=== PATIENT | female | born 1960 | race Caucasian/White ===

== ENCOUNTER 2016-05-18 13:18 | Inpatient (IN) | payer MEDICAID ==
[2016-05-18] MEDS ORDERED: Lactated Ringers 1,000 ML IV ONE (14:02)
[2016-05-18] MEDS ORDERED: Sodium Chloride 0.9% 10 ML Syringe FLUSH PRN ×2 (14:02→17:20)
[2016-05-18] MEDS ORDERED: Ibuprofen 200 MG Tab, 24 Tab Bulk Bottle PO PRN (14:04)
--- NOTE | 2016-05-18 14:07 | EDM.PDOC ---
ED HISTORY OF PRESENT ILLNESS - General Chief Complaint: Respiratory Problem Stated Complaint: SOB, PASSED OUT, FEVER Time Seen by Provider: 05/18/16 13:52 Source: Reports: Patient, Family, RN notes reviewed History Limitations: Reports: No limitations - History of Present Illness INITIAL COMMENTS - FREE TEXT/NARRATIVE: 56-year-old female presents to the emergency department a complaint of shortness of breath, she states the shortness of breath really has gotten worse over the last 24 hours does have a known history of asthma she has had upper respiratory symptoms for the last several days at home mainly with runny nose started having fevers today as well. - Related Data Allergies/ADRs: Allergies Allergy/AdvReac Type Severity Reaction Status Date / Time No Known Allergies Allergy Verified 08/19/15 22:53 Home Meds: Home Meds Aspirin [Halfprin] 81 mg PO DAILY 08/19/15 [History] Cranberry Extract [Cranberry] 200 mg PO DAILY 08/19/15 [History] Insulin Glarg,Human.Rec.Analog [Lantus] 42 units SQ BEDTIME 08/19/15 [History] Insulin Lispro [Humalog] 10 units SQ TID 08/19/15 [History] Lisinopril [Lisinopril] 40 mg PO DAILY 08/19/15 [History] amLODIPine Besylate [Amlodipine Besylate] 5 mg PO DAILY 08/19/15 [History] Furosemide [Lasix] 40 mg PO DAILY 05/18/16 [History] Past Medical History Respiratory History: Reports: 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: Endocrine/Metabolic History: Reports: Diabetes, type II, Obesity/BMI 30+ - Infectious Disease History Infectious Disease History: Reports: Chicken pox, Measles, Mumps - Past Surgical History HEENT Surgical History: Reports: Eye surgery Other Cardiovascular Surgeries/Procedures: cardiomegaly GI Surgical History: Reports: Appendectomy Musculoskeletal Surgical History: Reports: Carpal tunnel Social & Family History - Family History Cardiac: Reports: Heart failure - Tobacco Use Smoking Status *Q: Never Smoker Second Hand Smoke Exposure: No - Caffeine Use Caffeine Use: Reports: Soda - Recreational Drug Use Recreational Drug Use: No ED ROS GENERAL - Review of Systems Review Of Systems: See Below Constitutional: Reports: fever, chills HEENT: Reports: Rhinitis Respiratory: Reports: shortness of breath, cough. Denies: sputum Cardiovascular: Reports: No symptoms GI/Abdominal: Reports: No symptoms : Reports: no symptoms Musculoskeletal: Reports: no symptoms Skin: Reports: no symptoms Neurological: Reports: no symptoms ED EXAM, GENERAL - Physical Exam Exam: See Below Free Text/Narrative:: General: Female, mild respiratory distress initially hypoxic responded to oxygen , alert and oriented x3 HEENT: head is atraumatic normocephalic, eyes pupils equal round reactive to light and accommodation sclera clear no conjunctivitis appreciated. Ears tympanic membranes clear and [place] landmarks and light reflex are present bilaterally canals are clear. Nose no septal deviation, nares are clear, no blood present. Mouth mucosa is moist and pink no erythema or exudate noted in soft palate, tongue is midline uvula is midline, dentition is intact. Neck: Supple no thyromegaly no tracheal deviation. Nodes: Cervical nodes subclavicular nodes nontender no palpable lymphadenopathy noted. Lungs: clear to auscultation bilaterally with symmetrical respirations, no adventitious noise appreciated. CV: Regular rate and rhythm S1 and S2 appreciated no murmurs rubs or gallops noted. Abdomen: Soft, nontender, no palpable masses or organomegaly appreciated, no distention no guarding bowel sounds are present, . Neuro: Cranial nerves II through XII grossly intact Skin: Hot and dry, intact Extremities: No lower extremity edema appreciated, . Course - Vital Signs Last Recorded V/S: Last Vital Signs Temp 100.9 F H 05/18/16 13:33 Pulse 124 H 05/18/16 14:35 Resp 24 H 05/18/16 14:35 BP 177/91 H 05/18/16 14:35 Pulse Ox 92 L 05/18/16 14:35 - Orders/Labs/Meds Orders: Active Orders 24 hr Category Date Time Status EKG Documentation Completion [RC] ASDIRECTED Care 05/18/16 14:05 Active Peripheral IV Care [RC] . DIRECTED Care 05/18/16 14:03 Active Chest 2V [CR] Urgent Exams 05/18/16 14:02 Taken CULTURE BLOOD [BC] Urgent Lab 05/18/16 14:10 Received CULTURE BLOOD [BC] Urgent Lab 05/18/16 14:20 Received Ibuprofen [Motrin] Med 05/18/16 14:35 Active 600 mg PO Q6H PRN Lactated Ringers [Ringers, Lactated] 1,000 ml Med 05/18/16 14:02 Active IV ASDIRECTED Sodium Chloride 0.9% [Saline Flush] Med 05/18/16 14:02 Active 10 ml FLUSH ASDIRECTED PRN Blood Culture x2 Reflex Set [OM.PC] Urgent Oth 05/18/16 14:04 Ordered Peripheral IV Insertion Adult [OM.PC] Urgent Oth 05/18/16 14:02 Ordered EKG 12 Lead [EK] Stat Ther 05/18/16 14:05 Ordered Medication Orders Lactated Ringer's (Ringers, Lactated) 1,000 mls @ 500 mls/hr IV ASDIRECTED ONE Stop: 05/18/16 16:01 Last Admin: 05/18/16 14:31 Dose: 500 mls/hr Ibuprofen (Motrin) 600 mg PO Q6H PRN PRN Reason: Pain Last Admin: 05/18/16 14:41 Dose: 600 mg Sodium Chloride (Saline Flush) 10 ml FLUSH ASDIRECTED PRN PRN Reason: Keep Vein Open Last Admin: 05/18/16 14:32 Dose: 10 ml Labs: Laboratory Tests 05/18/16 05/18/16 05/18/16 Range/Units 14:28 14:28 14:28 WBC 10.1 (4.5-11.0) K/uL RBC 4.75 (3.30-5.50) M/uL Hgb 12.7 (12.0-15.0) g/dL Hct 38.3 (36.0-48.0) % MCV 81 (80-98) fL MCH 27 (27-31) pg MCHC 33 (32-36) % Plt Count 322 (150-400) K/uL Neut % (Auto) 79 H (36-66) % Lymph % (Auto) 8 L (24-44) % [place]oll[place] % (Auto) 11 H (2-6) % Eos % (Auto) 2 (2-4) % Baso % (Auto) 0 (0-1) % PT 10.0 (9.5-12.0) sec INR 0.95 (0.80-1.20) APTT 27.0 (27.0-36.0) sec Sodium 136 L (140-148) mmol/L Potassium 4.4 (3.6-5.2) mmol/L Chloride 102 (100-108) mmol/L Carbon Dioxide 29 (21-32) mmol/L Anion Gap 9.4 (5.0-14.0) mmol/L BUN 24 H (7-18) mg/dL Creatinine 0.9 (0.6-1.0) mg/dL Est Cr Clr Drug Dosing 60.99 mL/min Estimated GFR (MDRD) > 60 (>60) Glucose 114 H (74-106) mg/dL Lactic Acid (0.4-2.0) mmol/L Calcium 8.2 L (8.5-10.1) mg/dL Total Bilirubin 0.3 (0.2-1.0) mg/dL AST 17 (15-37) U/L ALT 24 (12-78) U/L Alkaline Phosphatase 61 (46-116) U/L Troponin I < 0.017 (0.000-0.056) ng/mL Total Protein 7.2 (6.4-8.2) g/dL Albumin 2.9 L (3.4-5.0) g/dL Globulin 4.3 H (2.3-3.5) g/dL Albumin/Globulin Ratio 0.7 L (1.2-2.2) Urine Color Urine Appearance Urine pH (4.5-8.0) Ur Specific [place] (1.008-1.030) Urine Protein (NEGATIVE) mg/dL Urine Glucose (UA) (NEGATIVE) mg/dL Urine Ketones (NEGATIVE) mg/dL Urine Occult Blood (NEGATIVE) Urine Nitrite (NEGATIVE) Urine Bilirubin (NEGATIVE) Urine Urobilinogen (NORMAL) mg/dL Ur Leukocyte Esterase (NEGATIVE) Urine RBC (0-5) Urine WBC (0-5) Ur Epithelial Cells Amorphous Sediment Urine Bacteria Urine Mucus 05/18/16 05/18/16 Range/Units 14:28 14:31 WBC (4.5-11.0) K/uL RBC (3.30-5.50) M/uL Hgb (12.0-15.0) g/dL Hct (36.0-48.0) % MCV (80-98) fL MCH (27-31) pg MCHC (32-36) % Plt Count (150-400) K/uL Neut % (Auto) (36-66) % Lymph % (Auto) (24-44) % [place] % (Auto) (2-6) % Eos % (Auto) (2-4) % Baso % (Auto) (0-1) % PT (9.5-12.0) sec INR (0.80-1.20) APTT (27.0-36.0) sec Sodium (140-148) mmol/L Potassium (3.6-5.2) mmol/L Chloride (100-108) mmol/L Carbon Dioxide (21-32) mmol/L Anion Gap (5.0-14.0) mmol/L BUN (7-18) mg/dL Creatinine (0.6-1.0) mg/dL Est Cr Clr Drug Dosing mL/min Estimated GFR (MDRD) (>60) Glucose (74-106) mg/dL Lactic Acid 1.0 (0.4-2.0) mmol/L Calcium (8.5-10.1) mg/dL Total Bilirubin (0.2-1.0) mg/dL AST (15-37) U/L ALT (12-78) U/L Alkaline Phosphatase (46-116) U/L Troponin I (0.000-0.056) ng/mL Total Protein (6.4-8.2) g/dL Albumin (3.4-5.0) g/dL Globulin (2.3-3.5) g/dL Albumin/Globulin Ratio (1.2-2.2) Urine Color Yellow Urine Appearance Slightly cloudy Urine pH 7.0 (4.5-8.0) Ur Specific [place] 1.010 (1.008-1.030) Urine Protein 500 H (NEGATIVE) mg/dL Urine Glucose (UA) Normal (NEGATIVE) mg/dL Urine Ketones Negative (NEGATIVE) mg/dL Urine Occult Blood Moderate (NEGATIVE) Urine Nitrite Negative (NEGATIVE) Urine Bilirubin Negative (NEGATIVE) Urine Urobilinogen Normal (NORMAL) mg/dL Ur Leukocyte Esterase Negative (NEGATIVE) Urine RBC 20-30 H (0-5) Urine WBC 0-5 (0-5) Ur Epithelial Cells Few Amorphous Sediment Not seen Urine Bacteria Not seen Urine Mucus Not seen Meds: Medications Generic Name Dose Route Start Last Admin Trade Name Freq PRN Reason Stop Dose Admin Lactated Ringer's 1,000 mls @ 500 mls/hr 05/18/16 14:02 05/18/16 14:31 Ringers, Lactated IV 05/18/16 16:01 500 mls/hr ASDIRECTED ONE Administration Ibuprofen 600 mg 05/18/16 14:35 05/18/16 14:41 Motrin PO 600 mg Q6H PRN Administration Pain Sodium Chloride 10 ml 05/18/16 14:02 05/18/16 14:32 Saline Flush FLUSH 10 ml ASDIRECTED PRN Administration Keep Vein Open Discontinued Medications Generic Name Dose Route Start Last Admin Trade Name Gwendolyn PRN Reason Stop Dose Admin Ibuprofen 600 mg 05/18/16 14:04 Motrin Bulk Bottle PO Q6H PRN Pain Departure - Departure Time of Disposition: 15:49 Disposition: Admitted As Inpatient 67 Condition: good Clinical Impression: Influenza Pneumonia Qualifiers: Pneumonia type: due to influenza A virus Laterality: right Lung location: lower lobe of lung Qualified Code(s): J11.00 - Influenza due to unidentified influenza virus with unspecified type of pneumonia Forms: ED Department Discharge - My Orders Last 24 Hours: My Active Orders 05/18/16 14:02 Chest 2V [CR] Urgent Lactated Ringers [Ringers, Lactated] 1,000 ml IV ASDIRECTED Sodium Chloride 0.9% [Saline Flush] 10 ml FLUSH ASDIRECTED PRN Peripheral IV Insertion Adult [OM.PC] Urgent 05/18/16 14:03 Peripheral IV Care [RC] . DIRECTED 05/18/16 14:04 Blood Culture x2 Reflex Set [OM.PC] Urgent 05/18/16 14:05 EKG Documentation Completion [RC] ASDIRECTED EKG 12 Lead [EK] Stat 05/18/16 14:10 CULTURE BLOOD [BC] Urgent 05/18/16 14:20 CULTURE BLOOD [BC] Urgent 05/18/16 14:35 Ibuprofen [Motrin] 600 mg PO Q6H PRN - Assessment/Plan Last 24 Hours: My Active Orders 05/18/16 14:02 Chest 2V [CR] Urgent Lactated Ringers [Ringers, Lactated] 1,000 ml IV ASDIRECTED Sodium Chloride 0.9% [Saline Flush] 10 ml FLUSH ASDIRECTED PRN Peripheral IV Insertion Adult [OM.PC] Urgent 05/18/16 14:03 Peripheral IV Care [RC] . DIRECTED 05/18/16 14:04 Blood Culture x2 Reflex Set [OM.PC] Urgent 05/18/16 14:05 EKG Documentation Completion [RC] ASDIRECTED EKG 12 Lead [EK] Stat 05/18/16 14:10 CULTURE BLOOD [BC] Urgent 05/18/16 14:20 CULTURE BLOOD [BC] Urgent 05/18/16 14:35 Ibuprofen [Motrin] 600 mg PO Q6H PRN Plan: Assessment Acuity = acute Site and laterality = influenza A. with community-acquired pneumonia Etiology = influenza A. Manifestations = hypoxic Location of injury = home Lab values = CBC within normal limits, INR in the normal limits sodium of 136 hyponatremia troponin was negative albumin low at 2.9 consistent hypoalbuminemia urinalysis demonstrates 500 protein consist of proteinuria and 20-30 RBCs this with hematuria positive for influenza A. chest x-ray does show an infiltrate on the right side in EKG demonstrates sinus rhythm no ST changes or depressions no T-wave inversions Plan Discussed the case with hospitalist wind operations manager he agreed to evaluate the patient in the ED for admission Patient was in agreement with the plan all questions were answered, they were instructed to return to the emergency department or call for worsening symptoms. This note was dictated using [employer] voice recognition software please call with any questions.
[2016-05-18] MEDS ORDERED: Ibuprofen 600 MG Tab PO PRN (14:35)
--- NOTE | 2016-05-18 16:37 | PCM.HP ---
H&P History of Present Illness - General Date of Service: 05/18/16 Admit Problem/Dx: Admission Diagnosis/Problem Admission Diagnosis/Problem Pneumonia Source of Information: Patient, Family, Provider, RN notes reviewed History Limitations: Reports: No limitations - History of Present Illness Initial Comments - Free Text/Narative: This patient is a 56-year-old woman who was admitted through the emergency department with sepsis and hypoxic respiratory failure secondary to right lung pneumonia and influenza a. She began to note some shortness of breath last night and that worsened throughout the jigman hours this morning noted marked shortness of breath associated with fever and a nonproductive cough. 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 On evaluation in the emergency department she is found to be hypoxic and currently requiring 4 L of oxygen via nasal cannula to maintain adequate saturations. She is tachycardic with adequate blood pressure , normal white blood cell count, and normal lactic acid level. Influenza A antigen is found to be positive and chest x-ray shows a right lung infiltrate. - Related Data Allergies/Adverse Reactions: Allergies Allergy/AdvReac Type Severity Reaction Status Date / Time No Known Allergies Allergy Verified 08/19/15 22:53 Home Medications: Home Meds Aspirin [Halfprin] 81 mg PO DAILY 08/19/15 [History] Cranberry Extract [Cranberry] 200 mg PO DAILY 08/19/15 [History] Insulin Glarg,Human.Rec.Analog [Lantus] 42 units SQ BEDTIME 08/19/15 [History] Insulin Lispro [Humalog] 10 units SQ TID 08/19/15 [History] Lisinopril [Lisinopril] 40 mg PO DAILY 08/19/15 [History] amLODIPine Besylate [Amlodipine Besylate] 5 mg PO DAILY 08/19/15 [History] Furosemide [Lasix] 40 mg PO DAILY 05/18/16 [History] Past Medical History - Past Health History Medical/Surgical History: Denies Medical/Surgical History 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: Endocrine/Metabolic History: Reports: Diabetes, type II, Obesity/BMI 30+ - Infectious Disease History Infectious Disease History: Reports: Chicken pox, Measles, Mumps - Past Surgical History HEENT Surgical History: Reports: Eye surgery Other Cardiovascular Surgeries/Procedures: cardiomegaly GI Surgical History: Reports: Appendectomy Musculoskeletal Surgical History: Reports: Carpal tunnel Social & Family History - Family History Cardiac: Reports: Heart failure - Tobacco Use Smoking Status *Q: Never Smoker Second Hand Smoke Exposure: No - Caffeine Use Caffeine Use: Reports: Soda - Recreational Drug Use Recreational Drug Use: No H&P Review of Systems - Review of Systems: Review Of Systems: See Below General: Reports: fever, chills, weakness HEENT: Reports: no symptoms Pulmonary: Reports: shortness of breath, cough. Denies: wheezing, pleuritic chest pain, sputum, hemoptysis Cardiovascular: Reports: dyspnea on exertion, edema. Denies: chest pain, palpitations, orthopnea, PND, lightheadedness, syncope Gastrointestinal: Reports: No symptoms Genitourinary: Reports: no symptoms Musculoskeletal: Reports: no symptoms Skin: Reports: no symptoms Psychiatric: Reports: no symptoms Neurological: Reports: no symptoms Hematologic/Lymphatic: Reports: no symptoms Immunologic: Reports: no symptoms Exam - Exam Exam: See Below - Vital Signs Vital Signs: Last Vital Signs Temp 100.9 F H 05/18/16 13:33 Pulse 124 H 05/18/16 14:35 Resp 24 H 05/18/16 14:35 BP 177/91 H 05/18/16 14:35 Pulse Ox 92 L 05/18/16 14:35 Weight: 261 lb 14.546 oz - Exam Quality Assessment: supplemental oxygen, DVT prophylaxis General: alert, oriented, cooperative, mild distress HEENT: Conjunctiva clear, Hearing intact, Mucosa moist & pink, Nares patent, Normal nasal septum, Posterior pharynx clear, Pupils equal, Pupils reactive Neck: supple, trachea midline, +2 carotid pulse wo bruit Lungs: Decreased breath sounds. No: Crackles, Rales, Rhonchi, Rub, Stridor, Wheezing Cardiovascular: regular rhythm, normal S1, normal S2, tachycardia. No: irregular rhythm, bradycardia, systolic murmur, diastolic murmur Abdomen: normal bowel sounds, soft Back Exam: normal inspection, full range of motion, NT Extremities: edema Skin: warm, dry, intact Neurological: cranial nerves intact, strength equal bilateral, normal speech, normal tone, sensation intact. No: focal deficit Neuro Extensive - Mental Status: alert, oriented x3, normal mood/affect, normal cognition, memory intact - Patient Data Lab Results last 24 hrs: Laboratory Results - last 24 hr 05/18/16 05/18/16 05/18/16 Range/Units 14:28 14:28 14:28 WBC 10.1 (4.5-11.0) K/uL RBC 4.75 (3.30-5.50) M/uL Hgb 12.7 (12.0-15.0) g/dL Hct 38.3 (36.0-48.0) % MCV 81 (80-98) fL MCH 27 (27-31) pg MCHC 33 (32-36) % Plt Count 322 (150-400) K/uL Neut % (Auto) 79 H (36-66) % Lymph % (Auto) 8 L (24-44) % [place] % (Auto) 11 H (2-6) % Eos % (Auto) 2 (2-4) % Baso % (Auto) 0 (0-1) % PT 10.0 (9.5-12.0) sec INR 0.95 (0.80-1.20) APTT 27.0 (27.0-36.0) sec Sodium 136 L (140-148) mmol/L Potassium 4.4 (3.6-5.2) mmol/L Chloride 102 (100-108) mmol/L Carbon Dioxide 29 (21-32) mmol/L Anion Gap 9.4 (5.0-14.0) mmol/L BUN 24 H (7-18) mg/dL Creatinine 0.9 (0.6-1.0) mg/dL Est Cr Clr Drug Dosing 60.99 mL/min Estimated GFR (MDRD) > 60 (>60) Glucose 114 H (74-106) mg/dL Lactic Acid (0.4-2.0) mmol/L Calcium 8.2 L (8.5-10.1) mg/dL Total Bilirubin 0.3 (0.2-1.0) mg/dL AST 17 (15-37) U/L ALT 24 (12-78) U/L Alkaline Phosphatase 61 (46-116) U/L Troponin I < 0.017 (0.000-0.056) ng/mL Total Protein 7.2 (6.4-8.2) g/dL Albumin 2.9 L (3.4-5.0) g/dL Globulin 4.3 H (2.3-3.5) g/dL Albumin/Globulin Ratio 0.7 L (1.2-2.2) Urine Color Urine Appearance Urine pH (4.5-8.0) Ur Specific [place] (1.008-1.030) Urine Protein (NEGATIVE) mg/dL Urine Glucose (UA) (NEGATIVE) mg/dL Urine Ketones (NEGATIVE) mg/dL Urine Occult Blood (NEGATIVE) Urine Nitrite (NEGATIVE) Urine Bilirubin (NEGATIVE) Urine Urobilinogen (NORMAL) mg/dL Ur Leukocyte Esterase (NEGATIVE) Urine RBC (0-5) Urine WBC (0-5) Ur Epithelial Cells Amorphous Sediment Urine Bacteria Urine Mucus 05/18/16 05/18/16 Range/Units 14:28 14:31 WBC (4.5-11.0) K/uL RBC (3.30-5.50) M/uL Hgb (12.0-15.0) g/dL Hct (36.0-48.0) % MCV (80-98) fL MCH (27-31) pg MCHC (32-36) % Plt Count (150-400) K/uL Neut % (Auto) (36-66) % Lymph % (Auto) (24-44) % [place] % (Auto) (2-6) % Eos % (Auto) (2-4) % Baso % (Auto) (0-1) % PT (9.5-12.0) sec INR (0.80-1.20) APTT (27.0-36.0) sec Sodium (140-148) mmol/L Potassium (3.6-5.2) mmol/L Chloride (100-108) mmol/L Carbon Dioxide (21-32) mmol/L Anion Gap (5.0-14.0) mmol/L BUN (7-18) mg/dL Creatinine (0.6-1.0) mg/dL Est Cr Clr Drug Dosing mL/min Estimated GFR (MDRD) (>60) Glucose (74-106) mg/dL Lactic Acid 1.0 (0.4-2.0) mmol/L Calcium (8.5-10.1) mg/dL Total Bilirubin (0.2-1.0) mg/dL AST (15-37) U/L ALT (12-78) U/L Alkaline Phosphatase (46-116) U/L Troponin I (0.000-0.056) ng/mL Total Protein (6.4-8.2) g/dL Albumin (3.4-5.0) g/dL Globulin (2.3-3.5) g/dL Albumin/Globulin Ratio (1.2-2.2) Urine Color Yellow Urine Appearance Slightly cloudy Urine pH 7.0 (4.5-8.0) Ur Specific [place] 1.010 (1.008-1.030) Urine Protein 500 H (NEGATIVE) mg/dL Urine Glucose (UA) Normal (NEGATIVE) mg/dL Urine Ketones Negative (NEGATIVE) mg/dL Urine Occult Blood Moderate (NEGATIVE) Urine Nitrite Negative (NEGATIVE) Urine Bilirubin Negative (NEGATIVE) Urine Urobilinogen Normal (NORMAL) mg/dL Ur Leukocyte Esterase Negative (NEGATIVE) Urine RBC 20-30 H (0-5) Urine WBC 0-5 (0-5) Ur Epithelial Cells Few Amorphous Sediment Not seen Urine Bacteria Not seen Urine Mucus Not seen Result Diagrams: 05/18/16 14:28 05/18/16 14:28 Tim Results last 24 hrs: Microbiology 05/18/16 14:19 Influenza Type A Antigen Screen - Final Nasopharyngeal Swab - Nare, Right Positive Influenza A Ag Influenza Type B Antigen Screen - Final NEGATIVE INFLUENZA B VIRUS AG *Q Meaningful Use (ADM) - VTE *Q VTE Criteria *Q: - VTE Risk Assess *Q Each Risk Factor Represents 1 Point: Age 41 - 59 years, Sepsis, Less than 1 Month Total Score 1 Point Risk Factors: 2 Each Risk Factor Represents 2 Points: Morbid Obesity (BMI Greater than 40) Total Score 2 Point Risk Factors: 2 Each Risk Factor Represents 3 Points: None Total Score 3 Point Risk Factors: 0 Each Risk Factor Represents 5 Points: None Total Score 5 Point Risk Factors: 0 Venous Thromboembolism Risk Factor Score *Q: 4 - Stroke *Q Stroke Criteria *Q: - AMI *Q AMI Criteria *Q: Problem List Initiated/Reviewed/Updated: Yes Orders Last 24hrs: Active Orders 24 hr Category Date Time Status Patient Status Manage Transfer [TRANSFER] Routine ADT 05/18/16 16:13 Ordered EKG Documentation Completion [RC] ASDIRECTED Care 05/18/16 14:05 Active Peripheral IV Care [RC] . DIRECTED Care 05/18/16 14:03 Active Chest 2V [CR] Urgent Exams 05/18/16 14:02 Taken CULTURE BLOOD [BC] Urgent Lab 05/18/16 14:10 Received CULTURE BLOOD [BC] Urgent Lab 05/18/16 14:20 Received Ibuprofen [Motrin] Med 05/18/16 14:35 Active 600 mg PO Q6H PRN Sodium Chloride 0.9% [Saline Flush] Med 05/18/16 14:02 Active 10 ml FLUSH ASDIRECTED PRN Blood Culture x2 Reflex Set [OM.PC] Urgent Oth 05/18/16 14:04 Ordered Peripheral IV Insertion Adult [OM.PC] Urgent Oth 05/18/16 14:02 Ordered Resuscitation Status Routine Resus Stat 05/18/16 16:16 Ordered EKG 12 Lead [EK] Stat Ther 05/18/16 14:05 Ordered Medication Orders Ibuprofen (Motrin) 600 mg PO Q6H PRN PRN Reason: Pain Last Admin: 05/18/16 14:41 Dose: 600 mg Sodium Chloride (Saline Flush) 10 ml FLUSH ASDIRECTED PRN PRN Reason: Keep Vein Open Last Admin: 05/18/16 14:32 Dose: 10 ml Assessment/Plan Comment:: ASSESSMENT AND PLAN RIGHT LUNG PNEUMONIA WITH SEPSIS-significant hypoxia associated with tachycardia , white blood cell count is normal as is the lactic acid level. Possible that the infiltrate is secondary to influenza a but given her marked respiratory compromise we'll plan to start with aggressive antibiotic therapy. -IV fluids for hydration and management of sepsis -Blood and sputum cultures pending -IV Zosyn and levofloxacin, pending culture results INFLUENZA A -Tamiflu 75 mg by mouth twice a day ACUTE HYPOXIC RESPIRATORY FAILURE-likely secondary to pneumonia and influenza A. She does have a history of reactive airway disease, no significant wheezing noted by history or physical exam. -Arterial blood gases to better assess current level of respiratory compromise -Supplemental oxygen as needed -Nebulized albuterol and duo nebs TYPE 2 DIABETES MELLITUS -4 times a day glucometers -Continue usual doses of long and short acting insulin -Low-dose sliding scale NovoLog MAINTENANCE ISSUES -DVT prophylaxis; Lovenox 40 mg subcutaneous daily -GI prophylaxis; not indicated -Ayon catheter; not indicated -Nutrition; consistent carb diet -Nicotine dependence; not required CODE STATUS-FULL CODE ADMISSION STATUS-patient will be admitted to inpatient status, expect at least a 2 night hospital stay for evaluation and management of problems as outlined above. At the time of this admission I do not reasonably expected evaluation and management of this problem will require more than a 96 hour hospital stay. DISPOSITION-anticipate discharge to home after the hospital stay. PRIMARY CARE PROVIDER-Dr. Sanders
[2016-05-18] MEDS ORDERED: Ondansetron 4 MG/2 ML SDV IV PRN (17:20)
[2016-05-18] MEDS ORDERED: Magnesium Hydroxide 400 MG/5 ML Susp 30 ML Cup PO PRN (17:20)
[2016-05-18] MEDS ORDERED: Glucose Gel 15 GM in 37.5 GM Tube PO PRN (17:20)
[2016-05-18] MEDS ORDERED: Polyethylene Glycol 3350 Powder 17 GM Packet PO PRN (17:20)
[2016-05-18] MEDS ORDERED: Lactated Ringers 500 ML IV SCH (17:20)
[2016-05-18] MEDS ORDERED: oxyCODONE 5 MG Tab PO PRN (17:20)
[2016-05-18] MEDS ORDERED: 50% Dextrose in Water 50 ML Syringe IV PRN (17:20)
[2016-05-18] MEDS ORDERED: Docusate Sodium 100 MG Cap PO PRN (17:20)
[2016-05-18] MEDS ORDERED: Albuterol 0.083% 2.5 MG/3 ML Neb Soln NEB PRN (17:20)
[2016-05-18] MEDS ORDERED: Levofloxacin/Dextrose 5%-Water 100 ML IV ONE (17:31)
[2016-05-18] MEDS ORDERED: Sodium Chloride 0.9% 100 ML ONE (17:34)
[2016-05-18] MEDS: Oseltamivir 75 MG Cap PO SCH ×2 (17:45→21:35)
[2016-05-18] MEDS: Albuterol/Ipratropium 3.0-0.5 MG/3 ML Neb Soln ONE ×2 (17:46→17:59)
[2016-05-18] MEDS: Albuterol/Ipratropium 3.0-0.5 MG/3 ML Neb Soln NEB SCH ×2 (17:52→21:42)
[2016-05-18] MEDS ORDERED: Piperacillin/Tazobactam 3.375 GM in Sodium Chloride 0.9% 50 ML IV SCH (18:00)
[2016-05-18] MEDS ORDERED: Insulin Aspart 100 Units/ML 3 ML Pen ONE (18:13)
[2016-05-18] MEDS: Piperacillin/Tazobactam 3.375 GM in Sodium Chloride 0.9% 50 ML IV SCH (20:07)
[2016-05-18] MEDS ORDERED: Insulin Detemir 100 Units/ML 3 ML Pen SUBCUT SCH (21:00)
[2016-05-18] MEDS ORDERED: Insulin Lispro 100 Units/ML 3 ML Vial SUBCUT SCH (21:00)
[2016-05-18] MEDS: Lactated Ringers 1,000 ML IV SCH (21:57)
[2016-05-19] MEDS: Piperacillin/Tazobactam 3.375 GM in Sodium Chloride 0.9% 50 ML IV SCH (03:09)
[2016-05-19] MEDS: Acetaminophen 325 MG Tab PO PRN ×2 (03:16→20:03)
[2016-05-19] MEDS: Lactated Ringers 1,000 ML IV SCH (07:00)
[2016-05-19] MEDS: Albuterol/Ipratropium 3.0-0.5 MG/3 ML Neb Soln NEB SCH ×4 (07:11→20:03)
[2016-05-19] MEDS: Piperacillin/Tazobactam/Dext 3.375 GM in Premix Bag 1 BAG IV SCH ×3 (08:36→20:03)
[2016-05-19] MEDS: Insulin Aspart 100 Units/ML 3 ML Pen SUBCUT SCH ×6 (08:42→16:29)
[2016-05-19] MEDS ORDERED: Magnesium Sulfate/Water 2 GM in Premix Bag 1 BAG IV ONE (09:30)
[2016-05-19] MEDS: Enoxaparin 40 MG/0.4 ML Syringe SUBCUT SCH (09:54)
[2016-05-19] MEDS: Lisinopril 20 MG Tab PO SCH (09:55)
[2016-05-19] MEDS: amLODIPine 5 MG Tab PO SCH (09:55)
[2016-05-19] MEDS: Aspirin 81 MG Tab.EC PO SCH (09:56)
[2016-05-19] MEDS: Oseltamivir 75 MG Cap PO SCH ×2 (09:56→20:03)
--- NOTE | 2016-05-19 10:26 | PCM.PN ---
- General Info Date of Service: 05/19/16 Functional Status: Reports: tolerating diet, ambulating, urinating - Review of Systems General: Reports: weakness. Denies: fever, chills Pulmonary: Reports: shortness of breath, cough. Denies: pleuritic chest pain, sputum, hemoptysis, wheezing Cardiovascular: Reports: dyspnea on exertion. Denies: chest pain, palpitations , orthopnea, PND Gastrointestinal: Reports: No symptoms Systems Review Comment:: This patient has improved since admission, sepsis with tachycardia has resolved and oxygenation has improved significantly. Vital signs have been stable and she has remained afebrile. Appetite seems to be improving, she has not yet been up and active. - Patient Data Vitals - most recent: Last Vital Signs Temp 97.8 F 05/19/16 08:00 Pulse 96 05/19/16 09:51 Resp 18 05/19/16 09:51 BP 172/70 H 05/19/16 09:55 Pulse Ox 94 L 05/19/16 09:51 Weight - most recent: 272 lb 14.916 oz I&O - last 24 hours: Intake & Output 05/18/16 05/19/16 05/19/16 21:59 06:59 14:59 Intake Total Output Total 200 Balance -200 Lab Results last 24 hrs: Laboratory Results - last 24 hr 05/18/16 05/19/16 05/19/16 Range/Units 17:30 05:53 05:53 WBC 9.5 (4.5-11.0) K/uL RBC 4.07 (3.30-5.50) M/uL Hgb 10.7 L D (12.0-15.0) g/dL Hct 33.3 L (36.0-48.0) % MCV 82 (80-98) fL MCH 26 L (27-31) pg MCHC 32 (32-36) % Plt Count 269 (150-400) K/uL Neut % (Auto) 79 H (36-66) % Lymph % (Auto) 7 L (24-44) % [place] % (Auto) 13 H (2-6) % Eos % (Auto) 1 L (2-4) % Baso % (Auto) 0 (0-1) % Puncture Site Lt radial ABG pH 7.472 H (7.350-7.450) ABG pCO2 31.6 L (35.0-42.0) mmHg ABG pO2 65.7 L (75.0-100.0) mmHg ABG HCO3 22.8 (22.0-26.0) mmol/L ABG Total CO2 20.6 L (21.0-25.0) mmol/L ABG O2 Saturation 93.4 L (95.0-98.0) % ABG O2 Content 14.6 L (15.0-23.0) %vol ABG Base Excess 0.2 mm/L ABG Hemoglobin 11.3 L (12.0-16.0) g/dL ABG Oxyhemoglobin 91.9 % ABG Carboxyhemoglobin 1.0 (0.0-1.6) % ABG Methemoglobin 0.6 % Carmelo Test Pass O2 Delivery Device Nasal cannula Oxygen Flow Rate 4 L Sodium 133 L (140-148) mmol/L Potassium 4.3 (3.6-5.2) mmol/L Chloride 102 (100-108) mmol/L Carbon Dioxide 24 (21-32) mmol/L Anion Gap 11.3 (5.0-14.0) mmol/L BUN 23 H (7-18) mg/dL Creatinine 1.1 H (0.6-1.0) mg/dL Est Cr Clr Drug Dosing 49.90 mL/min Estimated GFR (MDRD) 52 L (>60) Glucose 265 H (74-106) mg/dL Calcium 7.5 L (8.5-10.1) mg/dL Magnesium 1.7 L (1.8-2.4) mg/dL Med Orders - Current: Current Medications Acetaminophen (Tylenol) 650 mg PO Q4H PRN PRN Reason: Pain (Mild 1-3)/fever Last Admin: 05/19/16 03:16 Dose: 650 mg Albuterol (Proventil Neb Soln) 2.5 mg NEB Q4H PRN PRN Reason: Shortness Of Breath/wheezing Last Admin: 05/19/16 03:16 Dose: 2.5 mg Albuterol/Ipratropium (Duoneb 3.0-0.5 Mg/3 Ml) 3 ml NEB QIDRT [facility] Last Admin: 05/19/16 07:11 Dose: 3 ml Amlodipine Besylate (Norvasc) 5 mg PO DAILY [facility] Last Admin: 05/19/16 09:55 Dose: 5 mg Aspirin (Halfprin) 81 mg PO DAILY [facility] Last Admin: 05/19/16 09:56 Dose: 81 mg Dextrose (Glutose 15) 15 gm PO ONETIME PRN PRN Reason: Hypoglycemia Dextrose/Water (Dextrose 50% In Water) 50 ml IV ONETIME PRN PRN Reason: Hypoglycemia Docusate Sodium (Colace) 100 mg PO BID PRN PRN Reason: Constipation Enoxaparin Sodium (Lovenox) 40 mg SUBCUT DAILY [facility] Last Admin: 05/19/16 09:54 Dose: 40 mg Piperacillin/Tazobactam/ (Dextrose 3.375 gm/ Premix) 50 mls @ 100 mls/hr IV Q6H [facility] Last Admin: 05/19/16 08:36 Dose: 100 mls/hr Magnesium Sulfate 2 gm/ Premix 50 mls @ 25 mls/hr IV ONETIME ONE Stop: 05/19/16 11:29 Last Admin: 05/19/16 10:06 Dose: 25 mls/hr Levofloxacin/Dextrose 500 mg/ (Premix) 100 mls @ 100 mls/hr IV Q24H [facility] Ibuprofen (Motrin) 400 mg PO Q6H PRN PRN Reason: Pain (mild 1-3) Insulin Aspart (Novolog) 0 unit SUBCUT ASDIRECTED [facility] PRN Reason: Protocol Last Admin: 05/19/16 08:44 Dose: 2 units Insulin Aspart (Novolog) 13 unit SUBCUT TIDAC [facility] Last Admin: 05/19/16 08:42 Dose: 13 units Insulin Detemir (Levemir) 42 unit SUBCUT BEDTIME [facility] Lisinopril (Prinivil) 40 mg PO DAILY [facility] Last Admin: 05/19/16 09:55 Dose: 40 mg Magnesium Hydroxide (Milk Of Magnesia) 30 ml PO Q12H PRN PRN Reason: Constipation Ondansetron HCl (Zofran) 4 mg IV Q4H PRN PRN Reason: Nausea/Vomiting Oseltamivir Phosphate (Tamiflu) 75 mg PO BID [facility] Stop: 05/23/16 17:21 Last Admin: 05/19/16 09:56 Dose: 75 mg Oxycodone HCl (Oxycodone) 5 mg PO Q4H PRN PRN Reason: Pain (moderate 4-6) Polyethylene Glycol (Miralax) 17 gm PO DAILY PRN PRN Reason: Constipation Sodium Chloride (Saline Flush) 10 ml FLUSH ASDIRECTED PRN PRN Reason: Keep Vein Open Discontinued Medications Albuterol/Ipratropium (Duoneb 3.0-0.5 Mg/3 Ml) 3 ml NEB QID [facility] Last Admin: 05/18/16 21:42 Dose: 3 ml Albuterol/Ipratropium (Duoneb 3.0-0.5 Mg/3 Ml) Confirm Administered Dose 3 ml .ROUTE .STK-MED ONE Stop: 05/18/16 17:31 Last Admin: 05/18/16 17:59 Dose: Not Given Lactated Ringer's (Ringers, Lactated) 1,000 mls @ 500 mls/hr IV ASDIRECTED ONE Stop: 05/18/16 16:01 Last Admin: 05/18/16 14:31 Dose: 500 mls/hr Lactated Ringer's (Ringers, Lactated) 500 mls @ 250 mls/hr IV .BOLUS [facility] Stop: 05/18/16 23:21 Last Admin: 05/18/16 17:55 Dose: 250 mls/hr Lactated Ringer's (Ringers, Lactated) 1,000 mls @ 125 mls/hr IV ASDIRECTED [facility] Last Admin: 05/19/16 07:00 Dose: 125 mls/hr Levofloxacin/Dextrose (Levaquin In D5w 500 Mg/100 Ml) Confirm Administered Dose 100 mls @ as directed IV .STK-MED ONE Stop: 05/18/16 17:32 Last Admin: 05/18/16 17:35 Dose: 500 mg Sodium Chloride (Normal Saline) Confirm Administered Dose 100 mls @ as directed .ROUTE .STK-MED ONE Stop: 05/18/16 17:35 Last Admin: 05/18/16 20:04 Dose: Not Given Piperacillin Sod/Tazobactam (Sod 3.375 gm/ Sodium Chloride) 50 mls @ 100 mls/ hr IV Q6H [facility] Last Admin: 05/19/16 03:09 Dose: 100 mls/hr Ibuprofen (Motrin) 600 mg PO Q6H PRN PRN Reason: Pain Last Admin: 05/18/16 14:41 Dose: 600 mg Insulin Aspart (Novolog) 13 unit SUBCUT TIDAC [facility] Last Admin: 05/18/16 18:21 Dose: 13 units Insulin Aspart (Novolog) Confirm Administered Dose 300 unit .ROUTE .STK-MED ONE Stop: 05/18/16 18:14 Last Admin: 05/18/16 18:21 Dose: 13 units Insulin Detemir (Levemir) 42 unit SUBCUT BEDTIME [facility] Last Admin: 05/18/16 21:29 Dose: 42 units Sodium Chloride (Saline Flush) 10 ml FLUSH ASDIRECTED PRN PRN Reason: Keep Vein Open Last Admin: 05/18/16 14:32 Dose: 10 ml - Exam Quality Assessment: supplemental oxygen, DVT prophylaxis General: alert, oriented, cooperative, no acute distress Lungs: Clear to auscultation, Normal respiratory effort Cardiovascular: regular rate, regular rhythm, no murmurs Abdomen: bowel sounds present, soft, no tenderness, no distension Extremities: no edema Skin: warm, dry, intact - Problem List Review Problem List Initiated/Reviewed/Updated: Yes - My Orders Last 24 Hours: My Active Orders 05/18/16 16:16 Resuscitation Status Routine 05/18/16 17:20 Patient Status [ADT] Routine Blood Glucose Check, Bedside [RC] QIDACANDBED Communication Order [RC] ASDIRECTED Height and Weight [RC] DAILY Intake and Output [RC] QSHIFT Notify Provider Vital Signs [RC] ASDIRECTED Notify Provider [RC] PRN Oxygen Therapy [RC] PRN Peripheral IV Care [RC] . DIRECTED RT Aerosol Therapy [RC] ASDIRECTED Up With Assistance [RC] ASDIRECTED CULTURE RESPIRATORY + SMEAR [] Stat Acetaminophen [Tylenol] 650 mg PO Q4H PRN Albuterol [Proventil Neb Soln] 2.5 mg NEB Q4H PRN Dextrose 50% in Water 50 ml IV ONETIME PRN Dextrose [Glutose 15] 15 gm PO ONETIME PRN Docusate Sodium [Colace] 100 mg PO BID PRN Ibuprofen [Motrin] 400 mg PO Q6H PRN Insulin Aspart [NovoLOG] See Protocol SUBCUT ASDIRECTED Magnesium Hydroxide [Milk of Magnesia] 30 ml PO Q12H PRN Ondansetron [Zofran] 4 mg IV Q4H PRN Oseltamivir [Tamiflu] 75 mg PO BID Polyethylene Glycol 3350 [MiraLAX] 17 gm PO DAILY PRN Sodium Chloride 0.9% [Saline Flush] 10 ml FLUSH ASDIRECTED PRN oxyCODONE 5 mg PO Q4H PRN Peripheral IV Insertion Adult [OM.PC] Routine 05/18/16 Dinner Consistent Carbohydrate Diet [DIET] 05/19/16 07:00 Albuterol/Ipratropium [DuoNeb 3.0-0.5 MG/3 ML] 3 ml NEB QIDRT 05/19/16 07:45 Insulin Aspart [NovoLOG] 13 unit SUBCUT TIDAC 05/19/16 08:00 Piperacillin/Tazobactam/Dext [Zosyn in Dextrose Iso-Osmotic 3.375 GM] 3.375 gm Premix Bag 1 bag IV Q6H 05/19/16 09:00 Enoxaparin [Lovenox] 40 mg SUBCUT DAILY 05/19/16 09:30 Magnesium Sulfate/Water [Magnesium Sulfate 2 GM in Water 50 ML] 2 gm Premix Bag 1 bag IV ONETIME 05/19/16 10:21 Vital Signs [RC] Q4H Convert IV to Saline Lock [OM.PC] Routine 05/19/16 16:00 Levofloxacin/Dextrose 5%-Water [Levaquin in D5W 500 MG/100 ML] 500 mg Premix Bag 1 bag IV Q24H 05/19/16 21:00 Insulin Detemir [Levemir] 42 unit SUBCUT BEDTIME 05/20/16 05:00 BASIC METABOLIC PANEL,BMP [CHEM] Timed CBC WITH AUTO DIFF [HEME] Timed MAGNESIUM [CHEM] Timed 05/20/16 07:30 GLUCOSE POC LAB TO COLLECT [POC] QIDACANDBED 05/20/16 11:30 GLUCOSE POC LAB TO COLLECT [POC] QIDACANDBED 05/20/16 16:30 GLUCOSE POC LAB TO COLLECT [POC] QIDACANDBED 05/20/16 21:00 GLUCOSE POC LAB TO COLLECT [POC] QIDACANDBED 05/21/16 07:30 GLUCOSE POC LAB TO COLLECT [POC] QIDACANDBED 05/21/16 11:30 GLUCOSE POC LAB TO COLLECT [POC] QIDACANDBED 05/21/16 16:30 GLUCOSE POC LAB TO COLLECT [POC] QIDACANDBED 05/21/16 21:00 GLUCOSE POC LAB TO COLLECT [POC] QIDACANDBED 05/22/16 07:30 GLUCOSE POC LAB TO COLLECT [POC] QIDACANDBED 05/22/16 11:30 GLUCOSE POC LAB TO COLLECT [POC] QIDACANDBED 05/22/16 16:30 GLUCOSE POC LAB TO COLLECT [POC] QIDACANDBED 05/22/16 21:00 GLUCOSE POC LAB TO COLLECT [POC] QIDACANDBED 05/23/16 07:30 GLUCOSE POC LAB TO COLLECT [POC] QIDACANDBED 05/23/16 11:30 GLUCOSE POC LAB TO COLLECT [POC] QIDACANDBED 05/23/16 16:30 GLUCOSE POC LAB TO COLLECT [POC] QIDACANDBED 05/23/16 21:00 GLUCOSE POC LAB TO COLLECT [POC] QIDACANDBED 05/24/16 07:30 GLUCOSE POC LAB TO COLLECT [POC] QIDACANDBED 05/24/16 11:30 GLUCOSE POC LAB TO COLLECT [POC] QIDACANDBED 05/24/16 16:30 GLUCOSE POC LAB TO COLLECT [POC] QIDACANDBED 05/24/16 21:00 GLUCOSE POC LAB TO COLLECT [POC] QIDACANDBED 05/25/16 07:30 GLUCOSE POC LAB TO COLLECT [POC] QIDACANDBED 05/25/16 11:30 GLUCOSE POC LAB TO COLLECT [POC] QIDACANDBED 05/25/16 16:30 GLUCOSE POC LAB TO COLLECT [POC] QIDACANDBED 05/25/16 21:00 GLUCOSE POC LAB TO COLLECT [POC] QIDACANDBED 05/26/16 07:30 GLUCOSE POC LAB TO COLLECT [POC] QIDACANDBED 05/26/16 11:30 GLUCOSE POC LAB TO COLLECT [POC] QIDACANDBED 05/26/16 16:30 GLUCOSE POC LAB TO COLLECT [POC] QIDACANDBED 05/26/16 21:00 GLUCOSE POC LAB TO COLLECT [POC] QIDACANDBED 05/27/16 07:30 GLUCOSE POC LAB TO COLLECT [POC] QIDACANDBED 05/27/16 11:30 GLUCOSE POC LAB TO COLLECT [POC] QIDACANDBED 05/27/16 16:30 GLUCOSE POC LAB TO COLLECT [POC] QIDACANDBED 05/27/16 21:00 GLUCOSE POC LAB TO COLLECT [POC] QIDACANDBED 05/28/16 07:30 GLUCOSE POC LAB TO COLLECT [POC] QIDACANDBED 05/28/16 11:30 GLUCOSE POC LAB TO COLLECT [POC] QIDACANDBED 05/28/16 16:30 GLUCOSE POC LAB TO COLLECT [POC] QIDACANDBED 05/28/16 21:00 GLUCOSE POC LAB TO COLLECT [POC] QIDACANDBED 05/29/16 07:30 GLUCOSE POC LAB TO COLLECT [POC] QIDACANDBED 05/29/16 11:30 GLUCOSE POC LAB TO COLLECT [POC] QIDACANDBED 05/29/16 16:30 GLUCOSE POC LAB TO COLLECT [POC] QIDACANDBED - Plan Plan:: ASSESSMENT AND PLAN RIGHT LUNG PNEUMONIA WITH SEPSIS-tachycardia and hypoxia have improved significantly since admission. -Saline lock IV -Blood and sputum cultures pending -IV Zosyn and levofloxacin, pending culture results INFLUENZA A -Tamiflu 75 mg by mouth twice a day ACUTE HYPOXIC RESPIRATORY FAILURE-likely secondary to pneumonia and influenza A. She does have a history of reactive airway disease, no significant wheezing noted by history or physical exam. -Supplemental oxygen as needed -Nebulized albuterol and duo nebs TYPE 2 DIABETES MELLITUS -4 times a day glucometers -Continue usual doses of long and short acting insulin -Low-dose sliding scale NovoLog MAINTENANCE ISSUES -DVT prophylaxis; Lovenox 40 mg subcutaneous daily -GI prophylaxis; not indicated -Ayon catheter; not indicated -Nutrition; consistent carb diet -Nicotine dependence; not required CODE STATUS-FULL CODE ADMISSION STATUS-patient will be admitted to inpatient status, expect at least a 2 night hospital stay for evaluation and management of problems as outlined above. At the time of this admission I do not reasonably expected evaluation and management of this problem will require more than a 96 hour hospital stay. DISPOSITION-anticipate discharge to home after the hospital stay. PRIMARY CARE PROVIDER-Dr. Sanders
[2016-05-19] MEDS ORDERED: Levofloxacin/Dextrose 5%-Water 500 MG in Premix Bag 1 BAG IV SCH ×2 (16:00→21:00)
[2016-05-19] MEDS: Insulin Detemir 100 Units/ML 3 ML Pen SUBCUT SCH (21:12)
[2016-05-19] MEDS: Ibuprofen 400 MG Tab PO PRN (21:59)
[2016-05-20] MEDS: Piperacillin/Tazobactam/Dext 3.375 GM in Premix Bag 1 BAG IV SCH ×4 (01:49→19:53)
[2016-05-20] MEDS: Acetaminophen 325 MG Tab PO PRN ×2 (04:31→14:30)
[2016-05-20] MEDS: Albuterol/Ipratropium 3.0-0.5 MG/3 ML Neb Soln NEB SCH ×4 (07:22→21:20)
[2016-05-20] MEDS: Insulin Aspart 100 Units/ML 3 ML Pen SUBCUT SCH ×3 (09:13→17:42)
[2016-05-20] MEDS: Enoxaparin 40 MG/0.4 ML Syringe SUBCUT SCH (09:16)
[2016-05-20] MEDS: Aspirin 81 MG Tab.EC PO SCH (09:17)
[2016-05-20] MEDS: amLODIPine 5 MG Tab PO SCH (09:17)
[2016-05-20] MEDS: Lisinopril 20 MG Tab PO SCH (09:18)
[2016-05-20] MEDS: Oseltamivir 75 MG Cap PO SCH (09:18)
--- NOTE | 2016-05-20 10:59 | CR ---
Heart size within normal limits. Left lung is clear. Airspace disease within the right middle lobe. Findings most suggestive pneumonia. Recommend radiographic follow-up to resolution.
[2016-05-20] MEDS: Levofloxacin/Dextrose 5%-Water 250 MG in Premix Bag 1 BAG IV SCH (16:05)
--- NOTE | 2016-05-20 18:25 | PCM.PN ---
- General Info Date of Service: 05/20/16 Functional Status: Reports: pain controlled, tolerating diet - Review of Systems General: Reports: fever, weakness Pulmonary: Reports: shortness of breath, cough Systems Review Comment:: no acute events overnight but she did have a fever early this morning. Minimal asymptomatic at the time and feeling better since then. Still has a dry cough but shortness of breath has been improving. She is down to only 2 L of supplemental oxygen. No significant chest pain. Appetite has been improving but is not back to normal. Short of breath and dizzy with walking to the bathroom and back this morning. - Patient Data Vitals - most recent: Last Vital Signs Temp 37.9 C 05/20/16 14:30 Pulse 102 H 05/20/16 15:06 Resp 16 05/20/16 14:12 BP 181/70 H 05/20/16 14:12 Pulse Ox 93 L 05/20/16 14:12 Weight - most recent: 116.12 kg I&O - last 24 hours: Intake & Output 05/20/16 05/20/16 05/20/16 06:59 14:59 22:59 Intake Total 50 1550 Output Total 400 1150 Balance -350 400 Lab Results last 24 hrs: Laboratory Results - last 24 hr 05/20/16 05/20/16 Range/Units 05:50 05:50 WBC 7.6 (4.5-11.0) K/uL RBC 4.01 (3.30-5.50) M/uL Hgb 10.6 L (12.0-15.0) g/dL Hct 33.0 L (36.0-48.0) % MCV 82 (80-98) fL MCH 26 L (27-31) pg MCHC 32 (32-36) % Plt Count 251 (150-400) K/uL Neut % (Auto) 67 H (36-66) % Lymph % (Auto) 15 L (24-44) % [place] % (Auto) 14 H (2-6) % Eos % (Auto) 3 (2-4) % Baso % (Auto) 1 (0-1) % Sodium 137 L (140-148) mmol/L Potassium 4.3 (3.6-5.2) mmol/L Chloride 104 (100-108) mmol/L Carbon Dioxide 27 (21-32) mmol/L Anion Gap 10.3 (5.0-14.0) mmol/L BUN 29 H (7-18) mg/dL Creatinine 1.7 H D (0.6-1.0) mg/dL Est Cr Clr Drug Dosing 32.29 mL/min Estimated GFR (MDRD) 31 L (>60) Glucose 95 (74-106) mg/dL Calcium 7.7 L (8.5-10.1) mg/dL Magnesium 2.3 D (1.8-2.4) mg/dL Tim Results last 24 hrs: Microbiology 05/19/16 15:21 Gram Stain - Final Sputum - Expectorated Med Orders - Current: Current Medications Acetaminophen (Tylenol) 650 mg PO Q4H PRN PRN Reason: Pain (Mild 1-3)/fever Last Admin: 05/20/16 14:30 Dose: 650 mg Albuterol (Proventil Neb Soln) 2.5 mg NEB Q4H PRN PRN Reason: Shortness Of Breath/wheezing Last Admin: 05/19/16 03:16 Dose: 2.5 mg Albuterol/Ipratropium (Duoneb 3.0-0.5 Mg/3 Ml) 3 ml NEB QIDRT [facility] Last Admin: 05/20/16 15:05 Dose: 3 ml Amlodipine Besylate (Norvasc) 5 mg PO DAILY [facility] Last Admin: 05/20/16 09:17 Dose: 5 mg Aspirin (Halfprin) 81 mg PO DAILY [facility] [place] Last Admin: 05/20/16 09:17 Dose: 81 mg Dextrose (Glutose 15) 15 gm PO ONETIME PRN PRN Reason: Hypoglycemia Dextrose/Water (Dextrose 50% In Water) 50 ml IV ONETIME PRN PRN Reason: Hypoglycemia Docusate Sodium (Colace) 100 mg PO BID PRN PRN Reason: Constipation Enoxaparin Sodium (Lovenox) 40 mg SUBCUT DAILY [facility] [place] Last Admin: 05/20/16 09:16 Dose: 40 mg Piperacillin/Tazobactam/ (Dextrose 3.375 gm/ Premix) 50 mls @ 100 mls/hr IV Q6H [facility] [place] Last Admin: 05/20/16 15:21 Dose: 100 mls/hr Levofloxacin/Dextrose 250 mg/ (Premix) 50 mls @ 50 mls/hr IV Q24H [facility] Last Admin: 05/20/16 16:05 Dose: 50 mls/hr Ibuprofen (Motrin) 400 mg PO Q6H PRN PRN Reason: Pain (mild 1-3) Last Admin: 05/19/16 21:59 Dose: 400 mg Insulin Aspart (Novolog) 0 unit SUBCUT ASDIRECTED [facility] PRN Reason: Protocol Last Admin: 05/19/16 16:29 Dose: 3 units Insulin Aspart (Novolog) 13 unit SUBCUT TIDAC [facility] Last Admin: 05/20/16 17:42 Dose: 13 units Insulin Detemir (Levemir) 42 unit SUBCUT BEDTIME [facility] Last Admin: 05/19/16 21:12 Dose: 42 unit Lisinopril (Prinivil) 40 mg PO DAILY [facility] Last Admin: 05/20/16 09:18 Dose: 40 mg Magnesium Hydroxide (Milk Of Magnesia) 30 ml PO Q12H PRN PRN Reason: Constipation Ondansetron HCl (Zofran) 4 mg IV Q4H PRN PRN Reason: Nausea/Vomiting Last Admin: 05/19/16 13:29 Dose: 4 mg Oseltamivir Phosphate (Tamiflu) 30 mg PO BID [facility] Stop: 05/22/16 21:01 Oxycodone HCl (Oxycodone) 5 mg PO Q4H PRN PRN Reason: Pain (moderate 4-6) Polyethylene Glycol (Miralax) 17 gm PO DAILY PRN PRN Reason: Constipation Sodium Chloride (Saline Flush) 10 ml FLUSH ASDIRECTED PRN PRN Reason: Keep Vein Open Discontinued Medications Albuterol/Ipratropium (Duoneb 3.0-0.5 Mg/3 Ml) 3 ml NEB QID [facility] Last Admin: 05/18/16 21:42 Dose: 3 ml Albuterol/Ipratropium (Duoneb 3.0-0.5 Mg/3 Ml) Confirm Administered Dose 3 ml .ROUTE .STK-MED ONE Stop: 05/18/16 17:31 Last Admin: 05/18/16 17:59 Dose: Not Given Lactated Ringer's (Ringers, Lactated) 1,000 mls @ 500 mls/hr IV ASDIRECTED ONE Stop: 05/18/16 16:01 Last Admin: 05/18/16 14:31 Dose: 500 mls/hr Lactated Ringer's (Ringers, Lactated) 500 mls @ 250 mls/hr IV .BOLUS [facility] [place] Stop: 05/18/16 23:21 Last Admin: 05/18/16 17:55 Dose: 250 mls/hr Lactated Ringer's (Ringers, Lactated) 1,000 mls @ 125 mls/hr IV ASDIRECTED [facility] [place] Last Admin: 05/19/16 07:00 Dose: 125 mls/hr Levofloxacin/Dextrose (Levaquin In D5w 500 Mg/100 Ml) Confirm Administered Dose 100 mls @ as directed IV .STK-MED ONE Stop: 05/18/16 17:32 Last Admin: 05/18/16 17:35 Dose: 500 mg Sodium Chloride (Normal Saline) Confirm Administered Dose 100 mls @ as directed .ROUTE .STK-MED ONE Stop: 05/18/16 17:35 Last Admin: 05/18/16 20:04 Dose: Not Given Piperacillin Sod/Tazobactam (Sod 3.375 gm/ Sodium Chloride) 50 mls @ 100 mls/ hr IV Q6H [facility] Last Admin: 05/19/16 03:09 Dose: 100 mls/hr Magnesium Sulfate 2 gm/ Premix 50 mls @ 25 mls/hr IV ONETIME ONE Stop: 05/19/16 11:29 Last Admin: 05/19/16 10:06 Dose: 25 mls/hr Levofloxacin/Dextrose 500 mg/ (Premix) 100 mls @ 100 mls/hr IV Q24H [facility] Last Admin: 05/19/16 16:28 Dose: 100 mls/hr Ibuprofen (Motrin) 600 mg PO Q6H PRN PRN Reason: Pain Last Admin: 05/18/16 14:41 Dose: 600 mg Insulin Aspart (Novolog) 13 unit SUBCUT TIDAC [facility] Last Admin: 05/18/16 18:21 Dose: 13 units Insulin Aspart (Novolog) Confirm Administered Dose 300 unit .ROUTE .STK-MED ONE Stop: 05/18/16 18:14 Last Admin: 05/18/16 18:21 Dose: 13 units Insulin Detemir (Levemir) 42 unit SUBCUT BEDTIME [facility] Last Admin: 05/18/16 21:29 Dose: 42 units Oseltamivir Phosphate (Tamiflu) 75 mg PO BID [facility] Stop: 05/23/16 17:21 Last Admin: 05/20/16 09:18 Dose: 75 mg Sodium Chloride (Saline Flush) 10 ml FLUSH ASDIRECTED PRN PRN Reason: Keep Vein Open Last Admin: 05/18/16 14:32 Dose: 10 ml - Exam Quality Assessment: supplemental oxygen General: alert, oriented, cooperative, no acute distress Neck: supple Lungs: Clear to auscultation (posteriorly), Normal respiratory effort, Rales ( few anteriorly over right middle lobe) Cardiovascular: regular rate, regular rhythm Abdomen: soft, no distension Extremities: no edema, no cyanosis Skin: warm, dry Psy/Mental Status: alert, normal affect - Problem List Review Problem List Initiated/Reviewed/Updated: Yes - My Orders Last 24 Hours: My Active Orders 05/20/16 15:20 NHI Hose [Antiembolic Hose] [OM.PC] Routine - Plan Plan:: ASSESSMENT AND PLAN RIGHT LUNG PNEUMONIA WITH SEPSIS - sepsis has resolved, tolerating antibiotics and sputum cultures pending. Still requiring supplemental oxygen. -Saline lock IV -followup cultures -supplemental oxygen -IV Zosyn and levofloxacin, de-escalate as able INFLUENZA A - unclear if this is the only culprit or if there is both influenza and a bacterial pneumonia. -Tamiflu 75 mg by mouth twice a day ACUTE HYPOXIC RESPIRATORY FAILURE - likely secondary to pneumonia and influenza A. She does have a history of reactive airway disease but not actively wheezing. -Supplemental oxygen as needed -Nebulized albuterol and duo nebs TYPE 2 DIABETES MELLITUS -4 times a day glucometers -Continue usual doses of long and short acting insulin -Low-dose sliding scale NovoLog MAINTENANCE ISSUES -DVT prophylaxis; Lovenox 40 mg subcutaneous daily -GI prophylaxis; not indicated -Ayon catheter; not indicated -Nutrition; consistent carb diet DISPOSITION - anticipate discharge to home after the hospital stay. Alexis Elizabeth M.D.
[2016-05-20] MEDS: Insulin Detemir 100 Units/ML 3 ML Pen SUBCUT SCH (21:15)
[2016-05-20] MEDS: Oseltamivir 30 MG Cap PO SCH (21:20)
[2016-05-20] MEDS: Ibuprofen 400 MG Tab PO PRN (23:39)
[2016-05-21] MEDS: Piperacillin/Tazobactam/Dext 3.375 GM in Premix Bag 1 BAG IV SCH ×2 (02:44→08:34)
[2016-05-21] MEDS: Albuterol/Ipratropium 3.0-0.5 MG/3 ML Neb Soln NEB SCH ×4 (07:33→21:23)
[2016-05-21] MEDS: Insulin Aspart 100 Units/ML 3 ML Pen SUBCUT SCH ×5 (08:26→17:13)
[2016-05-21] MEDS: Enoxaparin 40 MG/0.4 ML Syringe SUBCUT SCH (08:29)
[2016-05-21] MEDS: amLODIPine 5 MG Tab PO SCH (08:30)
[2016-05-21] MEDS: Aspirin 81 MG Tab.EC PO SCH (08:30)
[2016-05-21] MEDS: Oseltamivir 30 MG Cap PO SCH ×2 (08:30→21:24)
[2016-05-21] MEDS: Lisinopril 20 MG Tab PO SCH (08:31)
[2016-05-21] MEDS ORDERED: Sodium Chloride 0.65% Nasal Spray 45 ML Bottle NAS PRN (10:33)
[2016-05-21] MEDS ORDERED: Furosemide 40 MG/4 ML VIAL IVPUSH ONE (11:51)
--- NOTE | 2016-05-21 11:53 | PCM.PN ---
- General Info Date of Service: 05/21/16 Functional Status: Reports: pain controlled, tolerating diet - Review of Systems General: Reports: Fever Pulmonary: Reports: shortness of breath Systems Review Comment:: no acute events overnight. Clinically feeling better today with less shortness of breath. Cough seems to be a little more productive. Mild abdominal pain with coughing. Lower extremity edema has increased since yesterday and legs feel tight and a little bit tender. Did have temperature to 100.6 overnight. She has been weaned down to 1.5 L of supplemental oxygen. Functional status seems to be improving slowly. Cultures negative so far. - Patient Data Vitals - most recent: Last Vital Signs Temp 35.7 C 05/21/16 11:15 Pulse 114 H 05/21/16 11:30 Resp 16 05/21/16 11:15 BP 145/75 H 05/21/16 11:15 Pulse Ox 94 L 05/21/16 11:15 Weight - most recent: 121.563 kg I&O - last 24 hours: Intake & Output 05/20/16 05/21/16 05/21/16 22:59 06:59 14:59 Intake Total 500 800 50 Output Total 1250 1000 Balance -750 800 -950 Tim Results last 24 hrs: Microbiology 05/19/16 15:21 Gram Stain - Final Sputum - Expectorated Respiratory Culture - Preliminary NORMAL RESPIRATORY BEBE 1 DAY Med Orders - Current: Current Medications Acetaminophen (Tylenol) 650 mg PO Q4H PRN PRN Reason: Pain (Mild 1-3)/fever Last Admin: 05/20/16 14:30 Dose: 650 mg Albuterol (Proventil Neb Soln) 2.5 mg NEB Q4H PRN PRN Reason: Shortness Of Breath/wheezing Last Admin: 05/19/16 03:16 Dose: 2.5 mg Albuterol/Ipratropium (Duoneb 3.0-0.5 Mg/3 Ml) 3 ml NEB QIDRT [facility] Last Admin: 05/21/16 11:29 Dose: 3 ml Amlodipine Besylate (Norvasc) 5 mg PO DAILY [facility] Last Admin: 05/21/16 08:30 Dose: 5 mg Aspirin (Halfprin) 81 mg PO DAILY [facility] Last Admin: 05/21/16 08:30 Dose: 81 mg Dextrose (Glutose 15) 15 gm PO ONETIME PRN PRN Reason: Hypoglycemia Dextrose/Water (Dextrose 50% In Water) 50 ml IV ONETIME PRN PRN Reason: Hypoglycemia Docusate Sodium (Colace) 100 mg PO BID PRN PRN Reason: Constipation Enoxaparin Sodium (Lovenox) 40 mg SUBCUT DAILY [facility] Last Admin: 05/21/16 08:29 Dose: 40 mg Levofloxacin/Dextrose 250 mg/ (Premix) 50 mls @ 50 mls/hr IV Q24H [facility] Last Admin: 05/20/16 16:05 Dose: 50 mls/hr Ibuprofen (Motrin) 400 mg PO Q6H PRN PRN Reason: Pain (mild 1-3) Last Admin: 05/20/16 23:39 Dose: 400 mg Insulin Aspart (Novolog) 0 unit SUBCUT ASDIRECTED [facility] PRN Reason: Protocol Last Admin: 05/19/16 16:29 Dose: 3 units Insulin Aspart (Novolog) 13 unit SUBCUT TIDAC [facility] Last Admin: 05/21/16 08:26 Dose: 13 units Insulin Detemir (Levemir) 42 unit SUBCUT BEDTIME [facility] Last Admin: 05/20/16 21:15 Dose: Not Given Lisinopril (Prinivil) 40 mg PO DAILY [facility] Last Admin: 05/21/16 08:31 Dose: 40 mg Magnesium Hydroxide (Milk Of Magnesia) 30 ml PO Q12H PRN PRN Reason: Constipation Ondansetron HCl (Zofran) 4 mg IV Q4H PRN PRN Reason: Nausea/Vomiting Last Admin: 05/19/16 13:29 Dose: 4 mg Oseltamivir Phosphate (Tamiflu) 30 mg PO BID [facility] Stop: 05/22/16 21:01 Last Admin: 05/21/16 08:30 Dose: 30 mg Oxycodone HCl (Oxycodone) 5 mg PO Q4H PRN PRN Reason: Pain (moderate 4-6) Polyethylene Glycol (Miralax) 17 gm PO DAILY PRN PRN Reason: Constipation Sodium Chloride (Saline Flush) 10 ml FLUSH ASDIRECTED PRN PRN Reason: Keep Vein Open Sodium Chloride ([place] Nasal [place]) 0 ml NHUNG Q2H PRN PRN Reason: nasal congestion Discontinued Medications Albuterol/Ipratropium (Duoneb 3.0-0.5 Mg/3 Ml) 3 ml NEB QID [facility] Last Admin: 05/18/16 21:42 Dose: 3 ml Albuterol/Ipratropium (Duoneb 3.0-0.5 Mg/3 Ml) Confirm Administered Dose 3 ml .ROUTE .STK-MED ONE Stop: 05/18/16 17:31 Last Admin: 05/18/16 17:59 Dose: Not Given Lactated Ringer's (Ringers, Lactated) 1,000 mls @ 500 mls/hr IV ASDIRECTED ONE Stop: 05/18/16 16:01 Last Admin: 05/18/16 14:31 Dose: 500 mls/hr Lactated Ringer's (Ringers, Lactated) 500 mls @ 250 mls/hr IV .BOLUS [facility] Stop: 05/18/16 23:21 Last Admin: 05/18/16 17:55 Dose: 250 mls/hr Lactated Ringer's (Ringers, Lactated) 1,000 mls @ 125 mls/hr IV ASDIRECTED [facility] Last Admin: 05/19/16 07:00 Dose: 125 mls/hr Levofloxacin/Dextrose (Levaquin In D5w 500 Mg/100 Ml) Confirm Administered Dose 100 mls @ as directed IV .STK-MED ONE Stop: 05/18/16 17:32 Last Admin: 05/18/16 17:35 Dose: 500 mg Sodium Chloride (Normal Saline) Confirm Administered Dose 100 mls @ as directed .ROUTE .STK-MED ONE Stop: 05/18/16 17:35 Last Admin: 05/18/16 20:04 Dose: Not Given Piperacillin Sod/Tazobactam (Sod 3.375 gm/ Sodium Chloride) 50 mls @ 100 mls/ hr IV Q6H [facility] Last Admin: 05/19/16 03:09 Dose: 100 mls/hr Piperacillin/Tazobactam/ (Dextrose 3.375 gm/ Premix) 50 mls @ 100 mls/hr IV Q6H [facility] Last Admin: 05/21/16 08:34 Dose: 100 mls/hr Magnesium Sulfate 2 gm/ Premix 50 mls @ 25 mls/hr IV ONETIME ONE Stop: 05/19/16 11:29 Last Admin: 05/19/16 10:06 Dose: 25 mls/hr Levofloxacin/Dextrose 500 mg/ (Premix) 100 mls @ 100 mls/hr IV Q24H [facility] Last Admin: 05/19/16 16:28 Dose: 100 mls/hr Ibuprofen (Motrin) 600 mg PO Q6H PRN PRN Reason: Pain Last Admin: 05/18/16 14:41 Dose: 600 mg Insulin Aspart (Novolog) 13 unit SUBCUT TIDAC [facility] Last Admin: 05/18/16 18:21 Dose: 13 units Insulin Aspart (Novolog) Confirm Administered Dose 300 unit .ROUTE .STK-MED ONE Stop: 05/18/16 18:14 Last Admin: 05/18/16 18:21 Dose: 13 units Insulin Detemir (Levemir) 42 unit SUBCUT BEDTIME [facility] Last Admin: 05/18/16 21:29 Dose: 42 units Oseltamivir Phosphate (Tamiflu) 75 mg PO BID [facility] Stop: 05/23/16 17:21 Last Admin: 05/20/16 09:18 Dose: 75 mg Sodium Chloride (Saline Flush) 10 ml FLUSH ASDIRECTED PRN PRN Reason: Keep Vein Open Last Admin: 05/18/16 14:32 Dose: 10 ml - Exam Quality Assessment: supplemental oxygen General: alert, oriented, cooperative, no acute distress Neck: supple Lungs: Clear to auscultation, Normal respiratory effort Cardiovascular: Regular Rate, Regular Rhythm Abdomen: soft, no distension Extremities: no cyanosis, edema (pitting edema to knees bilaterally ) Skin: warm, dry Psy/Mental Status: alert, normal affect - Problem List Review Problem List Initiated/Reviewed/Updated: Yes - My Orders Last 24 Hours: My Active Orders 05/20/16 15:20 NHI Hose [Antiembolic Hose] [OM.PC] Routine 05/20/16 21:13 Communication Order [RC] STAT 05/21/16 10:33 Sodium Chloride 0.65% [Olean Nasal Hernandez] 0 ml NHUNG Q2H PRN 05/21/16 11:51 Furosemide [Lasix] 40 mg IVPUSH ONETIME ONE 05/21/16 11:52 NHI Hose [Antiembolic Hose] [OM.PC] Routine 05/22/16 05:00 BASIC METABOLIC PANEL,BMP [CHEM] Timed CBC W/O DIFF,HEMOGRAM [HEME] Timed (1) 05/22/16 09:00 Furosemide [Lasix] 40 mg PO DAILY - Plan Plan:: ASSESSMENT AND PLAN RIGHT LUNG PNEUMONIA WITH SEPSIS - sepsis has resolved, tolerating antibiotics and sputum cultures pending. Still requiring supplemental oxygen but clinically improving. -Saline lock IV -followup cultures -supplemental oxygen -stop Zosyn and continue levofloxacin INFLUENZA A - unclear if this is the only culprit or if there is both influenza and a bacterial pneumonia. -Tamiflu 30 mg by mouth twice a day -continue contact precautions until afebrile ACUTE HYPOXIC RESPIRATORY FAILURE - likely secondary to pneumonia and influenza A. slowly improving but still requiring supplemental oxygen. -Supplemental oxygen as needed -Nebulized albuterol and duo nebs TYPE 2 DIABETES MELLITUS - sugars on the low side overnight and Levemir was held. -4 times a day glucometers -reassess Levemir this afternoon and decide on dosing for tonight -Low-dose sliding scale NovoLog MAINTENANCE ISSUES -DVT prophylaxis; Lovenox 40 mg subcutaneous daily -GI prophylaxis; not indicated -Ayon catheter; not indicated -Nutrition; consistent carb diet DISPOSITION - anticipate discharge to home after the hospital stay, hopefully in the next one or 2 days Alexis Elizabeth M.D.
[2016-05-21] MEDS: Levofloxacin/Dextrose 5%-Water 250 MG in Premix Bag 1 BAG IV SCH (16:08)
[2016-05-21] MEDS: Insulin Detemir 100 Units/ML 3 ML Pen SUBCUT SCH (21:24)
[2016-05-22] MEDS: Albuterol/Ipratropium 3.0-0.5 MG/3 ML Neb Soln NEB SCH ×4 (07:24→22:08)
[2016-05-22] MEDS: Insulin Aspart 100 Units/ML 3 ML Pen SUBCUT SCH ×4 (07:58→16:55)
[2016-05-22] MEDS: Enoxaparin 40 MG/0.4 ML Syringe SUBCUT SCH (08:03)
[2016-05-22] MEDS: Oseltamivir 30 MG Cap PO SCH ×2 (08:03→22:08)
[2016-05-22] MEDS: Aspirin 81 MG Tab.EC PO SCH (08:04)
[2016-05-22] MEDS: Furosemide 40 MG Tab PO SCH (08:04)
[2016-05-22] MEDS: amLODIPine 5 MG Tab PO SCH (08:04)
[2016-05-22] MEDS: Lisinopril 20 MG Tab PO SCH (08:05)
--- NOTE | 2016-05-22 11:04 | PCM.PN ---
- General Info Date of Service: 05/22/16 Functional Status: Reports: pain controlled, tolerating diet, ambulating - Review of Systems General: Reports: Weakness Pulmonary: Reports: shortness of breath Systems Review Comment:: no acute events overnight. Breathing feels a little better today. Not much in the way of a cough. Very short of breath going to the bathroom and back. Appetite seems a little better today. Still requiring supplemental oxygen but this level has been steadily decreasing. No fevers in more than 24 hours. - Patient Data Vitals - most recent: Last Vital Signs Temp 36.8 C 05/22/16 10:37 Pulse 84 05/22/16 07:24 Resp 18 05/22/16 10:37 BP 127/72 05/22/16 10:37 Pulse Ox 92 L 05/22/16 10:37 Weight - most recent: 117.027 kg I&O - last 24 hours: Intake & Output 05/21/16 05/22/16 05/22/16 22:59 06:59 14:59 Intake Total 1410 360 520 Output Total 3500 900 400 Balance -2090 -540 120 Lab Results last 24 hrs: Laboratory Results - last 24 hr 05/22/16 05/22/16 Range/Units 04:20 05:00 WBC 8.6 (4.5-11.0) K/uL RBC 4.12 (3.30-5.50) M/uL Hgb 10.7 L (12.0-15.0) g/dL Hct 33.8 L (36.0-48.0) % MCV 82 (80-98) fL MCH 26 L (27-31) pg MCHC 32 (32-36) % Plt Count 295 (150-400) K/uL Sodium 139 L (140-148) mmol/L Potassium 4.3 (3.6-5.2) mmol/L Chloride 104 (100-108) mmol/L Carbon Dioxide 27 (21-32) mmol/L Anion Gap 12.3 (5.0-14.0) mmol/L BUN 31 H (7-18) mg/dL Creatinine 1.5 H (0.6-1.0) mg/dL Est Cr Clr Drug Dosing 36.86 mL/min Estimated GFR (MDRD) 36 L (>60) Glucose 114 H (74-106) mg/dL Calcium 8.0 L (8.5-10.1) mg/dL Tim Results last 24 hrs: Microbiology 05/19/16 15:21 Gram Stain - Final Sputum - Expectorated Respiratory Culture - Final NORMAL RESPIRATORY BEBE 2 DAYS Med Orders - Current: Current Medications Acetaminophen (Tylenol) 650 mg PO Q4H PRN PRN Reason: Pain (Mild 1-3)/fever Last Admin: 05/20/16 14:30 Dose: 650 mg Albuterol (Proventil Neb Soln) 2.5 mg NEB Q4H PRN PRN Reason: Shortness Of Breath/wheezing Last Admin: 05/19/16 03:16 Dose: 2.5 mg Albuterol/Ipratropium (Duoneb 3.0-0.5 Mg/3 Ml) 3 ml NEB QIDRT [facility] Last Admin: 05/22/16 07:24 Dose: 3 ml Amlodipine Besylate (Norvasc) 5 mg PO DAILY [facility] Last Admin: 05/22/16 08:04 Dose: 5 mg Aspirin (Halfprin) 81 mg PO DAILY [facility] Last Admin: 05/22/16 08:04 Dose: 81 mg Dextrose (Glutose 15) 15 gm PO ONETIME PRN PRN Reason: Hypoglycemia Dextrose/Water (Dextrose 50% In Water) 50 ml IV ONETIME PRN PRN Reason: Hypoglycemia Docusate Sodium (Colace) 100 mg PO BID PRN PRN Reason: Constipation Enoxaparin Sodium (Lovenox) 40 mg SUBCUT DAILY [facility] Last Admin: 05/22/16 08:03 Dose: 40 mg Furosemide (Lasix) 40 mg PO DAILY [facility] Last Admin: 05/22/16 08:04 Dose: 40 mg Ibuprofen (Motrin) 400 mg PO Q6H PRN PRN Reason: Pain (mild 1-3) Last Admin: 05/20/16 23:39 Dose: 400 mg Insulin Aspart (Novolog) 0 unit SUBCUT ASDIRECTED [facility] PRN Reason: Protocol Last Admin: 05/21/16 17:13 Dose: 1 units Insulin Aspart (Novolog) 13 unit SUBCUT TIDAC [facility] Last Admin: 05/22/16 07:58 Dose: 13 units Insulin Detemir (Levemir) 20 unit SUBCUT BEDTIME [facility] Last Admin: 05/21/16 21:24 Dose: 20 units Lisinopril (Prinivil) 40 mg PO DAILY [facility] Last Admin: 05/22/16 08:05 Dose: 40 mg Magnesium Hydroxide (Milk Of Magnesia) 30 ml PO Q12H PRN PRN Reason: Constipation Ondansetron HCl (Zofran) 4 mg IV Q4H PRN PRN Reason: Nausea/Vomiting Last Admin: 05/19/16 13:29 Dose: 4 mg Oseltamivir Phosphate (Tamiflu) 30 mg PO BID [facility] Stop: 05/22/16 21:01 Last Admin: 05/22/16 08:03 Dose: 30 mg Oxycodone HCl (Oxycodone) 5 mg PO Q4H PRN PRN Reason: Pain (moderate 4-6) Polyethylene Glycol (Miralax) 17 gm PO DAILY PRN PRN Reason: Constipation Sodium Chloride (Saline Flush) 10 ml FLUSH ASDIRECTED PRN PRN Reason: Keep Vein Open Sodium Chloride ([place] Nasal [place]) 0 ml NHUNG Q2H PRN PRN Reason: nasal congestion Last Admin: 05/22/16 07:56 Dose: 1 spray Discontinued Medications Albuterol/Ipratropium (Duoneb 3.0-0.5 Mg/3 Ml) 3 ml NEB QID [facility] Last Admin: 05/18/16 21:42 Dose: 3 ml Albuterol/Ipratropium (Duoneb 3.0-0.5 Mg/3 Ml) Confirm Administered Dose 3 ml .ROUTE .STK-MED ONE Stop: 05/18/16 17:31 Last Admin: 05/18/16 17:59 Dose: Not Given Furosemide (Lasix) 40 mg IVPUSH ONETIME ONE Stop: 05/21/16 11:52 Last Admin: 05/21/16 12:12 Dose: 40 mg Lactated Ringer's (Ringers, Lactated) 1,000 mls @ 500 mls/hr IV ASDIRECTED ONE Stop: 05/18/16 16:01 Last Admin: 05/18/16 14:31 Dose: 500 mls/hr Lactated Ringer's (Ringers, Lactated) 500 mls @ 250 mls/hr IV .BOLUS [facility]LEK Stop: 05/18/16 23:21 Last Admin: 05/18/16 17:55 Dose: 250 mls/hr Lactated Ringer's (Ringers, Lactated) 1,000 mls @ 125 mls/hr IV ASDIRECTED [facility] Last Admin: 05/19/16 07:00 Dose: 125 mls/hr Levofloxacin/Dextrose (Levaquin In D5w 500 Mg/100 Ml) Confirm Administered Dose 100 mls @ as directed IV .STK-MED ONE Stop: 05/18/16 17:32 Last Admin: 05/18/16 17:35 Dose: 500 mg Sodium Chloride (Normal Saline) Confirm Administered Dose 100 mls @ as directed .ROUTE .[facility] ONE Stop: 05/18/16 17:35 Last Admin: 05/18/16 20:04 Dose: Not Given Piperacillin Sod/Tazobactam (Sod 3.375 gm/ Sodium Chloride) 50 mls @ 100 mls/ hr IV Q6H [facility] Last Admin: 05/19/16 03:09 Dose: 100 mls/hr Piperacillin/Tazobactam/ (Dextrose 3.375 gm/ Premix) 50 mls @ 100 mls/hr IV Q6H [facility] Last Admin: 05/21/16 08:34 Dose: 100 mls/hr Magnesium Sulfate 2 gm/ Premix 50 mls @ 25 mls/hr IV ONETIME ONE Stop: 05/19/16 11:29 Last Admin: 05/19/16 10:06 Dose: 25 mls/hr Levofloxacin/Dextrose 500 mg/ (Premix) 100 mls @ 100 mls/hr IV Q24H [facility] Last Admin: 05/19/16 16:28 Dose: 100 mls/hr Levofloxacin/Dextrose 250 mg/ (Premix) 50 mls @ 50 mls/hr IV Q24H [facility] Last Admin: 05/21/16 16:08 Dose: 50 mls/hr Ibuprofen (Motrin) 600 mg PO Q6H PRN PRN Reason: Pain Last Admin: 05/18/16 14:41 Dose: 600 mg Insulin Aspart (Novolog) 13 unit SUBCUT TIDAC [facility] Last Admin: 05/18/16 18:21 Dose: 13 units Insulin Aspart (Novolog) Confirm Administered Dose 300 unit .ROUTE .STK-MED ONE Stop: 05/18/16 18:14 Last Admin: 05/18/16 18:21 Dose: 13 units Insulin Detemir (Levemir) 42 unit SUBCUT BEDTIME [facility] Last Admin: 05/18/16 21:29 Dose: 42 units Insulin Detemir (Levemir) 42 unit SUBCUT BEDTIME [facility] Last Admin: 05/20/16 21:15 Dose: Not Given Oseltamivir Phosphate (Tamiflu) 75 mg PO BID [facility] Stop: 05/23/16 17:21 Last Admin: 05/20/16 09:18 Dose: 75 mg Sodium Chloride (Saline Flush) 10 ml FLUSH ASDIRECTED PRN PRN Reason: Keep Vein Open Last Admin: 05/18/16 14:32 Dose: 10 ml - Exam Quality Assessment: supplemental oxygen General: alert, oriented, cooperative, no acute distress Neck: supple Lungs: Clear to auscultation, Normal respiratory effort Cardiovascular: Regular Rate, Regular Rhythm Abdomen: soft, no distension Extremities: edema (mild bilateral lower extremity edema) Skin: warm, dry Psy/Mental Status: alert, normal affect - Problem List Review Problem List Initiated/Reviewed/Updated: Yes - My Orders Last 24 Hours: My Active Orders 05/21/16 10:33 Sodium Chloride 0.65% [[place] Nasal [place]] 0 ml NHUNG Q2H PRN 05/21/16 11:52 NHI Hose [Antiembolic Hose] [OM.PC] Routine 05/21/16 21:00 Insulin Detemir [Levemir] 20 unit SUBCUT BEDTIME 05/22/16 09:00 Furosemide [Lasix] 40 mg PO DAILY 05/22/16 10:29 Communication Order [RC] ROUTINE 05/22/16 18:00 Levofloxacin [Levaquin] 250 mg PO Q48H Levofloxacin [Levaquin] 500 mg PO Q48H 05/23/16 05:00 BASIC METABOLIC PANEL,BMP [CHEM] Timed - Plan Plan:: ASSESSMENT AND PLAN RIGHT LUNG PNEUMONIA WITH SEPSIS - sepsis has resolved, tolerating antibiotics and sputum cultures pending. Still requiring supplemental oxygen but improving each day. -Saline lock IV -followup cultures -supplemental oxygen -continue levofloxacin INFLUENZA A - unclear if this is the only culprit or if there is both influenza and a bacterial pneumonia. -Tamiflu 30 mg by mouth twice a day (last dose tonight) -discontinue contact precautions ACUTE HYPOXIC RESPIRATORY FAILURE - likely secondary to pneumonia and influenza A. slowly improving but still requiring supplemental oxygen. -Supplemental oxygen as needed -Nebulized albuterol and duo nebs TYPE 2 DIABETES MELLITUS - sugars better overnight with less insulin and better appetite. -4 times a day glucometers -reassess Levemir daily -Low-dose sliding scale NovoLog MAINTENANCE ISSUES -DVT prophylaxis; Lovenox 40 mg subcutaneous daily -GI prophylaxis; not indicated -Ayon catheter; not indicated -Nutrition; consistent carb diet DISPOSITION - anticipate discharge to home after the hospital stay, hopefully in the next one or 2 days Alexis Elizabeth M.D.
[2016-05-22] MEDS ORDERED: Levofloxacin 500 MG Tab PO SCH (18:00)
[2016-05-22] MEDS ORDERED: Levofloxacin 250 MG Tab PO SCH (18:00)
[2016-05-22] MEDS: Insulin Detemir 100 Units/ML 3 ML Pen SUBCUT SCH (22:09)
[2016-05-23] MEDS: Albuterol/Ipratropium 3.0-0.5 MG/3 ML Neb Soln NEB SCH ×2 (07:21→11:00)
[2016-05-23] MEDS: Insulin Aspart 100 Units/ML 3 ML Pen SUBCUT SCH ×3 (08:44→12:34)
[2016-05-23] MEDS: Lisinopril 20 MG Tab PO SCH (08:48)
[2016-05-23] MEDS: Furosemide 40 MG Tab PO SCH (08:48)
[2016-05-23] MEDS: amLODIPine 5 MG Tab PO SCH (08:48)
[2016-05-23] MEDS: Enoxaparin 40 MG/0.4 ML Syringe SUBCUT SCH (08:48)
[2016-05-23] MEDS: Aspirin 81 MG Tab.EC PO SCH (08:49)
[2016-05-23 12:08] VITALS: BP 180/84
--- NOTE | 2016-05-23 14:01 | PCM.DCSUM1 ---
Discharge Summary - Hospital Course Brief History: 56-year-old female with history of insulin-dependent diabetes and reactive airway disease who presented with fever, cough and shortness of breath and was admitted for management of right middle lobe pneumonia and influenza. - Discharge Data Discharge Date: 05/23/16 Discharge Disposition: Home, Self-Care 01 Condition: Good - Discharge Diagnosis/Problem(s) (1) Pneumonia SNOMED Code(s): 986014749 ICD Code: J18.9 - PNEUMONIA, UNSPECIFIED ORGANISM Status: Acute Qualifiers: Pneumonia type: due to influenza A virus Laterality: right Lung location : middle lobe of lung Qualified Code(s): J11.00 - Influenza due to unidentified influenza virus with unspecified type of pneumonia (2) Acute respiratory failure with hypoxia SNOMED Code(s): 02991864, 069030255 ICD Code: J96.01 - ACUTE RESPIRATORY FAILURE WITH HYPOXIA Status: Acute (3) Influenza SNOMED Code(s): 1927984 ICD Code: J11.1 - FLU DUE TO UNIDENTIFIED INFLUENZA VIRUS W OTH RESP MANIFEST Status: Acute - Patient Summary/Data Hospital Course: oCby presented to the emergency room with fever, cough and shortness of breath. Workup in the emergency room revealed evidence for right middle lobe pneumonia as well as a positive influenza. She was admitted to the hospital and started on broad-spectrum antibiotics because it was not clear if this was a bacterial or viral pneumonia. Initially there was evidence for sepsis and she received aggressive fluid resuscitation. She was hypoxic on arrival and required fairly high flow oxygen at the time of admission. She was admitted to the intensive care unit overnight. She has shown no clinical improvement by the morning after admission that she was able to be transferred to the floor. Sputum culture obtained at the time of presentation as well as blood cultures have remained negative throughout the course of the hospital stay. Over the first 3 days she had significant improvement with normalization of her temperature curve and we were able to wean her oxygen down. Once she was afebrile for more than 24 hours her droplet precautions were discontinued. After 3 days with negative cultures I elected to discontinue her Zosyn and continue levofloxacin. She did complete 5 days of Tamiflu while she was hospitalized. She has made steady improvement during the hospital stay. She did have some difficulties with low blood sugars but this was managed by initially discontinuing and then reducing her home insulin dose on consecutive days. Blood sugars have improved with these modifications. I believe she is safe for outpatient management at this time. She has been weaned off of her supplemental oxygen. She was transitioned to oral antibiotics last night and has shown ongoing improvement. She's been able to ambulate a little further with each attempt throughout the day today and feels comfortable going home at this time. she will need 3 additional days of antibiotic therapy with levofloxacin. she will followup next week to ensure ongoing clinical improvement. - Patient Instructions Diet: Diabetic Diet Activity: As Tolerated Driving: May Drive Today Showering/Bathing: May Shower Notify Provider of: Fever, Increased Pain, Nausea and/or Vomiting Other/Special Instructions: 1. You were in the hospital for management of a right middle lobe pneumonia and influenza infection. It is not entirely clear if the pneumonia worse because of the virus or because of of bacteria. You have been improving with the current therapeutic regimen and I do recommend 3 additional days of antibiotic therapy with levofloxacin taken once daily at suppertime. 2. Please resume your usual home medications as previously prescribed. 3. Followup next week with Dr. Sanders. 4. See medical attention if you develop a fever greater than 101, worsening shortness of breath, chest pain or severe diarrhea. - Discharge Plan Prescriptions/Med Rec: Levofloxacin 750 mg PO QPM #3 tablet Home Medications: Home Meds Aspirin [Halfprin] 81 mg PO DAILY 08/19/15 [History] Cranberry Extract [Cranberry] 200 mg PO DAILY 08/19/15 [History] Insulin Glarg,Human.Rec.Analog [Lantus] 42 units SQ BEDTIME 08/19/15 [History] Insulin Lispro [Humalog] 10 units SQ TID 08/19/15 [History] Lisinopril 40 mg PO DAILY 08/19/15 [History] amLODIPine Besylate [Amlodipine Besylate] 5 mg PO DAILY 08/19/15 [History] Furosemide [Lasix] 40 mg PO DAILY 05/18/16 [History] Levofloxacin 750 mg PO QPM #3 tablet 05/23/16 [Rx] Patient Handouts: Community-Acquired Pneumonia, Adult Referrals: Nabeel Sanders MD [Primary Care Provider] - (1 week - followup hospital stay for pneumonia and influenza) - Discharge Summary/Plan Comment DC Time >30 min.: No (25) - Patient Data Vitals - Most Recent: Last Vital Signs Temp 37.0 C 05/23/16 12:05 Pulse 90 05/23/16 12:05 Resp 18 05/23/16 12:05 BP 180/84 H 05/23/16 12:05 Pulse Ox 92 L 05/23/16 12:05 Weight - Most Recent: 118.9 kg I&O - Last 24 hours: Intake & Output 05/22/16 05/23/16 05/23/16 22:59 06:59 14:59 Intake Total 420 240 240 Output Total 7563 406 0234 Balance -1380 -360 -1160 Lab Results - Last 24 hrs: Laboratory Results - last 24 hr 05/23/16 Range/Units 04:15 Sodium 138 L (140-148) mmol/L Potassium 4.9 (3.6-5.2) mmol/L Chloride 105 (100-108) mmol/L Carbon Dioxide 27 (21-32) mmol/L Anion Gap 10.9 (5.0-14.0) mmol/L BUN 33 H (7-18) mg/dL Creatinine 1.3 H (0.6-1.0) mg/dL Est Cr Clr Drug Dosing 42.53 mL/min Estimated GFR (MDRD) 43 L (>60) Glucose 190 H (74-106) mg/dL Calcium 8.0 L (8.5-10.1) mg/dL Med Orders - Current: Current Medications Acetaminophen (Tylenol) 650 mg PO Q4H PRN PRN Reason: Pain (Mild 1-3)/fever Last Admin: 05/20/16 14:30 Dose: 650 mg Albuterol (Proventil Neb Soln) 2.5 mg NEB Q4H PRN PRN Reason: Shortness Of Breath/wheezing Last Admin: 05/19/16 03:16 Dose: 2.5 mg Albuterol/Ipratropium (Duoneb 3.0-0.5 Mg/3 Ml) 3 ml NEB QIDRT [facility] Last Admin: 05/23/16 11:00 Dose: 3 ml Amlodipine Besylate (Norvasc) 5 mg PO DAILY [facility] Last Admin: 05/23/16 08:48 Dose: 5 mg Aspirin (Halfprin) 81 mg PO DAILY [facility] Last Admin: 05/23/16 08:49 Dose: 81 mg Dextrose (Glutose 15) 15 gm PO ONETIME PRN PRN Reason: Hypoglycemia Dextrose/Water (Dextrose 50% In Water) 50 ml IV ONETIME PRN PRN Reason: Hypoglycemia Docusate Sodium (Colace) 100 mg PO BID PRN PRN Reason: Constipation Enoxaparin Sodium (Lovenox) 40 mg SUBCUT DAILY [facility] Last Admin: 05/23/16 08:48 Dose: 40 mg Furosemide (Lasix) 40 mg PO DAILY [facility] Last Admin: 05/23/16 08:48 Dose: 40 mg Ibuprofen (Motrin) 400 mg PO Q6H PRN PRN Reason: Pain (mild 1-3) Last Admin: 05/20/16 23:39 Dose: 400 mg Insulin Aspart (Novolog) 0 unit SUBCUT ASDIRECTED [facility] PRN Reason: Protocol Last Admin: 05/23/16 08:44 Dose: 1 units Insulin Aspart (Novolog) 13 unit SUBCUT TIDAC [facility] Last Admin: 05/23/16 12:34 Dose: 13 units Insulin Detemir (Levemir) 20 unit SUBCUT BEDTIME [facility] Last Admin: 05/22/16 22:09 Dose: 20 units Levofloxacin 500 mg/ (Levofloxacin 250 mg) 750 mg PO Q48H [facility] Last Admin: 05/22/16 17:01 Dose: 750 mg Lisinopril (Prinivil) 40 mg PO DAILY [facility] Last Admin: 05/23/16 08:48 Dose: 40 mg Magnesium Hydroxide (Milk Of Magnesia) 30 ml PO Q12H PRN PRN Reason: Constipation Ondansetron HCl (Zofran) 4 mg IV Q4H PRN PRN Reason: Nausea/Vomiting Last Admin: 05/19/16 13:29 Dose: 4 mg Oxycodone HCl (Oxycodone) 5 mg PO Q4H PRN PRN Reason: Pain (moderate 4-6) Polyethylene Glycol (Miralax) 17 gm PO DAILY PRN PRN Reason: Constipation Sodium Chloride (Saline Flush) 10 ml FLUSH ASDIRECTED PRN PRN Reason: Keep Vein Open Sodium Chloride ([place] Nasal [place]) 0 ml NHUNG Q2H PRN PRN Reason: nasal congestion Last Admin: 05/22/16 07:56 Dose: 1 spray Discontinued Medications Albuterol/Ipratropium (Duoneb 3.0-0.5 Mg/3 Ml) 3 ml NEB QID [facility] Last Admin: 05/18/16 21:42 Dose: 3 ml Albuterol/Ipratropium (Duoneb 3.0-0.5 Mg/3 Ml) Confirm Administered Dose 3 ml .ROUTE .STK-MED ONE Stop: 05/18/16 17:31 Last Admin: 05/18/16 17:59 Dose: Not Given Furosemide (Lasix) 40 mg IVPUSH ONETIME ONE Stop: 05/21/16 11:52 Last Admin: 05/21/16 12:12 Dose: 40 mg Lactated Ringer's (Ringers, Lactated) 1,000 mls @ 500 mls/hr IV ASDIRECTED ONE Stop: 05/18/16 16:01 Last Admin: 05/18/16 14:31 Dose: 500 mls/hr Lactated Ringer's (Ringers, Lactated) 500 mls @ 250 mls/hr IV .BOLUS ALEK Stop: 05/18/16 23:21 Last Admin: 05/18/16 17:55 Dose: 250 mls/hr Lactated Ringer's (Ringers, Lactated) 1,000 mls @ 125 mls/hr IV ASDIRECTED [facility] Last Admin: 05/19/16 07:00 Dose: 125 mls/hr Levofloxacin/Dextrose (Levaquin In D5w 500 Mg/100 Ml) Confirm Administered Dose 100 mls @ as directed IV .STK-MED ONE Stop: 05/18/16 17:32 Last Admin: 05/18/16 17:35 Dose: 500 mg Sodium Chloride (Normal Saline) Confirm Administered Dose 100 mls @ as directed .ROUTE .STK-MED ONE Stop: 05/18/16 17:35 Last Admin: 05/18/16 20:04 Dose: Not Given Piperacillin Sod/Tazobactam (Sod 3.375 gm/ Sodium Chloride) 50 mls @ 100 mls/ hr IV Q6H [facility] Last Admin: 05/19/16 03:09 Dose: 100 mls/hr Piperacillin/Tazobactam/ (Dextrose 3.375 gm/ Premix) 50 mls @ 100 mls/hr IV Q6H [facility] Last Admin: 05/21/16 08:34 Dose: 100 mls/hr Magnesium Sulfate 2 gm/ Premix 50 mls @ 25 mls/hr IV ONETIME ONE Stop: 05/19/16 11:29 Last Admin: 05/19/16 10:06 Dose: 25 mls/hr Levofloxacin/Dextrose 500 mg/ (Premix) 100 mls @ 100 mls/hr IV Q24H [facility] Last Admin: 05/19/16 16:28 Dose: 100 mls/hr Levofloxacin/Dextrose 250 mg/ (Premix) 50 mls @ 50 mls/hr IV Q24H [facility] Last Admin: 05/21/16 16:08 Dose: 50 mls/hr Ibuprofen (Motrin) 600 mg PO Q6H PRN PRN Reason: Pain Last Admin: 05/18/16 14:41 Dose: 600 mg Insulin Aspart (Novolog) 13 unit SUBCUT TIDAC [facility] Last Admin: 05/18/16 18:21 Dose: 13 units Insulin Aspart (Novolog) Confirm Administered Dose 300 unit .ROUTE .STK-MED ONE Stop: 05/18/16 18:14 Last Admin: 05/18/16 18:21 Dose: 13 units Insulin Detemir (Levemir) 42 unit SUBCUT BEDTIME [facility] Last Admin: 05/18/16 21:29 Dose: 42 units Insulin Detemir (Levemir) 42 unit SUBCUT BEDTIME [facility] Last Admin: 05/20/16 21:15 Dose: Not Given Oseltamivir Phosphate (Tamiflu) 75 mg PO BID [facility] Stop: 05/23/16 17:21 Last Admin: 05/20/16 09:18 Dose: 75 mg Oseltamivir Phosphate (Tamiflu) 30 mg PO BID [facility] Stop: 05/22/16 21:01 Last Admin: 05/22/16 22:08 Dose: 30 mg Sodium Chloride (Saline Flush) 10 ml FLUSH ASDIRECTED PRN PRN Reason: Keep Vein Open Last Admin: 05/18/16 14:32 Dose: 10 ml *Q Meaningful Use (DIS) - VTE *Q VTE Criteria *Q: - Stroke *Q Stroke Criteria *Q: - AMI *Q AMI Criteria *Q:
== END 2016-05-23 14:49 | disposition home or self-care (01) | DRG 871 ==
LOC: JP.ED 13:18 → JP.ICU 16:13 → JP.2SS 05-19 13:49
PROVIDERS: ADMIT Hospitalist; ATTEND Internal Medicine
DX: A41.9 Sepsis, unspecified organism (principal); J96.01 Acute respiratory failure with hypoxia; J09.X1 Influenza due to identified novel influenza A virus with pneumonia; E11.9 Type 2 diabetes mellitus without complications; Z79.01 Long term (current) use of anticoagulants; E66.9 Obesity, unspecified; Z82.49 Family history of ischemic heart disease and other diseases of the circulatory system; J45.909 Unspecified asthma, uncomplicated
CPT/HCPCS: 36415; 36600; 71020; 71020-26; 80048; 80053; 81001; 82803; 82962; 83605; 83735; 84484; 85025; 85027; 85610; 85730; 87040; 87070; 87205; 87804; 93005; 94640-76; 96360; 96361; 99285-25; A9270-GY; J1650; J1940; J1956; J2405; J2543; J3475; J7050; J7120; J7620

== ENCOUNTER 2017-04-19 19:44 | Inpatient (IN) | payer MEDICAID, OTHER ==
[2017-04-19] MEDS ORDERED: Sodium Chloride 0.9% 10 ML Syringe FLUSH PRN (20:47)
[2017-04-19] MEDS ORDERED: HYDROmorphone 0.5 MG/0.5 ML Syringe IVPUSH ONE (20:49)
[2017-04-19] MEDS ORDERED: Ondansetron 4 MG/2 ML SDV IVPUSH ONE (20:49)
--- NOTE | 2017-04-19 20:52 | EDM.PDOC ---
ED HPI GENERAL MEDICAL PROBLEM - General Chief Complaint: Abdominal Pain Stated Complaint: MID ABD PAIN Time Seen by Provider: 04/19/17 20:38 Source of Information: Reports: Patient, Family, RN Notes Reviewed History Limitations: Reports: No Limitations - History of Present Illness INITIAL COMMENTS - FREE TEXT/NARRATIVE: 57-year-old female presents emergency department today complaint of abdominal pain, she states the pain has developed over the last 24 hours she recently had a bout of pneumonia and influenza was treated with antivirals and antibiotics, did have significant coughing during that time. Her pain is localized around her bellybutton, positive flatus no nausea or vomiting history of abdominal surgeries 2 Right Lower Abdomen Pain Score (Numeric/FACES): 8 - Related Data Allergies Allergy/AdvReac Type Severity Reaction Status Date / Time No Known Allergies Allergy Verified 08/19/15 22:53 Home Meds: Home Meds Aspirin [Halfprin] 81 mg PO DAILY 08/19/15 [History] Cranberry Extract [Cranberry] 200 mg PO DAILY 08/19/15 [History] Insulin Glarg,Human.Rec.Analog [Lantus] 45 units SQ BEDTIME 08/19/15 [History] Insulin Lispro [Humalog] 10 units SQ TID 08/19/15 [History] Lisinopril 40 mg PO DAILY 08/19/15 [History] amLODIPine Besylate [Amlodipine Besylate] 5 mg PO DAILY 08/19/15 [History] Furosemide [Lasix] 40 mg PO DAILY 05/18/16 [History] Past Medical History Cardiovascular History: Reports: Heart Failure, Other (See Below) Other Cardiovascular History: cardiomegaly Respiratory History: Reports: Asthma [employer] History: Reports: Endocrine/Metabolic History: Reports: Diabetes, Type II, Obesity/BMI 30+ - Infectious Disease History Infectious Disease History: Reports: Chicken Pox, Measles, Mumps - Past Surgical History HEENT Surgical History: Reports: Eye Surgery GI Surgical History: Reports: Appendectomy Musculoskeletal Surgical History: Reports: Carpal Tunnel Social & Family History - Family History Family Medical History: Noncontributory Cardiac: Reports: Heart Failure - Tobacco Use Smoking Status *Q: Never Smoker Second Hand Smoke Exposure: Yes - Caffeine Use Caffeine Use: Reports: Soda - Recreational Drug Use Recreational Drug Use: No ED ROS GENERAL - Review of Systems Review Of Systems: See Below Constitutional: Reports: No Symptoms HEENT: Reports: No Symptoms Respiratory: Reports: No Symptoms Cardiovascular: Reports: No Symptoms GI/Abdominal: Reports: Abdominal Pain, Flatus. Denies: Nausea, Vomiting : Reports: No Symptoms Musculoskeletal: Reports: No Symptoms Skin: Reports: No Symptoms ED EXAM, GI/ABD - Physical Exam Exam: See Below Text/Narrative:: General: Female mild discomfort secondary to abdominal pain, alert and oriented x3 HEENT: head is atraumatic normocephalic, eyes pupils equal round reactive to light, sclera clear no conjunctivitis appreciated. Ears blocked by cerumen bilaterally. Nose no septal deviation, nares are clear, no blood present. Mouth mucosa is moist and pink no erythema or exudate noted in soft palate, tongue is midline uvula is midline, dentition is intact. Neck: Supple no thyromegaly no tracheal deviation. Nodes: Cervical nodes subclavicular nodes nontender no palpable lymphadenopathy noted. Lungs: clear to auscultation bilaterally with symmetrical respirations, no adventitious noise appreciated. CV: Regular rate and rhythm S1 and S2 appreciated no murmurs rubs or gallops noted. Abdomen: Soft, obese, tender around the umbilicus, no palpable masses or organomegaly appreciated, no distention no guarding bowel sounds are present, . Neuro: Cranial nerves II through XII grossly intact Course - Vital Signs Last Recorded V/S: Last Vital Signs Temp 99.1 F 04/19/17 21:51 Pulse 99 04/19/17 21:58 Resp 18 04/19/17 21:58 BP 167/75 H 04/19/17 21:58 Pulse Ox 95 04/19/17 21:58 - Orders/Labs/Meds Orders: Active Orders 24 hr Category Date Time Status Peripheral IV Care [RC] . DIRECTED Care 04/19/17 20:47 Active Abdomen Pelvis w Cont [CT] Urgent Exams 04/19/17 20:47 Taken Lactated Ringers [Ringers, Lactated] 1,000 ml Med 04/19/17 21:00 Active IV ASDIRECTED Sodium Chloride 0.9% [Normal Saline] 100 ml Med 04/19/17 21:30 Active IV ASDIRECTED Sodium Chloride 0.9% [Saline Flush] Med 04/19/17 20:47 Active 10 ml FLUSH ASDIRECTED PRN Peripheral IV Insertion Adult [OM.PC] Urgent Oth 04/19/17 20:47 Ordered Medication Orders Lactated Ringer's (Ringers, Lactated) 1,000 mls @ 500 mls/hr IV ASDIRECTED [facility] Last Admin: 04/19/17 21:27 Dose: 500 mls/hr Sodium Chloride (Normal Saline) 100 mls @ 3 mls/sec IV ASDIRECTED [facility] Last Admin: 04/19/17 21:40 Dose: 3 mls/sec Sodium Chloride (Saline Flush) 10 ml FLUSH ASDIRECTED PRN PRN Reason: Keep Vein Open Last Admin: 04/19/17 21:23 Dose: 10 ml Labs: Laboratory Tests 04/19/17 04/19/17 04/19/17 Range/Units 21:06 21:06 21:06 WBC 17.9 H (4.5-11.0) K/uL RBC 4.19 (3.30-5.50) M/uL Hgb 11.4 L (12.0-15.0) g/dL Hct 35.1 L (36.0-48.0) % MCV 84 (80-98) fL MCH 27 (27-31) pg MCHC 33 (32-36) % Plt Count 337 (150-400) K/uL Neut % (Auto) 79 H (36-66) % Lymph % (Auto) 10 L (24-44) % [place] % (Auto) 7 H (2-6) % Eos % (Auto) 4 (2-4) % Baso % (Auto) 0 (0-1) % Sodium 141 (140-148) mmol/L Potassium 4.9 (3.6-5.2) mmol/L Chloride 109 H (100-108) mmol/L Carbon Dioxide 26 (21-32) mmol/L Anion Gap 10.9 (5.0-14.0) mmol/L BUN 30 H (7-18) mg/dL Creatinine 1.0 (0.6-1.0) mg/dL Est Cr Clr Drug Dosing 49.68 mL/min Estimated GFR (MDRD) 57 L (>60) Glucose 125 H (74-106) mg/dL Lactic Acid 0.7 (0.4-2.0) mmol/L Calcium 8.0 L (8.5-10.1) mg/dL Total Bilirubin 0.3 (0.2-1.0) mg/dL AST 15 (15-37) U/L ALT 3 L (12-78) U/L Alkaline Phosphatase 96 (46-116) U/L Total Protein 5.7 L (6.4-8.2) g/dL Albumin 2.3 L (3.4-5.0) g/dL Globulin 3.4 (2.3-3.5) g/dL Albumin/Globulin Ratio 0.7 L (1.2-2.2) Lipase 106 (73-393) U/L Meds: Medications Generic Name Dose Route Start Last Admin Trade Name Freq PRN Reason Stop Dose Admin Lactated Ringer's 1,000 mls @ 500 mls/hr 04/19/17 21:00 04/19/17 21:27 Ringers, Lactated IV 500 mls/hr ASDIRECTED ALEK Administration Sodium Chloride 100 mls @ 3 mls/sec 04/19/17 21:30 04/19/17 21:40 Normal Saline IV 3 mls/sec ASDIRECTED ALEK Administration Sodium Chloride 10 ml 04/19/17 20:47 04/19/17 21:23 Saline Flush FLUSH 10 ml ASDIRECTED PRN Administration Keep Vein Open Discontinued Medications Generic Name Dose Route Start Last Admin Trade Name Freq PRN Reason Stop Dose Admin Hydromorphone HCl 0.5 mg 04/19/17 20:49 04/19/17 21:28 Dilaudid IVPUSH 04/19/17 20:50 0.5 mg ONETIME ONE Administration Iopamidol 150 ml 04/19/17 21:30 04/19/17 21:41 Isovue-300 (61%) IV 150 ml . DIRECTED ALEK Administration Ondansetron HCl 4 mg 04/19/17 20:49 04/19/17 21:24 Zofran IVPUSH 04/19/17 20:50 4 mg ONETIME ONE Administration Departure - Departure Time of Disposition: 00:15 Disposition: Admitted As Inpatient 67 Condition: Fair Clinical Impression: Abdominal pain Qualifiers: Abdominal location: periumbilical Qualified Code(s): R10.33 - Periumbilical pain - Discharge Information Referrals: Nabeel Sanders MD [Primary Care Provider] - Forms: ED Department Discharge - My Orders Last 24 Hours: My Active Orders 04/19/17 20:47 Peripheral IV Care [RC] . DIRECTED Abdomen Pelvis w Cont [CT] Urgent Sodium Chloride 0.9% [Saline Flush] 10 ml FLUSH ASDIRECTED PRN Peripheral IV Insertion Adult [OM.PC] Urgent 04/19/17 21:00 Lactated Ringers [Ringers, Lactated] 1,000 ml IV ASDIRECTED 04/19/17 21:30 Sodium Chloride 0.9% [Normal Saline] 100 ml IV ASDIRECTED - Assessment/Plan Last 24 Hours: My Active Orders 04/19/17 20:47 Peripheral IV Care [RC] . DIRECTED Abdomen Pelvis w Cont [CT] Urgent Sodium Chloride 0.9% [Saline Flush] 10 ml FLUSH ASDIRECTED PRN Peripheral IV Insertion Adult [OM.PC] Urgent 04/19/17 21:00 Lactated Ringers [Ringers, Lactated] 1,000 ml IV ASDIRECTED 04/19/17 21:30 Sodium Chloride 0.9% [Normal Saline] 100 ml IV ASDIRECTED Plan: Assessment Acuity = acute Site and laterality = abdominal pain complicated with moderate sized umbilical hernia and colitis Etiology = uncertain etiology Manifestations = none Location of injury = Home Lab values = WBC elevated 17.9 consistent leukocytosis lactic acid normal at 0.7 albumin low at 2.[address] scan shows moderate sized umbilical hernia with probable omentum entrapment no bowel however she does have thickened transverse descending sigmoid colon consistent with a colitis, C. difficile was negative Plan Called discussed case with hospitalist on-call they agreed to come and evaluate the patient in the emergency department for admission This note was dictated using [employer] voice recognition software please call with any questions on syntax or margaux.
[2017-04-19] MEDS ORDERED: Lactated Ringers 1,000 ML IV SCH (21:00)
[2017-04-19] MEDS ORDERED: Sodium Chloride 0.9% 100 ML IV SCH (21:30)
[2017-04-19] MEDS ORDERED: Iopamidol 612 MG/ML 150 ML Bottle IV SCH (21:30)
--- NOTE | 2017-04-20 00:39 | PCM.HP ---
H&P History of Present Illness - General Date of Service: 04/19/17 Source of Information: Patient - History of Present Illness Initial Comments - Free Text/Narative: 57-year-old female presents emergency department today complaint of abdominal pain, she states the pain has developed over the last 24 hours she recently had a bout of pneumonia and influenza was treated with antivirals and antibiotics, did have significant coughing during that time. Her pain is localized around her bellybutton, positive flatus no nausea or vomiting history of abdominal surgeries 2 Right Lower Abdomen Site and laterality = abdominal pain complicated with moderate sized umbilical hernia and colitis Etiology = uncertain etiology Manifestations = none Location of injury = Home Lab values = WBC elevated 17.9 consistent leukocytosis lactic acid normal at 0.7 albumin low at 2.[address] scan shows moderate sized umbilical hernia with probable omentum entrapment no bowel however she does have thickened transverse descending sigmoid colon consistent with a colitis, C. difficile was negative Plan: admit to Observation P Onset of Symptoms: Reports: Gradual Duration of Symptoms: Reports: Day(s): Location: Reports: Abdomen, Generalized Severity: Moderate Improves with: Reports: None Worsens with: Reports: Movement Associated Symptoms: Reports: Fever/Chills, Nausea/Vomiting, Weakness Right Lower Abdomen Pain Score (Numeric/FACES): 8 - Related Data Allergies/Adverse Reactions: Allergies Allergy/AdvReac Type Severity Reaction Status Date / Time No Known Allergies Allergy Verified 08/19/15 22:53 Home Medications: Home Meds Aspirin [Halfprin] 81 mg PO DAILY 08/19/15 [History] Cranberry Extract [Cranberry] 200 mg PO DAILY 08/19/15 [History] Insulin Glarg,Human.Rec.Analog [Lantus] 45 units SQ BEDTIME 08/19/15 [History] Insulin Lispro [Humalog] 10 units SQ TID 08/19/15 [History] Lisinopril 40 mg PO DAILY 08/19/15 [History] amLODIPine Besylate [Amlodipine Besylate] 5 mg PO DAILY 08/19/15 [History] Furosemide [Lasix] 40 mg PO DAILY 05/18/16 [History] Past Medical History Cardiovascular History: Reports: Heart Failure, Other (See Below) Other Cardiovascular History: cardiomegaly Respiratory History: Reports: Asthma 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 2 brothers; one with pancreatic and other invasive cancer - Tobacco Use Smoking Status *Q: Never Smoker Second Hand Smoke Exposure: Yes - Caffeine Use Caffeine Use: Reports: Soda - Recreational Drug Use Recreational Drug Use: No - Living Situation & Occupation Living situation: Reports: (lives with , 2 adult children and 4 grandchildren) H&P Review of Systems - Review of Systems: Review Of Systems: See Below General: Reports: Fever, Malaise, Weakness, Fatigue, Decreased Appetite HEENT: Reports: Other (blind in left eye) Pulmonary: Reports: Cough, Other (recent pneumonia with influenza) Cardiovascular: Reports: Dyspnea on Exertion, Edema (bilateral lower legs) Gastrointestinal: Reports: Abdominal Pain (umbilical to low abdomen), Diarrhea ( took immodium, last stool on Friday morning.), Vomiting (3 days ago, non since ) Genitourinary: Reports: No Symptoms Musculoskeletal: Reports: Back Pain Skin: Reports: No Symptoms Psychiatric: Reports: No Symptoms Neurological: Reports: No Symptoms Hematologic/Lymphatic: Reports: No Symptoms Immunologic: Reports: No Symptoms Exam - Exam Exam: See Below - Vital Signs Vital Signs: Last Vital Signs Temp 37.3 C 04/19/17 21:51 Pulse 99 04/19/17 21:58 Resp 18 04/19/17 21:58 BP 167/75 H 04/19/17 21:58 Pulse Ox 95 04/19/17 21:58 Weight: 119.4 kg - Exam General: Alert, Oriented, Cooperative HEENT: Conjunctiva Clear, Hearing Intact, Mucosa Moist & [place], Nares Patent Neck: Supple, Trachea Midline Lungs: Clear to Auscultation, Normal Respiratory Effort, Other (cough present) Cardiovascular: Regular Rate, Regular Rhythm, Normal S1, Normal S2 GI/Abdominal Exam: Normal Bowel Sounds, Soft, Tender, Other (obese, large abdomin unable to palpate any masses due to size) (Female) Exam: Deferred Rectal (Female) Exam: Deferred Back Exam: Normal Inspection Extremities: Pedal Edema (bilateral lower leg edema.) Skin: Warm, Dry, Intact Neurological: Reflexes Equal Bilateral, Strength Equal Bilateral, Normal Speech , Normal Tone Neuro Extensive - Mental Status: Alert, Oriented x3, Normal Mood/Affect Neuro Extensive - Motor, Sensory, Reflexes: CN II-XII Intact, Normal Reflexes Psychiatric: Alert, Normal Affect, Normal Mood - Patient Data Lab Results Last 24 hrs: Laboratory Results - last 24 hr 04/19/17 04/19/17 04/19/17 Range/Units 21:06 21:06 21:06 WBC 17.9 H (4.5-11.0) K/uL RBC 4.19 (3.30-5.50) M/uL Hgb 11.4 L (12.0-15.0) g/dL Hct 35.1 L (36.0-48.0) % MCV 84 (80-98) fL MCH 27 (27-31) pg MCHC 33 (32-36) % Plt Count 337 (150-400) K/uL Neut % (Auto) 79 H (36-66) % Lymph % (Auto) 10 L (24-44) % [place] % (Auto) 7 H (2-6) % Eos % (Auto) 4 (2-4) % Baso % (Auto) 0 (0-1) % Sodium 141 (140-148) mmol/L Potassium 4.9 (3.6-5.2) mmol/L Chloride 109 H (100-108) mmol/L Carbon Dioxide 26 (21-32) mmol/L Anion Gap 10.9 (5.0-14.0) mmol/L BUN 30 H (7-18) mg/dL Creatinine 1.0 (0.6-1.0) mg/dL Est Cr Clr Drug Dosing 49.68 mL/min Estimated GFR (MDRD) 57 L (>60) Glucose 125 H (74-106) mg/dL Lactic Acid 0.7 (0.4-2.0) mmol/L Calcium 8.0 L (8.5-10.1) mg/dL Total Bilirubin 0.3 (0.2-1.0) mg/dL AST 15 (15-37) U/L ALT 3 L (12-78) U/L Alkaline Phosphatase 96 (46-116) U/L Total Protein 5.7 L (6.4-8.2) g/dL Albumin 2.3 L (3.4-5.0) g/dL Globulin 3.4 (2.3-3.5) g/dL Albumin/Globulin Ratio 0.7 L (1.2-2.2) Lipase 106 (73-393) U/L Result Diagrams: 04/19/17 21:06 04/19/17 21:06 Tim Results Last 24 hrs: Microbiology 04/19/17 23:04 Clostridium difficile (PCR) - Final Stool / Feces NEGATIVE CDIFF TOXIN *Q Meaningful Use (ADM) - VTE *Q VTE Criteria *Q: - Stroke *Q Stroke Criteria *Q: - AMI *Q AMI Criteria *Q: - Problem List (1) Umbilical hernia without obstruction or gangrene SNOMED Code(s): 4959264 ICD Code: K42.9 - UMBILICAL HERNIA WITHOUT OBSTRUCTION OR GANGRENE Status: Acute Priority: Low Current Visit: Yes (2) Diabetes mellitus type 2 in obese SNOMED Code(s): 69823001 ICD Code: E11.69 - TYPE 2 DIABETES MELLITUS WITH OTHER SPECIFIED COMPLICATION ; E66.9 - OBESITY, UNSPECIFIED Status: Acute Priority: Medium Current Visit: Yes (3) Abdominal pain SNOMED Code(s): 94474548 ICD Code: R10.9 - UNSPECIFIED ABDOMINAL PAIN Status: Acute Priority: High Current Visit: Yes Qualifiers: Abdominal location: periumbilical Qualified Code(s): R10.33 - Periumbilical pain Problem List Initiated/Reviewed/Updated: Yes Orders Last 24hrs: Active Orders 24 hr Category Date Time Status Peripheral IV Care [RC] . DIRECTED Care 04/19/17 20:47 Active Abdomen Pelvis w Cont [CT] Urgent Exams 04/19/17 20:47 Taken Lactated Ringers [Ringers, Lactated] 1,000 ml Med 04/19/17 21:00 Active IV ASDIRECTED Sodium Chloride 0.9% [Normal Saline] 100 ml Med 04/19/17 21:30 Active IV ASDIRECTED Sodium Chloride 0.9% [Saline Flush] Med 04/19/17 20:47 Active 10 ml FLUSH ASDIRECTED PRN Peripheral IV Insertion Adult [OM.PC] Urgent Oth 04/19/17 20:47 Ordered Medication Orders Lactated Ringer's (Ringers, Lactated) 1,000 mls @ 500 mls/hr IV ASDIRECTED [facility] Last Admin: 04/19/17 21:27 Dose: 500 mls/hr Sodium Chloride (Normal Saline) 100 mls @ 3 mls/sec IV ASDIRECTED [facility] Last Admin: 04/19/17 21:40 Dose: 3 mls/sec Sodium Chloride (Saline Flush) 10 ml FLUSH ASDIRECTED PRN PRN Reason: Keep Vein Open Last Admin: 04/19/17 21:23 Dose: 10 ml Assessment/Plan Comment:: ASSESSMENT / PLAN 57-year-old female presents emergency department today complaint of abdominal pain, she states the pain has developed over the last 24 hours she recently had a bout of pneumonia and influenza was treated with antivirals and antibiotics, did have significant coughing during that time. Her pain is localized around her bellybutton, positive flatus no nausea or vomiting history of abdominal surgeries 2 Right Lower Abdomen Site and laterality = abdominal pain complicated with moderate sized umbilical hernia and colitis Etiology = uncertain etiology Manifestations = none Location of injury = Home Lab values = WBC elevated 17.9 consistent leukocytosis lactic acid normal at 0.7 albumin low at 2.[address] scan shows moderate sized umbilical hernia with probable omentum entrapment no bowel however she does have thickened transverse descending sigmoid colon consistent with a colitis, C. difficile was negative Plan: admit to Observation Colitis, abdominal pain -Admit Observation to [address] [place] [address] for further monitoring -IV fluids for rehydration NS at 125 mL per hour -Pain management IV and PO ordered -Advise to notify nurses of any abdominal pain or other symptoms -And a.m. labs: CBC, BMP Umbilical Hernia -consulted with Surgeon, recommends follow up on outpatient -not urgent repair at this time. TYPE 2 DIABETES MELLITUS -4 times a day glucometers -Insulin Levemir 45 units subcut at bedtime -Insulin Novolog 10 unit before meals -diet; consistent carb Maintenance issues -Orders home meds: on hold -Nutrition: consistent carb diet -Ayon catheter not indicated at this time -DVT: Levonox 40 units subcut -GI Prophalaxis;IV Protonix 40mg daily CODE STATUS: Full Admission status: Admit to Observation -I expect this patient to stay less than 24 hours, not to exceed 96 hours for evaluation and management of this problem. Disposition: home Primary care provider: Dr. Sanders Hospitalist:
[2017-04-20] MEDS ORDERED: Albuterol/Ipratropium 3.0-0.5 MG/3 ML Neb Soln NEB PRN (01:17)
[2017-04-20] MEDS ORDERED: Albuterol 0.083% 2.5 MG/3 ML Neb Soln NEB PRN (01:17)
[2017-04-20] MEDS ORDERED: Ondansetron 4 MG Tab.DIS PO PRN (01:17)
[2017-04-20] MEDS ORDERED: Ondansetron 4 MG/2 ML SDV IV PRN (01:17)
[2017-04-20] MEDS ORDERED: HYDROmorphone 0.5 MG/0.5 ML Syringe IVPUSH PRN (01:17)
[2017-04-20] MEDS ORDERED: Zolpidem 5 MG Tab PO PRN (01:17)
[2017-04-20] MEDS ORDERED: LORazepam 2 MG/ML MDV IV PRN (01:17)
[2017-04-20] MEDS: Sodium Chloride 0.9% 1,000 ML IV SCH ×3 (01:31→16:37)
[2017-04-20] MEDS: oxyCODONE 5 MG Tab PO PRN ×4 (01:33→16:36)
[2017-04-20] MEDS: Enoxaparin 40 MG/0.4 ML Syringe SUBCUT SCH (08:36)
[2017-04-20] MEDS: Lisinopril 20 MG Tab PO SCH (08:37)
[2017-04-20] MEDS: Furosemide 40 MG Tab PO SCH (08:37)
[2017-04-20] MEDS: Pantoprazole 40 MG Vial IVPUSH SCH (08:37)
[2017-04-20] MEDS: Insulin Aspart 100 Units/ML 3 ML Pen SUBCUT SCH ×5 (08:37→21:09)
[2017-04-20] MEDS: amLODIPine 5 MG Tab PO SCH (08:37)
[2017-04-20] MEDS: metroNIDAZOLE/Normal Saline 500 MG in Premix Bag 1 BAG IV SCH ×3 (08:48→23:53)
[2017-04-20] MEDS: Ciprofloxacin in D5W 400 MG in Premix Bag 1 BAG IV SCH ×4 (10:07→21:14)
[2017-04-20] MEDS: Acetaminophen 325 MG Tab PO PRN ×3 (12:06→20:58)
[2017-04-20] MEDS ORDERED: Glucose Gel 15 GM in 37.5 GM Tube PO PRN (12:48)
[2017-04-20] MEDS ORDERED: 50% Dextrose in Water 50 ML Syringe IV PRN (12:48)
--- NOTE | 2017-04-20 12:57 | PCM.PN ---
- General Info Date of Service: 04/20/17 Subjective Update: Ms. Childs is a 57-year-old woman who was admitted last night through the emergency department with a recent history of nausea, vomiting, diarrhea, and lower abdominal pain. She had received recent antibiotics for management of respiratory tract infection. Completed course of antibiotics on Friday and later that night developed significant diarrhea that persisted for 2 days. Since then she's had more pain in the abdomen but no further diarrhea. She has experienced symptoms of nausea and vomiting. She was evaluated in the emergency department, white blood cell count was elevated and she did have temperature elevation. CT scan of the abdomen did show evidence of colitis in a pattern consistent with possible ischemic colitis versus inflammation or infection. She is felt modestly improved since admission with less pain, but persistent fever. Functional Status: Reports: Pain Controlled, Tolerating Diet, Urinating - Review of Systems General: Reports: Fever, Weakness, Chills Pulmonary: Reports: No Symptoms Cardiovascular: Reports: No Symptoms Gastrointestinal: Reports: Abdominal Pain. Denies: Decreased Appetite, Diarrhea , Difficulty Swallowing, Nausea, Vomiting Genitourinary: Reports: No Symptoms - Patient Data Vitals - Most Recent: Last Vital Signs Temp 102.1 F H 04/20/17 12:06 Pulse 94 04/20/17 10:02 Resp 18 04/20/17 10:02 BP 128/43 L 04/20/17 10:02 Pulse Ox 90 L 04/20/17 10:02 Weight - Most Recent: 268 lb I&O - Last 24 Hours: Intake & Output 04/19/17 04/20/17 04/20/17 22:59 06:59 14:59 Intake Total 550 Balance 550 Lab Results Last 24 Hours: Laboratory Results - last 24 hr 04/20/17 04/20/17 Range/Units 06:11 06:11 WBC 15.1 H (4.5-11.0) K/uL RBC 3.75 (3.30-5.50) M/uL Hgb 10.1 L (12.0-15.0) g/dL Hct 32.0 L (36.0-48.0) % MCV 85 (80-98) fL MCH 27 (27-31) pg MCHC 32 (32-36) % Plt Count 310 (150-400) K/uL Neut % (Auto) 72 H (36-66) % Lymph % (Auto) 15 L (24-44) % [place] % (Auto) 9 H (2-6) % Eos % (Auto) 4 (2-4) % Baso % (Auto) 0 (0-1) % Sodium 141 (140-148) mmol/L Potassium 4.8 (3.6-5.2) mmol/L Chloride 110 H (100-108) mmol/L Carbon Dioxide 26 (21-32) mmol/L Anion Gap 9.8 (5.0-14.0) mmol/L BUN 25 H (7-18) mg/dL Creatinine 1.0 (0.6-1.0) mg/dL Est Cr Clr Drug Dosing 49.68 mL/min Estimated GFR (MDRD) 57 L (>60) Glucose 123 H (74-106) mg/dL Calcium 7.6 L (8.5-10.1) mg/dL Med Orders - Current: Current Medications Acetaminophen (Tylenol) 650 mg PO Q4H PRN PRN Reason: Pain (Mild 1-3)/fever Last Admin: 04/20/17 12:06 Dose: 650 mg Albuterol (Proventil Neb Soln) 2.5 mg NEB Q4H PRN PRN Reason: Shortness Of Breath/wheezing Albuterol/Ipratropium (Duoneb 3.0-0.5 Mg/3 Ml) 3 ml NEB QID PRN PRN Reason: Shortness Of Breath/wheezing Amlodipine Besylate (Norvasc) 5 mg PO DAILY [facility] Last Admin: 04/20/17 08:37 Dose: 5 mg Dextrose (Glutose 15) 15 gm PO ONETIME PRN PRN Reason: Hypoglycemia Dextrose/Water (Dextrose 50% In Water) 50 ml IV ONETIME PRN PRN Reason: Hypoglycemia Enoxaparin Sodium (Lovenox) 40 mg SUBCUT DAILY [facility] Last Admin: 04/20/17 08:36 Dose: 40 mg Furosemide (Lasix) 40 mg PO DAILY [facility] Last Admin: 04/20/17 08:37 Dose: 40 mg Hydromorphone HCl (Dilaudid) 0.5 mg IVPUSH Q2H PRN PRN Reason: Abdominal Pain Sodium Chloride (Normal Saline) 1,000 mls @ 125 mls/hr IV ASDIRECTED [facility] Last Admin: 02/11/18 08:50 Dose: 125 mls/hr Ciprofloxacin/Dextrose 400 mg/ (Premix) 200 mls @ 200 mls/hr IV Q12H [facility] Last Admin: 04/20/17 10:07 Dose: 200 mls/hr Metronidazole 500 mg/ Premix 100 mls @ 100 mls/hr IV Q8H [facility] Last Admin: 04/20/17 08:48 Dose: 100 mls/hr Insulin Aspart (Novolog) 0 unit SUBCUT QIDACANDBED [facility] PRN Reason: Protocol Insulin Detemir (Levemir) 45 unit SUBCUT BEDTIME [facility] Lisinopril (Prinivil) 40 mg PO DAILY [facility] Last Admin: 04/20/17 08:37 Dose: 40 mg Lorazepam (Ativan) 1 mg IV Q6H PRN PRN Reason: Nausea/Vomiting Ondansetron HCl (Zofran Odt) 4 mg PO Q6H PRN PRN Reason: Nausea able to take PO Ondansetron HCl (Zofran) 4 mg IV Q6H PRN PRN Reason: Nausea/Vomiting Oxycodone HCl (Oxycodone) 5 mg PO Q4H PRN PRN Reason: Pain (moderate 4-6) Last Admin: 04/20/17 12:01 Dose: 5 mg Pantoprazole Sodium (Protonix Iv) 40 mg IVPUSH DAILY [facility] Last Admin: 04/20/17 08:37 Dose: 40 mg Zolpidem Tartrate (Ambien) 5 mg PO BEDTIME PRN PRN Reason: Sleep Discontinued Medications Hydromorphone HCl (Dilaudid) 0.5 mg IVPUSH ONETIME ONE Stop: 04/19/17 20:50 Last Admin: 04/19/17 21:28 Dose: 0.5 mg Lactated Ringer's (Ringers, Lactated) 1,000 mls @ 500 mls/hr IV ASDIRECTED [facility] Last Admin: 04/19/17 21:27 Dose: 500 mls/hr Sodium Chloride (Normal Saline) 100 mls @ 3 mls/sec IV ASDIRECTED [facility] Last Admin: 04/19/17 21:40 Dose: 3 mls/sec Insulin Aspart (Novolog) 10 unit SUBCUT TIDMEALS [facility] Last Admin: 04/20/17 08:37 Dose: 10 units Insulin Detemir (Levemir) 45 unit SUBCUT BEDTIME [facility] Last Admin: 04/20/17 04:28 Dose: Not Given Iopamidol (Isovue-300 (61%)) 150 ml IV . DIRECTED [facility] Last Admin: 04/19/17 21:41 Dose: 150 ml Ondansetron HCl (Zofran) 4 mg IVPUSH ONETIME ONE Stop: 04/19/17 20:50 Last Admin: 04/19/17 21:24 Dose: 4 mg Sodium Chloride (Saline Flush) 10 ml FLUSH ASDIRECTED PRN PRN Reason: Keep Vein Open Last Admin: 04/19/17 21:23 Dose: 10 ml - Exam Quality Assessment: DVT Prophylaxis General: Alert, Oriented, Cooperative, Moderate Distress Lungs: Clear to Auscultation, Normal Respiratory Effort Cardiovascular: Regular Rate, Regular Rhythm, No Murmurs GI/Abdominal Exam: Soft, No Organomegaly, Tender. No: Distended, Guarding, Rigid, Rebound Extremities: Non-Tender, No Pedal Edema Skin: Warm, Dry, Intact - Problem List Review Problem List Initiated/Reviewed/Updated: Yes - My Orders Last 24 Hours: My Active Orders 04/20/17 08:30 metroNIDAZOLE/Normal Saline [Flagyl 500 MG in NS 100 ML] 500 mg Premix Bag 1 bag IV Q8H 04/20/17 10:00 Ciprofloxacin in D5W [Cipro in D5W 400 MG/200 ML] 400 mg Premix Bag 1 bag IV Q12H 04/20/17 12:09 Blood Glucose Check, Bedside [RC] QIDACANDBED 04/20/17 12:48 Communication Order [RC] STAT Dextrose 50% in Water 50 ml IV ONETIME PRN Dextrose [Glutose 15] 15 gm PO ONETIME PRN 04/20/17 12:50 CULTURE BLOOD [BC] Stat CULTURE BLOOD [BC] Stat Blood Culture x2 Reflex Set [OM.PC] Urgent 04/20/17 16:30 GLUCOSE POC LAB TO COLLECT [POC] QIDACANDBED 04/20/17 17:00 Insulin Aspart [NovoLOG] See Protocol SUBCUT QIDACANDBED 04/20/17 21:00 GLUCOSE POC LAB TO COLLECT [POC] QIDACANDBED 04/21/17 05:00 BASIC METABOLIC PANEL,BMP [CHEM] Timed CBC WITH AUTO DIFF [HEME] Timed 04/21/17 07:30 GLUCOSE POC LAB TO COLLECT [POC] QIDACANDBED 04/21/17 11:30 GLUCOSE POC LAB TO COLLECT [POC] QIDACANDBED 04/21/17 16:30 GLUCOSE POC LAB TO COLLECT [POC] QIDACANDBED 04/21/17 21:00 GLUCOSE POC LAB TO COLLECT [POC] QIDACANDBED 04/22/17 07:30 GLUCOSE POC LAB TO COLLECT [POC] QIDACANDBED 04/22/17 11:30 GLUCOSE POC LAB TO COLLECT [POC] QIDACANDBED 04/22/17 16:30 GLUCOSE POC LAB TO COLLECT [POC] QIDACANDBED 04/22/17 21:00 GLUCOSE POC LAB TO COLLECT [POC] QIDACANDBED 04/23/17 07:30 GLUCOSE POC LAB TO COLLECT [POC] QIDACANDBED 04/23/17 11:30 GLUCOSE POC LAB TO COLLECT [POC] QIDACANDBED 04/23/17 16:30 GLUCOSE POC LAB TO COLLECT [POC] QIDACANDBED 04/23/17 21:00 GLUCOSE POC LAB TO COLLECT [POC] QIDACANDBED 04/24/17 07:30 GLUCOSE POC LAB TO COLLECT [POC] QIDACANDBED 04/24/17 11:30 GLUCOSE POC LAB TO COLLECT [POC] QIDACANDBED 04/24/17 16:30 GLUCOSE POC LAB TO COLLECT [POC] QIDACANDBED 04/24/17 21:00 GLUCOSE POC LAB TO COLLECT [POC] QIDACANDBED 04/25/17 07:30 GLUCOSE POC LAB TO COLLECT [POC] QIDACANDBED 04/25/17 11:30 GLUCOSE POC LAB TO COLLECT [POC] QIDACANDBED 04/25/17 16:30 GLUCOSE POC LAB TO COLLECT [POC] QIDACANDBED 04/25/17 21:00 GLUCOSE POC LAB TO COLLECT [POC] QIDACANDBED - Plan Plan:: ASSESSMENT / PLAN Colitis- abdominal pain over the past 3 days. Initially associated with diarrhea , or recently nausea and vomiting. Modestly improved since admission, continues to have fevers with elevation in white blood cell count -IV ciprofloxacin and Flagyl -Continue IV fluids NS at 125 mL per hour -Pain management IV and PO ordered -Anti-medic therapy as needed -Blood cultures pending Umbilical Hernia -consulted with Surgeon, recommends follow up on outpatient -not urgent repair at this time. TYPE 2 DIABETES MELLITUS -4 times a day glucometers -Insulin Levemir 45 units subcut at bedtime -High-dose sliding scale NovoLog -Consistent carb diet -4 times a day glucometers Maintenance issues -Orders home meds: on hold -Nutrition: consistent carb diet -Ayon catheter not indicated at this time -DVT: Levonox 40 units subcut -GI Prophalaxis;IV Protonix 40mg daily CODE STATUS: Full Admission status: Admit to Observation -I expect this patient to stay less than 24 hours, not to exceed 96 hours for evaluation and management of this problem. Disposition: home Primary care provider: Dr. Sanders Hospitalist:
[2017-04-20] MEDS: Insulin Detemir 100 Units/ML 3 ML Pen SUBCUT SCH (21:10)
[2017-04-20] MEDS ORDERED: Ibuprofen 400 MG Tab PO ONE (23:10)
[2017-04-21] MEDS: Acetaminophen 325 MG Tab PO PRN ×2 (00:53→19:33)
[2017-04-21] MEDS ORDERED: Furosemide 40 MG/4 ML VIAL IVPUSH ONE ×2 (01:34→15:00)
[2017-04-21] MEDS: Sodium Chloride 0.9% 1,000 ML IV SCH ×2 (01:56→21:24)
[2017-04-21] MEDS: metroNIDAZOLE/Normal Saline 500 MG in Premix Bag 1 BAG IV SCH ×3 (07:45→23:42)
[2017-04-21] MEDS: Insulin Aspart 100 Units/ML 3 ML Pen SUBCUT SCH ×4 (08:52→21:19)
[2017-04-21] MEDS: Furosemide 40 MG Tab PO SCH (08:56)
[2017-04-21] MEDS: Enoxaparin 40 MG/0.4 ML Syringe SUBCUT SCH (08:56)
[2017-04-21] MEDS: amLODIPine 5 MG Tab PO SCH (08:56)
[2017-04-21] MEDS: Pantoprazole 40 MG Vial IVPUSH SCH (08:56)
[2017-04-21] MEDS: Lisinopril 20 MG Tab PO SCH (08:57)
[2017-04-21] MEDS: Ciprofloxacin in D5W 400 MG in Premix Bag 1 BAG IV SCH ×4 (09:00→21:17)
--- NOTE | 2017-04-21 10:44 | PCM.PN ---
- General Info Date of Service: 04/21/17 Functional Status: Reports: Pain Controlled, Tolerating Diet - Review of Systems General: Reports: Fever Pulmonary: Reports: Shortness of Breath Gastrointestinal: Reports: Abdominal Pain. Denies: Diarrhea Systems Review Comment:: patient had a fairly stubborn fever overnight that required acetaminophen and ibuprofen before it finally dissipated. Abdominal pain is better today and is present only with coughing at this time. She was up to 3 L of supplemental oxygen overnight. She feels short of breath but is not coughing. She has not had any vomiting or diarrhea. - Patient Data Vitals - Most Recent: Last Vital Signs Temp 35.9 C 04/21/17 07:30 Pulse 77 04/21/17 07:30 Resp 16 04/21/17 07:30 BP 139/57 L 04/21/17 08:57 Pulse Ox 93 L 04/21/17 07:30 Weight - Most Recent: 121.563 kg I&O - Last 24 Hours: Intake & Output 04/20/17 04/21/17 04/21/17 22:59 06:59 14:59 Intake Total 2512 500 Output Total 400 1300 1650 Balance 2112 -800 -1650 Lab Results Last 24 Hours: Laboratory Results - last 24 hr 04/21/17 04/21/17 04/21/17 Range/Units 01:15 06:05 06:05 WBC 12.6 H (4.5-11.0) K/uL RBC 3.50 (3.30-5.50) M/uL Hgb 9.4 L (12.0-15.0) g/dL Hct 30.1 L (36.0-48.0) % MCV 86 (80-98) fL MCH 27 (27-31) pg MCHC 31 L (32-36) % Plt Count 307 (150-400) K/uL Neut % (Auto) 72 H (36-66) % Lymph % (Auto) 15 L (24-44) % Mccracken % (Auto) 9 H (2-6) % Eos % (Auto) 4 (2-4) % Baso % (Auto) 0 (0-1) % Puncture Site L brachial ABG pH 7.404 (7.350-7.450) ABG pCO2 38.7 (35.0-42.0) mmHg ABG pO2 56.0 L (75.0-100.0) mmHg ABG HCO3 23.7 (22.0-26.0) mmol/L ABG Total CO2 22.1 (21.0-25.0) mmol/L ABG O2 Saturation 88.8 L (95.0-98.0) % ABG O2 Content 12.1 L (15.0-23.0) %vol ABG Base Excess -0.4 mm/L ABG Hemoglobin 9.8 L (12.0-16.0) g/dL ABG Oxyhemoglobin 87.1 % ABG Carboxyhemoglobin 0.8 (0.0-1.6) % ABG Methemoglobin 1.1 % O2 Delivery Device Nasal cannula Oxygen Flow Rate 3 L Sodium 138 L (140-148) mmol/L Potassium 4.5 (3.6-5.2) mmol/L Chloride 108 (100-108) mmol/L Carbon Dioxide 25 (21-32) mmol/L Anion Gap 9.5 (5.0-14.0) mmol/L BUN 26 H (7-18) mg/dL Creatinine 1.3 H (0.6-1.0) mg/dL Est Cr Clr Drug Dosing 38.22 mL/min Estimated GFR (MDRD) 42 L (>60) Glucose 177 H (74-106) mg/dL Calcium 7.5 L (8.5-10.1) mg/dL Med Orders - Current: Current Medications Acetaminophen (Tylenol) 650 mg PO Q4H PRN PRN Reason: Pain (Mild 1-3)/fever Last Admin: 04/21/17 00:53 Dose: 650 mg Albuterol (Proventil Neb Soln) 2.5 mg NEB Q4H PRN PRN Reason: Shortness Of Breath/wheezing Albuterol/Ipratropium (Duoneb 3.0-0.5 Mg/3 Ml) 3 ml NEB QID PRN PRN Reason: Shortness Of Breath/wheezing Last Admin: 04/20/17 22:29 Dose: 3 ml Amlodipine Besylate (Norvasc) 5 mg PO DAILY [facility] Last Admin: 04/21/17 08:56 Dose: 5 mg Dextrose (Glutose 15) 15 gm PO ASDIRECTED PRN PRN Reason: Hypoglycemia Dextrose/Water (Dextrose 50% In Water) 50 ml IV ASDIRECTED PRN PRN Reason: Hypoglycemia Enoxaparin Sodium (Lovenox) 40 mg SUBCUT DAILY [facility] Last Admin: 04/21/17 08:56 Dose: 40 mg Furosemide (Lasix) 40 mg PO DAILY [facility] Last Admin: 04/21/17 08:56 Dose: 40 mg Furosemide (Lasix) 40 mg IVPUSH ONETIME ONE Stop: 04/21/17 15:01 Hydromorphone HCl (Dilaudid) 0.5 mg IVPUSH Q2H PRN PRN Reason: Abdominal Pain Ciprofloxacin/Dextrose 400 mg/ (Premix) 200 mls @ 200 mls/hr IV Q12H [facility] Last Admin: 04/21/17 09:00 Dose: 200 mls/hr Metronidazole 500 mg/ Premix 100 mls @ 100 mls/hr IV Q8H [facility] Last Admin: 04/21/17 07:45 Dose: 100 mls/hr Sodium Chloride (Normal Saline) 1,000 mls @ 0 mls/hr IV ASDIRECTED [facility] PRN Reason: KVO Last Admin: 04/21/17 01:56 Dose: 25 mls/hr Insulin Aspart (Novolog) 0 unit SUBCUT QIDACANDBED [facility] PRN Reason: Protocol Last Admin: 04/21/17 08:52 Dose: 3 units Insulin Detemir (Levemir) 45 unit SUBCUT BEDTIME [facility] Last Admin: 04/20/17 21:10 Dose: 45 unit Lisinopril (Prinivil) 40 mg PO DAILY [facility] Last Admin: 04/21/17 08:57 Dose: 40 mg Lorazepam (Ativan) 1 mg IV Q6H PRN PRN Reason: Nausea/Vomiting Ondansetron HCl (Zofran Odt) 4 mg PO Q6H PRN PRN Reason: Nausea able to take PO Last Admin: 04/20/17 22:22 Dose: 4 mg Ondansetron HCl (Zofran) 4 mg IV Q6H PRN PRN Reason: Nausea/Vomiting Oxycodone HCl (Oxycodone) 5 mg PO Q4H PRN PRN Reason: Pain (moderate 4-6) Last Admin: 04/20/17 16:36 Dose: 5 mg Zolpidem Tartrate (Ambien) 5 mg PO BEDTIME PRN PRN Reason: Sleep Discontinued Medications Furosemide (Lasix) 40 mg IVPUSH ONETIME ONE Stop: 04/21/17 01:35 Last Admin: 04/21/17 01:55 Dose: 40 mg Hydromorphone HCl (Dilaudid) 0.5 mg IVPUSH ONETIME ONE Stop: 04/19/17 20:50 Last Admin: 04/19/17 21:28 Dose: 0.5 mg Lactated Ringer's (Ringers, Lactated) 1,000 mls @ 500 mls/hr IV ASDIRECTED [facility] Last Admin: 04/19/17 21:27 Dose: 500 mls/hr Sodium Chloride (Normal Saline) 100 mls @ 3 mls/sec IV ASDIRECTED [facility] Last Admin: 04/19/17 21:40 Dose: 3 mls/sec Sodium Chloride (Normal Saline) 1,000 mls @ 125 mls/hr IV ASDIRECTED [facility] Last Admin: 04/20/17 16:37 Dose: 125 mls/hr Ibuprofen (Motrin) 400 mg PO ONETIME ONE Stop: 04/20/17 23:11 Last Admin: 04/20/17 23:52 Dose: 400 mg Insulin Aspart (Novolog) 10 unit SUBCUT TIDMEALS [facility] Last Admin: 04/20/17 13:27 Dose: Not Given Insulin Detemir (Levemir) 45 unit SUBCUT BEDTIME [facility] Last Admin: 04/20/17 04:28 Dose: Not Given Iopamidol (Isovue-300 (61%)) 150 ml IV . DIRECTED [facility] Last Admin: 04/19/17 21:41 Dose: 150 ml Ondansetron HCl (Zofran) 4 mg IVPUSH ONETIME ONE Stop: 04/19/17 20:50 Last Admin: 04/19/17 21:24 Dose: 4 mg Pantoprazole Sodium (Protonix Iv) 40 mg IVPUSH DAILY [facility] Last Admin: 04/21/17 08:56 Dose: 40 mg Sodium Chloride (Saline Flush) 10 ml FLUSH ASDIRECTED PRN PRN Reason: Keep Vein Open Last Admin: 04/19/17 21:23 Dose: 10 ml - Exam Quality Assessment: Supplemental Oxygen General: Alert, Oriented, Cooperative, No Acute Distress Neck: Supple Lungs: Normal Respiratory Effort, Decreased Breath Sounds (both bases). No: Crackles, Wheezing Cardiovascular: Regular Rate, Regular Rhythm GI/Abdominal Exam: Soft, No Distention, Tender Extremities: Pedal Edema Skin: Warm, Dry Psy/Mental Status: Alert, Normal Affect - Problem List Review Problem List Initiated/Reviewed/Updated: Yes - My Orders Last 24 Hours: My Active Orders 04/21/17 09:43 CXR [Chest 1V Frontal] [CR] Routine 04/21/17 10:42 Discontinue Telemetry Monitoring [Cardiac Monitoring Discontinue] [RC] Click to Edit 04/21/17 15:00 Furosemide [Lasix] 40 mg IVPUSH ONETIME ONE 04/22/17 05:00 BASIC METABOLIC PANEL,BMP [CHEM] Timed 04/22/17 07:30 Pantoprazole [ProTONIX] 40 mg PO ACBREAKFAST - Plan Plan:: ASSESSMENT / PLAN Colitis - abdominal pain has been improving and she has not had vomiting or diarrhea. Unclear if fevers are related to abdominal infection or at the current respiratory issue but most likely this is related to her colitis. cultures negative so far. -IV ciprofloxacin and metronidazole -gentle IV fluids -Pain management IV and PO ordered -Anti-medic therapy as needed -Blood cultures pending Hypoxic respiratory failure - no evidence for pneumonia on examination and minimal cough. Possible component of volume overload. repeat chest x-ray was clear. -Extra dose of furosemide this afternoon -Supplement oxygen as needed Umbilical Hernia - consulted with Surgeon, recommends follow up on outpatient -not urgent repair at this time. TYPE 2 DIABETES MELLITUS - sugars have been acceptable. -4 times a day glucometers -Insulin Levemir 45 units subcut at bedtime -High-dose sliding scale NovoLog -Consistent carb diet -4 times a day glucometers Maintenance issues -Orders home meds: on hold -Nutrition: consistent carb diet -Ayon catheter not indicated at this time -DVT: Levonox 40 units subcut -GI Prophalaxis; Protonix 40mg daily Admission status: she will be transitioned to inpatient status with hypoxic respiratory failure and ongoing fevers probably related to her colitis. Disposition: anticipate discharge to home after the hospital stay Alexis Elizabeth M.D.
--- NOTE | 2017-04-21 10:51 | CR ---
Chest 1V Frontal HISTORY: hypoxia, fever COMPARISON: 05/18/2016 FINDINGS: No acute infiltrate is identified. Right middle lobe infiltrate seen on the prior study have resolved . Mild cardiomegaly is stable. No vascular redistribution or pleural fluid can be seen. Bony structur es and soft tissues are unremarkable. IMPRESSION: Interval resolution of right middle lobe infiltrates since 05/18/2016. No acute infiltrate or other ac [place] chest abnormality is identified.
[2017-04-21] MEDS: Insulin Detemir 100 Units/ML 3 ML Pen SUBCUT SCH (21:18)
[2017-04-22] MEDS: Acetaminophen 325 MG Tab PO PRN (03:43)
[2017-04-22] MEDS: Pantoprazole 40 MG Tab.CR PO SCH (07:01)
[2017-04-22] MEDS: Insulin Aspart 100 Units/ML 3 ML Pen SUBCUT SCH ×4 (07:19→21:15)
[2017-04-22] MEDS: metroNIDAZOLE/Normal Saline 500 MG in Premix Bag 1 BAG IV SCH ×3 (09:03→23:42)
[2017-04-22] MEDS: Enoxaparin 40 MG/0.4 ML Syringe SUBCUT SCH (09:04)
[2017-04-22] MEDS: Furosemide 40 MG Tab PO SCH (09:05)
[2017-04-22] MEDS: amLODIPine 5 MG Tab PO SCH (09:05)
[2017-04-22] MEDS: Lisinopril 20 MG Tab PO SCH (09:06)
--- NOTE | 2017-04-22 09:46 | PCM.PN ---
- General Info Date of Service: 04/22/17 Functional Status: Reports: Pain Controlled, Tolerating Diet - Review of Systems General: Reports: Fever, Weakness, Fatigue Pulmonary: Reports: Shortness of Breath Gastrointestinal: Reports: Abdominal Pain Systems Review Comment:: No acute events overnight. Supplemental oxygen had been decreased slightly but has increased again overnight. She is currently requiring 3 L of supplemental oxygen. She did have a low-grade fever overnight but is afebrile this morning. Still having some upper abdominal pain with coughing but no chest pain. Good response to diuresis yesterday afternoon and felt better for a while but then worsened overnight. She has not had any diarrhea or vomiting. - Patient Data Vitals - Most Recent: Last Vital Signs Temp 36.4 C 04/22/17 07:05 Pulse 80 04/22/17 07:05 Resp 20 04/22/17 07:05 BP 154/68 H 04/22/17 09:06 Pulse Ox 95 04/22/17 07:05 Weight - Most Recent: 121.563 kg I&O - Last 24 Hours: Intake & Output 04/21/17 04/22/17 04/22/17 22:59 06:59 14:59 Intake Total 400 917 580 Output Total 1600 850 600 Balance -1200 67 -20 Lab Results Last 24 Hours: Laboratory Results - last 24 hr 04/22/17 Range/Units 05:00 Sodium 138 L (140-148) mmol/L Potassium 4.3 (3.6-5.2) mmol/L Chloride 106 (100-108) mmol/L Carbon Dioxide 25 (21-32) mmol/L Anion Gap 11.3 (5.0-14.0) mmol/L BUN 23 H (7-18) mg/dL Creatinine 1.2 H (0.6-1.0) mg/dL Est Cr Clr Drug Dosing 41.04 mL/min Estimated GFR (MDRD) 46 L (>60) Glucose 148 H (74-106) mg/dL Calcium 7.7 L (8.5-10.1) mg/dL Tim Results Last 24 Hours: Microbiology 04/20/17 13:00 Aerobic Blood Culture - Preliminary Blood - Venous NO GROWTH AFTER 1 DAY Anaerobic Blood Culture - Preliminary NO GROWTH AFTER 1 DAY 04/20/17 13:08 Aerobic Blood Culture - Preliminary Blood - Arm, Right NO GROWTH AFTER 1 DAY Anaerobic Blood Culture - Preliminary NO GROWTH AFTER 1 DAY Med Orders - Current: Current Medications Acetaminophen (Tylenol) 650 mg PO Q4H PRN PRN Reason: Pain (Mild 1-3)/fever Last Admin: 04/22/17 03:43 Dose: 650 mg Albuterol (Proventil Neb Soln) 2.5 mg NEB Q4H PRN PRN Reason: Shortness Of Breath/wheezing Albuterol/Ipratropium (Duoneb 3.0-0.5 Mg/3 Ml) 3 ml NEB QIDRT [facility] Amlodipine Besylate (Norvasc) 5 mg PO DAILY [facility] Last Admin: 04/22/17 09:05 Dose: 5 mg Dextrose (Glutose 15) 15 gm PO ASDIRECTED PRN PRN Reason: Hypoglycemia Dextrose/Water (Dextrose 50% In Water) 50 ml IV ASDIRECTED PRN PRN Reason: Hypoglycemia Enoxaparin Sodium (Lovenox) 40 mg SUBCUT DAILY [facility] Last Admin: 04/22/17 09:04 Dose: 40 mg Furosemide (Lasix) 40 mg PO DAILY [facility] Last Admin: 04/22/17 09:05 Dose: 40 mg Hydromorphone HCl (Dilaudid) 0.5 mg IVPUSH Q2H PRN PRN Reason: Abdominal Pain Ciprofloxacin/Dextrose 400 mg/ (Premix) 200 mls @ 200 mls/hr IV Q12H [facility] Last Admin: 04/21/17 21:17 Dose: 200 mls/hr Metronidazole 500 mg/ Premix 100 mls @ 100 mls/hr IV Q8H [facility] Last Admin: 04/22/17 09:03 Dose: 100 mls/hr Sodium Chloride (Normal Saline) 1,000 mls @ 0 mls/hr IV ASDIRECTED [facility] PRN Reason: KVO Last Admin: 04/21/17 21:24 Dose: 25 mls/hr Insulin Aspart (Novolog) 0 unit SUBCUT QIDACANDBED [facility] PRN Reason: Protocol Last Admin: 04/22/17 07:19 Dose: Not Given Insulin Detemir (Levemir) 45 unit SUBCUT BEDTIME [facility] Last Admin: 04/21/17 21:18 Dose: 45 unit Lisinopril (Prinivil) 40 mg PO DAILY [facility] Last Admin: 04/22/17 09:06 Dose: 40 mg Lorazepam (Ativan) 1 mg IV Q6H PRN PRN Reason: Nausea/Vomiting Ondansetron HCl (Zofran Odt) 4 mg PO Q6H PRN PRN Reason: Nausea able to take PO Last Admin: 04/20/17 22:22 Dose: 4 mg Ondansetron HCl (Zofran) 4 mg IV Q6H PRN PRN Reason: Nausea/Vomiting Oxycodone HCl (Oxycodone) 5 mg PO Q4H PRN PRN Reason: Pain (moderate 4-6) Last Admin: 04/20/17 16:36 Dose: 5 mg Pantoprazole Sodium (Protonix) 40 mg PO ACBREAKFAST [facility] Last Admin: 04/22/17 07:01 Dose: 40 mg Zolpidem Tartrate (Ambien) 5 mg PO BEDTIME PRN PRN Reason: Sleep Discontinued Medications Albuterol/Ipratropium (Duoneb 3.0-0.5 Mg/3 Ml) 3 ml NEB QID PRN PRN Reason: Shortness Of Breath/wheezing Last Admin: 04/20/17 22:29 Dose: 3 ml Furosemide (Lasix) 40 mg IVPUSH ONETIME ONE Stop: 04/21/17 01:35 Last Admin: 04/21/17 01:55 Dose: 40 mg Furosemide (Lasix) 40 mg IVPUSH ONETIME ONE Stop: 04/21/17 15:01 Last Admin: 04/21/17 16:04 Dose: 40 mg Hydromorphone HCl (Dilaudid) 0.5 mg IVPUSH ONETIME ONE Stop: 04/19/17 20:50 Last Admin: 04/19/17 21:28 Dose: 0.5 mg Lactated Ringer's (Ringers, Lactated) 1,000 mls @ 500 mls/hr IV ASDIRECTED [facility] Last Admin: 04/19/17 21:27 Dose: 500 mls/hr Sodium Chloride (Normal Saline) 100 mls @ 3 mls/sec IV ASDIRECTED [facility] Last Admin: 04/19/17 21:40 Dose: 3 mls/sec Sodium Chloride (Normal Saline) 1,000 mls @ 125 mls/hr IV ASDIRECTED [facility] Last Admin: 04/20/17 16:37 Dose: 125 mls/hr Ibuprofen (Motrin) 400 mg PO ONETIME ONE Stop: 04/20/17 23:11 Last Admin: 04/20/17 23:52 Dose: 400 mg Insulin Aspart (Novolog) 10 unit SUBCUT TIDMEALS [facility] Last Admin: 04/20/17 13:27 Dose: Not Given Insulin Detemir (Levemir) 45 unit SUBCUT BEDTIME [facility] Last Admin: 04/20/17 04:28 Dose: Not Given Iopamidol (Isovue-300 (61%)) 150 ml IV . DIRECTED [facility] Last Admin: 04/19/17 21:41 Dose: 150 ml Ondansetron HCl (Zofran) 4 mg IVPUSH ONETIME ONE Stop: 04/19/17 20:50 Last Admin: 04/19/17 21:24 Dose: 4 mg Pantoprazole Sodium (Protonix Iv) 40 mg IVPUSH DAILY [facility] Last Admin: 04/21/17 08:56 Dose: 40 mg Sodium Chloride (Saline Flush) 10 ml FLUSH ASDIRECTED PRN PRN Reason: Keep Vein Open Last Admin: 04/19/17 21:23 Dose: 10 ml - Exam Quality Assessment: Supplemental Oxygen General: Alert, Oriented, Cooperative, No Acute Distress Neck: Supple Lungs: Clear to Auscultation, Normal Respiratory Effort, Decreased Breath Sounds (mild left lung base) Cardiovascular: Regular Rate, Regular Rhythm. No: Murmurs GI/Abdominal Exam: Soft, No Distention, Tender Extremities: Pedal Edema Psy/Mental Status: Alert, Normal Affect - Problem List Review Problem List Initiated/Reviewed/Updated: Yes - My Orders Last 24 Hours: My Active Orders 04/21/17 10:46 Transfer Patient (Change bed) [ADT] Routine 04/21/17 15:39 Patient Status [ADT] Routine 04/22/17 07:30 Pantoprazole [ProTONIX] 40 mg PO ACBREAKFAST 04/22/17 09:41 Chest wo Cont [CT] Routine 04/22/17 10:00 Albuterol/Ipratropium [DuoNeb 3.0-0.5 MG/3 ML] 3 ml NEB QID 04/23/17 05:00 BASIC METABOLIC PANEL,BMP [CHEM] Timed CBC W/O DIFF,HEMOGRAM [HEME] Timed (1) - Plan Plan:: ASSESSMENT / PLAN Colitis - not entirely clear if this is infectious or inflammatory but I suspect infectious with her fevers. Ischemic seems unlikely given her fevers. She has not had any ongoing diarrhea. She will need colonoscopy at some point. -IV ciprofloxacin and metronidazole -gentle IV fluids -Pain management IV and PO ordered -Anti-emetic therapy as needed -Blood cultures pending but negative to date Hypoxic respiratory failure - no evidence for pneumonia on examination and minimal cough. Possible component of volume overload. -CT scan of the chest -Scheduled nebulizers -Supplement oxygen as needed Umbilical Hernia - outpatient follow-up. -not urgent repair at this time. TYPE 2 DIABETES MELLITUS - sugars have been acceptable. -4 times a day glucometers -Insulin Levemir 45 units subcut at bedtime -High-dose sliding scale NovoLog -Consistent carb diet -4 times a day glucometers Maintenance issues -Orders home meds: on hold -Nutrition: consistent carb diet -Ayon catheter not indicated at this time -DVT: Levonox 40 units subcut -GI Prophalaxis; Protonix 40mg daily Disposition: anticipate discharge to home after the hospital stay Alexis Elizabeth M.D.
--- NOTE | 2017-04-22 10:37 | CT ---
Chest wo Cont HISTORY: hypoxia, fever Axial spiral noncontrasted CT scan of the chest was obtained along with coronal and coronal MIP recon structions. COMPARISON: CTA chest, 10/11/2010 FINDINGS: Heart size is within normal limits. There is a small pericardial effusion. I see no obvious hilar or mediastinal mass or adenopathy on this noncontrasted exam. Thoracic aorta is unremarkable. A very small amount of coronary artery calcification can be seen. There are small bilateral pleural effusions, right greater than left. There is adjacent atelectasis v ersus infiltrates posteriorly in both lower lobes. Upper chest is clear. No pulmonary mass is seen. C hest wall structures are unremarkable. No significant abnormality is identified in the upper abdomen. IMPRESSION: 1. Small pericardial effusion. A very small amount of coronary artery calcification is noted. 2. Small bilateral pleural effusions with mild adjacent atelectasis versus infiltrates posteriorly in both lower lobes. Total DLP 1028 mGycm
[2017-04-22] MEDS: Ciprofloxacin in D5W 400 MG in Premix Bag 1 BAG IV SCH ×6 (10:38→21:17)
[2017-04-22] MEDS: Albuterol/Ipratropium 3.0-0.5 MG/3 ML Neb Soln NEB SCH ×3 (11:07→20:07)
[2017-04-22] MEDS ORDERED: Furosemide 40 MG/4 ML VIAL IVPUSH ONE (15:00)
[2017-04-22] MEDS: Insulin Detemir 100 Units/ML 3 ML Pen SUBCUT SCH (21:16)
[2017-04-23] MEDS: Acetaminophen 325 MG Tab PO PRN (02:49)
[2017-04-23] MEDS: Pantoprazole 40 MG Tab.CR PO SCH (07:21)
[2017-04-23] MEDS: Albuterol/Ipratropium 3.0-0.5 MG/3 ML Neb Soln NEB SCH ×4 (07:35→20:51)
[2017-04-23] MEDS: metroNIDAZOLE/Normal Saline 500 MG in Premix Bag 1 BAG IV SCH (07:39)
[2017-04-23] MEDS: Insulin Aspart 100 Units/ML 3 ML Pen SUBCUT SCH ×4 (07:39→20:56)
[2017-04-23] MEDS: Lisinopril 20 MG Tab PO SCH (08:39)
[2017-04-23] MEDS: amLODIPine 5 MG Tab PO SCH (08:39)
[2017-04-23] MEDS: Furosemide 40 MG Tab PO SCH ×2 (08:39→13:11)
[2017-04-23] MEDS: Enoxaparin 40 MG/0.4 ML Syringe SUBCUT SCH (08:40)
[2017-04-23] MEDS ORDERED: Magnesium Hydroxide 400 MG/5 ML Susp 30 ML Cup PO PRN (09:02)
[2017-04-23] MEDS: Ciprofloxacin in D5W 400 MG in Premix Bag 1 BAG IV SCH ×2 (09:18)
--- NOTE | 2017-04-23 10:13 | PCM.PN ---
- General Info Date of Service: 04/23/17 Functional Status: Reports: Pain Controlled, Tolerating Diet - Review of Systems General: Denies: Fever Pulmonary: Reports: Shortness of Breath Gastrointestinal: Reports: Abdominal Pain Systems Review Comment:: no acute events overnight but patient does report some difficulty with cramping in her left hand overnight. This caused her to have difficulty sleeping. Shortness of breath is better today and she's down to 1 L of supplemental oxygen. Not much in the way of abdominal pain but she does feel bloated because she has not had a bowel movement in several days. Appetite has been good. No diarrhea reported. No fevers overnight. - Patient Data Vitals - Most Recent: Last Vital Signs Temp 36.1 C 04/23/17 07:00 Pulse 84 04/23/17 07:36 Resp 18 04/23/17 07:00 BP 166/73 H 04/23/17 08:39 Pulse Ox 92 L 04/23/17 07:00 Weight - Most Recent: 120.928 kg I&O - Last 24 Hours: Intake & Output 04/22/17 04/23/17 04/23/17 22:59 06:59 14:59 Intake Total 1324 326 500 Output Total 2300 1425 1300 Balance -735 -8921 -764 Lab Results Last 24 Hours: Laboratory Results - last 24 hr 04/23/17 04/23/17 Range/Units 05:45 05:45 WBC 7.5 (4.5-11.0) K/uL RBC 3.75 (3.30-5.50) M/uL Hgb 10.1 L (12.0-15.0) g/dL Hct 31.8 L (36.0-48.0) % MCV 85 (80-98) fL MCH 27 (27-31) pg MCHC 32 (32-36) % Plt Count 352 (150-400) K/uL Sodium 140 (140-148) mmol/L Potassium 4.1 (3.6-5.2) mmol/L Chloride 105 (100-108) mmol/L Carbon Dioxide 29 (21-32) mmol/L Anion Gap 6.4 (5.0-14.0) mmol/L BUN 20 H (7-18) mg/dL Creatinine 1.1 H (0.6-1.0) mg/dL Est Cr Clr Drug Dosing 44.77 mL/min Estimated GFR (MDRD) 51 L (>60) Glucose 158 H (74-106) mg/dL Calcium 7.8 L (8.5-10.1) mg/dL Tim Results Last 24 Hours: Microbiology 04/20/17 13:00 Aerobic Blood Culture - Preliminary Blood - Venous NO GROWTH AFTER 2 DAYS Anaerobic Blood Culture - Preliminary NO GROWTH AFTER 2 DAYS 04/20/17 13:08 Aerobic Blood Culture - Preliminary Blood - Arm, Right NO GROWTH AFTER 2 DAYS Anaerobic Blood Culture - Preliminary NO GROWTH AFTER 2 DAYS Med Orders - Current: Current Medications Acetaminophen (Tylenol) 650 mg PO Q4H PRN PRN Reason: Pain (Mild 1-3)/fever Last Admin: 04/23/17 02:49 Dose: 650 mg Albuterol (Proventil Neb Soln) 2.5 mg NEB Q4H PRN PRN Reason: Shortness Of Breath/wheezing Albuterol/Ipratropium (Duoneb 3.0-0.5 Mg/3 Ml) 3 ml NEB QIDRT [facility] Last Admin: 04/23/17 07:35 Dose: 3 ml Amlodipine Besylate (Norvasc) 5 mg PO DAILY [facility] Last Admin: 04/23/17 08:39 Dose: 5 mg Dextrose (Glutose 15) 15 gm PO ASDIRECTED PRN PRN Reason: Hypoglycemia Dextrose/Water (Dextrose 50% In Water) 50 ml IV ASDIRECTED PRN PRN Reason: Hypoglycemia Enoxaparin Sodium (Lovenox) 40 mg SUBCUT DAILY [facility] Last Admin: 04/23/17 08:40 Dose: 40 mg Hydromorphone HCl (Dilaudid) 0.5 mg IVPUSH Q2H PRN PRN Reason: Abdominal Pain Metronidazole 500 mg/ Premix 100 mls @ 100 mls/hr IV Q8H [facility] Last Admin: 04/23/17 07:39 Dose: 100 mls/hr Sodium Chloride (Normal Saline) 1,000 mls @ 0 mls/hr IV ASDIRECTED [facility] PRN Reason: KVO Last Admin: 04/21/17 21:24 Dose: 25 mls/hr Insulin Aspart (Novolog) 0 unit SUBCUT QIDACANDBED [facility] PRN Reason: Protocol Last Admin: 04/23/17 07:39 Dose: Not Given Insulin Detemir (Levemir) 45 unit SUBCUT BEDTIME [facility] Last Admin: 04/22/17 21:16 Dose: 45 unit Lisinopril (Prinivil) 40 mg PO DAILY [facility] Last Admin: 04/23/17 08:39 Dose: 40 mg Magnesium Hydroxide (Milk Of Magnesia) 30 ml PO BID PRN PRN Reason: Constipation Last Admin: 04/23/17 09:36 Dose: 30 ml Ondansetron HCl (Zofran Odt) 4 mg PO Q6H PRN PRN Reason: Nausea able to take PO Last Admin: 04/20/17 22:22 Dose: 4 mg Ondansetron HCl (Zofran) 4 mg IV Q6H PRN PRN Reason: Nausea/Vomiting Oxycodone HCl (Oxycodone) 5 mg PO Q4H PRN PRN Reason: Pain (moderate 4-6) Last Admin: 04/20/17 16:36 Dose: 5 mg Pantoprazole Sodium (Protonix) 40 mg PO ACBREAKFAST [facility] Last Admin: 04/23/17 07:21 Dose: 40 mg Senna/Docusate Sodium (Senna Plus) 1 tab PO BID [facility] Last Admin: 04/23/17 08:39 Dose: 1 tab Zolpidem Tartrate (Ambien) 5 mg PO BEDTIME PRN PRN Reason: Sleep Discontinued Medications Albuterol/Ipratropium (Duoneb 3.0-0.5 Mg/3 Ml) 3 ml NEB QID PRN PRN Reason: Shortness Of Breath/wheezing Last Admin: 04/20/17 22:29 Dose: 3 ml Furosemide (Lasix) 40 mg PO DAILY [facility] Last Admin: 04/23/17 08:39 Dose: 40 mg Furosemide (Lasix) 40 mg IVPUSH ONETIME ONE Stop: 04/21/17 01:35 Last Admin: 04/21/17 01:55 Dose: 40 mg Furosemide (Lasix) 40 mg IVPUSH ONETIME ONE Stop: 04/21/17 15:01 Last Admin: 04/21/17 16:04 Dose: 40 mg Furosemide (Lasix) 40 mg IVPUSH ONETIME ONE Stop: 04/22/17 15:01 Last Admin: 04/22/17 16:12 Dose: 40 mg Hydromorphone HCl (Dilaudid) 0.5 mg IVPUSH ONETIME ONE Stop: 04/19/17 20:50 Last Admin: 04/19/17 21:28 Dose: 0.5 mg Lactated Ringer's (Ringers, Lactated) 1,000 mls @ 500 mls/hr IV ASDIRECTED [facility] Last Admin: 04/19/17 21:27 Dose: 500 mls/hr Sodium Chloride (Normal Saline) 100 mls @ 3 mls/sec IV ASDIRECTED [facility] Last Admin: 04/19/17 21:40 Dose: 3 mls/sec Sodium Chloride (Normal Saline) 1,000 mls @ 125 mls/hr IV ASDIRECTED [facility] Last Admin: 04/20/17 16:37 Dose: 125 mls/hr Ciprofloxacin/Dextrose 400 mg/ (Premix) 200 mls @ 200 mls/hr IV Q12H [facility] Last Admin: 04/23/17 09:18 Dose: 200 mls/hr Ibuprofen (Motrin) 400 mg PO ONETIME ONE Stop: 04/20/17 23:11 Last Admin: 04/20/17 23:52 Dose: 400 mg Insulin Aspart (Novolog) 10 unit SUBCUT TIDMEALS [facility] Last Admin: 04/20/17 13:27 Dose: Not Given Insulin Detemir (Levemir) 45 unit SUBCUT BEDTIME [facility] Last Admin: 04/20/17 04:28 Dose: Not Given Iopamidol (Isovue-300 (61%)) 150 ml IV . DIRECTED [facility] Last Admin: 04/19/17 21:41 Dose: 150 ml Lorazepam (Ativan) 1 mg IV Q6H PRN PRN Reason: Nausea/Vomiting Ondansetron HCl (Zofran) 4 mg IVPUSH ONETIME ONE Stop: 04/19/17 20:50 Last Admin: 04/19/17 21:24 Dose: 4 mg Pantoprazole Sodium (Protonix Iv) 40 mg IVPUSH DAILY [facility] Last Admin: 04/21/17 08:56 Dose: 40 mg Sodium Chloride (Saline Flush) 10 ml FLUSH ASDIRECTED PRN PRN Reason: Keep Vein Open Last Admin: 04/19/17 21:23 Dose: 10 ml - Exam Quality Assessment: Supplemental Oxygen General: Alert, Oriented, Cooperative, No Acute Distress Neck: Supple Lungs: Clear to Auscultation, Normal Respiratory Effort. No: Wheezing Cardiovascular: Regular Rate, Regular Rhythm GI/Abdominal Exam: Normal Bowel Sounds, Soft, No Distention, Tender Extremities: No Pedal Edema Psy/Mental Status: Alert, Normal Affect - Problem List Review Problem List Initiated/Reviewed/Updated: Yes - My Orders Last 24 Hours: My Active Orders 04/22/17 11:00 Albuterol/Ipratropium [DuoNeb 3.0-0.5 MG/3 ML] 3 ml NEB QIDRT 04/22/17 11:15 Docusate Sodium/Sennosides [Senna Plus] 1 tab PO BID 04/23/17 09:02 Magnesium Hydroxide [Milk of Magnesia] 30 ml PO BID PRN 04/23/17 10:11 Convert IV to Saline Lock [OM.PC] Routine 04/23/17 14:00 Furosemide [Lasix] 40 mg PO BIDDIURETIC metroNIDAZOLE 500 mg PO TID 04/23/17 21:00 Ciprofloxacin [Ciprofloxacin HCl] 500 mg PO BID - Plan Plan:: ASSESSMENT / PLAN Colitis - not entirely clear if this is infectious or inflammatory but I suspect infectious with her fevers. Ischemic seems unlikely given her fevers. Clinically doing well with minimal pain. -Transition to oral antibiotics -Saline lock IV fluids -Pain management IV and PO ordered -Anti-emetic therapy as needed -Outpatient colonoscopy Hypoxic respiratory failure - no evidence for pneumonia on examination and minimal cough. likely volume overload, improving with diuresis. -Twice daily diuresis today -Scheduled nebulizers -Supplement oxygen as needed Umbilical Hernia - outpatient follow-up. -not urgent repair at this time. TYPE 2 DIABETES MELLITUS - sugars have been acceptable. -4 times a day glucometers -Insulin Levemir 45 units subcut at bedtime -High-dose sliding scale NovoLog -Consistent carb diet -4 times a day glucometers Maintenance issues -Orders home meds: on hold -Nutrition: consistent carb diet -Ayon catheter not indicated at this time -DVT: Levonox 40 units subcut -GI Prophalaxis; Protonix 40mg daily Disposition: anticipate discharge to home after the hospital stay, probably tomorrow if stable overnight. Alexis Elizabeth M.D.
[2017-04-23] MEDS: metroNIDAZOLE 250 MG Tab PO SCH ×2 (13:11→21:01)
[2017-04-23] MEDS ORDERED: Polyethylene Glycol 3350 Powder 17 GM Packet PO ONE (19:54)
[2017-04-23] MEDS: Ciprofloxacin 500 MG Tab PO SCH (20:51)
[2017-04-23] MEDS: Insulin Detemir 100 Units/ML 3 ML Pen SUBCUT SCH (20:58)
--- NOTE | 2017-04-23 23:02 | PCM.SN ---
- Free Text/Narrative Note: time: 20:49 call from [address] [facility] [facility]. Mrs. Childs has concerns of constipation, requesting Miralax 2 caps now. Assessment: constipation Plan: MiraLAX 34 mg or 2 capfuls now for constipation advised patient to drink at least 16 ounces of water with this continue present plan of care.
[2017-04-24] MEDS: Albuterol/Ipratropium 3.0-0.5 MG/3 ML Neb Soln NEB SCH ×3 (07:25→14:56)
[2017-04-24] MEDS: Insulin Aspart 100 Units/ML 3 ML Pen SUBCUT SCH ×2 (08:05→12:11)
[2017-04-24] MEDS: Enoxaparin 40 MG/0.4 ML Syringe SUBCUT SCH (08:06)
[2017-04-24] MEDS: metroNIDAZOLE 250 MG Tab PO SCH ×2 (08:06→14:33)
[2017-04-24] MEDS: Pantoprazole 40 MG Tab.CR PO SCH (08:07)
[2017-04-24] MEDS: amLODIPine 5 MG Tab PO SCH (08:07)
[2017-04-24] MEDS: Lisinopril 20 MG Tab PO SCH (08:07)
[2017-04-24] MEDS: Ciprofloxacin 500 MG Tab PO SCH (08:07)
[2017-04-24] MEDS: Furosemide 40 MG Tab PO SCH ×2 (08:08→15:16)
[2017-04-24] MEDS ORDERED: Magnesium Citrate Solution 296 ML Bottle PO ONE (09:15)
[2017-04-24 11:16] VITALS: BP 151/70
--- NOTE | 2017-04-24 14:35 | PCM.DCSUM1 ---
Discharge Summary - Hospital Course Brief History: 57-year-old female with history of insulin-dependent diabetes mellitus, obesity with BMI greater than 45 who presented with fever and abdominal pain. She was admitted for management of colitis. - Discharge Data Discharge Date: 04/24/17 Discharge Disposition: Home, Self-Care 01 Condition: Good - Discharge Diagnosis/Problem(s) (1) Colitis SNOMED Code(s): 10461460 ICD Code: K52.9 - NONINFECTIVE GASTROENTERITIS AND COLITIS, UNSPECIFIED Status: Acute Problem Details: Splenic flexure, infectious colitis suspected (2) Acute respiratory failure with hypoxia SNOMED Code(s): 40232501 ICD Code: J96.01 - ACUTE RESPIRATORY FAILURE WITH HYPOXIA Status: Acute (3) Umbilical hernia without obstruction or gangrene SNOMED Code(s): 8435633 ICD Code: K42.9 - UMBILICAL HERNIA WITHOUT OBSTRUCTION OR GANGRENE Status: Acute Priority: Low (4) Type 2 diabetes mellitus SNOMED Code(s): 87069078 ICD Code: E11.9 - TYPE 2 DIABETES MELLITUS WITHOUT COMPLICATIONS Status: Chronic Qualifiers: Diabetes mellitus complication status: with unspecified complications 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 Workup in the emergency room included a CT of the abdomen and pelvis which revealed colitis involving the transverse, descending and part of the sigmoid colon. Her white blood cell count was elevated and she was febrile but there was no evidence for sepsis. Clostridium difficile testing was negative. She was empirically started on ciprofloxacin and metronidazole and admitted to the hospital for further management. Over the next couple of days she did show improvement in her abdominal pain and her fever curve slowly improved. Unfortunately as her abdominal pain improved she did develop hypoxic respiratory failure with increasing supplemental oxygen requirements. Chest x- ray did not show definite acute abnormality and this prompted a CT scan. This did show some small bilateral effusions but no evidence for pneumonia or other acute abnormality. I was suspicious that she had developed some volume overload after her initial volume resuscitation. She did respond quite well to diuretics and over the course of a couple of days we were able to wean her off the oxygen with diuresis. She has been afebrile for more than 24 hours. Her abdominal pain has resolved. She had not had a bowel movement for the early part of the hospital stay and after some aggressive bowel stimulation did have a bowel movement which further improved her general feeling of wellness. She has tolerated her diet with no nausea or vomiting. She is no longer requiring supplemental oxygen. At this point I think she is safe for outpatient management. She will have 3 more days of antibiotics after hospital discharge. I suspect that her colitis was bacterial in nature but she would benefit from a colonoscopy since she has never had one. This will be set up for next week with Dr. García. She will also discuss her umbilical hernia which was found incidentally on the CAT scan at the time of her colonoscopy. This may need surgical repair but will be deferred until after the colonoscopy. The hernia currently contains only some omentum. - Patient Instructions Diet: Diabetic Diet Activity: As Tolerated Showering/Bathing: May Shower Notify Provider of: Fever, Increased Pain, Nausea and/or Vomiting Other/Special Instructions: 1. You were in the hospital for management of left- sided colitis that I presume to be caused by a bacterial infection. We did not determine the culprit bacteria from our cultures or evaluation. You have been getting better with antibiotics and I recommend 3 additional full days of antibiotic therapy as outlined below. I would also recommend a colonoscopy for further evaluation once the inflammation has healed. I have referred you to see Dr. García to set up a colonoscopy. -Metronidazole 500 mg tablets, take 1 tablet 3 times daily. Your next dose is due tonight. -Ciprofloxacin 500 mg tablets, take 1 tablet twice daily. Your next dose is due tonight. 2. Follow- up with Dr. Sanders as planned for your diabetic recheck. 3. Follow-up with Dr. García next week to discuss the umbilical hernia and possibility of fixing this surgically as well as setting up a colonoscopy to evaluate your colitis further. 4. Please continue your usual home medications as previously prescribed. 5. Seek medical attention if you develop fever greater than 101, have severe abdominal pain, or if you develop severe shortness of breath. - Discharge Plan Prescriptions/Med Rec: Ciprofloxacin [IJD: Ciprofloxacin HCl] 500 mg PO BID #7 tablet metroNIDAZOLE [Metronidazole] 500 mg PO TID #10 tablet Home Medications: Home Meds Aspirin [Halfprin] 81 mg PO DAILY 08/19/15 [History] Cranberry Extract [Cranberry] 200 mg PO DAILY 08/19/15 [History] Insulin Glarg,Human.Rec.Analog [Lantus] 45 units SQ BEDTIME 08/19/15 [History] Insulin Lispro [Humalog] 10 units SQ ACBREAKFAST 08/19/15 [History] Lisinopril 40 mg PO DAILY 08/19/15 [History] amLODIPine Besylate [Amlodipine Besylate] 5 mg PO DAILY 08/19/15 [History] Furosemide [Lasix] 40 mg PO DAILY 05/18/16 [History] Insulin Lispro [Humalog] 13 unit SQ ACLUNCH 04/20/17 [History] Insulin Lispro [Humalog] 15 unit SQ ACDINNER 04/20/17 [History] atorvaSTATin [Lipitor] 20 mg PO BEDTIME 04/20/17 [History] Brimonidine Tartrate [Brimonidine Tartrate 0.2% Ophth Soln] 1 drop EYERT BID [History] Carboxymethylcellulose Sodium [Refresh Tears] 15 ml OP DAILY PRN 04/22/17 [ History] Latanoprost 1 drop EYERT BEDTIME 04/22/17 [History] Ciprofloxacin [IJD: Ciprofloxacin HCl] 500 mg PO BID #7 tablet 04/24/17 [Rx] metroNIDAZOLE [Metronidazole] 500 mg PO TID #10 tablet 04/24/17 [Rx] Patient Handouts: Colitis, Ciprofloxacin tablets, Metronidazole tablets or capsules Referrals: Nabeel Sanders MD [Primary Care Provider] - 05/05/17 1:30 pm (Come at 1:15 PM to register. ) Valentin García MD [Physician] - 04/28/17 (Colonoscopy) - Discharge Summary/Plan Comment DC Time >30 min.: No (25) - Patient Data Vitals - Most Recent: Last Vital Signs Temp 36.7 C 04/24/17 11:00 Pulse 80 04/24/17 11:00 Resp 16 04/24/17 11:00 BP 151/70 H 04/24/17 11:00 Pulse Ox 90 L 04/24/17 11:00 Weight - Most Recent: 119.567 kg I&O - Last 24 hours: Intake & Output 04/23/17 04/24/17 04/24/17 22:59 06:59 14:59 Intake Total 700 300 450 Output Total 650 1600 1150 Balance 50 -1300 -700 [place] Results - Last 24 hrs: Microbiology 04/20/17 13:00 Aerobic Blood Culture - Preliminary Blood - Venous NO GROWTH AFTER 4 DAYS Anaerobic Blood Culture - Preliminary NO GROWTH AFTER 4 DAYS 04/20/17 13:08 Aerobic Blood Culture - Preliminary Blood - Arm, Right NO GROWTH AFTER 4 DAYS Anaerobic Blood Culture - Preliminary NO GROWTH AFTER 4 DAYS Med Orders - Current: Current Medications Acetaminophen (Tylenol) 650 mg PO Q4H PRN PRN Reason: Pain (Mild 1-3)/fever Last Admin: 04/23/17 02:49 Dose: 650 mg Albuterol (Proventil Neb Soln) 2.5 mg NEB Q4H PRN PRN Reason: Shortness Of Breath/wheezing Albuterol/Ipratropium (Duoneb 3.0-0.5 Mg/3 Ml) 3 ml NEB QIDRT [facility] Last Admin: 04/24/17 10:47 Dose: 3 ml Amlodipine Besylate (Norvasc) 5 mg PO DAILY [facility] Last Admin: 04/24/17 08:07 Dose: 5 mg Ciprofloxacin (Ciprofloxacin Hcl) 500 mg PO BID [facility] Last Admin: 04/24/17 08:07 Dose: 500 mg Dextrose (Glutose 15) 15 gm PO ASDIRECTED PRN PRN Reason: Hypoglycemia Dextrose/Water (Dextrose 50% In Water) 50 ml IV ASDIRECTED PRN PRN Reason: Hypoglycemia Enoxaparin Sodium (Lovenox) 40 mg SUBCUT DAILY [facility] Last Admin: 04/24/17 08:06 Dose: 40 mg Furosemide (Lasix) 40 mg PO BIDDIURETIC [facility] Last Admin: 04/24/17 08:08 Dose: 40 mg Hydromorphone HCl (Dilaudid) 0.5 mg IVPUSH Q2H PRN PRN Reason: Abdominal Pain Insulin Aspart (Novolog) 0 unit SUBCUT QIDACANDBED [facility] PRN Reason: Protocol Last Admin: 04/24/17 12:11 Dose: Not Given Insulin Detemir (Levemir) 45 unit SUBCUT BEDTIME [facility] Last Admin: 04/23/17 20:58 Dose: 45 unit Lisinopril (Prinivil) 40 mg PO DAILY [facility] Last Admin: 04/24/17 08:07 Dose: 40 mg Magnesium Hydroxide (Milk Of Magnesia) 30 ml PO BID PRN PRN Reason: Constipation Last Admin: 04/23/17 09:36 Dose: 30 ml Metronidazole (Metronidazole) 500 mg PO TID [facility] Last Admin: 04/24/17 14:33 Dose: 500 mg Ondansetron HCl (Zofran Odt) 4 mg PO Q6H PRN PRN Reason: Nausea able to take PO Last Admin: 04/20/17 22:22 Dose: 4 mg Ondansetron HCl (Zofran) 4 mg IV Q6H PRN PRN Reason: Nausea/Vomiting Oxycodone HCl (Oxycodone) 5 mg PO Q4H PRN PRN Reason: Pain (moderate 4-6) Last Admin: 04/20/17 16:36 Dose: 5 mg Pantoprazole Sodium (Protonix) 40 mg PO ACBREAKFAST [facility] Last Admin: 04/24/17 08:07 Dose: 40 mg Senna/Docusate Sodium (Senna Plus) 1 tab PO BID [facility] Last Admin: 04/24/17 08:06 Dose: 1 tab Zolpidem Tartrate (Ambien) 5 mg PO BEDTIME PRN PRN Reason: Sleep Discontinued Medications Albuterol/Ipratropium (Duoneb 3.0-0.5 Mg/3 Ml) 3 ml NEB QID PRN PRN Reason: Shortness Of Breath/wheezing Last Admin: 04/20/17 22:29 Dose: 3 ml Furosemide (Lasix) 40 mg PO DAILY [facility] Last Admin: 04/23/17 08:39 Dose: 40 mg Furosemide (Lasix) 40 mg IVPUSH ONETIME ONE Stop: 04/21/17 01:35 Last Admin: 04/21/17 01:55 Dose: 40 mg Furosemide (Lasix) 40 mg IVPUSH ONETIME ONE Stop: 04/21/17 15:01 Last Admin: 04/21/17 16:04 Dose: 40 mg Furosemide (Lasix) 40 mg IVPUSH ONETIME ONE Stop: 04/22/17 15:01 Last Admin: 04/22/17 16:12 Dose: 40 mg Hydromorphone HCl (Dilaudid) 0.5 mg IVPUSH ONETIME ONE Stop: 04/19/17 20:50 Last Admin: 04/19/17 21:28 Dose: 0.5 mg Lactated Ringer's (Ringers, Lactated) 1,000 mls @ 500 mls/hr IV ASDIRECTED [facility] Last Admin: 04/19/17 21:27 Dose: 500 mls/hr Sodium Chloride (Normal Saline) 100 mls @ 3 mls/sec IV ASDIRECTED [facility] Last Admin: 04/19/17 21:40 Dose: 3 mls/sec Sodium Chloride (Normal Saline) 1,000 mls @ 125 mls/hr IV ASDIRECTED [facility] Last Admin: 04/20/17 16:37 Dose: 125 mls/hr Ciprofloxacin/Dextrose 400 mg/ (Premix) 200 mls @ 200 mls/hr IV Q12H [facility] Last Admin: 04/23/17 09:18 Dose: 200 mls/hr Metronidazole 500 mg/ Premix 100 mls @ 100 mls/hr IV Q8H [facility] Last Admin: 04/23/17 07:39 Dose: 100 mls/hr Sodium Chloride (Normal Saline) 1,000 mls @ 0 mls/hr IV ASDIRECTED [facility] PRN Reason: KVO Last Admin: 04/21/17 21:24 Dose: 25 mls/hr Ibuprofen (Motrin) 400 mg PO ONETIME ONE Stop: 04/20/17 23:11 Last Admin: 04/20/17 23:52 Dose: 400 mg Insulin Aspart (Novolog) 10 unit SUBCUT TIDMEALS [facility] Last Admin: 04/20/17 13:27 Dose: Not Given Insulin Detemir (Levemir) 45 unit SUBCUT BEDTIME [facility] Last Admin: 04/20/17 04:28 Dose: Not Given Iopamidol (Isovue-300 (61%)) 150 ml IV . DIRECTED [facility] Last Admin: 04/19/17 21:41 Dose: 150 ml Lorazepam (Ativan) 1 mg IV Q6H PRN PRN Reason: Nausea/Vomiting Magnesium Citrate (Citrate Of Magnesia) 296 ml PO ONETIME ONE Stop: 04/24/17 09:16 Last Admin: 04/24/17 09:32 Dose: 296 ml Ondansetron HCl (Zofran) 4 mg IVPUSH ONETIME ONE Stop: 04/19/17 20:50 Last Admin: 04/19/17 21:24 Dose: 4 mg Pantoprazole Sodium (Protonix Iv) 40 mg IVPUSH DAILY [facility] Last Admin: 04/21/17 08:56 Dose: 40 mg Polyethylene Glycol (Miralax) 34 gm PO ONETIME ONE Stop: 04/23/17 19:55 Last Admin: 04/23/17 20:49 Dose: 34 gm Sodium Chloride (Saline Flush) 10 ml FLUSH ASDIRECTED PRN PRN Reason: Keep Vein Open Last Admin: 04/19/17 21:23 Dose: 10 ml - Exam Quality Assessment: Denies: Supplemental Oxygen General: Reports: Alert, Oriented, Cooperative, No Acute Distress Neck: Reports: Supple Lungs: Reports: Normal Respiratory Effort Cardiovascular: Reports: Regular Rate, Regular Rhythm GI/Abdominal Exam: Soft, No Distention Extremities: No Pedal Edema Psy/Mental Status: Reports: Alert, Normal Affect *Q Meaningful Use (DIS) - VTE *Q VTE Criteria *Q: - Stroke *Q Stroke Criteria *Q: - AMI *Q AMI Criteria *Q:
== END 2017-04-24 15:17 | disposition home or self-care (01) | DRG 391 ==
LOC: JP.ED 19:44 → JP.MS 04-20 00:49
PROVIDERS: ADMIT Hospitalist; ATTEND Hospitalist
DX: K52.9 Noninfective gastroenteritis and colitis, unspecified (principal); J96.01 Acute respiratory failure with hypoxia; Z68.42 Body mass index [BMI] 45.0-49.9, adult; K42.9 Umbilical hernia without obstruction or gangrene; E11.9 Type 2 diabetes mellitus without complications; I10 Essential (primary) hypertension; E66.9 Obesity, unspecified; Z79.4 Long term (current) use of insulin; Z79.899 Other long term (current) drug therapy; K59.00 Constipation, unspecified
CPT/HCPCS: 36415; 36600; 71045; 71045-26; 71250; 71250-26; 74177; 80048; 80053; 82803; 82962; 83605; 83690; 85025; 85027; 87040; 87493; 94640; 96361; 96374; 99285-25; A9270-GY; C9113; J0744; J1170; J1650; J1940; J2405; J7030; J7040; J7050; J7120; J7620

== ENCOUNTER 2017-04-28 06:39 | Day surgery (SDC) | payer MEDICAID ==
[2017-04-28] MEDS ORDERED: fentaNYL 100 MCG/2 ML SDV ONE (07:29)
[2017-04-28] MEDS ORDERED: Midazolam 1 MG/ML 2 ML SDV ONE (07:29)
[2017-04-28] MEDS ORDERED: Propofol 200 MG/20 ML SDV ONE (07:29)
[2017-04-28] MEDS ORDERED: Dextrose 5%-Lactated Ringers 1,000 ML IV SCH (07:45)
[2017-04-28 10:10] VITALS: BP 164/72
--- NOTE | 2017-05-05 10:36 | OR ---
DATE OF PROCEDURE: 04/28/2017 PREOPERATIVE DIAGNOSIS: Possible colitis of splenic flexure. POSTOPERATIVE DIAGNOSIS: Focal mild colitis of splenic flexure. OPERATIVE PROCEDURE: Flexible colonoscopy with biopsies of colon and splenic flexure. ANESTHESIA: IV sedation. INDICATION FOR PROCEDURE: This 57-year-old was recently admitted with some abdominal pain. The workup included a CT scan, which suggested possible colitis in the area of splenic flexure. Since then, her symptoms have improved. The plan is to proceed with a colonoscopy with biopsies as indicated. Potential risks including bleeding and perforation were discussed, and the patient wishes to proceed. DETAILS OF PROCEDURE: The patient was taken to the operating room and placed in a left lateral decubitus position. IV sedation was administered, after which the initial digital rectal exam was performed and was unremarkable. Colonoscope was then passed into the level of the rectum with retroflexion revealing uncomplicated hemorrhoidal columns. The scope was then passed eventually to the level of the cecum. The prep was quite good. There were no areas of diverticular disease or polyps or other signs of neoplasia. There was some patchy redness and edema that was fairly evident in the area of the splenic flexure. Multiple biopsies were obtained. Presently, there is no ulceration present and minimal bleeding from the biopsy sites was seen. The scope was then withdrawn and no additional abnormalities were noted. The procedure was concluded. The patient was taken to the recovery room in a satisfactory condition. The patient is set up for a followup with Dr. Sanders in the next week. Valentin García MD /[id number]
== END 2017-04-28 10:50 | disposition home or self-care (01) ==
LOC: JP.SDS 06:39
PROVIDERS: ATTEND Surgery
DX: D12.3 Benign neoplasm of transverse colon (principal); I10 Essential (primary) hypertension; E11.9 Type 2 diabetes mellitus without complications; J45.909 Unspecified asthma, uncomplicated; Z88.8 Allergy status to other drugs, medicaments and biological substances
CPT/HCPCS: 45380; 81025; 82962; J2250; J2704; J3010; J7042; 88305

== ENCOUNTER 2017-05-19 07:30 | Inpatient (IN) | payer MEDICAID ==
[~2017-05-19 07:30] MED LIST: Acetaminophen 500 MG Tab PO ONE; Bupivacaine 0.5%/EPINEPHrine 1:200,000 50 ML MDV ONE; Meropenem 500 MG SDV ONE; Scopolamine 1.5 MG Transdermal Patch TOP ONE; Scopolamine 1.5 MG Transdermal Patch TOP SCH
[2017-05-19] MEDS ORDERED: Dextrose 5%-Lactated Ringers 1,000 ML IV SCH (08:00)
[2017-05-19] MEDS ORDERED: Neostigmine Methylsulfate 1 MG/ML 5 ML Syringe ONE (08:24)
[2017-05-19] MEDS ORDERED: Ondansetron 4 MG/2 ML SDV ONE (08:24)
[2017-05-19] MEDS ORDERED: Rocuronium 50 MG/5 ML Vial ONE (08:24)
[2017-05-19] MEDS ORDERED: fentaNYL 250 MCG/5 ML SDV ONE ×2 (08:24→10:03)
[2017-05-19] MEDS ORDERED: Midazolam 1 MG/ML 2 ML SDV ONE (08:24)
[2017-05-19] MEDS ORDERED: Dexamethasone 4 MG/ML SDV ONE (08:24)
[2017-05-19] MEDS ORDERED: Glycopyrrolate 0.2 MG/ML 5 ML MDV ONE (08:24)
[2017-05-19] MEDS ORDERED: Succinylcholine 200 MG/10 ML MDV ONE (08:24)
[2017-05-19] MEDS ORDERED: Propofol 200 MG/20 ML SDV ONE (08:24)
[2017-05-19] MEDS ORDERED: Albuterol/Ipratropium 3.0-0.5 MG/3 ML Neb Soln NEB ONE (08:30)
[2017-05-19] MEDS ORDERED: Ketamine 500 MG/5 ML MDV IV ONE (09:00)
[2017-05-19] MEDS ORDERED: Ropivacaine 60 ML, Dexamethasone 8 MG, EPINEPHrine 0.4 MG, Sodium Chloride 0.9% 17.6 ML NERVRT ONE ×4 (09:00)
[2017-05-19] MEDS ORDERED: ceFAZolin 2 GM in Premix Bag 1 BAG IV ONE (09:00)
[2017-05-19] MEDS ORDERED: Lactated Ringers 1,000 ML ONE (09:19)
[2017-05-19] MEDS ORDERED: Linezolid 200 MG/100 ML Bag IRR ONE (10:00)
[2017-05-19] MEDS ORDERED: hydrOXYzine HCl 100 MG/2 ML SDV IM ONE (11:27)
[2017-05-19] MEDS ORDERED: fentaNYL 100 MCG/2 ML SDV IVPUSH ONE (11:27)
[2017-05-19] MEDS ORDERED: Naloxone 0.4 MG/ML SDV IVPUSH PRN (11:44)
[2017-05-19] MEDS ORDERED: HYDROmorphone/Normal Saline 15 MG/30 ML PCA IV PRN (11:44)
[2017-05-19] MEDS ORDERED: Naloxone 0.4 MG/ML SDV IV PRN (12:27)
[2017-05-19] MEDS ORDERED: hydrOXYzine HCl 100 MG/2 ML SDV IM PRN (12:43)
[2017-05-19] MEDS ORDERED: Ondansetron 4 MG/2 ML SDV IVPUSH PRN (12:43)
[2017-05-19] MEDS ORDERED: hydrOXYzine HCl 25 MG Tab PO PRN (12:43)
[2017-05-19] MEDS ORDERED: Glucose Gel 15 GM in 37.5 GM Tube PO PRN (12:45)
[2017-05-19] MEDS ORDERED: Albuterol/Ipratropium 3.0-0.5 MG/3 ML Neb Soln INH PRN (12:45)
[2017-05-19] MEDS ORDERED: 50% Dextrose in Water 50 ML Syringe IVPUSH PRN (12:45)
[2017-05-19] MEDS ORDERED: Glucagon,Human Recombinant 1 MG Vial IM PRN (12:45)
[2017-05-19] MEDS: CHECK SCOPOLAMINE PATCH DAILY SCH (13:08)
[2017-05-19] MEDS: Albuterol/Ipratropium 3.0-0.5 MG/3 ML Neb Soln INH SCH ×2 (14:47→21:12)
[2017-05-19] MEDS: Lisinopril 20 MG Tab PO SCH (14:52)
[2017-05-19] MEDS: Dextrose 5%-Lactated Ringers 1,000 ML IV SCH ×2 (15:37→22:28)
[2017-05-19] MEDS: ceFAZolin 2 GM in Premix Bag 1 BAG IV SCH (15:41)
[2017-05-19] MEDS: Pantoprazole 40 MG Tab.CR PO SCH (16:33)
[2017-05-19] MEDS: Insulin Aspart 100 Units/ML 3 ML Pen SUBCUT SCH (17:36)
[2017-05-19] MEDS: Insulin Aspart 100 Units/ML 3 ML Pen SUBCUT PRN ×2 (17:37→21:13)
[2017-05-19] MEDS ORDERED: Insulin Detemir 100 Units/ML 3 ML Pen SUBCUT SCH (21:00)
[2017-05-19] MEDS: atorvaSTATin 20 MG Tab PO SCH (21:12)
[2017-05-20] MEDS: ceFAZolin 2 GM in Premix Bag 1 BAG IV SCH ×2 (00:08→07:25)
[2017-05-20] MEDS: Dextrose 5%-Lactated Ringers 1,000 ML IV SCH (04:44)
[2017-05-20] MEDS: Pantoprazole 40 MG Tab.CR PO SCH (07:25)
[2017-05-20] MEDS: Insulin Aspart 100 Units/ML 3 ML Pen SUBCUT PRN ×2 (07:41→16:42)
[2017-05-20] MEDS ORDERED: CARBOXYMETHYLCELLULOSE SODIUM OP PRN (07:41)
[2017-05-20] MEDS: Insulin Aspart 100 Units/ML 3 ML Pen SUBCUT SCH ×3 (07:42→16:42)
[2017-05-20] MEDS: Albuterol/Ipratropium 3.0-0.5 MG/3 ML Neb Soln INH SCH ×4 (07:49→20:56)
[2017-05-20] MEDS ORDERED: Hypromellose 0.4% Ophth Soln 15 ML Bottle EYEBOTH PRN (08:00)
[2017-05-20] MEDS ORDERED: Furosemide 20 MG/2 ML VIAL IVPUSH ONE (08:15)
[2017-05-20] MEDS: Lactated Ringers 1,000 ML IV SCH (08:20)
[2017-05-20] MEDS: Furosemide 40 MG Tab PO SCH (08:21)
[2017-05-20] MEDS: amLODIPine 10 MG Tab PO SCH (08:21)
[2017-05-20] MEDS: Lisinopril 20 MG Tab PO SCH (08:22)
[2017-05-20] MEDS: Acetaminophen/HYDROcodone 325-5 MG Tab PO PRN ×4 (08:34→20:49)
[2017-05-20] MEDS: Aspirin 81 MG Tab.EC PO SCH (08:36)
[2017-05-20] MEDS: CHECK SCOPOLAMINE PATCH DAILY SCH (08:37)
[2017-05-20] MEDS: Brimonidine 0.2% Ophth Soln 5 ML Bottle EYERT SCH ×2 (08:37→20:56)
[2017-05-20] MEDS: Timolol Maleate 0.5% Ophth Soln 5 ML Bottle EYERT SCH ×2 (08:37→20:54)
--- NOTE | 2017-05-20 08:47 | PN ---
DATE OF SERVICE: 05/20/2017 SUBJECTIVE: Coby is postop day 1. She has had oxygen on. She did get down to 84% using her IS. Blood pressure has been elevated with the highest 187/93. Pain has been managed with the COMPUTER HARDWARE DEVELOPER. Blood sugars have been elevated with her last blood sugar at 356. REVIEW OF SYSTEMS: Remainder of review of systems is negative for any pertinent positives and negatives. OBJECTIVE: GENERAL: Coby Childs is a 57-year-old female. She is alert and orientated. VITAL SIGNS: TPR 96.9; 93; 18; blood pressure as stated 187/93, prior to that it was 149/81; O2 saturation is 92% on room air. HEENT: Negative. NECK: Supple. HEART: Regular rate and rhythm. LUNGS: Clear. ABDOMEN: Abdominal binder is on. Dressing is dry and intact. EXTREMITIES: Revealed 1+ peripheral edema. SCDs are on. ASSESSMENT: Diagnostic laparoscopy with repair of incarcerated umbilical hernia. No incarcerated separate epigastric hernia and excision of peritoneal nodule and placement of Vicryl mesh for incarcerated umbilical hernia; non-incarcerated separate epigastric hernia; peritoneal nodules, lower anterior abdominal wall; and extensive intraabdominal adhesions. Date of surgery 05/19/2017. Surgeon, MD Mauri. PLAN: 1. Change IV to TKO. 2. Discontinue COMPUTER HARDWARE DEVELOPER. 3. [place] 5/325 mg 1 to 2 every 4 hours. 4. Continue continuous pulse ox. 5. Lasix 20 mg IV now one time. 6. KCl 60 mEq with lidocaine in 3 divided doses. 7. Check hemoglobin A1c. 8. Restart home medications: a. Amlodipine mesylate 10 mg daily. b. Aspirin 81 mg enteric-coated daily. c. Lipitor 20 mg at bedtime. d. Brimonidine tartrate 0.2% ophthalmic solution, use as directed, one drop to right eye b.i.d. e. Refresh tears 15 mL OP daily p.r.n. f. Lasix 40 mg p.o. daily. g. Latanoprost 2.5 mL, one drop right eye at bedtime. h. Lisinopril 40 mg daily. i. Timoptic 0.5% ophthalmic solution one drop right eye b.i.d. j. Lantus 25 units at h.s. 9. To call with results of 10:00 a.m. blood sugar and hemoglobin A1c. Good pulmonary toilet. We will evaluate p.r.n. or in the a.m. Gaviota Velasquez PA-C /[id number]
[2017-05-20] MEDS ORDERED: amLODIPine 5 MG Tab PO SCH (09:00)
[2017-05-20] MEDS ORDERED: Furosemide 40 MG Tab PO SCH (09:00)
[2017-05-20] MEDS ORDERED: Non-Formulary Medication 1 Each (Lisinopril [Lisinopril] 40 MG) PO SCH (09:00)
[2017-05-20] MEDS: Potassium Chloride 20 MEQ, Lidocaine 1% 2 ML in Sodium Chloride 0.9% 100 ML IV SCH ×3 (09:54→14:08)
[2017-05-20] MEDS ORDERED: Insulin Detemir 100 Units/ML 3 ML Pen SUBCUT ONE (11:00)
[2017-05-20] MEDS: Latanoprost 0.005% Ophth Soln 2.5 ML Bottle EYERT SCH (20:52)
[2017-05-20] MEDS: atorvaSTATin 20 MG Tab PO SCH (20:55)
[2017-05-20] MEDS ORDERED: atorvaSTATin 20 MG Tab PO SCH (21:00)
[2017-05-20] MEDS ORDERED: Insulin Detemir 100 Units/ML 3 ML Pen SUBCUT SCH ×3 (21:00)
[2017-05-20] MEDS ORDERED: INSULIN GLARGINE SQ SCH (21:00)
[2017-05-21] MEDS: Acetaminophen/HYDROcodone 325-5 MG Tab PO PRN ×5 (02:08→22:13)
[2017-05-21] MEDS: Lactated Ringers 1,000 ML IV SCH (02:21)
[2017-05-21] MEDS: Albuterol/Ipratropium 3.0-0.5 MG/3 ML Neb Soln INH SCH ×4 (07:40→20:57)
[2017-05-21] MEDS: Insulin Detemir 100 Units/ML 3 ML Pen SUBCUT SCH ×2 (08:15→17:53)
[2017-05-21] MEDS: Insulin Aspart 100 Units/ML 3 ML Pen SUBCUT PRN ×2 (08:16→12:15)
[2017-05-21] MEDS: Insulin Aspart 100 Units/ML 3 ML Pen SUBCUT SCH ×3 (08:17→17:52)
[2017-05-21] MEDS: Lisinopril 20 MG Tab PO SCH (08:19)
[2017-05-21] MEDS: Aspirin 81 MG Tab.EC PO SCH (08:20)
[2017-05-21] MEDS: amLODIPine 10 MG Tab PO SCH (08:20)
[2017-05-21] MEDS: Timolol Maleate 0.5% Ophth Soln 5 ML Bottle EYERT SCH ×2 (08:21→20:54)
[2017-05-21] MEDS: Brimonidine 0.2% Ophth Soln 5 ML Bottle EYERT SCH ×2 (08:21→20:55)
[2017-05-21] MEDS: Pantoprazole 40 MG Tab.CR PO SCH (08:22)
[2017-05-21] MEDS: Furosemide 40 MG Tab PO SCH (08:22)
[2017-05-21] MEDS: CHECK SCOPOLAMINE PATCH DAILY SCH (08:22)
[2017-05-21] MEDS ORDERED: Remove SCOP Patch TRDERM ONE (09:00)
--- NOTE | 2017-05-21 11:43 | PN ---
DATE OF SERVICE: 05/21/2017 SUBJECTIVE: Blood sugars have been coming down a little bit, it was 193 this morning. She has received coverage, as well as Levemir 20 units in the morning with an additional 45 at h.s. She remains to be on 2 L of O2. Her oxygen while on oximetry will go down into the 80s, but when aroused, it will come right back up. She is on 2 L. Oral intake 1330. Urine output 3550. She is on a diabetic consistent carb diet. She did receive dietary instructions and diabetic education. REVIEW OF SYSTEMS: Remainder of review of systems is negative for any pertinent positives and negatives. OBJECTIVE: GENERAL: Coby Childs is a 57-year-old female. She is quite sleepy this morning. VITAL SIGNS: TPR is 96.7, 86, 18. Blood pressure 171/90, rechecked at 171/90. HEENT: Negative. NECK: Supple. HEART: Regular rate and rhythm. LUNGS: Clear. ABDOMEN: Dressings were removed. Incisions look good. She has been having her abdominal binder on. EXTREMITIES: Without peripheral edema. SCDs are on. ASSESSMENT: 1. Diagnostic laparoscopy with repair of incarcerated umbilical hernia. No incarcerated or separate epigastric hernia and excision of peritoneal nodule and placement of Vicryl mesh for incarcerated umbilical hernia, non-incarcerated separate epigastric hernia, peritoneal nodules, lower anterior abdominal wall, and extensive intraabdominal adhesions. Date of surgery is 05/19/2017. Surgeon, Valentin García MD. 2. Uncontrolled diabetes, type 2. PLAN: 1. Levemir 35 units b.i.d. Continue meal coverage. Ambulate at least 6 times daily. 2. We will evaluate p.r.n. or in the a.m. 3. Will need to see primary care provider for evaluation of sleep apnea. Gaviota Velasquez PA-C /[id number]
[2017-05-21] MEDS: Latanoprost 0.005% Ophth Soln 2.5 ML Bottle EYERT SCH (20:54)
[2017-05-21] MEDS: atorvaSTATin 20 MG Tab PO SCH (20:55)
[2017-05-22] MEDS: Acetaminophen/HYDROcodone 325-5 MG Tab PO PRN ×3 (02:16→10:58)
[2017-05-22] MEDS: Albuterol/Ipratropium 3.0-0.5 MG/3 ML Neb Soln INH SCH ×2 (07:23→11:01)
[2017-05-22] MEDS: Pantoprazole 40 MG Tab.CR PO SCH (07:48)
[2017-05-22] MEDS: Insulin Detemir 100 Units/ML 3 ML Pen SUBCUT SCH (08:31)
[2017-05-22] MEDS: Brimonidine 0.2% Ophth Soln 5 ML Bottle EYERT SCH (08:32)
[2017-05-22] MEDS: amLODIPine 10 MG Tab PO SCH (08:43)
[2017-05-22] MEDS: Lisinopril 20 MG Tab PO SCH (08:43)
[2017-05-22] MEDS: Furosemide 40 MG Tab PO SCH (08:43)
[2017-05-22] MEDS: Timolol Maleate 0.5% Ophth Soln 5 ML Bottle EYERT SCH (08:44)
[2017-05-22] MEDS: Aspirin 81 MG Tab.EC PO SCH (08:44)
[2017-05-22] MEDS: CHECK SCOPOLAMINE PATCH DAILY SCH (08:45)
--- NOTE | 2017-05-22 08:50 | DISCH ---
ADMISSION DIAGNOSES: 1. Umbilical hernia. 2. Diabetes type 2. 3. Rheumatoid arthritis. 4. Hypertension. 5. Morbid obesity, BMI of 49.3. 6. Low back pain. DISCHARGE DIAGNOSES: 1. Diagnostic laparoscopy with repair of incarcerated umbilical hernia, non-incarcerated separate epigastric hernia, and excision of peritoneal nodule, and placement of Vicryl mesh for postop diagnoses of incarcerated umbilical hernia, non-incarcerated separate epigastric hernia, peritoneal nodules, and extensive intraabdominal adhesions. Date of surgery; 05/19/2017. Surgeon; Valentin García MD. 2. Uncontrolled diabetes, type 2. 3. Hypoxia when sleeping. Questionable sleep apnea. HISTORY: Coby Childs is a 57-year-old female with known symptomatic hernias. After preoperative evaluation and discussion of possible risks and possible complications, she wished to proceed with surgical procedure. HOSPITAL COURSE: Coby had her surgery on 05/19/2017. She had no operative complications. She did have O2 sats in the 84%. Blood sugar was 356, and pain was controlled. On postop day 2, blood sugars did come down to 193. She was getting coverage, along with her normal mealtime coverage. Oxygen during the night did go down into the 80s when she was off her oxygen, but as soon as she was aroused, it went right back up into the mid 90s. She continued to be on O2 at night. Dietary and diabetic consultation and education were obtained. Insulin was adjusted, and she was increased to Levemir 35 units b.i.d. On postop day 3, blood sugar was 103, her pain was well managed, activity was back to her normal. Vital signs were stable, and she was able to be discharged to home. PHYSICAL EXAMINATION: GENERAL: Coby Childs is a 57-year-old female. VITAL SIGNS: Height is 5 feet 1.81 inches, weight is 268, BMI is 49.3. TPR 97.5, 84, 18, blood pressure 149/71, O2 with 94% pulse oximetry. HEENT: Negative. NECK: Supple. HEART: Regular rate and rhythm. LUNGS: Clear. ABDOMEN: Sutures in place. She does have a pressure dressing over the umbilical hernia site. Abdominal binder is on. EXTREMITIES: Without peripheral edema. DISPOSITION: Discharged home. CONDITION: Stable and improving. FOLLOWUP APPOINTMENT: Gaviota Velasquez PA-C on 05/28/2017 at 2:00 p.m. She is to follow up with Mariella Heath for diabetic education on 05/28/2017 at 2:30 p.m. MEDICATIONS: 1. [place] 5/325 mg 1 to 2 every 4 hours p.r.n. pain, #50. 2. Levemir 35 units b.i.d. 3. Then, she is to resume home medications; Ventolin 2 puffs 4 times a day, aspirin 81 mg oral daily, brimonidine tartrate 0.2% one drop right eye twice a day, Refresh Tears 15 mL p.r.n. dry eyes, cranberry extract 1000 mg oral daily, Lasix 40 mg oral daily, latanoprost 1 drop right eye at bedtime, lisinopril 40 mg daily, Timoptic 0.5% ophthalmic solution one drop right eye twice daily, amlodipine 10 mg daily. She is to discontinue taking her Humalog at breakfast, lunch, and dinner. DIET: Diabetic diet. ACTIVITIES: No lifting greater than 10 pounds for 6 weeks. Walk 6 times daily inside your home. Driving: Do not drive on pain medication. Shower/bathing; may shower. DISCHARGE INSTRUCTIONS: Notify provider if any fever, increased pain, swelling, drainage. Wound incision care; keep site clean and dry. Wear a pressure dressing over umbilical hernia site for 6 weeks. Wear abdominal binder for 6 weeks and then as tolerated. SPECIAL INSTRUCTIONS: 1. Continue to check blood sugars 4 times a day. Record your readings and bring to clinic appointment. 2. Use incentive spirometer 10 times every hour while awake for 2 weeks. 3. Call Surgery Department with blood sugars, and Friday at [phone].
[2017-05-22] MEDS ORDERED: Magnesium Hydroxide 400 MG/5 ML Susp 30 ML Cup PO ONE (09:00)
[2017-05-22] MEDS ORDERED: Bisacodyl 5 MG Tab PO ONE (10:00)
[2017-05-22 10:56] VITALS: BP 153/71
--- NOTE | 2017-05-23 17:43 | OR ---
DATE OF PROCEDURE: 05/19/2017 PREOPERATIVE DIAGNOSIS: Incarcerated umbilical hernia. POSTOPERATIVE DIAGNOSES: 1. Incarcerated umbilical hernia. 2. Non incarcerated separate epigastric hernia. 3. Peritoneal nodule located on anterior abdominal wall adjacent to the area of extensive intra-abdominal adhesions. OPERATIVE PROCEDURES: Diagnostic laparoscopy with: 1. Repair of incarcerated umbilical hernia with mesh (92640). 2. Repair of non incarcerated separate epigastric hernia with mesh (78098). 3. Excision of peritoneal nodule adjacent to the adhesions on the anterior abdominal wall (06857). 4. Placement of Vicryl mesh to limit recurrent adhesion between pelvic and abdominal wall and underlying viscera (53643). ANESTHESIA: General. FREIGHT ELEVATOR OPERATOR: Gaviota Velasquez PA-C. INDICATIONS FOR PROCEDURE: This is a 57-year-old presenting with an incarcerated umbilical hernia. Plan is to proceed with repair with a mesh technique and laparoscopic approach will be proceeded with. The patient is aware of possible need for an open laparotomy. Otherwise, potential risks including bleeding, infection, injury to underlying viscera, problems with the mesh becoming infected, hernia recurring, and such were all reviewed, and the patient wishes to proceed. DETAILS OF PROCEDURE: The patient was taken to the operating room and placed in a supine position. After general endotracheal anesthesia was induced, the abdomen was prepped and draped and a Ayon catheter was inserted. In the left lateral mid abdomen, a transverse incision was made. The peritoneal cavity entered under direct vision with an Optiview trocar, inflated to 15 mmHg pressure with CO2. Laparoscope was reinserted. No underlying trocar insertion site injuries were seen. At this point, bilateral tap blocks were placed in a location such that it would be covering the central abdomen as well as somewhat inferior and superior to that. A standard solution was placed after location of the needle by direct visualization in the transverse abdominis plane, more or less between the costal margin in the anterior superior iliac spine. Once this was completed, 2 left-sided trocars, eventually 2 right-sided trocars were placed. These are all being 5 mm in size; however, when positioned, the patient was noted to have somewhat unexpectedly quite a bit in way of adhesions between the anterior abdominal wall. The patient had a large amount of omentum, roughly the size of a tennis ball incarcerated within the umbilical hernia. As the adhesions were initially taken down, there was a clear nodular area of concern which had a linear configuration, measuring around roughly 2 x 0.5 cm. This was excised and sent as a separate specimen. This being off the anterior abdominal wall, somewhat inferior to the area of incarcerated umbilical hernia. At that point with a combination of external pressure and Harmonic scalpel dissection, the hernia contents at the umbilical site were eventually delivered from the field and this was accomplished with piecemeal approach as the omentum tended to fragment as it was being pulled out of the area of incarceration. All the fragments were eventually accumulated and excised, were removed from the abdomen, and sent for pathologic review. The patient was noted to have roughly 3 cm superior to the primary fascial defect at the umbilicus, which measured itself around 1.5 cm, had a separate small epigastric hernia. This had some preperitoneal fat, but was not overtly incarcerated as it was spontaneously reduced without any pressure per se. At this point, the area was marked out. A 20.[address] mesh with the balloon positioning system was selected. It was soaked in an antibiotic-containing saline solution and brought into the abdominal cavity through a small stab wound just inferior to the umbilicus. The balloon inflation catheter was brought up, positioning the mesh with the correct orientation up against the abdominal wall. The balloon was inflated and the mesh then affixed circumferentially with absorbable tacking screws. The 2 layers of tacking screws were also placed, one on the far circumference and an another there somewhat more inverted on the mesh closer to the point of the actual herniation, a very good coverage of the sites of hernia was accomplished. To limit recurrent adhesion formation between the pelvic abdominal wall and the mesh and the underlying viscera, a 12-inch segment of Vicryl mesh was then placed. It was positioned underneath the newly placed mesh and from there down into the pelvic area. At that point, no further problems were noted. The balloon portion of the mesh system was removed and the fascia at the 12 mm site was closed with 0 Vicryl stitch and the skin closed with 4-0 Vicryl skin stitch. Dressing was applied. The patient was taken to the recovery room in satisfactory condition. Physician purchasing administrative assistant, Gaviota Velasquez, played an essential role in assisting in this case, helping to position the patient, retract structures as needed, as well as suturing and cutting sutures when indicated. Her presence improved patient safety and decreased operative time. Valentin García MD /[id number]
== END 2017-05-22 14:25 | disposition home or self-care (01) | DRG 336 ==
LOC: JP.SDSSCHI 07:30 → JP.SDS 07:30 → EDSTATUS 10:30 → JP.2SS 11:30
PROVIDERS: ADMIT Surgery; ATTEND Surgery
PROC: 0WUF4JZ Supplement Abdominal Wall with Synthetic Substitute, Percutaneous Endoscopic Approach (ICD-10-PCS; principal; 2017-05-19)
PROC: 0DNW4ZZ Release Peritoneum, Percutaneous Endoscopic Approach (ICD-10-PCS; 2017-05-19)
PROC: 0WUF4JZ Supplement Abdominal Wall with Synthetic Substitute, Percutaneous Endoscopic Approach (ICD-10-PCS; 2017-05-19)
PROC: 3E0M45Z Introduction of Adhesion Barrier into Peritoneal Cavity, Percutaneous Endoscopic Approach (ICD-10-PCS; 2017-05-19)
PROC: 0DBW4ZX Excision of Peritoneum, Percutaneous Endoscopic Approach, Diagnostic (ICD-10-PCS; 2017-05-19)
PROC: 3E0T3BZ Introduction of Anesthetic Agent into Peripheral Nerves and Plexi, Percutaneous Approach (ICD-10-PCS; 2017-05-19)
DX: K42.0 Umbilical hernia with obstruction, without gangrene (principal); Z68.42 Body mass index [BMI] 45.0-49.9, adult; K43.9 Ventral hernia without obstruction or gangrene; K66.8 Other specified disorders of peritoneum; K66.0 Peritoneal adhesions (postprocedural) (postinfection); Z79.4 Long term (current) use of insulin; E11.9 Type 2 diabetes mellitus without complications; I10 Essential (primary) hypertension; E66.9 Obesity, unspecified
CPT/HCPCS: 36415; 80053; 81025; 82962; 83036; 83735; 84100; 85027; 88302; 88304; 94640; 94762; 97162-GP; 97530-GP; A9270-GY; C1781; J0171; J0330; J0690; J1100; J1170; J1940; J2020; J2185; J2250; J2405; J2704; J2710; J2795; J3010; J3410; J3480; J7030; J7042; J7050; J7120; J7620

== ENCOUNTER 2018-05-05 07:44 | Day surgery (SDC) | payer MEDICAID ==
[2018-05-05] MEDS ORDERED: Midazolam 1 MG/ML 2 ML SDV ONE (08:33)
[2018-05-05] MEDS ORDERED: fentaNYL 100 MCG/2 ML SDV ONE (08:33)
[2018-05-05] MEDS ORDERED: Propofol 200 MG/20 ML SDV ONE (08:33)
[2018-05-05] MEDS ORDERED: Dextrose 5%-Lactated Ringers 1,000 ML IV SCH (08:45)
[2018-05-05 10:39] VITALS: BP 159/65
--- NOTE | 2018-05-06 20:43 | OR ---
DATE OF PROCEDURE: 05/05/2018 PREOPERATIVE DIAGNOSIS: Mid and lower abdominal pain. POSTOPERATIVE DIAGNOSIS: Normal colonoscopic examination. OPERATIVE PROCEDURE: Flexible colonoscopy. ANESTHESIA: IV sedation. INDICATION FOR PROCEDURE: A 58-year-old presenting with some mid and lower abdominal pain. As part of the workup, Dr. Sanders requested for a colonoscopy. Potential risks including bleeding and perforation were discussed, and the patient wishes to proceed. PROCEDURE IN DETAIL: The patient was taken to the operating room and placed in a left lateral decubitus position. IV sedation was administered, after which the initial digital rectal exam was performed and was unremarkable. Colonoscope was then passed through the rectum with retroflexion revealing uncomplicated hemorrhoidal columns. The scope was eventually passed to the level of the cecum. The prep was fairly good. There was some scattered liquid stool present, but the vast majority of surfaces were well seen. To that level, no abnormalities were noted, certainly with no areas of diverticular disease, no areas of colitis, and no polyps or other signs of neoplasia. Scope was withdrawn and the above findings were reconfirmed. Procedure concluded. The patient was taken to the recovery room in satisfactory condition. There were no evident complications. The patient will be instructed to follow up with Dr. Sanders to continue evaluation of the abdominal pain in 1 to 2 weeks. Valentin García MD /[id number]
== END 2018-05-05 10:49 | disposition home or self-care (01) ==
LOC: JP.SDS 07:44
PROVIDERS: ATTEND Surgery
DX: R10.30 Lower abdominal pain, unspecified (principal); K64.9 Unspecified hemorrhoids; I10 Essential (primary) hypertension; E78.5 Hyperlipidemia, unspecified; K21.9 Gastro-esophageal reflux disease without esophagitis; E11.9 Type 2 diabetes mellitus without complications; E66.01 Morbid (severe) obesity due to excess calories; G47.33 Obstructive sleep apnea (adult) (pediatric); Z88.6 Allergy status to analgesic agent; Z68.42 Body mass index [BMI] 45.0-49.9, adult
CPT/HCPCS: J2250; J2704; J3010; J7042

== ENCOUNTER 2018-06-08 07:26 | Inpatient (IN) | payer MEDICAID ==
[~2018-06-08 07:26] MED LIST changes: +Albuterol/Ipratropium 3.0-0.5 MG/3 ML Neb Soln INH ONE; -Meropenem 500 MG SDV ONE; -Scopolamine 1.5 MG Transdermal Patch TOP SCH
[2018-06-08] MEDS ORDERED: Ropivacaine 60 ML, Dexamethasone 8 MG, EPINEPHrine 0.4 MG, Sodium Chloride 0.9% 17.6 ML NERVRT SCH ×4 (08:00)
[2018-06-08] MEDS ORDERED: cefOXitin 2 GM in Sodium Chloride 0.9% 50 ML IV ONE (08:00)
[2018-06-08] MEDS ORDERED: Ketamine 50 MG in Sodium Chloride 0.9% 49.5 ML IV SCH (08:00)
[2018-06-08] MEDS ORDERED: Ketamine 500 MG/5 ML MDV IV SCH (08:00)
[2018-06-08] MEDS ORDERED: Dextrose 5%-Lactated Ringers 1,000 ML IV SCH ×2 (08:15→11:30)
[2018-06-08] MEDS ORDERED: Naloxone 0.4 MG/ML SDV IVPUSH PRN (08:40)
[2018-06-08] MEDS ORDERED: HYDROmorphone/Normal Saline 15 MG/30 ML PCA IV PRN (08:40)
[2018-06-08] MEDS ORDERED: Glycopyrrolate 0.2 MG/ML 5 ML MDV ONE (08:46)
[2018-06-08] MEDS ORDERED: Ondansetron 4 MG/2 ML SDV ONE (08:46)
[2018-06-08] MEDS ORDERED: Neostigmine Methylsulfate 1 MG/ML 5 ML Syringe ONE (08:46)
[2018-06-08] MEDS ORDERED: Rocuronium 50 MG/5 ML Vial ONE (08:46)
[2018-06-08] MEDS ORDERED: fentaNYL 250 MCG/5 ML SDV ONE ×2 (08:46→08:51)
[2018-06-08] MEDS ORDERED: Propofol 200 MG/20 ML SDV ONE (08:46)
[2018-06-08] MEDS ORDERED: Sodium Chloride 0.9% 1,000 ML IV SCH (10:23)
[2018-06-08] MEDS ORDERED: Lactated Ringers 1,000 ML IV SCH ×2 (10:38→11:30)
[2018-06-08] MEDS ORDERED: Naloxone 0.4 MG/ML SDV IV PRN (10:41)
[2018-06-08] MEDS ORDERED: 50% Dextrose in Water 50 ML Syringe IVPUSH PRN (11:15)
[2018-06-08] MEDS ORDERED: Glucose Gel 15 GM in 37.5 GM Tube PO PRN (11:15)
[2018-06-08] MEDS ORDERED: Glucagon,Human Recombinant 1 MG Vial IM PRN (11:15)
[2018-06-08] MEDS ORDERED: Hypromellose 0.4% Ophth Soln 15 ML Bottle EYEBOTH PRN (12:22)
[2018-06-08] MEDS ORDERED: Albuterol 0.083% 2.5 MG/3 ML Neb Soln INH PRN (12:24)
[2018-06-08] MEDS: Sodium Chloride 0.9% 1,000 ML IV SCH ×2 (13:08→22:38)
[2018-06-08] MEDS: Furosemide 40 MG Tab PO SCH (13:09)
[2018-06-08] MEDS: Insulin Lispro 100 Unit/ML 3 ML KwikPen SUBCUT SCH ×2 (13:10→17:27)
[2018-06-08] MEDS: Insulin Lispro 100 Unit/ML 3 ML KwikPen SUBCUT PRN ×2 (13:13→17:28)
--- NOTE | 2018-06-08 13:52 | PCM.CONS ---
H&P History of Present Illness - General Date of Service: 06/08/18 Admit Problem/Dx: Admission Diagnosis/Problem Admission Diagnosis/Problem Hyperkalemia Source of Information: Patient, Provider, RN Notes Reviewed History Limitations: Reports: No Limitations - History of Present Illness Initial Comments - Free Text/Narative: Ms. Childs is a 58-year-old woman who have been asked to see by Dr. García for further suggestions concerning evaluation and management of hyperkalemia. She had been scheduled for incisional hernia repair this morning, preoperative labs showed elevated potassium level of 5.5. Other than pain related to the hernia she's otherwise been feeling well. She does have long-standing type 2 diabetes mellitus, with associated diabetic nephropathy and retinopathy. She has had difficulty with congestive heart failure and does take diuretic therapy daily. - Related Data Allergies/Adverse Reactions: Allergies Allergy/AdvReac Type Severity Reaction Status Date / Time aspirin AdvReac Mild Indigestion Verified 06/08/18 07:55 enviromental Allergy Other Uncoded 06/08/18 07:55 Home Medications: Home Meds Aspirin [Halfprin] 81 mg PO DAILY 08/19/15 [History] Cranberry Fruit Extract [Cranberry] 1,000 mg PO DAILY 08/19/15 [History] Lisinopril 40 mg PO DAILY 08/19/15 [History] amLODIPine Besylate [Amlodipine Besylate] 10 mg PO DAILY 08/19/15 [History] Furosemide [Lasix] 40 mg PO DAILY 05/18/16 [History] atorvaSTATin [Lipitor] 20 mg PO BEDTIME 04/20/17 [History] Carboxymethylcellulose Sodium [Refresh Tears] 15 ml OP DAILY PRN 04/22/17 [ History] Latanoprost 1 drop EYEBOTH BEDTIME 04/22/17 [History] Albuterol Sulfate [Ventolin Hfa] 2 puff INH QID 04/25/17 [History] Insulin Lispro [HumaLOG] 15 units SQ .QAMQLUNCH 12/20/17 [History] Insulin Glarg,Human.Rec.Analog [Lantus Solostar] 25 unit SUBCUT QAM 05/04/18 [ History] Insulin Glarg,Human.Rec.Analog [Lantus] 30 units SQ BEDTIME 05/04/18 [History] Insulin Lispro [Humalog] 25 unit SQ QPM 05/04/18 [History] Past Medical History - Past Health History Medical/Surgical History: Denies Medical/Surgical History HEENT History: Reports: Cataract, Impaired Vision, Macular Degeneration Other HEENT History: wears glasses Cardiovascular History: Reports: Heart Failure, Hypertension, SOB on Exertion, Syncope, Other (See Below) Other Cardiovascular History: cardiomegaly Respiratory History: Reports: Asthma, Sleep Apnea Gastrointestinal History: Reports: Chronic Constipation Genitourinary History: Reports: None ASSESSMENT TECHNICIAN History: Reports: Musculoskeletal History: Reports: Arthritis Endocrine/Metabolic History: Reports: Diabetes, Type II, Obesity/BMI 30+ Hematologic History: Reports: Blood Transfusion(s) - Infectious Disease History Infectious Disease History: Reports: Chicken Pox, Measles, Mumps, Rubella - Past Surgical History HEENT Surgical History: Reports: Eye Surgery GI Surgical History: Reports: Appendectomy, Colonoscopy, Hernia, Abdominal Female Surgical History: Reports: Section Musculoskeletal Surgical History: Reports: Carpal Tunnel Social & Family History - Family History Family Medical History: Noncontributory HEENT: Reports: Otitis Media Cardiac: Reports: Heart Failure GI: Reports: Cholelithiasis OBGYN: Reports: Recurrent Spontaneous Musculoskeletal: Reports: Arthritis Neurological: Reports: Parkinson's Endocrine/Metabolic: Reports: Diabetes, type II, Obesity/MBI 30+ Oncologic: Reports: Other (See Below) Other Oncologic Family History: Mom with invasive cancer, may of been colon. 2 brothers; one with pancreatic and other invasive cancer - Tobacco Use Smoking Status *Q: Never Smoker Second Hand Smoke Exposure: Yes - Caffeine Use Caffeine Use: Reports: Tea - Recreational Drug Use Recreational Drug Use: No - Living Situation & Occupation Living situation: Reports: (lives with , 2 adult children and 4 grandchildren) H&P Review of Systems - Review of Systems: Review Of Systems: See Below General: Reports: No Symptoms HEENT: Reports: No Symptoms Pulmonary: Reports: No Symptoms Cardiovascular: Reports: No Symptoms Gastrointestinal: Reports: Abdominal Pain. Denies: Black Stool, Bloody Stool, Constipation, Diarrhea, Difficulty Swallowing, Distension, Nausea, Vomiting Genitourinary: Reports: No Symptoms Musculoskeletal: Reports: No Symptoms Skin: Reports: No Symptoms Exam - Exam Exam: See Below - Vital Signs Vital Signs: Last Vital Signs Temp 96.1 F 06/08/18 11:45 Pulse 80 06/08/18 11:45 Resp 18 06/08/18 11:45 BP 145/54 H 06/08/18 11:45 Pulse Ox 96 06/08/18 11:45 Weight: 266 lb 12.8 oz - Exam General: Alert, Oriented, Cooperative Neck: Supple, Trachea Midline, +2 Carotid Pulse wo Bruit Lungs: Clear to Auscultation, Normal Respiratory Effort Cardiovascular: Regular Rate, Regular Rhythm, Normal S1, Normal S2 GI/Abdominal Exam: Soft, No Organomegaly, Tender, Other (Incisional hernia). No : Distended, Guarding, Rigid, Rebound Extremities: Non-Tender, No Pedal Edema - Patient Data Lab Results Last 24 hrs: Laboratory Results - last 24 hr 06/08/18 06/08/18 Range/Units 07:50 07:50 WBC 8.6 (4.5-11.0) K/uL RBC 4.73 (3.30-5.50) M/uL Hgb 12.9 D (12.0-15.0) g/dL Hct 40.4 (36.0-48.0) % MCV 85 (80-98) fL MCH 27 (27-31) pg MCHC 32 (32-36) % Plt Count 322 (150-400) K/uL Neut % (Auto) 66 (36-66) % Lymph % (Auto) 22 L (24-44) % [place] % (Auto) 8 H (2-6) % Eos % (Auto) 4 (2-4) % Baso % (Auto) 1 (0-1) % Sodium 138 L (140-148) mmol/L Potassium 5.5 H (3.6-5.2) mmol/L Chloride 105 (100-108) mmol/L Carbon Dioxide 29 (21-32) mmol/L Anion Gap 9.5 (5.0-14.0) mmol/L BUN 40 H (7-18) mg/dL Creatinine 1.3 H (0.6-1.0) mg/dL Est Cr Clr Drug Dosing 37.76 mL/min Estimated GFR (MDRD) 42 L (>60) Glucose 227 H (74-106) mg/dL Calcium 9.5 D (8.5-10.1) mg/dL Phosphorus 4.9 (2.5-4.9) mg/dL Magnesium 1.9 (1.8-2.4) mg/dL Total Bilirubin 0.3 (0.2-1.0) mg/dL AST 14 L (15-37) U/L ALT 20 (12-78) U/L Alkaline Phosphatase 96 (46-116) U/L NT-Pro-B Natriuret Pep 110 (5-125) pg/mL Total Protein 7.1 (6.4-8.2) g/dL Albumin 2.8 L (3.4-5.0) g/dL Globulin 4.3 H (2.3-3.5) g/dL Albumin/Globulin Ratio 0.7 L (1.2-2.2) Result Diagrams: 06/08/18 07:50 06/08/18 07:50 Consult PN Assessment/Plan Procedures: Procedures BREAST TOMOSYNTHESIS BI (02/10/18) COLONOSCOPY AND BIOPSY (04/28/17) CT ABD & PELV W/CONTRAST (05/29/18) DIAGNOSTIC COLONOSCOPY (05/05/18) EMERGENCY DEPT VISIT (12/20/17) EMERGENCY DEPT VISIT (08/19/15) EXTREMITY STUDY (05/30/16) GLUCOSE BLOOD TEST (04/28/17) POLYSOM 6/> YRS 4/> JASON (06/22/17) SCR MAMMO BI INCL CAD (02/10/18) THER/PROPH/DIAG INJ SC/IM (08/19/15) TTE W/DOPPLER COMPLETE (04/18/16) URINE TEST (04/28/17) X-RAY EXAM OF KNEE 3 (12/20/17) Problem List Initiated/Reviewed/Updated: Yes My Orders Last 24 Hours: My Active Orders 06/08/18 12:45 Furosemide [Lasix] 40 mg PO DAILY Sodium Chloride 0.9% [Normal Saline] 1,000 ml IV ASDIRECTED 06/08/18 18:00 POTASSIUM,K [CHEM] Stat Plan: ASSESSMENT AND RECOMMENDATIONS HYPERKALEMIA-preoperative potassium level found to be elevated at 5.5. Likely multifactorial related to underlying chronic kidney disease , LACIE inhibitor therapy, and dehydration. -Normal saline 100 mL/h -Furosemide 40 mg by mouth now -Recheck potassium later today and in a.m. -Consider small dose of Kayexalate if potassium level not improved when checked later today. -Hold lisinopril temporarily CHRONIC KIDNEY DISEASE STAGE III -Closely monitor urine output and renal function INCISIONAL HERNIA -Plan for surgery tomorrow Requesting Provider: ZHANG Date Consult Requested: 06/08/18 Reason for Consult: Hyperkalemia Patient History Reviewed: Yes
[2018-06-08] MEDS: Albuterol 0.083% 2.5 MG/3 ML Neb Soln INH SCH ×2 (16:29→21:27)
[2018-06-08] MEDS ORDERED: Insulin Glargine,Human Rec. Analog 100 Units/ML 3 ML Pen SUBCUT ONE (21:00)
[2018-06-08] MEDS: atorvaSTATin 20 MG Tab PO SCH (21:18)
[2018-06-08] MEDS: Latanoprost 0.005% Ophth Soln 2.5 ML Bottle EYEBOTH SCH (21:18)
[2018-06-09] MEDS: Albuterol 0.083% 2.5 MG/3 ML Neb Soln INH SCH ×4 (08:06→21:36)
[2018-06-09] MEDS: Insulin Lispro 100 Unit/ML 3 ML KwikPen SUBCUT SCH ×3 (08:14→17:46)
[2018-06-09] MEDS: Insulin Lispro 100 Unit/ML 3 ML KwikPen SUBCUT PRN ×4 (08:16→21:37)
[2018-06-09] MEDS: Sodium Chloride 0.9% 1,000 ML IV SCH ×2 (08:22→17:50)
[2018-06-09] MEDS: CRANBERRY EXTRACT 500 MG PO SCH (08:23)
[2018-06-09] MEDS: Furosemide 40 MG Tab PO SCH (08:25)
[2018-06-09] MEDS: amLODIPine 10 MG Tab PO SCH (08:26)
[2018-06-09] MEDS: Magnesium Sulfate/Water 2 GM in Premix Bag 1 BAG IV SCH ×3 (08:29→19:50)
[2018-06-09] MEDS ORDERED: Furosemide 40 MG Tab PO SCH (09:00)
[2018-06-09] MEDS ORDERED: Lisinopril 20 MG Tab PO SCH (09:00)
[2018-06-09] MEDS ORDERED: Non-Formulary Medication 1 Each (Lisinopril [Lisinopril] 40 MG) PO SCH (12:30)
[2018-06-09] MEDS: Lisinopril 20 MG Tab PO SCH (13:49)
--- NOTE | 2018-06-09 14:25 | PCM.CONSN ---
- General Info Date of Service: 06/09/18 Subjective Update: Ms. Childs has been stable since admission yesterday. Potassium level last night was 3.9 and found to be 4.8 this morning. Surgery was again canceled and plan is to proceed with repair of her hernia in 2 days. Functional Status: Reports: Tolerating Diet, Ambulating, Urinating - Review of Systems General: Reports: No Symptoms Pulmonary: Reports: No Symptoms Cardiovascular: Reports: No Symptoms Gastrointestinal: Reports: Abdominal Pain (Related to hernia). Denies: Constipation, Diarrhea, Difficulty Swallowing, Nausea, Vomiting - Patient Data Vitals - Most Recent: Last Vital Signs Temp 97.9 F 06/09/18 11:00 Pulse 90 06/09/18 11:00 Resp 16 06/09/18 11:00 BP 109/72 06/09/18 13:49 Pulse Ox 95 06/09/18 11:00 Weight - Most Recent: 266 lb 12.784 oz I&O - Last 24 Hours: Intake & Output 06/08/18 06/09/18 06/09/18 22:59 06:59 14:59 Intake Total 800 1558 700 Output Total 1200 1000 1500 Balance -400 558 -800 Lab Results Last 24 Hours: Laboratory Results - last 24 hr 06/08/18 06/09/18 06/09/18 Range/Units 18:04 04:10 04:10 WBC 9.0 (4.5-11.0) K/uL RBC 4.25 (3.30-5.50) M/uL Hgb 11.4 L (12.0-15.0) g/dL Hct 36.7 (36.0-48.0) % MCV 86 (80-98) fL MCH 27 (27-31) pg MCHC 31 L (32-36) % Plt Count 280 (150-400) K/uL Sodium 138 L (140-148) mmol/L Potassium 3.8 4.8 (3.6-5.2) mmol/L Chloride 106 (100-108) mmol/L Carbon Dioxide 26 (21-32) mmol/L Anion Gap 10.8 (5.0-14.0) mmol/L BUN 36 H (7-18) mg/dL Creatinine 1.2 H (0.6-1.0) mg/dL Est Cr Clr Drug Dosing 40.91 mL/min Estimated GFR (MDRD) 46 L (>60) Glucose 157 H (74-106) mg/dL Calcium 8.4 L (8.5-10.1) mg/dL Phosphorus 4.8 (2.5-4.9) mg/dL Magnesium 1.7 L (1.8-2.4) mg/dL Total Bilirubin 0.3 (0.2-1.0) mg/dL AST 12 L (15-37) U/L ALT 16 (12-78) U/L Alkaline Phosphatase 78 (46-116) U/L Total Protein 6.1 L (6.4-8.2) g/dL Albumin 2.4 L (3.4-5.0) g/dL Globulin 3.7 H (2.3-3.5) g/dL Albumin/Globulin Ratio 0.7 L (1.2-2.2) Med Orders - Current: Current Medications Albuterol (Proventil Neb Soln) 2.5 mg INH QIDRT [facility] Last Admin: 06/09/18 11:19 Dose: 2.5 mg Albuterol (Proventil Neb Soln) 2.5 mg INH ASDIRECTED PRN PRN Reason: Shortness of Breath Amlodipine Besylate (Norvasc) 10 mg PO DAILY [facility] Last Admin: 06/09/18 08:26 Dose: 10 mg Artificial Tears (Natural Balance Tears) 0 ml EYEBOTH ASDIRECTED PRN PRN Reason: DRY EYES Atorvastatin Calcium (Lipitor) 20 mg PO BEDTIME [facility] Last Admin: 06/08/18 21:18 Dose: 20 mg Dextrose (Glutose 15) 15 gm PO ASDIRECTED PRN PRN Reason: HYPOGLYCEMIA Dextrose/Water (Dextrose 50% In Water) 50 ml IVPUSH ASDIRECTED PRN PRN Reason: HYPOGLYCEMIA Furosemide (Lasix) 40 mg PO DAILY [facility] Last Admin: 06/09/18 08:25 Dose: 40 mg Glucagon (Glucagen) 1 mg IM ASDIRECTED PRN PRN Reason: HYPOGLYCEMIA Magnesium Sulfate 2 gm/ Premix 50 mls @ 25 mls/hr IV Q6H [facility] Stop: 06/11/18 03:59 Last Admin: 06/09/18 13:47 Dose: 25 mls/hr Sodium Chloride (Normal Saline) 1,000 mls @ 50 mls/hr IV ASDIRECTED [facility] Insulin Glargine (Lantus Solostar) 30 units SUBCUT BEDTIME [facility] Insulin Human Lispro (Humalog) 0 unit SUBCUT QID PRN; Protocol PRN Reason: MEDIUM CORRECTIONAL DOSING Last Admin: 06/09/18 11:40 Dose: 3 unit Insulin Human Lispro (Humalog) 15 unit SUBCUT DAILY@0800,1200 [facility] Last Admin: 06/09/18 11:42 Dose: 15 units Insulin Human Lispro (Humalog) 25 unit SUBCUT QPM [facility] Last Admin: 06/08/18 17:27 Dose: 25 units Latanoprost (Xalatan 0.005% Ophth Soln) 0 ml EYEBOTH BEDTIME [facility] Last Admin: 06/08/18 21:18 Dose: 1 drop Lisinopril (Prinivil) 40 mg PO DAILY [facility] Last Admin: 06/09/18 13:49 Dose: 40 mg Cranberry Extract (500mg (Ptom)) 0 each PO DAILY [facility] Last Admin: 06/09/18 08:23 Dose: 2 each Discontinued Medications Acetaminophen (Tylenol Extra Strength) 1,000 mg PO ONETIME ONE Stop: 06/08/18 07:01 Acetaminophen (Tylenol Extra Strength) 1,000 mg PO ONETIME ONE Stop: 06/08/18 07:01 Last Admin: 06/08/18 08:01 Dose: 1,000 mg Albuterol/Ipratropium (Duoneb 3.0-0.5 Mg/3 Ml) 3 ml INH ONETIME ONE Stop: 06/08/18 07:01 Last Admin: 06/08/18 08:39 Dose: 3 ml Bupivacaine HCl/Epinephrine Bitart (Marcaine 0.5%/Epinephrine 1:200,000) Confirm Administered Dose 50 ml .ROUTE .STK-MED ONE Stop: 06/08/18 06:48 Fentanyl (Sublimaze) Confirm Administered Dose 250 mcg .ROUTE .STK-MED ONE Stop: 06/08/18 08:47 Fentanyl (Sublimaze) Confirm Administered Dose 250 mcg .ROUTE .STK-MED ONE Stop: 06/08/18 08:52 Glycopyrrolate (Robinul) Confirm Administered Dose 1 mg .ROUTE .STK-MED ONE Stop: 06/08/18 08:47 Hydromorphone HCl (Dilaudid Keg Varnisher 15 Mg In Ns 30 Ml) 0 mg IV ASDIRECTED PRN; Protocol PRN Reason: Pain Cefoxitin Sodium 2 gm/ Sodium (Chloride) 50 mls @ 200 mls/hr IV ONETIME ONE Stop: 06/08/18 08:14 Last Admin: 06/08/18 09:37 Dose: 200 mls/hr Dextrose/Lactated Ringer's (Dextrose 5%-Lactated Ringers) 1,000 mls @ 100 mls/ hr IV ASDIRECTED [facility] Last Admin: 06/08/18 08:25 Dose: 100 mls/hr Sodium Chloride (Normal Saline) 1,000 mls @ 100 mls/hr IV ASDIRECTED [facility] Last Admin: 06/08/18 10:25 Dose: 100 mls/hr Lactated Ringer's (Ringers, Lactated) 1,000 mls @ 100 mls/hr IV ASDIRECTED [facility] Last Admin: 06/08/18 10:41 Dose: 100 mls/hr Lactated Ringer's (Ringers, Lactated) 1,000 mls @ 100 mls/hr IV ASDIRECTED [facility] Sodium Chloride (Normal Saline) 1,000 mls @ 100 mls/hr IV ASDIRECTED [facility] Last Admin: 06/09/18 08:22 Dose: 100 mls/hr Insulin Glargine (Lantus Solostar) 0 units SUBCUT BEDTIME ONE Stop: 06/08/18 21:01 Last Admin: 06/08/18 21:19 Dose: 15 units Lisinopril (Prinivil) 40 mg PO DAILY [facility] Naloxone HCl (Narcan) 0.1 mg IV ASDIRECTED PRN PRN Reason: decreased respiratory rate Neostigmine Methylsulfate (Neostigmine) Confirm Administered Dose 5 mg .ROUTE .STK-MED ONE Stop: 06/08/18 08:47 Ondansetron HCl (Zofran) Confirm Administered Dose 4 mg .ROUTE .STK-MED ONE Stop: 06/08/18 08:47 Scopolamine (Transderm-Scop) 1.5 mg TOP ONETIME ONE Stop: 06/08/18 07:01 Last Admin: 06/08/18 08:01 Dose: 1.5 mg - Exam Quality Assessment: DVT Prophylaxis General: Alert, Oriented, Cooperative, No Acute Distress Lungs: Clear to Auscultation, Normal Respiratory Effort Cardiovascular: Regular Rate, Regular Rhythm, No Murmurs GI/Abdominal Exam: Soft, No Organomegaly, Tender. No: Distended, Guarding, Rigid, Rebound Consult PN Assessment/Plan Procedures: Procedures BREAST TOMOSYNTHESIS BI (02/10/18) COLONOSCOPY AND BIOPSY (04/28/17) CT ABD & PELV W/CONTRAST (05/29/18) DIAGNOSTIC COLONOSCOPY (05/05/18) EMERGENCY DEPT VISIT (12/20/17) EMERGENCY DEPT VISIT (08/19/15) EXTREMITY STUDY (05/30/16) GLUCOSE BLOOD TEST (04/28/17) POLYSOM 6/> YRS 4/> JASON (06/22/17) SCR MAMMO BI INCL CAD (02/10/18) THER/PROPH/DIAG INJ SC/IM (08/19/15) TTE W/DOPPLER COMPLETE (04/18/16) URINE TEST (04/28/17) X-RAY EXAM OF KNEE 3 (12/20/17) Problem List Initiated/Reviewed/Updated: Yes My Orders Last 24 Hours: My Active Orders 06/09/18 12:30 Lisinopril [Prinivil] 40 mg PO DAILY 06/09/18 14:15 Sodium Chloride 0.9% [Normal Saline] 1,000 ml IV ASDIRECTED 06/09/18 17:00 POTASSIUM,K [CHEM] Stat Plan: ASSESSMENT AND RECOMMENDATIONS HYPERKALEMIA-preoperative potassium level found to be elevated at 5.5. Likely multifactorial related to underlying chronic kidney disease , LACIE inhibitor therapy, and dehydration. Since admission yesterday potassium level has remained within normal range, did increase from 3.9 last night to 4.8 this morning. -Normal saline 50 mL/h -Furosemide 40 mg by mouth daily -Recheck potassium later today and in a.m. -Resume lisinopril 40 mg by mouth daily CHRONIC KIDNEY DISEASE STAGE III -Closely monitor urine output and renal function HERNIA -Plan for surgery
[2018-06-09] MEDS ORDERED: Insulin Glargine,Human Rec. Analog 100 Units/ML 3 ML Pen SUBCUT SCH (21:00)
[2018-06-09] MEDS: atorvaSTATin 20 MG Tab PO SCH (21:36)
[2018-06-09] MEDS: Latanoprost 0.005% Ophth Soln 2.5 ML Bottle EYEBOTH SCH (21:39)
[2018-06-10] MEDS: Magnesium Sulfate/Water 2 GM in Premix Bag 1 BAG IV SCH ×4 (01:30→21:00)
[2018-06-10] MEDS: Albuterol 0.083% 2.5 MG/3 ML Neb Soln INH SCH ×4 (07:18→21:05)
[2018-06-10] MEDS: Insulin Lispro 100 Unit/ML 3 ML KwikPen SUBCUT SCH ×3 (07:39→16:55)
[2018-06-10] MEDS: Insulin Lispro 100 Unit/ML 3 ML KwikPen SUBCUT PRN ×3 (07:42→16:55)
[2018-06-10] MEDS: CRANBERRY EXTRACT 500 MG PO SCH (08:09)
[2018-06-10] MEDS: amLODIPine 10 MG Tab PO SCH (08:10)
[2018-06-10] MEDS: Furosemide 40 MG Tab PO SCH (08:10)
[2018-06-10] MEDS: Lisinopril 20 MG Tab PO SCH (08:11)
--- NOTE | 2018-06-10 08:49 | PN ---
DATE OF SERVICE: 06/10/2018 SUBJECTIVE: Coby's potassium this morning was 4.8, creatinine 1.1, and glucose 270. Vital signs have been stable. Oral intake 1650. Urine output 4000. REVIEW OF SYSTEMS: Negative for any pertinent positives and negatives. OBJECTIVE: GENERAL: Coby is a pleasant 58-year-old female. She is alert and orientated. VITAL SIGNS: TPR 97, 82, 18, and blood pressure 147/65. HEENT: Negative. NECK: Supple. HEART: Regular rate and rhythm. LUNGS: Clear. ABDOMEN: Umbilical hernia noted. Minimal tenderness in right upper quadrant. EXTREMITIES: Without peripheral edema. ASSESSMENT: 1. Hyperkalemia. 2. Type 2 diabetes. 3. Cholecystitis. 4. Umbilical hernia. PLAN: 1. Consent for laparoscopic possible open repair of recurrent umbilical hernia with mesh and cholecystectomy for recurrent umbilical hernia and cholelithiasis. Needs to be re- signed, re-dated for 06/11/2018 under general anesthesia. 2. For general anesthesia, date of surgery 06/11/2018. Surgeon, Valentin García MD. 3. She is n.p.o. after midnight. CBC, CMP, magnesium and phosphorus ordered for a.m. with baseline BNP. 4. We will evaluate p.r.n. or in a.m. Gaviota Velasquez PA-C /[id number]
[2018-06-10] MEDS ORDERED: Polyethylene Glycol 3350 Powder 17 GM Packet PO ONE (09:07)
[2018-06-10] MEDS ORDERED: Polyethylene Glycol 3350 Powder 17 GM Packet PO PRN (09:08)
[2018-06-10] MEDS ORDERED: Insulin Glargine,Human Rec. Analog 100 Units/ML 3 ML Pen SUBCUT ONE (09:15)
--- NOTE | 2018-06-10 09:16 | PCM.CONSN ---
- General Info Date of Service: 06/10/18 Subjective Update: Ms. Childs has been stable since yesterday, potassium remains within normal range. She otherwise has been feeling well, sitting in the chair and walking in the hallways. Functional Status: Reports: Tolerating Diet, Ambulating, Urinating - Review of Systems General: Reports: No Symptoms Pulmonary: Reports: No Symptoms Cardiovascular: Reports: No Symptoms Gastrointestinal: Reports: Abdominal Pain, Constipation. Denies: Diarrhea, Nausea, Vomiting - Patient Data Vitals - Most Recent: Last Vital Signs Temp 97.0 F 06/10/18 07:00 Pulse 82 06/10/18 07:14 Resp 18 06/10/18 07:00 BP 147/65 H 06/10/18 08:11 Pulse Ox 97 06/10/18 08:29 Weight - Most Recent: 266 lb 12.784 oz I&O - Last 24 Hours: Intake & Output 06/09/18 06/10/18 06/10/18 22:59 06:59 14:59 Intake Total 1710 1292 250 Output Total 1450 1050 600 Balance 260 242 -350 Lab Results Last 24 Hours: Laboratory Results - last 24 hr 06/09/18 06/10/18 06/10/18 Range/Units 16:53 04:42 04:42 WBC 9.1 (4.5-11.0) K/uL RBC 4.13 (3.30-5.50) M/uL Hgb 11.0 L (12.0-15.0) g/dL Hct 36.2 (36.0-48.0) % MCV 88 (80-98) fL MCH 27 (27-31) pg MCHC 30 L (32-36) % Plt Count 290 (150-400) K/uL Sodium 138 L (140-148) mmol/L Potassium 4.6 4.8 (3.6-5.2) mmol/L Chloride 106 (100-108) mmol/L Carbon Dioxide 25 (21-32) mmol/L Anion Gap 11.8 (5.0-14.0) mmol/L BUN 32 H (7-18) mg/dL Creatinine 1.1 H (0.6-1.0) mg/dL Est Cr Clr Drug Dosing 44.24 mL/min Estimated GFR (MDRD) 51 L (>60) Glucose 270 H (74-106) mg/dL Calcium 8.1 L (8.5-10.1) mg/dL Phosphorus 4.0 (2.5-4.9) mg/dL Total Bilirubin 0.2 (0.2-1.0) mg/dL AST 12 L (15-37) U/L ALT 16 (12-78) U/L Alkaline Phosphatase 87 (46-116) U/L Total Protein 6.0 L (6.4-8.2) g/dL Albumin 2.4 L (3.4-5.0) g/dL Globulin 3.6 H (2.3-3.5) g/dL Albumin/Globulin Ratio 0.7 L (1.2-2.2) Med Orders - Current: Current Medications Albuterol (Proventil Neb Soln) 2.5 mg INH QIDRT [facility] Last Admin: 06/10/18 07:18 Dose: 2.5 mg Albuterol (Proventil Neb Soln) 2.5 mg INH ASDIRECTED PRN PRN Reason: Shortness of Breath Amlodipine Besylate (Norvasc) 10 mg PO DAILY [facility] Last Admin: 06/10/18 08:10 Dose: 10 mg Artificial Tears (Natural Balance Tears) 0 ml EYEBOTH ASDIRECTED PRN PRN Reason: DRY EYES Atorvastatin Calcium (Lipitor) 20 mg PO BEDTIME [facility] Last Admin: 06/09/18 21:36 Dose: 20 mg Dextrose (Glutose 15) 15 gm PO ASDIRECTED PRN PRN Reason: HYPOGLYCEMIA Dextrose/Water (Dextrose 50% In Water) 50 ml IVPUSH ASDIRECTED PRN PRN Reason: HYPOGLYCEMIA Furosemide (Lasix) 40 mg PO DAILY [facility] Last Admin: 06/10/18 08:10 Dose: 40 mg Glucagon (Glucagen) 1 mg IM ASDIRECTED PRN PRN Reason: HYPOGLYCEMIA Magnesium Sulfate 2 gm/ Premix 50 mls @ 25 mls/hr IV Q6H [facility] Stop: 06/11/18 03:59 Last Admin: 06/10/18 07:45 Dose: 25 mls/hr Sodium Chloride (Normal Saline) 1,000 mls @ 50 mls/hr IV ASDIRECTED [facility] Last Admin: 06/09/18 17:50 Dose: 50 mls/hr Insulin Glargine (Lantus Solostar) 15 units SUBCUT BEDTIME [facility] Insulin Glargine (Lantus Solostar) 25 units SUBCUT ONETIME ONE Stop: 06/10/18 09:16 Insulin Human Lispro (Humalog) 0 unit SUBCUT QID PRN; Protocol PRN Reason: MEDIUM CORRECTIONAL DOSING Last Admin: 06/10/18 07:42 Dose: 5 unit Insulin Human Lispro (Humalog) 15 unit SUBCUT DAILY@0800,1200 [facility] Last Admin: 06/10/18 07:39 Dose: 15 units Insulin Human Lispro (Humalog) 25 unit SUBCUT QPM [facility] Last Admin: 06/09/18 17:46 Dose: 25 units Latanoprost (Xalatan 0.005% Ophth Soln) 0 ml EYEBOTH BEDTIME [facility] Last Admin: 06/09/18 21:39 Dose: 1 drop Lisinopril (Prinivil) 10 mg PO DAILY [facility] Metoprolol Tartrate (Lopressor) 25 mg PO BID [facility] Cranberry Extract (500mg (Ptom)) 0 each PO DAILY [facility] Last Admin: 06/10/18 08:09 Dose: 1 each Polyethylene Glycol (Miralax) 17 gm PO ONETIME ONE Stop: 06/10/18 09:08 Polyethylene Glycol (Miralax) 17 gm PO TID PRN PRN Reason: Constipation Discontinued Medications Acetaminophen (Tylenol Extra Strength) 1,000 mg PO ONETIME ONE Stop: 06/08/18 07:01 Acetaminophen (Tylenol Extra Strength) 1,000 mg PO ONETIME ONE Stop: 06/08/18 07:01 Last Admin: 06/08/18 08:01 Dose: 1,000 mg Albuterol/Ipratropium (Duoneb 3.0-0.5 Mg/3 Ml) 3 ml INH ONETIME ONE Stop: 06/08/18 07:01 Last Admin: 06/08/18 08:39 Dose: 3 ml Bupivacaine HCl/Epinephrine Bitart (Marcaine 0.5%/Epinephrine 1:200,000) Confirm Administered Dose 50 ml .ROUTE .STK-MED ONE Stop: 06/08/18 06:48 Fentanyl (Sublimaze) Confirm Administered Dose 250 mcg .ROUTE .STK-MED ONE Stop: 06/08/18 08:47 Fentanyl (Sublimaze) Confirm Administered Dose 250 mcg .ROUTE .STK-MED ONE Stop: 06/08/18 08:52 Glycopyrrolate (Robinul) Confirm Administered Dose 1 mg .ROUTE .STK-MED ONE Stop: 06/08/18 08:47 Hydromorphone HCl (Dilaudid Entry Level 15 Mg In Ns 30 Ml) 0 mg IV ASDIRECTED PRN; Protocol PRN Reason: Pain Cefoxitin Sodium 2 gm/ Sodium (Chloride) 50 mls @ 200 mls/hr IV ONETIME ONE Stop: 06/08/18 08:14 Last Admin: 06/08/18 09:37 Dose: 200 mls/hr Dextrose/Lactated Ringer's (Dextrose 5%-Lactated Ringers) 1,000 mls @ 100 mls/ hr IV ASDIRECTED [facility] Last Admin: 06/08/18 08:25 Dose: 100 mls/hr Sodium Chloride (Normal Saline) 1,000 mls @ 100 mls/hr IV ASDIRECTED [facility] Last Admin: 06/08/18 10:25 Dose: 100 mls/hr Lactated Ringer's (Ringers, Lactated) 1,000 mls @ 100 mls/hr IV ASDIRECTED [facility] Last Admin: 06/08/18 10:41 Dose: 100 mls/hr Lactated Ringer's (Ringers, Lactated) 1,000 mls @ 100 mls/hr IV ASDIRECTED [facility] Sodium Chloride (Normal Saline) 1,000 mls @ 100 mls/hr IV ASDIRECTED [facility] Last Admin: 06/09/18 08:22 Dose: 100 mls/hr Insulin Glargine (Lantus Solostar) 0 units SUBCUT BEDTIME ONE Stop: 06/08/18 21:01 Last Admin: 06/08/18 21:19 Dose: 15 units Insulin Glargine (Lantus Solostar) 30 units SUBCUT BEDTIME [facility] Last Admin: 06/09/18 21:39 Dose: 30 units Lisinopril (Prinivil) 40 mg PO DAILY [facility] Lisinopril (Prinivil) 40 mg PO DAILY [facility] Last Admin: 06/10/18 08:11 Dose: 40 mg Naloxone HCl (Narcan) 0.1 mg IV ASDIRECTED PRN PRN Reason: decreased respiratory rate Neostigmine Methylsulfate (Neostigmine) Confirm Administered Dose 5 mg .ROUTE .STK-MED ONE Stop: 06/08/18 08:47 Ondansetron HCl (Zofran) Confirm Administered Dose 4 mg .ROUTE .STK-MED ONE Stop: 06/08/18 08:47 Scopolamine (Transderm-Scop) 1.5 mg TOP ONETIME ONE Stop: 06/08/18 07:01 Last Admin: 06/08/18 08:01 Dose: 1.5 mg - Exam General: Alert, Oriented, Cooperative, Mild Distress Lungs: Clear to Auscultation, Normal Respiratory Effort Cardiovascular: Regular Rate, Regular Rhythm, No Murmurs GI/Abdominal Exam: Soft, No Organomegaly, Tender. No: Distended, Guarding, Rigid, Rebound Extremities: Non-Tender, No Pedal Edema Consult PN Assessment/Plan Procedures: Procedures BREAST TOMOSYNTHESIS BI (02/10/18) COLONOSCOPY AND BIOPSY (04/28/17) CT ABD & PELV W/CONTRAST (05/29/18) DIAGNOSTIC COLONOSCOPY (05/05/18) EMERGENCY DEPT VISIT (12/20/17) EMERGENCY DEPT VISIT (08/19/15) EXTREMITY STUDY (05/30/16) GLUCOSE BLOOD TEST (04/28/17) POLYSOM 6/> YRS 4/> JASON (06/22/17) SCR MAMMO BI INCL CAD (02/10/18) THER/PROPH/DIAG INJ SC/IM (08/19/15) TTE W/DOPPLER COMPLETE (04/18/16) URINE TEST (04/28/17) X-RAY EXAM OF KNEE 3 (12/20/17) Problem List Initiated/Reviewed/Updated: Yes My Orders Last 24 Hours: My Active Orders 06/09/18 14:15 Sodium Chloride 0.9% [Normal Saline] 1,000 ml IV ASDIRECTED 06/10/18 09:07 Polyethylene Glycol 3350 [MiraLAX] 17 gm PO ONETIME ONE 06/10/18 09:08 Polyethylene Glycol 3350 [MiraLAX] 17 gm PO TID PRN 06/10/18 09:15 Insulin Glarg,Human.Rec.Analog [LantUS Solostar] 25 units SUBCUT ONETIME ONE 06/10/18 09:30 Lisinopril [Prinivil] 10 mg PO DAILY Metoprolol Tartrate [Lopressor] 25 mg PO BID 06/10/18 17:00 POTASSIUM,K [CHEM] Stat Plan: ASSESSMENT AND RECOMMENDATIONS HYPERKALEMIA-preoperative potassium level found to be elevated at 5.5. Likely multifactorial related to underlying chronic kidney disease , LACIE inhibitor therapy, and dehydration. Since admission potassium level has remained within normal range, now at 4.8 this morning -Normal saline 50 mL/h -Furosemide 40 mg by mouth daily -Recheck potassium later today and in a.m. -Decrease lisinopril to 10 mg by mouth daily HYPERTENSION-blood pressure tending to run higher than desired, plan to decrease dose of lisinopril because of hyperkalemia -Add metoprolol 25 mg by mouth twice a day TYPE 2 DIABETES MELLITUS-glucose levels tending to run higher than normal, she has not been receiving her usual dose of morning insulins -Lantus 25 units subcutaneous this a.m., hold tomorrow prior to surgery CONSTIPATION-no bowel movement in 2 days -Miralax 17 g by mouth now CHRONIC KIDNEY DISEASE STAGE III -Closely monitor urine output and renal function HERNIA -Plan for surgery
[2018-06-10] MEDS ORDERED: Lisinopril 20 MG Tab PO SCH (09:30)
--- NOTE | 2018-06-10 09:33 | PN ---
DATE OF SERVICE: 06/10/2018 ADDENDUM TO ORDERS: Coby is to receive 15 units of Lantus tonight 06/10/2018, prior to surgery 06/11/2018. Gaviota Velasquez PA-C /[id number]
[2018-06-10] MEDS: Metoprolol Tartrate 25 MG Tab PO SCH ×2 (09:53→21:02)
[2018-06-10] MEDS: Sodium Chloride 0.9% 1,000 ML IV SCH (13:53)
[2018-06-10] MEDS ORDERED: Insulin Glargine,Human Rec. Analog 100 Units/ML 3 ML Pen SUBCUT SCH (21:00)
[2018-06-10] MEDS: Latanoprost 0.005% Ophth Soln 2.5 ML Bottle EYEBOTH SCH (21:05)
[2018-06-10] MEDS: atorvaSTATin 20 MG Tab PO SCH (22:17)
[2018-06-11] MEDS: Magnesium Sulfate/Water 2 GM in Premix Bag 1 BAG IV SCH (02:26)
[2018-06-11] MEDS ORDERED: Furosemide 20 MG/2 ML VIAL IVPUSH ONE (06:30)
[2018-06-11] MEDS ORDERED: Meropenem 500 MG SDV ONE (07:11)
[2018-06-11] MEDS ORDERED: Bupivacaine 0.5%/EPINEPHrine 1:200,000 50 ML MDV ONE (07:12)
[2018-06-11] MEDS: Albuterol 0.083% 2.5 MG/3 ML Neb Soln INH SCH ×3 (07:21→14:50)
--- NOTE | 2018-06-11 07:37 | PN ---
DATE OF SERVICE: 06/09/2018 Ms. Childs' potassium came down to 3.8 yesterday afternoon, but now it is all the way up to 4.8 this morning, so we called off surgery until this potassium situation gets a little bit more ironed out. Will ask Dr. Pedro to see the patient in followup consult regarding that. Otherwise, we will give her dietary magnesium, as it is somewhat low, and that will be supplemented over the next 48 hours. Valentin García MD /[phone]
--- NOTE | 2018-06-11 07:46 | PN ---
DATE OF SERVICE: 06/11/2018 SUBJECTIVE: Coby is n.p.o. She will be having surgery today. Vital signs are stable. Oral intake before she was n.p.o. was 2050 and urine output 3200. Labs today; hemoglobin 10.9, potassium is 5.3 up from 4.3 yesterday, BNP is 170, and creatinine is 1. OBJECTIVE: GENERAL: Coby Childs is a pleasant 58-year-old female, alert, and orientated. VITAL SIGNS: TPR 96.5, 78, 18. Blood pressure 140/71. HEENT: Negative. NECK: Supple. HEART: Regular rate and rhythm. LUNGS: Clear. ABDOMEN: She reports tenderness on palpation, mid abdomen, and a burning sensation, lower abdomen. EXTREMITIES: Without peripheral edema. SCDs have been on while she is in bed. ASSESSMENT: 1. Hyperkalemia. 2. Type 2 diabetes. 3. Cholecystitis. 4. Umbilical hernia. PLAN: Orders to be written postoperatively. The patient to use incentive spirometer as directed. We will evaluate p.r.n. or in a.m. Gaviota Velasquez PA-C /[id number]
[2018-06-11] MEDS: Insulin Lispro 100 Unit/ML 3 ML KwikPen SUBCUT SCH ×2 (08:00→17:27)
[2018-06-11] MEDS ORDERED: Lisinopril 10 MG Tab PO SCH (09:00)
[2018-06-11] MEDS: Sodium Chloride 0.9% 1,000 ML IV SCH (09:56)
[2018-06-11] MEDS ORDERED: fentaNYL 250 MCG/5 ML SDV ONE (10:00)
[2018-06-11] MEDS ORDERED: Ondansetron 4 MG/2 ML SDV ONE (10:01)
[2018-06-11] MEDS ORDERED: Neostigmine Methylsulfate 1 MG/ML 5 ML Syringe ONE (10:01)
[2018-06-11] MEDS ORDERED: Propofol 200 MG/20 ML SDV ONE (10:01)
[2018-06-11] MEDS ORDERED: Rocuronium 50 MG/5 ML Vial ONE ×2 (10:01→12:06)
[2018-06-11] MEDS ORDERED: Glycopyrrolate 0.2 MG/ML 5 ML MDV ONE (10:01)
--- NOTE | 2018-06-11 10:55 | PCM.CONSN ---
- General Info Date of Service: 06/11/18 Subjective Update: Ms. Childs has been stable since yesterday, blood pressure control improved with addition of metoprolol 25 mg twice daily. Potassium level modestly elevated this morning, plan is to proceed with surgery today. - Review of Systems General: Denies: Fever, Chills Pulmonary: Reports: No Symptoms Cardiovascular: Reports: No Symptoms Gastrointestinal: Reports: No Symptoms - Patient Data Vitals - Most Recent: Last Vital Signs Temp 96.5 F 06/11/18 06:59 Pulse 76 06/11/18 07:22 Resp 18 06/11/18 06:59 BP 140/71 06/11/18 06:59 Pulse Ox 76 L 06/11/18 08:20 Weight - Most Recent: 266 lb 12.784 oz I&O - Last 24 Hours: Intake & Output 06/10/18 06/11/18 06/11/18 22:59 06:59 14:59 Intake Total 1922 50 Output Total 590 856 0279 Balance 1022 -450 -1150 Lab Results Last 24 Hours: Laboratory Results - last 24 hr 06/10/18 06/11/18 06/11/18 Range/Units 17:00 04:28 04:28 WBC 9.4 (4.5-11.0) K/uL RBC 3.97 (3.30-5.50) M/uL Hgb 10.9 L (12.0-15.0) g/dL Hct 33.7 L (36.0-48.0) % MCV 85 (80-98) fL MCH 28 (27-31) pg MCHC 32 (32-36) % Plt Count (150-400) K/uL Sodium 137 L (140-148) mmol/L Potassium 4.3 5.3 H (3.6-5.2) mmol/L Chloride 108 (100-108) mmol/L Carbon Dioxide 22 (21-32) mmol/L Anion Gap 12.3 (5.0-14.0) mmol/L BUN 27 H (7-18) mg/dL Creatinine 1.0 (0.6-1.0) mg/dL Est Cr Clr Drug Dosing 48.67 mL/min Estimated GFR (MDRD) 57 L (>60) Glucose 177 H (74-106) mg/dL Calcium 8.0 L (8.5-10.1) mg/dL Phosphorus 4.2 (2.5-4.9) mg/dL Magnesium 4.2 H D (1.8-2.4) mg/dL Total Bilirubin 0.2 (0.2-1.0) mg/dL AST 14 L (15-37) U/L ALT 14 (12-78) U/L Alkaline Phosphatase 83 (46-116) U/L NT-Pro-B Natriuret Pep 170 H (5-125) pg/mL Total Protein 5.7 L (6.4-8.2) g/dL Albumin 2.2 L (3.4-5.0) g/dL Globulin 3.5 (2.3-3.5) g/dL Albumin/Globulin Ratio 0.6 L (1.2-2.2) Med Orders - Current: Current Medications Albuterol (Proventil Neb Soln) 2.5 mg INH QIDRT [facility] Last Admin: 06/11/18 07:21 Dose: 2.5 mg Albuterol (Proventil Neb Soln) 2.5 mg INH ASDIRECTED PRN PRN Reason: Shortness of Breath Amlodipine Besylate (Norvasc) 10 mg PO DAILY [facility] Last Admin: 06/10/18 08:10 Dose: 10 mg Artificial Tears (Natural Balance Tears) 0 ml EYEBOTH ASDIRECTED PRN PRN Reason: DRY EYES Atorvastatin Calcium (Lipitor) 20 mg PO BEDTIME [facility] Last Admin: 06/10/18 22:17 Dose: 20 mg Ropivacaine 60 ml/Dexamethasone 8 mg/Epinephrine HCl 0.4 mg/ Sodium Chloride 17.6 ml 0 ml NERVRT ASDIRECTED [facility] Dextrose (Glutose 15) 15 gm PO ASDIRECTED PRN PRN Reason: HYPOGLYCEMIA Dextrose/Water (Dextrose 50% In Water) 50 ml IVPUSH ASDIRECTED PRN PRN Reason: HYPOGLYCEMIA Furosemide (Lasix) 40 mg PO DAILY [facility] Last Admin: 06/10/18 08:10 Dose: 40 mg Glucagon (Glucagen) 1 mg IM ASDIRECTED PRN PRN Reason: HYPOGLYCEMIA Sodium Chloride (Normal Saline) 1,000 mls @ 50 mls/hr IV ASDIRECTED [facility] Last Admin: 06/11/18 09:56 Dose: 50 mls/hr Ketamine HCl 50 mg/ Sodium (Chloride) 50 mls @ 15 mls/hr IV ASDIRECTED [facility] Cefoxitin Sodium 2 gm/ Sodium (Chloride) 50 mls @ 100 mls/hr IV ONCALL ONE Stop: 06/11/18 11:29 Insulin Glargine (Lantus Solostar) 15 units SUBCUT BEDTIME [facility] Last Admin: 06/10/18 21:01 Dose: 15 units Insulin Human Lispro (Humalog) 0 unit SUBCUT QID PRN; Protocol PRN Reason: MEDIUM CORRECTIONAL DOSING Last Admin: 06/10/18 16:55 Dose: 2 unit Insulin Human Lispro (Humalog) 15 unit SUBCUT DAILY@0800,1200 [facility] Last Admin: 06/11/18 08:00 Dose: Not Given Insulin Human Lispro (Humalog) 25 unit SUBCUT QPM [facility] Last Admin: 06/10/18 16:55 Dose: 25 units Ketamine HCl (Ketalar) 25 mg IV ASDIRECTED [facility] Latanoprost (Xalatan 0.005% Ophth Soln) 0 ml EYEBOTH BEDTIME [facility] Last Admin: 06/10/18 21:05 Dose: 1 drop Metoprolol Tartrate (Lopressor) 25 mg PO BID [facility] Last Admin: 06/10/18 21:02 Dose: 25 mg Cranberry Extract (500mg (Ptom)) 0 each PO DAILY [facility] Last Admin: 06/10/18 08:09 Dose: 1 each Polyethylene Glycol (Miralax) 17 gm PO TID PRN PRN Reason: Constipation Discontinued Medications Acetaminophen (Tylenol Extra Strength) 1,000 mg PO ONETIME ONE Stop: 06/08/18 07:01 Acetaminophen (Tylenol Extra Strength) 1,000 mg PO ONETIME ONE Stop: 06/08/18 07:01 Last Admin: 06/08/18 08:01 Dose: 1,000 mg Albuterol/Ipratropium (Duoneb 3.0-0.5 Mg/3 Ml) 3 ml INH ONETIME ONE Stop: 06/08/18 07:01 Last Admin: 06/08/18 08:39 Dose: 3 ml Bupivacaine HCl/Epinephrine Bitart (Marcaine 0.5%/Epinephrine 1:200,000) Confirm Administered Dose 50 ml .ROUTE .STK-MED ONE Stop: 06/08/18 06:48 Bupivacaine HCl/Epinephrine Bitart (Marcaine 0.5%/Epinephrine 1:200,000) Confirm Administered Dose 50 ml .ROUTE .STK-MED ONE Stop: 06/11/18 07:13 Fentanyl (Sublimaze) Confirm Administered Dose 250 mcg .ROUTE .STK-MED ONE Stop: 06/08/18 08:47 Fentanyl (Sublimaze) Confirm Administered Dose 250 mcg .ROUTE .STK-MED ONE Stop: 06/08/18 08:52 Fentanyl (Sublimaze) Confirm Administered Dose 250 mcg .ROUTE .K-MED ONE Stop: 06/11/18 10:01 Furosemide (Lasix) 10 mg IVPUSH ONETIME ONE Stop: 06/11/18 06:31 Last Admin: 06/11/18 07:21 Dose: 10 mg Glycopyrrolate (Robinul) Confirm Administered Dose 1 mg .ROUTE .ST-MED ONE Stop: 06/08/18 08:47 Glycopyrrolate (Robinul) Confirm Administered Dose 1 mg .ROUTE .[facility]-MED ONE Stop: 06/11/18 10:02 Hydromorphone HCl (Dilaudid Bull Riveter 15 Mg In Ns 30 Ml) 0 mg IV ASDIRECTED PRN; Protocol PRN Reason: Pain Cefoxitin Sodium 2 gm/ Sodium (Chloride) 50 mls @ 200 mls/hr IV ONETIME ONE Stop: 06/08/18 08:14 Last Admin: 06/08/18 09:37 Dose: 200 mls/hr Dextrose/Lactated Ringer's (Dextrose 5%-Lactated Ringers) 1,000 mls @ 100 mls/ hr IV ASDIRECTED [facility] Last Admin: 06/08/18 08:25 Dose: 100 mls/hr Sodium Chloride (Normal Saline) 1,000 mls @ 100 mls/hr IV ASDIRECTED [facility] Last Admin: 06/08/18 10:25 Dose: 100 mls/hr Lactated Ringer's (Ringers, Lactated) 1,000 mls @ 100 mls/hr IV ASDIRECTED [facility] Last Admin: 06/08/18 10:41 Dose: 100 mls/hr Lactated Ringer's (Ringers, Lactated) 1,000 mls @ 100 mls/hr IV ASDIRECTED [facility] Sodium Chloride (Normal Saline) 1,000 mls @ 100 mls/hr IV ASDIRECTED [facility] Last Admin: 06/09/18 08:22 Dose: 100 mls/hr Magnesium Sulfate 2 gm/ Premix 50 mls @ 25 mls/hr IV Q6H [facility] Stop: 06/11/18 03:59 Last Admin: 06/11/18 02:26 Dose: 25 mls/hr Linezolid (Zyvox) Confirm Administered Dose 300 mls @ as directed .ROUTE .STK- MED ONE Stop: 06/11/18 07:12 Insulin Glargine (Lantus Solostar) 0 units SUBCUT BEDTIME ONE Stop: 06/08/18 21:01 Last Admin: 06/08/18 21:19 Dose: 15 units Insulin Glargine (Lantus Solostar) 30 units SUBCUT BEDTIME [facility] Last Admin: 06/09/18 21:39 Dose: 30 units Insulin Glargine (Lantus Solostar) 25 units SUBCUT ONETIME ONE Stop: 06/10/18 09:16 Last Admin: 06/10/18 09:55 Dose: 25 units Lisinopril (Prinivil) 40 mg PO DAILY [facility] Lisinopril (Prinivil) 40 mg PO DAILY [facility] Last Admin: 06/10/18 08:11 Dose: 40 mg Lisinopril (Prinivil) 10 mg PO DAILY [facility] Last Admin: 06/10/18 10:23 Dose: Not Given Lisinopril (Prinivil) 10 mg PO DAILY [facility] Meropenem (Merrem) Confirm Administered Dose 500 mg .ROUTE .STK-MED ONE Stop: 06/11/18 07:12 Naloxone HCl (Narcan) 0.1 mg IV ASDIRECTED PRN PRN Reason: decreased respiratory rate Neostigmine Methylsulfate (Neostigmine) Confirm Administered Dose 5 mg .ROUTE .STK-MED ONE Stop: 06/08/18 08:47 Neostigmine Methylsulfate (Neostigmine) Confirm Administered Dose 5 mg .ROUTE .STK-MED ONE Stop: 06/11/18 10:02 Ondansetron HCl (Zofran) Confirm Administered Dose 4 mg .ROUTE .STK-MED ONE Stop: 06/08/18 08:47 Ondansetron HCl (Zofran) Confirm Administered Dose 4 mg .ROUTE .STK-MED ONE Stop: 06/11/18 10:02 Polyethylene Glycol (Miralax) 17 gm PO ONETIME ONE Stop: 06/10/18 09:08 Last Admin: 06/10/18 09:58 Dose: 17 gm Propofol (Diprivan 20 Ml) Confirm Administered Dose 200 mg .ROUTE .STK-MED ONE Stop: 06/11/18 10:02 Rocuronium [place] (Zemuron) Confirm Administered Dose 50 mg .ROUTE .STK-MED ONE Stop: 06/11/18 10:02 Scopolamine (Transderm-Scop) 1.5 mg TOP ONETIME ONE Stop: 06/08/18 07:01 Last Admin: 06/08/18 08:01 Dose: 1.5 mg - Exam Quality Assessment: DVT Prophylaxis General: Alert, Oriented, Cooperative, No Acute Distress Lungs: Clear to Auscultation, Normal Respiratory Effort Cardiovascular: Regular Rate, Regular Rhythm, No Murmurs GI/Abdominal Exam: Soft, Non-Tender, No Organomegaly, No Distention Extremities: Non-Tender, No Pedal Edema Consult PN Assessment/Plan Procedures: Procedures BREAST TOMOSYNTHESIS BI (02/10/18) COLONOSCOPY AND BIOPSY (04/28/17) CT ABD & PELV W/CONTRAST (05/29/18) DIAGNOSTIC COLONOSCOPY (05/05/18) EMERGENCY DEPT VISIT (12/20/17) EMERGENCY DEPT VISIT (08/19/15) EXTREMITY STUDY (05/30/16) GLUCOSE BLOOD TEST (04/28/17) POLYSOM 6/> YRS 4/> JASON (06/22/17) SCR MAMMO BI INCL CAD (02/10/18) THER/PROPH/DIAG INJ SC/IM (08/19/15) TTE W/DOPPLER COMPLETE (04/18/16) URINE TEST (04/28/17) X-RAY EXAM OF KNEE 3 (12/20/17) Problem List Initiated/Reviewed/Updated: Yes Plan: ASSESSMENT AND RECOMMENDATIONS HYPERKALEMIA-potassium level found to be good last night, now modestly elevated this morning -Furosemide 40 mg by mouth daily -Recheck potassium in a.m. -Discontinue lisinopril HYPERTENSION-blood pressure control improved with addition of metoprolol yesterday. We'll discontinue lisinopril because of intermittent hyperkalemia, use increased dose of metoprolol as needed for control of blood pressure. -Continue metoprolol 25 mg by mouth twice a day TYPE 2 DIABETES MELLITUS-glucose levels tending to run higher than normal, she has not been receiving her usual dose of morning insulins CONSTIPATION-resolved CHRONIC KIDNEY DISEASE STAGE III -Closely monitor urine output and renal function HERNIA -Plan for surgery today
[2018-06-11] MEDS ORDERED: Ketamine 500 MG/5 ML MDV IV SCH (11:00)
[2018-06-11] MEDS ORDERED: Ropivacaine 60 ML, Dexamethasone 8 MG, EPINEPHrine 0.4 MG, Sodium Chloride 0.9% 17.6 ML NERVRT SCH ×4 (11:00)
[2018-06-11] MEDS ORDERED: cefOXitin 2 GM in Sodium Chloride 0.9% 50 ML IV ONE (11:00)
[2018-06-11] MEDS ORDERED: Ketamine 50 MG in Sodium Chloride 0.9% 49.5 ML IV SCH (11:00)
[2018-06-11] MEDS ORDERED: Naloxone 0.4 MG/ML SDV IVPUSH PRN (11:18)
[2018-06-11] MEDS: HYDROmorphone/Normal Saline 15 MG/30 ML PCA IV PRN (12:19)
[2018-06-11] MEDS ORDERED: Sodium Chloride 0.9% 500 ML ONE (12:35)
[2018-06-11] MEDS ORDERED: fentaNYL 100 MCG/2 ML SDV ONE (12:58)
[2018-06-11] MEDS ORDERED: hydrOXYzine HCl 100 MG/2 ML SDV IM ONE (13:12)
[2018-06-11] MEDS ORDERED: hydrOXYzine HCl 100 MG/2 ML SDV IM PRN (14:57)
[2018-06-11] MEDS ORDERED: Naloxone 0.4 MG/ML SDV IV PRN (14:57)
[2018-06-11] MEDS ORDERED: Albuterol/Ipratropium 3.0-0.5 MG/3 ML Neb Soln INH PRN (14:57)
[2018-06-11] MEDS ORDERED: Cyclobenzaprine 10 MG Tab PO PRN (14:59)
[2018-06-11] MEDS ORDERED: Dextrose 5%-Lactated Ringers 1,000 ML IV SCH (15:00)
[2018-06-11] MEDS: cefOXitin 2 GM in Sodium Chloride 0.9% 50 ML IV SCH ×2 (15:55→22:12)
[2018-06-11] MEDS: Metoprolol Tartrate 25 MG Tab PO SCH (16:00)
[2018-06-11] MEDS ORDERED: Insulin Lispro 100 Unit/ML 3 ML KwikPen SUBCUT SCH (17:00)
[2018-06-11] MEDS: Albuterol/Ipratropium 3.0-0.5 MG/3 ML Neb Soln INH SCH ×2 (17:24→21:40)
[2018-06-11] MEDS: Scopolamine 1.5 MG Transdermal Patch TOP SCH (17:38)
[2018-06-11] MEDS: Pantoprazole 40 MG Vial IVPUSH SCH (17:39)
[2018-06-11] MEDS ORDERED: Ondansetron 4 MG/2 ML SDV IVPUSH PRN (21:10)
[2018-06-11] MEDS ORDERED: Lactated Ringers 500 ML IV ONE (21:15)
[2018-06-11] MEDS: Lactated Ringers 1,000 ML IV SCH (21:19)
[2018-06-11] MEDS ORDERED: Insulin Lispro 100 Units/ML 3 ML Vial SUBCUT ONE (21:20)
[2018-06-11] MEDS: Insulin Glargine,Human Rec. Analog 100 Units/ML 3 ML Pen SUBCUT SCH ×2 (21:31→22:43)
[2018-06-11] MEDS: Latanoprost 0.005% Ophth Soln 2.5 ML Bottle EYEBOTH SCH (22:12)
[2018-06-12] MEDS: Insulin Lispro 100 Unit/ML 3 ML KwikPen SUBCUT PRN ×5 (03:34→21:25)
[2018-06-12] MEDS: Lactated Ringers 1,000 ML IV SCH (03:45)
[2018-06-12] MEDS: cefOXitin 2 GM in Sodium Chloride 0.9% 50 ML IV SCH ×4 (03:46→21:30)
[2018-06-12] MEDS ORDERED: Furosemide 20 MG/2 ML VIAL IVPUSH ONE (04:05)
[2018-06-12] MEDS ORDERED: Lactated Ringers 500 ML IV ONE (04:15)
[2018-06-12] MEDS ORDERED: Albuterol 0.083% 2.5 MG/3 ML Neb Soln NEB ONE (06:14)
[2018-06-12] MEDS ORDERED: Sodium Polystyrene Sulfonate 15 GM/60 ML Susp 60 ML Bot RECTAL ONE (06:15)
[2018-06-12] MEDS: Sodium Chloride 0.9% 1,000 ML IV SCH ×2 (06:23→15:37)
[2018-06-12] MEDS: Albuterol/Ipratropium 3.0-0.5 MG/3 ML Neb Soln INH SCH ×4 (07:14→21:13)
[2018-06-12] MEDS ORDERED: Cyclobenzaprine 10 MG Tab PO PRN (08:00)
--- NOTE | 2018-06-12 08:30 | PN ---
DATE OF SERVICE: 06/12/2018 SUBJECTIVE: Coby is postoperative day #1. She has had low urine output. She did receive two 500 lactated Ringer boluses since surgery, Lasix 10 mg IV one time. Pain has been controlled. She has been up sitting in the chair. She is alert and orientated. Vital signs have been stable. Blood sugars 166 before surgery, 292 after surgery, 361, 318, and 344. Potassium this morning was 6.4, her GFR 22, creatinine 2.3. BNP was elevated from [address] Saeed Pedro was notified. Her IV was changed to normal saline. Prior to that, it was lactated Ringer's and she was given Kayexalate through her rectum to decrease her potassium. REVIEW OF SYSTEMS: Remainder of review of systems negative for any pertinent positives and negatives. OBJECTIVE: GENERAL: Coby Childs is a 58-year-old female. She is alert and orientated, lying in bed. VITAL SIGNS: TPR is 96, 78, 14, blood pressure 138/68, O2 saturation by pulse oximetry is 94% on 3 L of oxygen by nasal cannula. HEENT: Negative. NG tube is in place and over the past 24 hours has put out 75 mL of a dark green drainage. NECK: Supple. HEART: Regular rate and rhythm. LUNGS: Clear. ABDOMEN: Dressings dry and intact. Abdominal binder is on. She has Aquacel on. NILO drains have put out 50 and 55 mL of a light red drainage. EXTREMITIES: SCDs are currently on. She has generalized edema. NEUROLOGIC: Intact. PSYCHIATRIC: Mood and affect appropriate. ASSESSMENT: Laparoscopic turned to laparotomy with lysis of extensive adhesions: 1. Removal of intraperitoneal mesh. 2. Small-bowel resection. 3. Drainage of intraabdominal abscess. 4. Repair of recurrent incarcerated incisional hernia. 5. Cholecystectomy. 6. Placement of Vicryl mesh. Date of surgery: . Surgeon: Valentin García MD. PLAN: 1. Discontinue NG. 2. Lantus 25 units this a.m. and 30 units at bedtime. 3. Leave Ayon catheter in for accurate intake and output. 4. Clear liquid diet. 5. Check CBC, CMP, BNP, and phos in a.m. 6. We will evaluate p.r.n. or in a.m. [facility], PA-C /[id number]
--- NOTE | 2018-06-12 08:33 | OR ---
DATE OF PROCEDURE: 06/11/2018 PREOPERATIVE DIAGNOSIS: Recurrent periumbilical hernia. POSTOPERATIVE DIAGNOSES: 1. Recurrent incarcerated incisional hernia with sterile versus infected abscess at the recurrent hernia site. 2. Intraperitoneal mesh densely adherent to a segment of small bowel. 3. Extensive intraabdominal adhesions. 4. Chronic cholecystitis and cholelithiasis. OPERATIVE PROCEDURES: Diagnostic laparoscopy converted to laparotomy with lysis of extensive adhesions. 1. Removal of intraperitoneal mesh (17633). 2. Small bowel resection (25810). 3. Drainage of an intraabdominal abscess (08993). 4. Repair of a recurrent incarcerated incisional hernia (66970). 5. Cholecystectomy (87382). 6. Placement of a Vicryl mesh to displace the pelvic and abdominal wall from underlying viscera to limit recurrent adhesion formation (94505). ANESTHESIA: General. ADMINISTRATIVE SERVICES COORDINATOR: Gaviota Velasquez PA-C INDICATIONS FOR PROCEDURE: The patient presents with a recurrent incisional hernia per CT scan that has become increasingly painful. She also was noted to have symptoms suggestive of biliary colic and is noted to have cholelithiasis and will undergo concurrent cholecystectomy. A laparoscopic approach will be attempted. The patient is aware of the possible need for an open approach, depending on various operative findings. Potential risks per se, including bleeding, infection, injury to underlying viscera, possibility that the mesh may be removed and may not be able to be replaced, due to needing to take out either contaminated gallbladder or bowel resection, as well as the possibility of cardiopulmonary, septic, or hemorrhagic complications leading to , were discussed. The patient is aware of possible recurrent hernia as well. DETAILS OF PROCEDURE: The patient was taken to the operating room and placed in a supine position. After general endotracheal anesthesia was induced, the abdomen was prepped and draped. A Ayon catheter had also been placed. Two 12 mm trocars were placed, one in the left lateral abdomen and one in the right lateral abdomen. Both of these encountered areas of quite dense adhesion formation, and with the right-sided trocar, it was noted there was dense adherence to a segment of small bowel to the mesh, and a decision made to proceed with an open approach. The trocars were removed. At this point, a midline incision beginning at a point above the level of the mesh was made and carried down through the skin and subcutaneous tissue. This was eventually carried down to a point just below the umbilicus, and during the course of this, the mesh, which extended roughly 8 or 10 cm below the umbilicus, was divided away from the abdominal wall. At the point of recurrent hernia formation, there was an abscess present with dense inflammatory rind around it. This was drained, and Gram stain and cultures are pending. This might either be a sterile or an infected abscess, depending on the culture report that would be pending. That rind of hernia content was then excised as well, and at that point, the small bowel was noted to be densely adherent to the lower aspect of the mesh, and upon removal of the mesh from the abdominal wall, the small bowel proximal and distal point of adherence, which measured around 15 inches, was divided with BAM staplers, as was the underlying mesentery, and the specimen consisting of the mesh and small bowel was delivered from the field. At this point, small bowel continuity was accomplished with an internal firing of a BAM 60 mm stapler. The common opening was closed transversely with the same stapler. The angles of anastomosis and mesenteric defect were approximated with some 0 Ethibond stitch along with 4 mL of a fibrin sealant. Attention was then taken to the cholecystectomy. The gallbladder was retracted anteriorly and laterally and the peritoneum over the cystohepatic triangle divided. The cystic artery and cystic duct were then each in turn encountered. Due to the patient's friable tissues and extreme obesity, it was felt more prudent to take those structures with BAM noe, which was done with a BAM banks load. The gallbladder was then dissected off the gallbladder bed using electrocautery and delivered from the field. It was noted to contain multiple stones upon its opening. At this point, the abdomen was irrigated with antibiotic-containing saline solution. A Camilo-Camacho drain was placed through a stab wound lateral to the incision and positioned into the gallbladder bed. The patient's omentum was not available to cover the lower abdomen or pelvis; therefore, a Vicryl mesh was placed underlying this area to displace the pelvic and abdominal wall from the underlying viscera to limit recurrent adhesion formation. The midline fascia was then approximated, which included repair of the recurrent incisional hernia. This was done with a #2 Vicryl stitch, and the subcutaneous tissue, which was at some points 5 inches deep, was then drained with a 15 round Camilo-Camacho drain brought through a stab wound inferior to the main incision and sutured there with a 4-0 Vicryl stitch. The skin was then closed with noe. A dressing was applied. The patient was taken to the recovery room in satisfactory condition. Physician administrative assistant office manager Gaviota Velasquez played an essential role in assisting in this case, helping to position the patient and retract structures as needed as well as suturing and cutting sutures when indicated. Her presence improved patient safety and decreased operative time. Valentin García MD /[id number]
[2018-06-12] MEDS ORDERED: Lisinopril 5 MG Tab PO SCH (09:00)
[2018-06-12] MEDS ORDERED: Enoxaparin 40 MG/0.4 ML Syringe SUBCUT SCH (09:00)
[2018-06-12] MEDS: Furosemide 40 MG Tab PO SCH (09:24)
[2018-06-12] MEDS: CRANBERRY EXTRACT 500 MG PO SCH (09:25)
[2018-06-12] MEDS: Aspirin 81 MG Tab.EC PO SCH (09:25)
[2018-06-12] MEDS: Metoprolol Tartrate 25 MG Tab PO SCH ×2 (09:26→21:21)
[2018-06-12] MEDS: Insulin Glargine,Human Rec. Analog 100 Units/ML 3 ML Pen SUBCUT SCH ×2 (09:28→21:23)
[2018-06-12] MEDS: SCOPOLAMINE PATCH CHECK TOP SCH (09:38)
[2018-06-12] MEDS: Enoxaparin 30 MG/0.3 ML Syringe SUBCUT SCH (09:38)
[2018-06-12] MEDS ORDERED: HYDROmorphone 0.5 MG/0.5 ML Syringe IVPUSH PRN (12:27)
[2018-06-12] MEDS: HYDROmorphone/Normal Saline 15 MG/30 ML PCA IV PRN (13:34)
--- NOTE | 2018-06-12 14:30 | PCM.PN ---
- General Info Date of Service: 06/12/18 Subjective Update: Ms. Childs underwent surgical repair of her hernia yesterday. Urine output was low through the night and she did receive fluid boluses. This morning creatinine significantly increased from baseline at 2.3 and potassium was increased to 6.4. She received one dose of Kayexalate rectally and her potassium level has come down to 5.9 at noon. She otherwise is feeling fairly well, postoperative pain fairly well controlled at this time. Functional Status: Reports: Pain Controlled, Tolerating Diet, Ambulating, Urinating - Review of Systems General: Reports: Weakness. Denies: Fever, Chills Pulmonary: Reports: No Symptoms Cardiovascular: Reports: No Symptoms Gastrointestinal: Reports: Abdominal Pain. Denies: Constipation, Diarrhea, Difficulty Swallowing, Hematochezia, Melena, Nausea, Vomiting - Patient Data Vitals - Most Recent: Last Vital Signs Temp 96.3 F 06/12/18 13:30 Pulse 75 06/12/18 13:30 Resp 16 06/12/18 13:30 BP 129/97 H 06/12/18 13:30 Pulse Ox 95 06/12/18 13:30 Weight - Most Recent: 266 lb 12.784 oz I&O - Last 24 Hours: Intake & Output 06/11/18 06/12/18 06/12/18 22:59 06:59 14:59 Intake Total 1422 2893 410 Output Total 730 395 640 Balance 692 2498 -230 Lab Results Last 24 Hours: Laboratory Results - last 24 hr 06/12/18 06/12/18 06/12/18 Range/Units 04:36 04:36 11:09 WBC 14.5 H (4.5-11.0) K/uL RBC 4.34 (3.30-5.50) M/uL Hgb 11.7 L (12.0-15.0) g/dL Hct 38.3 (36.0-48.0) % MCV 88 (80-98) fL MCH 27 (27-31) pg MCHC 31 L (32-36) % Plt Count 323 (150-400) K/uL Neut % (Auto) 91 H (36-66) % Lymph % (Auto) 4 L (24-44) % [place] % (Auto) 5 (2-6) % Eos % (Auto) 0 L (2-4) % Baso % (Auto) 0 (0-1) % Sodium 136 L (140-148) mmol/L Potassium 6.4 H* 5.8 H (3.6-5.2) mmol/L Chloride 106 (100-108) mmol/L Carbon Dioxide 22 (21-32) mmol/L Anion Gap 14.4 H (5.0-14.0) mmol/L BUN 35 H (7-18) mg/dL Creatinine 2.3 H D (0.6-1.0) mg/dL Est Cr Clr Drug Dosing 21.16 mL/min Estimated GFR (MDRD) 22 L (>60) Glucose 341 H (74-106) mg/dL Calcium 8.1 L (8.5-10.1) mg/dL Phosphorus 4.9 (2.5-4.9) mg/dL Total Bilirubin 0.3 (0.2-1.0) mg/dL AST 94 H D (15-37) U/L ALT 154 H (12-78) U/L Alkaline Phosphatase 88 (46-116) U/L NT-Pro-B Natriuret Pep 302 H (5-125) pg/mL Total Protein 6.5 (6.4-8.2) g/dL Albumin 2.5 L (3.4-5.0) g/dL Globulin 4.0 H (2.3-3.5) g/dL Albumin/Globulin Ratio 0.6 L (1.2-2.2) Med Orders - Current: Current Medications Albuterol/Ipratropium (Duoneb 3.0-0.5 Mg/3 Ml) 3 ml INH QIDRT [facility] Last Admin: 06/12/18 10:48 Dose: 3 ml Albuterol/Ipratropium (Duoneb 3.0-0.5 Mg/3 Ml) 3 ml INH ASDIRECTED PRN PRN Reason: BREATHING Amlodipine Besylate (Norvasc) 10 mg PO DAILY [facility] Artificial Tears (Natural Balance Tears) 0 ml EYEBOTH ASDIRECTED PRN PRN Reason: DRY EYES Aspirin (Halfprin) 81 mg PO DAILY [facility] Last Admin: 06/12/18 09:25 Dose: 81 mg Atorvastatin Calcium (Lipitor) 20 mg PO BEDTIME [facility] Cyclobenzaprine HCl (Flexeril) 10 mg PO Q8H PRN PRN Reason: Muscle Spasm Dextrose (Glutose 15) 15 gm PO ASDIRECTED PRN PRN Reason: HYPOGLYCEMIA Dextrose/Water (Dextrose 50% In Water) 50 ml IVPUSH ASDIRECTED PRN PRN Reason: HYPOGLYCEMIA Enoxaparin Sodium (Lovenox) 30 mg SUBCUT DAILY [facility] Last Admin: 06/12/18 09:38 Dose: 30 mg Furosemide (Lasix) 40 mg PO DAILY [facility] Last Admin: 06/12/18 09:24 Dose: 40 mg Glucagon (Glucagen) 1 mg IM ASDIRECTED PRN PRN Reason: HYPOGLYCEMIA Hydromorphone HCl (Dilaudid Trommel Tender 15 Mg In Ns 30 Ml) 0 mg IV ASDIRECTED PRN; Protocol PRN Reason: Pain Last Admin: 06/12/18 13:34 Dose: 15 mg Hydroxyzine HCl (Vistaril) 100 mg IM Q4H PRN PRN Reason: pain Cefoxitin Sodium 2 gm/ Sodium (Chloride) 50 mls @ 100 mls/hr IV Q6H [facility] Stop: 06/12/18 22:29 Last Admin: 06/12/18 09:42 Dose: 100 mls/hr Sodium Chloride (Normal Saline) 1,000 mls @ 100 mls/hr IV ASDIRECTED [facility] Last Admin: 06/12/18 06:23 Dose: 100 mls/hr Insulin Glargine (Lantus Solostar) 30 units SUBCUT BEDTIME [facility] Last Admin: 06/11/18 21:31 Dose: 30 units Insulin Glargine (Lantus Solostar) 25 units SUBCUT QAM [facility] Last Admin: 06/12/18 09:28 Dose: 25 units Insulin Human Lispro (Humalog) 0 unit SUBCUT QID PRN; Protocol PRN Reason: MEDIUM CORRECTIONAL DOSING Last Admin: 06/12/18 12:13 Dose: 5 unit Insulin Human Lispro (Humalog) 15 unit SUBCUT TIDMEALS [facility] Latanoprost (Xalatan 0.005% Ophth Soln) 0 ml EYEBOTH BEDTIME [facility] Last Admin: 06/11/18 22:12 Dose: 1 drop Metoprolol Tartrate (Lopressor) 25 mg PO BID [facility] Last Admin: 06/12/18 09:26 Dose: 25 mg Naloxone HCl (Narcan) 0.1 mg IV ASDIRECTED PRN PRN Reason: decreased respiratory rate Scopolamine Patch (Check) 1 each TOP DAILY [facility] Last Admin: 06/12/18 09:38 Dose: 1 each Ondansetron HCl (Zofran) 4 mg IVPUSH Q4H PRN PRN Reason: Nausea/Vomiting Last Admin: 06/11/18 21:30 Dose: 4 mg Pantoprazole Sodium (Protonix Iv) 40 mg IVPUSH Q24H [facility] Last Admin: 06/11/18 17:39 Dose: 40 mg Cranberry Extract (500mg (Ptom)) 0 each PO DAILY [facility] Last Admin: 06/12/18 09:25 Dose: 1 each Scopolamine (Transderm-Scop) 1.5 mg TOP Q72H [facility] Last Admin: 06/11/18 17:38 Dose: 1.5 mg Discontinued Medications Acetaminophen (Tylenol Extra Strength) 1,000 mg PO ONETIME ONE Stop: 06/08/18 07:01 Acetaminophen (Tylenol Extra Strength) 1,000 mg PO ONETIME ONE Stop: 06/08/18 07:01 Last Admin: 06/08/18 08:01 Dose: 1,000 mg Albuterol (Proventil Neb Soln) 2.5 mg INH QIDRT [facility] Last Admin: 06/11/18 14:50 Dose: Not Given Albuterol (Proventil Neb Soln) 2.5 mg INH ASDIRECTED PRN PRN Reason: Shortness of Breath Albuterol (Proventil Neb Soln) 2.5 mg NEB ONETIME ONE Stop: 06/12/18 06:15 Last Admin: 06/12/18 07:14 Dose: 2.5 mg Albuterol/Ipratropium (Duoneb 3.0-0.5 Mg/3 Ml) 3 ml INH ONETIME ONE Stop: 06/08/18 07:01 Last Admin: 06/08/18 08:39 Dose: 3 ml Amlodipine Besylate (Norvasc) 10 mg PO DAILY [facility] Last Admin: 06/10/18 08:10 Dose: 10 mg Atorvastatin Calcium (Lipitor) 20 mg PO BEDTIME [facility] Last Admin: 06/10/18 22:17 Dose: 20 mg Bupivacaine HCl/Epinephrine Bitart (Marcaine 0.5%/Epinephrine 1:200,000) Confirm Administered Dose 50 ml .ROUTE .STK-MED ONE Stop: 06/08/18 06:48 Bupivacaine HCl/Epinephrine Bitart (Marcaine 0.5%/Epinephrine 1:200,000) Confirm Administered Dose 50 ml .ROUTE .STK-MED ONE Stop: 06/11/18 07:13 Ropivacaine 60 ml/Dexamethasone 8 mg/Epinephrine HCl 0.4 mg/ Sodium Chloride 17.6 ml 0 ml NERVRT ASDIRECTED [facility] Last Admin: 06/11/18 11:32 Dose: 80 syringe Cyclobenzaprine HCl (Flexeril) 10 mg PO Q8H PRN PRN Reason: Muscle Spasm Enoxaparin Sodium (Lovenox) 40 mg SUBCUT DAILY [facility] Fentanyl (Sublimaze) Confirm Administered Dose 250 mcg .ROUTE .STK-MED ONE Stop: 06/08/18 08:47 Fentanyl (Sublimaze) Confirm Administered Dose 250 mcg .ROUTE .STK-MED ONE Stop: 06/08/18 08:52 Fentanyl (Sublimaze) Confirm Administered Dose 250 mcg .ROUTE .STK-MED ONE Stop: 06/11/18 10:01 Fentanyl (Sublimaze) Confirm Administered Dose 100 mcg .ROUTE .STK-MED ONE Stop: 06/11/18 12:59 Furosemide (Lasix) 40 mg PO DAILY [facility] Last Admin: 06/10/18 08:10 Dose: 40 mg Furosemide (Lasix) 10 mg IVPUSH ONETIME ONE Stop: 06/11/18 06:31 Last Admin: 06/11/18 07:21 Dose: 10 mg Furosemide (Lasix) 10 mg IVPUSH ONETIME ONE Stop: 06/12/18 04:06 Last Admin: 06/12/18 04:42 Dose: 10 mg Glycopyrrolate (Robinul) Confirm Administered Dose 1 mg .ROUTE .STK-MED ONE Stop: 06/08/18 08:47 Glycopyrrolate (Robinul) Confirm Administered Dose 1 mg .ROUTE .STK-MED ONE Stop: 06/11/18 10:02 Hydromorphone HCl (Dilaudid Trommel Tender 15 Mg In Ns 30 Ml) 0 mg IV ASDIRECTED PRN; Protocol PRN Reason: Pain Hydromorphone HCl (Dilaudid) 0.5 mg IVPUSH Q1H PRN PRN Reason: Pain Stop: 06/12/18 14:00 Hydroxyzine HCl (Vistaril) 100 mg IM ONETIME ONE Stop: 06/11/18 13:13 Last Admin: 06/11/18 13:21 Dose: 100 mg Cefoxitin Sodium 2 gm/ Sodium (Chloride) 50 mls @ 200 mls/hr IV ONETIME ONE Stop: 06/08/18 08:14 Last Admin: 06/08/18 09:37 Dose: 200 mls/hr Dextrose/Lactated Ringer's (Dextrose 5%-Lactated Ringers) 1,000 mls @ 100 mls/ hr IV ASDIRECTED [facility] Last Admin: 06/08/18 08:25 Dose: 100 mls/hr Sodium Chloride (Normal Saline) 1,000 mls @ 100 mls/hr IV ASDIRECTED [facility] Last Admin: 06/08/18 10:25 Dose: 100 mls/hr Lactated Ringer's (Ringers, Lactated) 1,000 mls @ 100 mls/hr IV ASDIRECTED [facility] Last Admin: 06/08/18 10:41 Dose: 100 mls/hr Lactated Ringer's (Ringers, Lactated) 1,000 mls @ 100 mls/hr IV ASDIRECTED [facility] Sodium Chloride (Normal Saline) 1,000 mls @ 100 mls/hr IV ASDIRECTED [facility] Last Admin: 06/09/18 08:22 Dose: 100 mls/hr Magnesium Sulfate 2 gm/ Premix 50 mls @ 25 mls/hr IV Q6H [facility] Stop: 06/11/18 03:59 Last Admin: 06/11/18 02:26 Dose: 25 mls/hr Sodium Chloride (Normal Saline) 1,000 mls @ 50 mls/hr IV ASDIRECTED [facility] Last Admin: 06/11/18 09:56 Dose: 50 mls/hr Linezolid (Zyvox) Confirm Administered Dose 300 mls @ as directed .ROUTE .STK- MED ONE Stop: 06/11/18 07:12 Ketamine HCl 50 mg/ Sodium (Chloride) 50 mls @ 15 mls/hr IV ASDIRECTED [facility] Cefoxitin Sodium 2 gm/ Sodium (Chloride) 50 mls @ 100 mls/hr IV ONCALL ONE Stop: 06/11/18 11:29 Last Admin: 06/11/18 10:30 Dose: 100 mls/hr Sodium Chloride (Normal Saline) Confirm Administered Dose 500 mls @ as directed .ROUTE .STK-MED ONE Stop: 06/11/18 12:36 Dextrose/Lactated Ringer's (Dextrose 5%-Lactated Ringers) 1,000 mls @ 175 mls/ hr IV ASDIRECTED [facility] Last Admin: 06/11/18 20:31 Dose: 175 mls/hr Lactated Ringer's (Ringers, Lactated) 500 mls @ 500 mls/hr IV ONETIME ONE Stop: 06/11/18 22:14 Last Admin: 06/11/18 21:11 Dose: 500 mls/hr Lactated Ringer's (Ringers, Lactated) 1,000 mls @ 175 mls/hr IV ASDIRECTED [facility] Last Admin: 06/12/18 03:45 Dose: 175 mls/hr Lactated Ringer's (Ringers, Lactated) 500 mls @ 500 mls/hr IV ONETIME ONE Stop: 06/12/18 05:14 Last Admin: 06/12/18 04:44 Dose: 500 mls/hr Insulin Glargine (Lantus Solostar) 0 units SUBCUT BEDTIME ONE Stop: 06/08/18 21:01 Last Admin: 06/08/18 21:19 Dose: 15 units Insulin Glargine (Lantus Solostar) 30 units SUBCUT BEDTIME [facility] Last Admin: 06/09/18 21:39 Dose: 30 units Insulin Glargine (Lantus Solostar) 15 units SUBCUT BEDTIME [facility] Last Admin: 06/10/18 21:01 Dose: 15 units Insulin Glargine (Lantus Solostar) 25 units SUBCUT ONETIME ONE Stop: 06/10/18 09:16 Last Admin: 06/10/18 09:55 Dose: 25 units Insulin Glargine (Lantus Solostar) 15 units SUBCUT BID [facility] Last Admin: 06/11/18 22:43 Dose: Not Given Insulin Human Lispro (Humalog) 15 unit SUBCUT DAILY@0800,1200 [facility] Last Admin: 06/11/18 17:27 Dose: Not Given Insulin Human Lispro (Humalog) 25 unit SUBCUT QPM [facility] Last Admin: 06/10/18 16:55 Dose: 25 units Insulin Human Lispro (Humalog) 8 unit SUBCUT ONETIME ONE Stop: 06/11/18 21:21 Last Admin: 06/11/18 21:33 Dose: 8 units Ketamine HCl (Ketalar) 25 mg IV ASDIRECTED [facility] Lisinopril (Prinivil) 40 mg PO DAILY [facility] Last Admin: 06/10/18 08:11 Dose: 40 mg Lisinopril (Prinivil) 10 mg PO DAILY [facility] Last Admin: 06/10/18 10:23 Dose: Not Given Lisinopril (Prinivil) 10 mg PO DAILY [facility] Last Admin: 06/11/18 16:02 Dose: Not Given Lisinopril (Prinivil) 5 mg PO DAILY [facility] Last Admin: 06/12/18 10:16 Dose: Not Given Meropenem (Merrem) Confirm Administered Dose 500 mg .ROUTE .STK-MED ONE Stop: 06/11/18 07:12 Last Admin: 06/11/18 12:06 Dose: 500 mg Metoprolol Tartrate (Lopressor) 25 mg PO BID [facility] Last Admin: 06/11/18 16:00 Dose: Not Given Naloxone HCl (Narcan) 0.1 mg IV ASDIRECTED PRN PRN Reason: decreased respiratory rate Neostigmine Methylsulfate (Neostigmine) Confirm Administered Dose 5 mg .ROUTE .STK-MED ONE Stop: 06/08/18 08:47 Neostigmine Methylsulfate (Neostigmine) Confirm Administered Dose 5 mg .ROUTE .STK-MED ONE Stop: 06/11/18 10:02 Ondansetron HCl (Zofran) Confirm Administered Dose 4 mg .ROUTE .STK-MED ONE Stop: 06/08/18 08:47 Ondansetron HCl (Zofran) Confirm Administered Dose 4 mg .ROUTE .STK-MED ONE Stop: 06/11/18 10:02 Cranberry Extract (500mg (Ptom)) 0 each PO DAILY [facility] Last Admin: 06/10/18 08:09 Dose: 1 each Polyethylene Glycol (Miralax) 17 gm PO ONETIME ONE Stop: 06/10/18 09:08 Last Admin: 06/10/18 09:58 Dose: 17 gm Polyethylene Glycol (Miralax) 17 gm PO TID PRN PRN Reason: Constipation Propofol (Diprivan 20 Ml) Confirm Administered Dose 200 mg .ROUTE .STK-MED ONE Stop: 06/11/18 10:02 Rocuronium [place] (Zemuron) Confirm Administered Dose 50 mg .ROUTE .STK-MED ONE Stop: 06/11/18 10:02 Rocuronium [place] (Zemuron) Confirm Administered Dose 50 mg .ROUTE .STK-MED ONE Stop: 06/11/18 12:07 Scopolamine (Transderm-Scop) 1.5 mg TOP ONETIME ONE Stop: 06/08/18 07:01 Last Admin: 06/08/18 08:01 Dose: 1.5 mg Sodium Polystyrene Sulfonate (Kayexalate) 30 gm RECTAL NOW ONE Stop: 06/12/18 06:16 Last Admin: 06/12/18 06:28 Dose: 30 gm - Exam Quality Assessment: DVT Prophylaxis General: Alert, Oriented, Cooperative, Mild Distress Lungs: Clear to Auscultation, Normal Respiratory Effort Cardiovascular: Regular Rate, Regular Rhythm, No Murmurs GI/Abdominal Exam: Soft, No Organomegaly, No Distention, Tender. No: Guarding, Rigid, Rebound Extremities: Non-Tender, No Pedal Edema - Problem List Review Problem List Initiated/Reviewed/Updated: Yes - My Orders Last 24 Hours: My Active Orders 06/12/18 06:14 RT Aerosol Therapy [RC] ASDIRECTED 06/12/18 06:15 Sodium Chloride 0.9% [Normal Saline] 1,000 ml IV ASDIRECTED 06/12/18 09:00 Metoprolol Tartrate [Lopressor] 25 mg PO BID 06/12/18 17:00 BASIC METABOLIC PANEL,BMP [CHEM] Stat - Plan Plan:: ASSESSMENT AND RECOMMENDATIONS HYPERKALEMIA-potassium levels significantly elevated this morning at 6.4. Likely secondary to acute on chronic renal insufficiency. -Furosemide 40 mg by mouth daily -Recheck potassium later today and in a.m. -Discontinue lisinopril ACUTE ON CHRONIC KIDNEY INJURY-secondary to intravascular volume depletion following surgery -Continue to monitor closely expect slow resolution HYPERTENSION-blood pressure control improved with addition of metoprolol yesterday. We'll discontinue lisinopril because of intermittent hyperkalemia, use increased dose of metoprolol as needed for control of blood pressure. -Continue metoprolol 25 mg by mouth twice a day TYPE 2 DIABETES MELLITUS-glucose levels tending to run higher than normal, she has not been receiving her usual dose of morning insulins CONSTIPATION-resolved HERNIA, STATUS POST REPAIR -Postoperative care per Dr. García
[2018-06-12] MEDS: Pantoprazole 40 MG Vial IVPUSH SCH (15:37)
[2018-06-12] MEDS ORDERED: Sodium Polystyrene Sulfonate 15 GM/60 ML Susp 60 ML Bot PO ONE (17:52)
[2018-06-12] MEDS ORDERED: INSULIN GLARG HUMAN REC ANALOG 30 UNIT SQ SCH (21:00)
[2018-06-12] MEDS: atorvaSTATin 20 MG Tab PO SCH (21:20)
[2018-06-12] MEDS: Latanoprost 0.005% Ophth Soln 2.5 ML Bottle EYEBOTH SCH (21:21)
[2018-06-13] MEDS: Sodium Chloride 0.9% 1,000 ML IV SCH ×3 (02:29→16:21)
[2018-06-13] MEDS: Albuterol/Ipratropium 3.0-0.5 MG/3 ML Neb Soln INH SCH ×4 (07:11→20:47)
[2018-06-13] MEDS ORDERED: Magnesium Hydroxide 400 MG/5 ML Susp 30 ML Cup PO ONE (08:00)
[2018-06-13] MEDS: Docusate Sodium 100 MG Cap PO SCH ×2 (08:37→20:47)
[2018-06-13] MEDS: Aspirin 81 MG Tab.EC PO SCH (08:38)
[2018-06-13] MEDS: Metoprolol Tartrate 25 MG Tab PO SCH ×2 (08:39→20:47)
[2018-06-13] MEDS: Furosemide 40 MG Tab PO SCH (08:39)
[2018-06-13] MEDS: Enoxaparin 30 MG/0.3 ML Syringe SUBCUT SCH (08:45)
[2018-06-13] MEDS: CRANBERRY EXTRACT 500 MG PO SCH (08:48)
[2018-06-13] MEDS: SCOPOLAMINE PATCH CHECK TOP SCH (08:54)
[2018-06-13] MEDS ORDERED: Insulin Glargine,Human Rec. Analog 100 Units/ML 3 ML Pen SUBCUT ONE ×3 (10:55→21:30)
--- NOTE | 2018-06-13 11:08 | PN ---
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 She has been up ambulating with the assistance of 1 to 2 staff. Potassium this morning is 4.7. She did receive another dose of Kayexalate last night. The creatinine is 1.6, GFR 33. Blood sugar this morning is 117. Oral intake 1400 on a clear liquid diet. Urine output via Ayon catheter is 2660. NILO drains have put out 20 and 50 respectively. REVIEW OF SYSTEMS: Remainder of review of systems negative for any pertinent positives and negatives. OBJECTIVE: GENERAL: Coby Childs is a 58-year-old female. She is sleeping in bed, but did arouse easily. VITAL SIGNS: TPR is 97.4, 82, 18, blood pressure 139/51, O2 is 93% on 2 L of O2. HEENT: Negative. NECK: Supple. HEART: Regular rate and rhythm. LUNGS: Clear. ABDOMEN: Dressings dry and intact. Aquacel is intact. NILO drains are intact draining a light red drainage as above. EXTREMITIES: SCDs are on. Minimal peripheral edema. ASSESSMENT: Diagnostic laparoscopy converted to laparotomy with lysis of extensive adhesions. 1. Removal of intraperitoneal mesh. 2. Small bowel resection. 3. Drainage of an intra-abdominal abscess. 4. Repair of a recurrent incarcerated incisional hernia. 5. Cholecystectomy. 6. Placement of Vicryl mesh to displace the pelvic and abdominal wall from underlining viscera to limit recurrent adhesion formation. Date of surgery, 06/11/2018. PLAN: 1. Discontinue Ayon catheter. 2. Full-liquid diet consisting of carbs. 3. Discontinue Aquacel dressing. 4. May shower. 5. Colace 100 mg b.i.d. 6. Check labs in a.m., CBC, CMP, phosphorus, BNP. 7. Milk of magnesia 30 mL one time today. 8. The patient does have a CPAP at home, but she has not ever used it. She tried it a couple of times, but could not tolerate the mask. To continue to use O2 p.r.n. 9. Good pulmonary toilet. We will evaluate p.r.n. or in a.m. Gvaiota Velasquez PA-C /[id number]
[2018-06-13] MEDS: Insulin Glargine,Human Rec. Analog 100 Units/ML 3 ML Pen SUBCUT SCH ×2 (11:19→21:16)
[2018-06-13] MEDS: amLODIPine 10 MG Tab PO SCH (11:27)
--- NOTE | 2018-06-13 13:23 | PCM.PN ---
- General Info Date of Service: 06/13/18 Subjective Update: Ms. Childs has been stable since yesterday, with good vital signs and no significant temperature elevation. Hyperkalemia has resolved and renal function is improving. Functional Status: Reports: Tolerating Diet, Ambulating, Urinating - Review of Systems General: Denies: Fever, Chills Pulmonary: Reports: No Symptoms Cardiovascular: Reports: No Symptoms Gastrointestinal: Reports: Abdominal Pain. Denies: Constipation, Diarrhea, Difficulty Swallowing, Nausea, Vomiting - Patient Data Vitals - Most Recent: Last Vital Signs Temp 98.6 F 06/13/18 11:14 Pulse 80 06/13/18 11:14 Resp 16 06/13/18 11:14 BP 118/58 L 06/13/18 11:27 Pulse Ox 95 06/13/18 11:14 Weight - Most Recent: 266 lb 12.784 oz I&O - Last 24 Hours: Intake & Output 06/12/18 06/13/18 06/13/18 22:59 06:59 14:59 Intake Total 970 2221 240 Output Total 800 1290 537 Balance 170 931 -297 Lab Results Last 24 Hours: Laboratory Results - last 24 hr 06/12/18 06/13/18 06/13/18 Range/Units 17:07 04:00 04:00 WBC 14.2 H (4.5-11.0) K/uL RBC 3.81 (3.30-5.50) M/uL Hgb 10.4 L (12.0-15.0) g/dL Hct 34.3 L (36.0-48.0) % MCV 90 (80-98) fL MCH 27 (27-31) pg MCHC 30 L (32-36) % Plt Count 295 (150-400) K/uL Sodium 135 L 141 (140-148) mmol/L Potassium 6.0 H 4.7 (3.6-5.2) mmol/L Chloride 100 110 H (100-108) mmol/L Carbon Dioxide 25 27 (21-32) mmol/L Anion Gap 16.0 H 8.7 (5.0-14.0) mmol/L BUN 35 H 32 H (7-18) mg/dL Creatinine 2.0 H 1.6 H (0.6-1.0) mg/dL Est Cr Clr Drug Dosing 24.33 30.42 mL/min Estimated GFR (MDRD) 26 L 33 L (>60) Glucose 236 H 117 H (74-106) mg/dL Calcium 8.4 L 8.1 L (8.5-10.1) mg/dL Phosphorus 4.0 (2.5-4.9) mg/dL Total Bilirubin 0.2 (0.2-1.0) mg/dL AST 39 H (15-37) U/L ALT 95 H (12-78) U/L Alkaline Phosphatase 71 (46-116) U/L NT-Pro-B Natriuret Pep 507 H (5-125) pg/mL Total Protein 5.7 L (6.4-8.2) g/dL Albumin 2.1 L (3.4-5.0) g/dL Globulin 3.6 H (2.3-3.5) g/dL Albumin/Globulin Ratio 0.6 L (1.2-2.2) Tim Results Last 24 Hours: Microbiology 06/11/18 12:53 Gram Stain - Final Abdomen - Abscess Wound Culture - Preliminary Anaerobic Culture - Preliminary NO GROWTH AFTER 1 DAY Med Orders - Current: Current Medications Albuterol/Ipratropium (Duoneb 3.0-0.5 Mg/3 Ml) 3 ml INH QIDRT [facility] Last Admin: 06/13/18 11:02 Dose: 3 ml Albuterol/Ipratropium (Duoneb 3.0-0.5 Mg/3 Ml) 3 ml INH ASDIRECTED PRN PRN Reason: BREATHING Amlodipine Besylate (Norvasc) 10 mg PO DAILY [facility] Last Admin: 06/13/18 11:27 Dose: 10 mg Artificial Tears (Natural Balance Tears) 0 ml EYEBOTH ASDIRECTED PRN PRN Reason: DRY EYES Aspirin (Halfprin) 81 mg PO DAILY [facility] Last Admin: 06/13/18 08:38 Dose: 81 mg Atorvastatin Calcium (Lipitor) 20 mg PO BEDTIME [facility] Last Admin: 06/12/18 21:20 Dose: 20 mg Cyclobenzaprine HCl (Flexeril) 10 mg PO Q8H PRN PRN Reason: Muscle Spasm Dextrose (Glutose 15) 15 gm PO ASDIRECTED PRN PRN Reason: HYPOGLYCEMIA Dextrose/Water (Dextrose 50% In Water) 50 ml IVPUSH ASDIRECTED PRN PRN Reason: HYPOGLYCEMIA Docusate Sodium (Colace) 100 mg PO BID [facility] Last Admin: 06/13/18 08:37 Dose: 100 mg Enoxaparin Sodium (Lovenox) 30 mg SUBCUT DAILY [facility] Last Admin: 06/13/18 08:45 Dose: 30 mg Furosemide (Lasix) 40 mg PO DAILY [facility] Last Admin: 06/13/18 08:39 Dose: 40 mg Glucagon (Glucagen) 1 mg IM ASDIRECTED PRN PRN Reason: HYPOGLYCEMIA Hydromorphone HCl (Dilaudid Railroad Track Inspector 15 Mg In Ns 30 Ml) 0 mg IV ASDIRECTED PRN; Protocol PRN Reason: Pain Last Admin: 06/12/18 13:34 Dose: 15 mg Hydroxyzine HCl (Vistaril) 100 mg IM Q4H PRN PRN Reason: pain Sodium Chloride (Normal Saline) 1,000 mls @ 100 mls/hr IV ASDIRECTED [facility] Last Admin: 06/13/18 12:52 Dose: 100 mls/hr Insulin Glargine (Lantus Solostar) 30 units SUBCUT BEDTIME [facility] Last Admin: 06/12/18 21:23 Dose: 30 units Insulin Glargine (Lantus Solostar) 25 units SUBCUT DAILY [facility] Insulin Human Lispro (Humalog) 0 unit SUBCUT QID PRN; Protocol PRN Reason: MEDIUM CORRECTIONAL DOSING Last Admin: 06/12/18 21:25 Dose: 3 unit Insulin Human Lispro (Humalog) 15 unit SUBCUT TIDMEALS [facility] Latanoprost (Xalatan 0.005% Ophth Soln) 0 ml EYEBOTH BEDTIME [facility] Last Admin: 06/12/18 21:21 Dose: 1 drop Metoprolol Tartrate (Lopressor) 25 mg PO BID [facility] Last Admin: 06/13/18 08:39 Dose: 25 mg Naloxone HCl (Narcan) 0.1 mg IV ASDIRECTED PRN PRN Reason: decreased respiratory rate Scopolamine Patch (Check) 1 each TOP DAILY [facility] Last Admin: 06/13/18 08:54 Dose: 1 each Ondansetron HCl (Zofran) 4 mg IVPUSH Q4H PRN PRN Reason: Nausea/Vomiting Last Admin: 06/11/18 21:30 Dose: 4 mg Pantoprazole Sodium (Protonix Granules) 40 mg PO Q24H [facility] Cranberry Extract (500mg (Ptom)) 0 each PO DAILY [facility] Last Admin: 06/13/18 08:48 Dose: 2 each Scopolamine (Transderm-Scop) 1.5 mg TOP Q72H [facility] Last Admin: 06/11/18 17:38 Dose: 1.5 mg Discontinued Medications Acetaminophen (Tylenol Extra Strength) 1,000 mg PO ONETIME ONE Stop: 06/08/18 07:01 Acetaminophen (Tylenol Extra Strength) 1,000 mg PO ONETIME ONE Stop: 06/08/18 07:01 Last Admin: 06/08/18 08:01 Dose: 1,000 mg Albuterol (Proventil Neb Soln) 2.5 mg INH QIDRT [facility] Last Admin: 06/11/18 14:50 Dose: Not Given Albuterol (Proventil Neb Soln) 2.5 mg INH ASDIRECTED PRN PRN Reason: Shortness of Breath Albuterol (Proventil Neb Soln) 2.5 mg NEB ONETIME ONE Stop: 06/12/18 06:15 Last Admin: 06/12/18 07:14 Dose: 2.5 mg Albuterol/Ipratropium (Duoneb 3.0-0.5 Mg/3 Ml) 3 ml INH ONETIME ONE Stop: 06/08/18 07:01 Last Admin: 06/08/18 08:39 Dose: 3 ml Amlodipine Besylate (Norvasc) 10 mg PO DAILY [facility] Last Admin: 06/10/18 08:10 Dose: 10 mg Atorvastatin Calcium (Lipitor) 20 mg PO BEDTIME [facility] Last Admin: 06/10/18 22:17 Dose: 20 mg Bupivacaine HCl/Epinephrine Bitart (Marcaine 0.5%/Epinephrine 1:200,000) Confirm Administered Dose 50 ml .ROUTE .STK-MED ONE Stop: 06/08/18 06:48 Bupivacaine HCl/Epinephrine Bitart (Marcaine 0.5%/Epinephrine 1:200,000) Confirm Administered Dose 50 ml .ROUTE .STK-MED ONE Stop: 06/11/18 07:13 Ropivacaine 60 ml/Dexamethasone 8 mg/Epinephrine HCl 0.4 mg/ Sodium Chloride 17.6 ml 0 ml NERVRT ASDIRECTED [facility] Last Admin: 06/11/18 11:32 Dose: 80 syringe Cyclobenzaprine HCl (Flexeril) 10 mg PO Q8H PRN PRN Reason: Muscle Spasm Enoxaparin Sodium (Lovenox) 40 mg SUBCUT DAILY [facility] Fentanyl (Sublimaze) Confirm Administered Dose 250 mcg .ROUTE .STK-MED ONE Stop: 06/08/18 08:47 Fentanyl (Sublimaze) Confirm Administered Dose 250 mcg .ROUTE .STK-MED ONE Stop: 06/08/18 08:52 Fentanyl (Sublimaze) Confirm Administered Dose 250 mcg .ROUTE .STK-MED ONE Stop: 06/11/18 10:01 Fentanyl (Sublimaze) Confirm Administered Dose 100 mcg .ROUTE .STK-MED ONE Stop: 06/11/18 12:59 Furosemide (Lasix) 40 mg PO DAILY [facility] Last Admin: 06/10/18 08:10 Dose: 40 mg Furosemide (Lasix) 10 mg IVPUSH ONETIME ONE Stop: 06/11/18 06:31 Last Admin: 06/11/18 07:21 Dose: 10 mg Furosemide (Lasix) 10 mg IVPUSH ONETIME ONE Stop: 06/12/18 04:06 Last Admin: 06/12/18 04:42 Dose: 10 mg Glycopyrrolate (Robinul) Confirm Administered Dose 1 mg .ROUTE .STK-MED ONE Stop: 06/08/18 08:47 Glycopyrrolate (Robinul) Confirm Administered Dose 1 mg .ROUTE .STK-MED ONE Stop: 06/11/18 10:02 Hydromorphone HCl (Dilaudid Railroad Track Inspector 15 Mg In Ns 30 Ml) 0 mg IV ASDIRECTED PRN; Protocol PRN Reason: Pain Hydromorphone HCl (Dilaudid) 0.5 mg IVPUSH Q1H PRN PRN Reason: Pain Stop: 06/12/18 14:00 Hydroxyzine HCl (Vistaril) 100 mg IM ONETIME ONE Stop: 06/11/18 13:13 Last Admin: 06/11/18 13:21 Dose: 100 mg Cefoxitin Sodium 2 gm/ Sodium (Chloride) 50 mls @ 200 mls/hr IV ONETIME ONE Stop: 06/08/18 08:14 Last Admin: 06/08/18 09:37 Dose: 200 mls/hr Dextrose/Lactated Ringer's (Dextrose 5%-Lactated Ringers) 1,000 mls @ 100 mls/ hr IV ASDIRECTED [facility] Last Admin: 06/08/18 08:25 Dose: 100 mls/hr Sodium Chloride (Normal Saline) 1,000 mls @ 100 mls/hr IV ASDIRECTED [facility] Last Admin: 06/08/18 10:25 Dose: 100 mls/hr Lactated Ringer's (Ringers, Lactated) 1,000 mls @ 100 mls/hr IV ASDIRECTED [facility] Last Admin: 06/08/18 10:41 Dose: 100 mls/hr Lactated Ringer's (Ringers, Lactated) 1,000 mls @ 100 mls/hr IV ASDIRECTED [facility] Sodium Chloride (Normal Saline) 1,000 mls @ 100 mls/hr IV ASDIRECTED [facility] Last Admin: 06/09/18 08:22 Dose: 100 mls/hr Magnesium Sulfate 2 gm/ Premix 50 mls @ 25 mls/hr IV Q6H [facility] Stop: 06/11/18 03:59 Last Admin: 06/11/18 02:26 Dose: 25 mls/hr Sodium Chloride (Normal Saline) 1,000 mls @ 50 mls/hr IV ASDIRECTED [facility] Last Admin: 06/11/18 09:56 Dose: 50 mls/hr Linezolid (Zyvox) Confirm Administered Dose 300 mls @ as directed .ROUTE .STK- MED ONE Stop: 06/11/18 07:12 Ketamine HCl 50 mg/ Sodium (Chloride) 50 mls @ 15 mls/hr IV ASDIRECTED [facility] Cefoxitin Sodium 2 gm/ Sodium (Chloride) 50 mls @ 100 mls/hr IV ONCALL ONE Stop: 06/11/18 11:29 Last Admin: 06/11/18 10:30 Dose: 100 mls/hr Sodium Chloride (Normal Saline) Confirm Administered Dose 500 mls @ as directed .ROUTE .STK-MED ONE Stop: 06/11/18 12:36 Dextrose/Lactated Ringer's (Dextrose 5%-Lactated Ringers) 1,000 mls @ 175 mls/ hr IV ASDIRECTED [facility] Last Admin: 06/11/18 20:31 Dose: 175 mls/hr Cefoxitin Sodium 2 gm/ Sodium (Chloride) 50 mls @ 100 mls/hr IV Q6H [facility] Stop: 06/12/18 22:29 Last Admin: 06/12/18 21:30 Dose: 100 mls/hr Lactated Ringer's (Ringers, Lactated) 500 mls @ 500 mls/hr IV ONETIME ONE Stop: 06/11/18 22:14 Last Admin: 06/11/18 21:11 Dose: 500 mls/hr Lactated Ringer's (Ringers, Lactated) 1,000 mls @ 175 mls/hr IV ASDIRECTED [facility] Last Admin: 06/12/18 03:45 Dose: 175 mls/hr Lactated Ringer's (Ringers, Lactated) 500 mls @ 500 mls/hr IV ONETIME ONE Stop: 06/12/18 05:14 Last Admin: 06/12/18 04:44 Dose: 500 mls/hr Insulin Glargine (Lantus Solostar) 0 units SUBCUT BEDTIME ONE Stop: 06/08/18 21:01 Last Admin: 06/08/18 21:19 Dose: 15 units Insulin Glargine (Lantus Solostar) 30 units SUBCUT BEDTIME [facility] Last Admin: 06/09/18 21:39 Dose: 30 units Insulin Glargine (Lantus Solostar) 15 units SUBCUT BEDTIME [facility] Last Admin: 06/10/18 21:01 Dose: 15 units Insulin Glargine (Lantus Solostar) 25 units SUBCUT ONETIME ONE Stop: 06/10/18 09:16 Last Admin: 06/10/18 09:55 Dose: 25 units Insulin Glargine (Lantus Solostar) 15 units SUBCUT BID [facility] Last Admin: 06/11/18 22:43 Dose: Not Given Insulin Glargine (Lantus Solostar) 25 units SUBCUT QAM [facility] Last Admin: 06/13/18 11:19 Dose: Not Given Insulin Glargine (Lantus Solostar) 12 units SUBCUT ONETIME ONE Stop: 06/13/18 10:56 Last Admin: 06/13/18 11:29 Dose: 12 units Insulin Human Lispro (Humalog) 15 unit SUBCUT DAILY@0800,1200 [facility] Last Admin: 06/11/18 17:27 Dose: Not Given Insulin Human Lispro (Humalog) 25 unit SUBCUT QPM [facility] Last Admin: 06/10/18 16:55 Dose: 25 units Insulin Human Lispro (Humalog) 8 unit SUBCUT ONETIME ONE Stop: 06/11/18 21:21 Last Admin: 06/11/18 21:33 Dose: 8 units Ketamine HCl (Ketalar) 25 mg IV ASDIRECTED [facility] Lisinopril (Prinivil) 40 mg PO DAILY [facility] Last Admin: 06/10/18 08:11 Dose: 40 mg Lisinopril (Prinivil) 10 mg PO DAILY [facility] Last Admin: 06/10/18 10:23 Dose: Not Given Lisinopril (Prinivil) 10 mg PO DAILY [facility] Last Admin: 06/11/18 16:02 Dose: Not Given Lisinopril (Prinivil) 5 mg PO DAILY [facility] Last Admin: 06/12/18 10:16 Dose: Not Given Magnesium Hydroxide (Milk Of Magnesia) 30 ml PO ONETIME ONE Stop: 06/13/18 08:01 Last Admin: 06/13/18 07:58 Dose: 30 ml Meropenem (Merrem) Confirm Administered Dose 500 mg .ROUTE .STK-MED ONE Stop: 06/11/18 07:12 Last Admin: 06/11/18 12:06 Dose: 500 mg Metoprolol Tartrate (Lopressor) 25 mg PO BID [facility] Last Admin: 06/11/18 16:00 Dose: Not Given Naloxone HCl (Narcan) 0.1 mg IV ASDIRECTED PRN PRN Reason: decreased respiratory rate Neostigmine Methylsulfate (Neostigmine) Confirm Administered Dose 5 mg .ROUTE .STK-MED ONE Stop: 06/08/18 08:47 Neostigmine Methylsulfate (Neostigmine) Confirm Administered Dose 5 mg .ROUTE .STK-MED ONE Stop: 06/11/18 10:02 Ondansetron HCl (Zofran) Confirm Administered Dose 4 mg .ROUTE .STK-MED ONE Stop: 06/08/18 08:47 Ondansetron HCl (Zofran) Confirm Administered Dose 4 mg .ROUTE .STK-MED ONE Stop: 06/11/18 10:02 Pantoprazole Sodium (Protonix Iv) 40 mg IVPUSH Q24H [facility] Last Admin: 06/12/18 15:37 Dose: 40 mg Cranberry Extract (500mg (Ptom)) 0 each PO DAILY [facility] Last Admin: 06/10/18 08:09 Dose: 1 each Polyethylene Glycol (Miralax) 17 gm PO ONETIME ONE Stop: 06/10/18 09:08 Last Admin: 06/10/18 09:58 Dose: 17 gm Polyethylene Glycol (Miralax) 17 gm PO TID PRN PRN Reason: Constipation Propofol (Diprivan 20 Ml) Confirm Administered Dose 200 mg .ROUTE .STK-MED ONE Stop: 06/11/18 10:02 Rocuronium [place] (Zemuron) Confirm Administered Dose 50 mg .ROUTE .STK-MED ONE Stop: 06/11/18 10:02 Rocuronium [place] (Zemuron) Confirm Administered Dose 50 mg .ROUTE .STK-MED ONE Stop: 06/11/18 12:07 Scopolamine (Transderm-Scop) 1.5 mg TOP ONETIME ONE Stop: 06/08/18 07:01 Last Admin: 06/08/18 08:01 Dose: 1.5 mg Sodium Polystyrene Sulfonate (Kayexalate) 30 gm RECTAL NOW ONE Stop: 06/12/18 06:16 Last Admin: 06/12/18 06:28 Dose: 30 gm Sodium Polystyrene Sulfonate (Kayexalate) 30 gm PO ONETIME ONE Stop: 06/12/18 17:53 Last Admin: 06/12/18 19:51 Dose: 30 gm - Exam Quality Assessment: DVT Prophylaxis General: Alert, Oriented, Cooperative, Mild Distress Lungs: Clear to Auscultation, Normal Respiratory Effort Cardiovascular: Regular Rate, Regular Rhythm, No Murmurs GI/Abdominal Exam: Soft, No Organomegaly, Tender. No: Distended, Guarding, Rigid, Rebound Extremities: Non-Tender, No Pedal Edema - Problem List Review Problem List Initiated/Reviewed/Updated: Yes - My Orders Last 24 Hours: My Active Orders 06/13/18 13:30 Sodium Chloride 0.9% @ 50 MLS/HR(1000ml) Sodium Chloride 0.9% [Normal Saline] 1 ,000 ml IV ASDIRECTED 06/14/18 09:00 Insulin Glarg,Human.Rec.Analog [LantUS Solostar] 25 units SUBCUT DAILY - Plan Plan:: ASSESSMENT AND RECOMMENDATIONS HYPERKALEMIA-resolved -Furosemide 40 mg by mouth daily -Recheck potassium in a.m. -Discontinue lisinopril ACUTE ON CHRONIC KIDNEY INJURY-renal function improved with current management but not yet back to baseline. -Continue to monitor closely expect slow resolution HYPERTENSION-blood pressure control improved with addition of metoprolol yesterday. We'll discontinue lisinopril because of intermittent hyperkalemia, use increased dose of metoprolol as needed for control of blood pressure. -Continue metoprolol 25 mg by mouth twice a day TYPE 2 DIABETES MELLITUS-glucose levels tending to run higher than normal, she has not been receiving her usual dose of morning insulins CONSTIPATION-resolved HERNIA, STATUS POST REPAIR -Postoperative care per Dr. García
[2018-06-13] MEDS: HYDROmorphone/Normal Saline 15 MG/30 ML PCA IV PRN (16:18)
[2018-06-13] MEDS: Pantoprazole 40 MG Delayed-Release Granules 1 Packet PO SCH (16:21)
[2018-06-13] MEDS: atorvaSTATin 20 MG Tab PO SCH (20:47)
[2018-06-13] MEDS: Latanoprost 0.005% Ophth Soln 2.5 ML Bottle EYEBOTH SCH (20:50)
[2018-06-14] MEDS: Sodium Chloride 0.9% 1,000 ML IV SCH (04:43)
[2018-06-14] MEDS ORDERED: Acetaminophen 160 MG Tab,Disintegrating PO PRN (07:00)
[2018-06-14] MEDS: Albuterol/Ipratropium 3.0-0.5 MG/3 ML Neb Soln INH SCH ×4 (07:24→20:18)
[2018-06-14] MEDS ORDERED: Magnesium Hydroxide 400 MG/5 ML Susp 30 ML Cup PO ONE (08:00)
[2018-06-14] MEDS: Docusate Sodium 100 MG Cap PO SCH ×2 (08:54→20:17)
[2018-06-14] MEDS: Aspirin 81 MG Tab.EC PO SCH (08:54)
[2018-06-14] MEDS: Furosemide 40 MG Tab PO SCH (08:55)
[2018-06-14] MEDS: Enoxaparin 40 MG/0.4 ML Syringe SUBCUT SCH (08:55)
[2018-06-14] MEDS: amLODIPine 10 MG Tab PO SCH (08:55)
[2018-06-14] MEDS: CRANBERRY EXTRACT 500 MG PO SCH (08:55)
[2018-06-14] MEDS: Metoprolol Tartrate 25 MG Tab PO SCH ×2 (08:56→20:18)
[2018-06-14] MEDS: SCOPOLAMINE PATCH CHECK TOP SCH (08:56)
[2018-06-14] MEDS ORDERED: Insulin Glargine,Human Rec. Analog 100 Units/ML 3 ML Pen SUBCUT SCH ×2 (09:00→11:00)
[2018-06-14] MEDS ORDERED: Bisacodyl 5 MG Tab PO ONE (09:00)
--- NOTE | 2018-06-14 11:00 | PN ---
DATE OF SERVICE: 06/14/2018 HISTORY OF PRESENT ILLNESS: Coby had a temperature max of 100.9 and that was at 2235, prior to that it was 100.1. Oral intake 960. Urine output 2400. IV of normal saline is running at 50 mL per hour. NILO drains have put out 32 and 170 of a light pink drainage respectively. She has not had a bowel movement yet. Breakfast consumed was 0. There was nothing charted for lunch and dinner. She does report she is passing flatus. Blood sugars in the past 24 hours have been 66, 64, 74, 90, 116, 102, 52, 56, and this morning 101. Lantus has been adjusted by Saeed Pedro. The pain has been controlled. REVIEW OF SYSTEMS: Remainder of review of systems negative for any pertinent positives and negatives. OBJECTIVE: GENERAL: Coby Childs is a pleasant 58-year-old female. She is sitting up in the chair. VITAL SIGNS: TPR has not been checked yet this morning. Last TPR was at 2046 and no temp was taken, pulse 85, no respirations were recorded, and blood pressure is 139/79. HEENT: Negative. NECK: Supple. HEART: Regular rate and rhythm. LUNGS: She has decreased breath sounds in bases, rhonchi with coughing. It sounds like she has lot of rhonchi in the upper airway and loose cough, but she is unable to cough that out. ABDOMEN: Abdominal binder is on. Dressing is dry and intact and NILO drains are intact. EXTREMITIES: Revealed trace peripheral edema. ASSESSMENT: Diagnostic laparoscopy converted to laparotomy with lysis of extensive adhesions. 1. Removal of intraperitoneal mesh. 2. Small bowel resection. 3. Drainage of an intraabdominal abscess. 4. Repair of recurrent incarcerated incisional hernia. 5. Cholecystectomy. 6. Placement of Vicryl mesh to displace the pelvic and abdominal wall from underlying viscera to limit recurrent adhesion formation. Date of surgery, 06/11/2018. Surgeon, Valentin García MD. PLAN: 1. The patient was encouraged to ambulate at least 6 times a day. 2. Acapella, use 10 times every hour while awake. 3. Tylenol 640 mg p.o. q.4 hours p.r.n. pain and fever. 4. Milk of magnesia 30 mL one time followed by Dulcolax 20 mg p.o. 1 hour later. Discontinue PHONE COUNSELOR and daily continuous pulse ox. 5. Discontinue telemetry. 6. Dilaudid 2 mg 1 to 2 p.o. q.4 hours per pain schedule. 7. Check CBC, CMP, BNP, mag, and phos in a.m. 8. We will evaluate p.r.n. or in a.m. Gaviota Velasquez PA-C /[id number]
--- NOTE | 2018-06-14 11:27 | PCM.PN ---
- General Info Date of Service: 06/14/18 Subjective Update: Ms. Childs has been stable since yesterday with further improvement in renal function. Hyperkalemia has resolved. Blood glucose levels have been running somewhat low, secondary to low intake of calories. We'll plan to hold evening dose of Lantus insulins and decrease morning dose today to 12 units. Functional Status: Reports: Tolerating Diet, Ambulating, Urinating - Review of Systems General: Reports: Weakness. Denies: Fever, Chills Pulmonary: Reports: No Symptoms Cardiovascular: Reports: No Symptoms Gastrointestinal: Reports: Abdominal Pain. Denies: Difficulty Swallowing, Nausea, Vomiting - Patient Data Vitals - Most Recent: Last Vital Signs Temp 98.4 F 06/14/18 10:31 Pulse 84 06/14/18 10:50 Resp 16 06/14/18 10:31 BP 159/46 H 06/14/18 10:31 Pulse Ox 94 L 06/14/18 10:31 Weight - Most Recent: 266 lb 12.784 oz I&O - Last 24 Hours: Intake & Output 06/13/18 06/14/18 06/14/18 22:59 06:59 14:59 Intake Total 1372 Output Total 1460 1055 200 Balance -1460 317 -200 Lab Results Last 24 Hours: Laboratory Results - last 24 hr 06/14/18 06/14/18 Range/Units 04:00 04:00 WBC 11.6 H (4.5-11.0) K/uL RBC 3.69 (3.30-5.50) M/uL Hgb 9.9 L (12.0-15.0) g/dL Hct 31.1 L (36.0-48.0) % MCV 84 (80-98) fL MCH 27 (27-31) pg MCHC 32 (32-36) % Plt Count 276 (150-400) K/uL Sodium 141 (140-148) mmol/L Potassium 4.3 (3.6-5.2) mmol/L Chloride 108 (100-108) mmol/L Carbon Dioxide 27 (21-32) mmol/L Anion Gap 6.2 (5.0-14.0) mmol/L BUN 29 H (7-18) mg/dL Creatinine 1.3 H (0.6-1.0) mg/dL Est Cr Clr Drug Dosing 37.43 mL/min Estimated GFR (MDRD) 42 L (>60) Glucose 63 L (74-106) mg/dL Calcium 8.0 L (8.5-10.1) mg/dL Phosphorus 3.4 (2.5-4.9) mg/dL Total Bilirubin 0.3 (0.2-1.0) mg/dL AST 24 (15-37) U/L ALT 57 (12-78) U/L Alkaline Phosphatase 70 (46-116) U/L NT-Pro-B Natriuret Pep 1052 H (5-125) pg/mL Total Protein 5.4 L (6.4-8.2) g/dL Albumin 1.8 L (3.4-5.0) g/dL Globulin 3.6 H (2.3-3.5) g/dL Albumin/Globulin Ratio 0.5 L (1.2-2.2) Tim Results Last 24 Hours: Microbiology 06/11/18 12:53 Gram Stain - Final Abdomen - Abscess Wound Culture - Preliminary Anaerobic Culture - Preliminary NO GROWTH AFTER 2 DAYS Med Orders - Current: Current Medications Acetaminophen (Tylenol Jr. Meltaways) 640 mg PO Q4H PRN PRN Reason: Pain Albuterol/Ipratropium (Duoneb 3.0-0.5 Mg/3 Ml) 3 ml INH QIDRT [facility] Last Admin: 06/14/18 10:49 Dose: 3 ml Albuterol/Ipratropium (Duoneb 3.0-0.5 Mg/3 Ml) 3 ml INH ASDIRECTED PRN PRN Reason: BREATHING Amlodipine Besylate (Norvasc) 10 mg PO DAILY [facility] Last Admin: 06/14/18 08:55 Dose: 10 mg Artificial Tears (Natural Balance Tears) 0 ml EYEBOTH ASDIRECTED PRN PRN Reason: DRY EYES Aspirin (Halfprin) 81 mg PO DAILY [facility] Last Admin: 06/14/18 08:54 Dose: 81 mg Atorvastatin Calcium (Lipitor) 20 mg PO BEDTIME [facility] Last Admin: 06/13/18 20:47 Dose: 20 mg Cyclobenzaprine HCl (Flexeril) 10 mg PO Q8H PRN PRN Reason: Muscle Spasm Dextrose (Glutose 15) 15 gm PO ASDIRECTED PRN PRN Reason: HYPOGLYCEMIA Dextrose/Water (Dextrose 50% In Water) 50 ml IVPUSH ASDIRECTED PRN PRN Reason: HYPOGLYCEMIA Docusate Sodium (Colace) 100 mg PO BID [facility] Last Admin: 06/14/18 08:54 Dose: 100 mg Enoxaparin Sodium (Lovenox) 40 mg SUBCUT DAILY [facility] Last Admin: 06/14/18 08:55 Dose: 40 mg Furosemide (Lasix) 40 mg PO DAILY [facility] Last Admin: 06/14/18 08:55 Dose: 40 mg Glucagon (Glucagen) 1 mg IM ASDIRECTED PRN PRN Reason: HYPOGLYCEMIA Hydromorphone HCl (Dilaudid) 2 - 4 mg PO Q4H PRN PRN Reason: Pain Hydroxyzine HCl (Vistaril) 100 mg IM Q4H PRN PRN Reason: pain Insulin Glargine (Lantus Solostar) 30 units SUBCUT BEDTIME [facility] Last Admin: 06/13/18 21:16 Dose: Not Given Insulin Glargine (Lantus Solostar) 12 units SUBCUT DAILY [facility] Stop: 06/15/18 08:00 Insulin Human Lispro (Humalog) 0 unit SUBCUT QID PRN; Protocol PRN Reason: MEDIUM CORRECTIONAL DOSING Last Admin: 06/12/18 21:25 Dose: 3 unit Insulin Human Lispro (Humalog) 15 unit SUBCUT TIDMEALS [facility] Latanoprost (Xalatan 0.005% Ophth Soln) 0 ml EYEBOTH BEDTIME [facility] Last Admin: 06/13/18 20:50 Dose: 1 drop Metoprolol Tartrate (Lopressor) 25 mg PO BID [facility] Last Admin: 06/14/18 08:56 Dose: 25 mg Naloxone HCl (Narcan) 0.1 mg IV ASDIRECTED PRN PRN Reason: decreased respiratory rate Scopolamine Patch (Check) 1 each TOP DAILY [facility] Last Admin: 06/14/18 08:56 Dose: Not Given Ondansetron HCl (Zofran) 4 mg IVPUSH Q4H PRN PRN Reason: Nausea/Vomiting Last Admin: 06/11/18 21:30 Dose: 4 mg Pantoprazole Sodium (Protonix Granules) 40 mg PO Q24H [facility] Last Admin: 06/13/18 16:21 Dose: 40 mg Cranberry Extract (500mg (Ptom)) 0 each PO DAILY [facility] Last Admin: 06/14/18 08:55 Dose: 1 each Scopolamine (Transderm-Scop) 1.5 mg TOP Q72H [facility] Last Admin: 06/11/18 17:38 Dose: 1.5 mg Discontinued Medications Acetaminophen (Tylenol Extra Strength) 1,000 mg PO ONETIME ONE Stop: 06/08/18 07:01 Acetaminophen (Tylenol Extra Strength) 1,000 mg PO ONETIME ONE Stop: 06/08/18 07:01 Last Admin: 06/08/18 08:01 Dose: 1,000 mg Albuterol (Proventil Neb Soln) 2.5 mg INH QIDRT [facility] Last Admin: 06/11/18 14:50 Dose: Not Given Albuterol (Proventil Neb Soln) 2.5 mg INH ASDIRECTED PRN PRN Reason: Shortness of Breath Albuterol (Proventil Neb Soln) 2.5 mg NEB ONETIME ONE Stop: 06/12/18 06:15 Last Admin: 06/12/18 07:14 Dose: 2.5 mg Albuterol/Ipratropium (Duoneb 3.0-0.5 Mg/3 Ml) 3 ml INH ONETIME ONE Stop: 06/08/18 07:01 Last Admin: 06/08/18 08:39 Dose: 3 ml Amlodipine Besylate (Norvasc) 10 mg PO DAILY [facility] Last Admin: 06/10/18 08:10 Dose: 10 mg Atorvastatin Calcium (Lipitor) 20 mg PO BEDTIME [facility] Last Admin: 06/10/18 22:17 Dose: 20 mg Bisacodyl (Dulcolax) 20 mg PO ONETIME ONE Stop: 06/14/18 09:01 Last Admin: 06/14/18 08:54 Dose: 20 mg Bupivacaine HCl/Epinephrine Bitart (Marcaine 0.5%/Epinephrine 1:200,000) Confirm Administered Dose 50 ml .ROUTE .STK-MED ONE Stop: 06/08/18 06:48 Bupivacaine HCl/Epinephrine Bitart (Marcaine 0.5%/Epinephrine 1:200,000) Confirm Administered Dose 50 ml .ROUTE .STK-MED ONE Stop: 06/11/18 07:13 Ropivacaine 60 ml/Dexamethasone 8 mg/Epinephrine HCl 0.4 mg/ Sodium Chloride 17.6 ml 0 ml NERVRT ASDIRECTED [facility] Last Admin: 06/11/18 11:32 Dose: 80 syringe Cyclobenzaprine HCl (Flexeril) 10 mg PO Q8H PRN PRN Reason: Muscle Spasm Enoxaparin Sodium (Lovenox) 40 mg SUBCUT DAILY [facility] Enoxaparin Sodium (Lovenox) 30 mg SUBCUT DAILY [facility] Last Admin: 06/13/18 08:45 Dose: 30 mg Fentanyl (Sublimaze) Confirm Administered Dose 250 mcg .ROUTE .STK-MED ONE Stop: 06/08/18 08:47 Fentanyl (Sublimaze) Confirm Administered Dose 250 mcg .ROUTE .STK-MED ONE Stop: 06/08/18 08:52 Fentanyl (Sublimaze) Confirm Administered Dose 250 mcg .ROUTE .STK-MED ONE Stop: 06/11/18 10:01 Fentanyl (Sublimaze) Confirm Administered Dose 100 mcg .ROUTE .STK-MED ONE Stop: 06/11/18 12:59 Furosemide (Lasix) 40 mg PO DAILY [facility] Last Admin: 06/10/18 08:10 Dose: 40 mg Furosemide (Lasix) 10 mg IVPUSH ONETIME ONE Stop: 06/11/18 06:31 Last Admin: 06/11/18 07:21 Dose: 10 mg Furosemide (Lasix) 10 mg IVPUSH ONETIME ONE Stop: 06/12/18 04:06 Last Admin: 06/12/18 04:42 Dose: 10 mg Glycopyrrolate (Robinul) Confirm Administered Dose 1 mg .ROUTE .STK-MED ONE Stop: 06/08/18 08:47 Glycopyrrolate (Robinul) Confirm Administered Dose 1 mg .ROUTE .STK-MED ONE Stop: 06/11/18 10:02 Hydromorphone HCl (Dilaudid Finisher Screwdown 15 Mg In Ns 30 Ml) 0 mg IV ASDIRECTED PRN; Protocol PRN Reason: Pain Hydromorphone HCl (Dilaudid Finisher Screwdown 15 Mg In Ns 30 Ml) 0 mg IV ASDIRECTED PRN; Protocol PRN Reason: Pain Last Admin: 06/13/18 16:18 Dose: 15 mg Hydromorphone HCl (Dilaudid) 0.5 mg IVPUSH Q1H PRN PRN Reason: Pain Stop: 06/12/18 14:00 Hydroxyzine HCl (Vistaril) 100 mg IM ONETIME ONE Stop: 06/11/18 13:13 Last Admin: 06/11/18 13:21 Dose: 100 mg Cefoxitin Sodium 2 gm/ Sodium (Chloride) 50 mls @ 200 mls/hr IV ONETIME ONE Stop: 06/08/18 08:14 Last Admin: 06/08/18 09:37 Dose: 200 mls/hr Dextrose/Lactated Ringer's (Dextrose 5%-Lactated Ringers) 1,000 mls @ 100 mls/ hr IV ASDIRECTED [facility] Last Admin: 06/08/18 08:25 Dose: 100 mls/hr Sodium Chloride (Normal Saline) 1,000 mls @ 100 mls/hr IV ASDIRECTED [facility] Last Admin: 06/08/18 10:25 Dose: 100 mls/hr Lactated Ringer's (Ringers, Lactated) 1,000 mls @ 100 mls/hr IV ASDIRECTED [facility] Last Admin: 06/08/18 10:41 Dose: 100 mls/hr Lactated Ringer's (Ringers, Lactated) 1,000 mls @ 100 mls/hr IV ASDIRECTED [facility] Sodium Chloride (Normal Saline) 1,000 mls @ 100 mls/hr IV ASDIRECTED [facility] Last Admin: 06/09/18 08:22 Dose: 100 mls/hr Magnesium Sulfate 2 gm/ Premix 50 mls @ 25 mls/hr IV Q6H [facility] Stop: 06/11/18 03:59 Last Admin: 06/11/18 02:26 Dose: 25 mls/hr Sodium Chloride (Normal Saline) 1,000 mls @ 50 mls/hr IV ASDIRECTED [facility] Last Admin: 06/11/18 09:56 Dose: 50 mls/hr Linezolid (Zyvox) Confirm Administered Dose 300 mls @ as directed .ROUTE .STK- MED ONE Stop: 06/11/18 07:12 Ketamine HCl 50 mg/ Sodium (Chloride) 50 mls @ 15 mls/hr IV ASDIRECTED [facility] Cefoxitin Sodium 2 gm/ Sodium (Chloride) 50 mls @ 100 mls/hr IV ONCALL ONE Stop: 06/11/18 11:29 Last Admin: 06/11/18 10:30 Dose: 100 mls/hr Sodium Chloride (Normal Saline) Confirm Administered Dose 500 mls @ as directed .ROUTE .STK-MED ONE Stop: 06/11/18 12:36 Dextrose/Lactated Ringer's (Dextrose 5%-Lactated Ringers) 1,000 mls @ 175 mls/ hr IV ASDIRECTED [facility] Last Admin: 06/11/18 20:31 Dose: 175 mls/hr Cefoxitin Sodium 2 gm/ Sodium (Chloride) 50 mls @ 100 mls/hr IV Q6H [facility] Stop: 06/12/18 22:29 Last Admin: 06/12/18 21:30 Dose: 100 mls/hr Lactated Ringer's (Ringers, Lactated) 500 mls @ 500 mls/hr IV ONETIME ONE Stop: 06/11/18 22:14 Last Admin: 06/11/18 21:11 Dose: 500 mls/hr Lactated Ringer's (Ringers, Lactated) 1,000 mls @ 175 mls/hr IV ASDIRECTED [facility] Last Admin: 06/12/18 03:45 Dose: 175 mls/hr Lactated Ringer's (Ringers, Lactated) 500 mls @ 500 mls/hr IV ONETIME ONE Stop: 06/12/18 05:14 Last Admin: 06/12/18 04:44 Dose: 500 mls/hr Sodium Chloride (Normal Saline) 1,000 mls @ 100 mls/hr IV ASDIRECTED [facility] Last Admin: 06/13/18 12:52 Dose: 100 mls/hr Sodium Chloride (Normal Saline) 1,000 mls @ 50 mls/hr IV ASDIRECTED [facility] Last Admin: 06/14/18 04:43 Dose: 50 mls/hr Insulin Glargine (Lantus Solostar) 0 units SUBCUT BEDTIME ONE Stop: 06/08/18 21:01 Last Admin: 06/08/18 21:19 Dose: 15 units Insulin Glargine (Lantus Solostar) 30 units SUBCUT BEDTIME [facility] Last Admin: 06/09/18 21:39 Dose: 30 units Insulin Glargine (Lantus Solostar) 15 units SUBCUT BEDTIME [facility] Last Admin: 06/10/18 21:01 Dose: 15 units Insulin Glargine (Lantus Solostar) 25 units SUBCUT ONETIME ONE Stop: 06/10/18 09:16 Last Admin: 06/10/18 09:55 Dose: 25 units Insulin Glargine (Lantus Solostar) 15 units SUBCUT BID [facility] Last Admin: 06/11/18 22:43 Dose: Not Given Insulin Glargine (Lantus Solostar) 25 units SUBCUT QAM [facility] Last Admin: 06/13/18 11:19 Dose: Not Given Insulin Glargine (Lantus Solostar) 12 units SUBCUT ONETIME ONE Stop: 06/13/18 10:56 Last Admin: 06/13/18 11:29 Dose: 12 units Insulin Glargine (Lantus Solostar) 25 units SUBCUT DAILY [facility] Insulin Glargine (Lantus Solostar) 12 units SUBCUT BEDTIME ONE Stop: 06/13/18 21:31 Last Admin: 06/13/18 21:23 Dose: 12 units Insulin Human Lispro (Humalog) 15 unit SUBCUT DAILY@0800,1200 [facility] Last Admin: 06/11/18 17:27 Dose: Not Given Insulin Human Lispro (Humalog) 25 unit SUBCUT QPM [facility] Last Admin: 06/10/18 16:55 Dose: 25 units Insulin Human Lispro (Humalog) 8 unit SUBCUT ONETIME ONE Stop: 06/11/18 21:21 Last Admin: 06/11/18 21:33 Dose: 8 units Ketamine HCl (Ketalar) 25 mg IV ASDIRECTED [facility] Lisinopril (Prinivil) 40 mg PO DAILY [facility] Last Admin: 06/10/18 08:11 Dose: 40 mg Lisinopril (Prinivil) 10 mg PO DAILY [facility] Last Admin: 06/10/18 10:23 Dose: Not Given Lisinopril (Prinivil) 10 mg PO DAILY [facility] Last Admin: 06/11/18 16:02 Dose: Not Given Lisinopril (Prinivil) 5 mg PO DAILY [facility] Last Admin: 06/12/18 10:16 Dose: Not Given Magnesium Hydroxide (Milk Of Magnesia) 30 ml PO ONETIME ONE Stop: 06/13/18 08:01 Last Admin: 06/13/18 07:58 Dose: 30 ml Magnesium Hydroxide (Milk Of Magnesia) 30 ml PO ONETIME ONE Stop: 06/14/18 08:01 Last Admin: 06/14/18 08:19 Dose: 30 ml Meropenem (Merrem) Confirm Administered Dose 500 mg .ROUTE .STK-MED ONE Stop: 06/11/18 07:12 Last Admin: 06/11/18 12:06 Dose: 500 mg Metoprolol Tartrate (Lopressor) 25 mg PO BID [facility] Last Admin: 06/11/18 16:00 Dose: Not Given Naloxone HCl (Narcan) 0.1 mg IV ASDIRECTED PRN PRN Reason: decreased respiratory rate Neostigmine Methylsulfate (Neostigmine) Confirm Administered Dose 5 mg .ROUTE .STK-MED ONE Stop: 06/08/18 08:47 Neostigmine Methylsulfate (Neostigmine) Confirm Administered Dose 5 mg .ROUTE .STK-MED ONE Stop: 06/11/18 10:02 Ondansetron HCl (Zofran) Confirm Administered Dose 4 mg .ROUTE .STK-MED ONE Stop: 06/08/18 08:47 Ondansetron HCl (Zofran) Confirm Administered Dose 4 mg .ROUTE .STK-MED ONE Stop: 06/11/18 10:02 Pantoprazole Sodium (Protonix Iv) 40 mg IVPUSH Q24H [facility] Last Admin: 06/12/18 15:37 Dose: 40 mg Cranberry Extract (500mg (Ptom)) 0 each PO DAILY [facility] Last Admin: 06/10/18 08:09 Dose: 1 each Polyethylene Glycol (Miralax) 17 gm PO ONETIME ONE Stop: 06/10/18 09:08 Last Admin: 06/10/18 09:58 Dose: 17 gm Polyethylene Glycol (Miralax) 17 gm PO TID PRN PRN Reason: Constipation Propofol (Diprivan 20 Ml) Confirm Administered Dose 200 mg .ROUTE .STK-MED ONE Stop: 06/11/18 10:02 Rocuronium [place] (Zemuron) Confirm Administered Dose 50 mg .ROUTE .STK-MED ONE Stop: 06/11/18 10:02 Rocuronium [place] (Zemuron) Confirm Administered Dose 50 mg .ROUTE .STK-MED ONE Stop: 06/11/18 12:07 Scopolamine (Transderm-Scop) 1.5 mg TOP ONETIME ONE Stop: 06/08/18 07:01 Last Admin: 06/08/18 08:01 Dose: 1.5 mg Sodium Polystyrene Sulfonate (Kayexalate) 30 gm RECTAL NOW ONE Stop: 06/12/18 06:16 Last Admin: 06/12/18 06:28 Dose: 30 gm Sodium Polystyrene Sulfonate (Kayexalate) 30 gm PO ONETIME ONE Stop: 06/12/18 17:53 Last Admin: 06/12/18 19:51 Dose: 30 gm - Exam General: Alert, Oriented, Cooperative, Mild Distress Lungs: Clear to Auscultation, Normal Respiratory Effort Cardiovascular: Regular Rate, Regular Rhythm, No Murmurs GI/Abdominal Exam: Soft, No Organomegaly, Tender. No: Distended, Guarding, Rigid, Rebound Extremities: Non-Tender, No Pedal Edema - Problem List Review Problem List Initiated/Reviewed/Updated: Yes - My Orders Last 24 Hours: My Active Orders 06/14/18 11:00 Insulin Glarg,Human.Rec.Analog [LantUS Solostar] 12 units SUBCUT DAILY 06/14/18 11:25 Convert IV to Saline Lock [OM.PC] Routine - Plan Plan:: ASSESSMENT AND RECOMMENDATIONS HYPERKALEMIA-resolved -Furosemide 40 mg by mouth daily -Recheck potassium in a.m. -Discontinue lisinopril ACUTE ON CHRONIC KIDNEY INJURY-renal function improved with current management but not yet back to baseline. -Continue to monitor closely expect slow resolution HYPERTENSION-blood pressure control improved with addition of metoprolol yesterday. We'll discontinue lisinopril because of intermittent hyperkalemia, use increased dose of metoprolol as needed for control of blood pressure. -Continue metoprolol 25 mg by mouth twice a day TYPE 2 DIABETES MELLITUS-glucose levels tending to run higher than normal, she has not been receiving her usual dose of morning insulins CONSTIPATION-resolved HERNIA, STATUS POST REPAIR -Postoperative care per Dr. García
[2018-06-14] MEDS: HYDROmorphone 2 MG Tab PO PRN ×4 (12:07→23:10)
[2018-06-14] MEDS: Insulin Lispro 100 Unit/ML 3 ML KwikPen SUBCUT PRN ×3 (12:28→21:29)
[2018-06-14] MEDS: Scopolamine 1.5 MG Transdermal Patch TOP SCH (16:57)
[2018-06-14] MEDS: Pantoprazole 40 MG Delayed-Release Granules 1 Packet PO SCH (16:57)
[2018-06-14] MEDS: atorvaSTATin 20 MG Tab PO SCH (20:17)
[2018-06-14] MEDS: Latanoprost 0.005% Ophth Soln 2.5 ML Bottle EYEBOTH SCH (20:17)
[2018-06-14] MEDS ORDERED: Insulin Glargine,Human Rec. Analog 100 Units/ML 3 ML Pen SUBCUT ONE (21:05)
[2018-06-15] MEDS: HYDROmorphone 2 MG Tab PO PRN ×3 (03:11→19:21)
[2018-06-15] MEDS ORDERED: Insulin Glargine,Human Rec. Analog 100 Units/ML 3 ML Pen SUBCUT SCH (07:15)
[2018-06-15] MEDS: Albuterol/Ipratropium 3.0-0.5 MG/3 ML Neb Soln INH SCH ×4 (07:35→20:19)
--- NOTE | 2018-06-15 08:09 | PN ---
DATE OF SERVICE: 06/15/2018 SUBJECTIVE: Coby has not had a bowel movement yet. Her blood sugars yesterday consecutively were 116, 148, 182, and this morning 249. She received Lantus 12 units 1 time yesterday and has been getting mealtime coverage. Pain has been controlled, ambulated 5 times. NILO drains have put out 60 and 10 of a light pink drainage respectively. REVIEW OF SYSTEMS: Remainder of review of systems negative for any pertinent positives or negatives with the exception of temperature max of 99.3. OBJECTIVE: GENERAL: Coby Childs is a 58-year-old female. VITAL SIGNS: TPR is 97.7, 76, 18 and blood pressure 143/55. HEENT: Negative. NECK: Supple. HEART: Regular rate and rhythm. LUNGS: Clear. ABDOMEN: Sutures intact. NILO drains in place. Abdominal binder is on. EXTREMITIES: Without peripheral edema. ASSESSMENT: Diagnostic laparoscopy converted to laparotomy with lysis of extensive adhesions: 1. Removal of intraperitoneal mesh. 2. Small-bowel resection. 3. Drainage of an intraabdominal abscess. 4. Repair of recurrent incarcerated incisional hernia. 5. Cholecystectomy. 6. Placement of Vicryl mesh to displace pelvic wall and abdominal wall from underlying viscera to limit recurrent adhesion formation. Date of surgery 06/11/2018. Surgeon, Valentin García MD. PLAN: 1. Lantus 18 units one time today. 2. Dulcolax suppositories b.i.d. until the patient has moderate bowel movement. 3. Senna Plus 2 b.i.d. 4. Call with bowel movement, we will advance diet when the patient does have a bowel movement. 5. Check CBC, CMP, mag, phos, and BNP in a.m. 6. Good pulmonary toilet. 7. We will evaluate p.r.n. or in a.m. Gaviota Velasquez PA-C /[id number]
[2018-06-15] MEDS: Aspirin 81 MG Tab.EC PO SCH (08:29)
[2018-06-15] MEDS: Docusate Sodium 100 MG Cap PO SCH ×2 (08:29→20:16)
[2018-06-15] MEDS: Bisacodyl 10 MG Supp RECTAL SCH ×2 (08:29→20:18)
[2018-06-15] MEDS: Furosemide 40 MG Tab PO SCH (08:30)
[2018-06-15] MEDS: Metoprolol Tartrate 25 MG Tab PO SCH ×2 (08:30→20:16)
[2018-06-15] MEDS: Enoxaparin 40 MG/0.4 ML Syringe SUBCUT SCH (08:32)
[2018-06-15] MEDS: SCOPOLAMINE PATCH CHECK TOP SCH (08:33)
[2018-06-15] MEDS: amLODIPine 10 MG Tab PO SCH (08:34)
[2018-06-15] MEDS: CRANBERRY EXTRACT 500 MG PO SCH (08:35)
[2018-06-15] MEDS: Insulin Lispro 100 Unit/ML 3 ML KwikPen SUBCUT PRN ×4 (10:30→20:22)
[2018-06-15] MEDS: Pantoprazole 40 MG Delayed-Release Granules 1 Packet PO SCH (16:40)
[2018-06-15] MEDS: atorvaSTATin 20 MG Tab PO SCH (20:15)
[2018-06-15] MEDS: Latanoprost 0.005% Ophth Soln 2.5 ML Bottle EYEBOTH SCH (20:18)
[2018-06-16] MEDS: HYDROmorphone 2 MG Tab PO PRN ×4 (03:52→22:23)
[2018-06-16] MEDS: Albuterol/Ipratropium 3.0-0.5 MG/3 ML Neb Soln INH SCH ×4 (07:09→20:43)
[2018-06-16] MEDS: Insulin Lispro 100 Unit/ML 3 ML KwikPen SUBCUT PRN ×4 (07:29→21:07)
[2018-06-16] MEDS: Docusate Sodium 100 MG Cap PO SCH ×2 (09:03→20:43)
[2018-06-16] MEDS: Aspirin 81 MG Tab.EC PO SCH (09:04)
[2018-06-16] MEDS: Metoprolol Tartrate 25 MG Tab PO SCH ×2 (09:05→20:44)
[2018-06-16] MEDS: Furosemide 40 MG Tab PO SCH (09:05)
[2018-06-16] MEDS: Enoxaparin 40 MG/0.4 ML Syringe SUBCUT SCH (09:09)
[2018-06-16] MEDS: amLODIPine 10 MG Tab PO SCH (09:12)
[2018-06-16] MEDS: SCOPOLAMINE PATCH CHECK TOP SCH (09:12)
[2018-06-16] MEDS: CRANBERRY EXTRACT 500 MG PO SCH (09:13)
--- NOTE | 2018-06-16 09:16 | PN ---
DATE OF SERVICE: 06/16/2018 SUBJECTIVE: Coby has been on 2 to 3 L of oxygen almost continuously. She did drop down to 76% on room air at 0820 hours on 06/11/2018. Blood sugars 162 at 0800 hours, 277 at 1700 hours, 274 at 2100 hours, and this a.m. 213 at 0400 hours. She received 18 units of Lantus plus sliding scale. bowel movement yesterday. Oral intake 2180. Urine output 3300. NILO drains put out 31 and 120 respectively. Lab results this morning, creatinine 1.4, glucose 213, potassium 4.1, hemoglobin 9.8. GFR 39. Coby reports pain is controlled. She has been up ambulating. REVIEW OF SYSTEMS: Remainder of review of systems negative for any pertinent positives or negatives. OBJECTIVE: GENERAL: Coby Childs is a 58-year-old female. VITAL SIGNS: TPR is 98.9, 80, 18, blood pressure is 149/57. HEENT: Negative. NECK: Supple. HEART: Regular rate and rhythm. LUNGS: Clear. ABDOMEN: Meme intact. Abdominal binder is on. NILO drains x2 intact. EXTREMITIES: Without peripheral edema. ASSESSMENT: 1. Diagnostic laparoscopy converted to laparotomy with lysis of extensive adhesions: a. Removal of intraperitoneal mesh. b. Small-bowel resection. c. Drainage of an intraabdominal abscess. d. Repair of recurrent incarcerated incisional hernia. e. Cholecystectomy. f. Placement of Vicryl mesh to displace pelvic wall and abdominal wall from underlying viscera to limit recurrent adhesion formation. Date of surgery 06/11/2018. Surgeon, Valentin García MD. 2. Diabetes type 2, uncontrolled. 3. Postop hypoxia, requiring oxygen. 4. Sleep apnea with intolerance to CPAP. 5. Hyperkalemia, resolved. 6. Essential hypertension, morbid obesity, rheumatoid arthritis. PLAN: 1. Evaluate for home O2. 2. Lantus 25 units in a.m. 3. Call at 2100 hours with results of glucose, may need to add some nighttime insulin. 4. Check CBC, CMP, mag, phos, and BNP in a.m. 5. We will evaluate p.r.n. or in a.m. 6. We will refer to hospital community health educator for reinforcement of diabetic education and monitoring blood sugars so that she can touch base with them when she is discharged to home. Gaviota Velasquez PA-C /[id number]
[2018-06-16] MEDS: Bisacodyl 10 MG Supp RECTAL SCH ×2 (09:17→20:43)
[2018-06-16] MEDS: Insulin Glargine,Human Rec. Analog 100 Units/ML 3 ML Pen SUBCUT SCH (10:20)
[2018-06-16] MEDS: Pantoprazole 40 MG Delayed-Release Granules 1 Packet PO SCH (17:40)
[2018-06-16] MEDS: atorvaSTATin 20 MG Tab PO SCH (20:43)
[2018-06-16] MEDS: Latanoprost 0.005% Ophth Soln 2.5 ML Bottle EYEBOTH SCH (20:46)
[2018-06-16] MEDS ORDERED: Insulin Glargine,Human Rec. Analog 100 Units/ML 3 ML Pen SUBCUT STA (20:56)
[2018-06-16] MEDS ORDERED: Insulin Glargine,Human Rec. Analog 100 Units/ML 3 ML Pen SUBCUT SCH (21:00)
[2018-06-17 07:17] VITALS: BP 144/55
[2018-06-17] MEDS: Albuterol/Ipratropium 3.0-0.5 MG/3 ML Neb Soln INH SCH (07:22)
--- NOTE | 2018-06-17 08:17 | DISCH ---
ADMISSION DIAGNOSES: 1. Cholecystitis. 2. Umbilical hernia. 3. Type 2 diabetes mellitus. 4. Obstructive sleep apnea. She does not use her CPAP. 5. Essential hypertension. 6. Peripheral neuropathy. 7. Rheumatoid arthritis. 8. Multiple eye surgeries secondary to diabetes. DISCHARGE DIAGNOSES: 1. Diagnostic laparoscopy converted to laparotomy with lysis of extensive adhesions: a. Removal of intraperitoneal mesh. b. Small-bowel resection. c. Drainage of an intraabdominal abscess. d. Repair of recurrent incarcerated incisional hernia. e. Cholecystectomy. f. Placement of Vicryl mesh to displace pelvic wall and abdominal wall from underlying viscera to limit recurrent adhesion formation. Date of surgery 06/11/2018. Surgeon, Valentin García MD. 1. Hyperkalemia, resolved. 2. Acute on chronic kidney injury. 3. Hypertension. 4. Constipation, resolved. HISTORY: Coby Childs is a 58-year-old female who presented with a recurrent incisional hernia per CT scan that has become increasingly painful. She also reported symptoms of biliary colic and is noted to have cholelithiasis. She presented to [facility] to have her surgery on 06/08/2018 and her potassium was 5.5. Surgery was postponed. She was admitted to [facility]. Her potassium did come down to 3.8 then on 06/09/2018 was 4.6 and 4.3 and on 06/10/2018 was 4.8. The morning of surgery, her potassium was 5.3. She was treated with Kayexalate, IV fluids and sliding scale depending on her blood sugar. Her GFR ranged between 42 and 57 and creatinine was 1 to 1.3. She had no operative complications. On postoperative day 1, white count was 14.5, potassium 6, creatinine 2 and GFR was 26. Blood sugar 236. She did have low urine output during the night. She received 2 boluses of lactated Ringer's 500 mL each with low kidney function tests. Her IV fluid was changed to normal saline. She was followed by Saeed Pedro MD, hospitalist for her medical problems. On 06/14/2018; white count decreased to 11.6, creatinine 1.3 and GFR was 42. She did remain stable from a surgical standpoint of view. NG was discontinued and on postoperative day 2, her urine output was adequate. Her Ayon catheter was discontinued. She was started on a full liquid diet and bowel stimulation. On 06/14/2018, intake and output were adequate. She was passing flatus. She was given more bowel stimulation and [employer] was discontinued and she was given Dilaudid 2 mg for her pain. On 06/15/2018, blood sugars were continued to be monitored. She did have a temperature max of 99.3. She did have a bowel movement. Diet was advanced to a soft consistent carb diet. On 06/16/2018, continued to work on her ambulation. She was evaluated for home O2. Blood sugars were monitored. She received diabetic education and on 06/17/2018, she was able to be discharged to home without any complications. She will be going home on home O2. Hemoglobin was 9.8, creatinine 1.4, and GFR 39. OBJECTIVE: GENERAL: Coby Childs is a 58-year-old female. VITAL SIGNS: Height is 5 feet 1.81 inches. Weight is 266 pounds. TPR is 97.9, 86, 18 and blood pressure 149/63. HEENT: Negative. NECK: Supple. HEART: Regular rate and rhythm. LUNGS: Clear. ABDOMEN: Midline noe intact. She has 2 NILO drains, which have been putting out very minimal. These will be discontinued prior to discharge. She is wearing an abdominal binder. EXTREMITIES: Without peripheral edema. DISPOSITION: Discharged to home. CONDITION: Stable and improving. FOLLOWUP: Followup appointment with Gaviota Velasquez PA-C, for postoperative appointment on 06/22/2018 at 11:00 a.m. She is to follow up with Mariella Heath on 06/24/2018 at 11:30 a.m. and she is to call Mariella on June 19 with blood sugar readings. She has an appointment with her primary care provider Nabeel Sanders MD on 07/29/2018 at 11:00 a.m. Nephrology appointment with KEMAL Muhammad on 08/27/2018 at 2:00 p.m. appointment at [facility]. HOME MEDICATIONS: 1. Dilaudid 2 mg one every 4 hours p.r.n. pain #42. 2. Metoprolol 25 mg oral b.i.d. #60, one refill. 3. She is to discontinue taking lisinopril. 4. Resume Ventolin inhaler 2 puffs 4 times daily. 5. Aspirin 81 mg daily. 6. Refresh Tears as directed p.r.n. dry eyes. 7. Cranberry fruit extract 1000 mg oral daily. 8. Lasix 40 mg oral daily. 9. Lantus SoloStar 25 subcu every morning and Lantus 30 units subcu at bedtime. 10.Humalog 15 units subcu in the morning and at lunch time, and Humalog U-100, 25 subcu every evening. 11.Latanoprost one drop eyes both at bedtime. 12.Norvasc (amlodipine) 10 mg oral daily. DIET: Drink 8 to 10 glasses of water a day, diabetic diet as prior to admission. ACTIVITY: No lifting greater than 10 pounds for 6 weeks. Walk at least 6 times daily inside your home. Driving, do not drive. Shower bathing, may shower. DISCHARGE INSTRUCTIONS: Notify provider if any fever, increased pain, nausea, vomiting, or abnormal blood sugars. Wound incision care, keep site clean and dry. Wear abdominal binder for 6 weeks and then as tolerated. SPECIAL INSTRUCTIONS: Use incentive spirometer 10 times every hour while awake for 1 week. Check blood sugars 4 times a day and record results. Call Mariella Heath with blood sugars on Friday06/19/2018 and use oxygen as directed.
[2018-06-17] MEDS: Insulin Glargine,Human Rec. Analog 100 Units/ML 3 ML Pen SUBCUT SCH (08:38)
[2018-06-17] MEDS: Insulin Lispro 100 Unit/ML 3 ML KwikPen SUBCUT PRN (08:40)
[2018-06-17] MEDS: Furosemide 40 MG Tab PO SCH (08:46)
[2018-06-17] MEDS: CRANBERRY EXTRACT 500 MG PO SCH (08:46)
[2018-06-17] MEDS: Aspirin 81 MG Tab.EC PO SCH (08:47)
[2018-06-17] MEDS: amLODIPine 10 MG Tab PO SCH (08:47)
[2018-06-17] MEDS: Metoprolol Tartrate 25 MG Tab PO SCH (08:47)
[2018-06-17] MEDS: Bisacodyl 10 MG Supp RECTAL SCH (08:48)
[2018-06-17] MEDS: Docusate Sodium 100 MG Cap PO SCH (08:48)
[2018-06-17] MEDS: SCOPOLAMINE PATCH CHECK TOP SCH (08:49)
[2018-06-17] MEDS: Enoxaparin 40 MG/0.4 ML Syringe SUBCUT SCH (08:53)
[2018-06-17] MEDS ORDERED: Bacitracin Oint 28.35 GM Tube TOP SCH (09:00)
--- NOTE | 2018-06-17 13:59 | DISCH ---
ADDENDUM: New diagnosis is hypoxia. Coby has sleep apnea. She is intolerant to using her CPAP. She was 81% on room air. [id number] consultation in regard to home O2 was completed. She will be going home on oxygen per nasal cannula for hypoxia.
== END 2018-06-17 11:03 | disposition home or self-care (01) | DRG 414 ==
LOC: JP.SDSSCHI 07:26 → JP.SDS 07:26 → EDSTATUS 08:30 → JP.MS 10:30
PROVIDERS: ADMIT Surgery; ATTEND Surgery
PROC: 0FT40ZZ Resection of Gallbladder, Open Approach (ICD-10-PCS; principal; 2018-06-11)
PROC: 0FJ44ZZ Inspection of Gallbladder, Percutaneous Endoscopic Approach (ICD-10-PCS; 2018-06-11)
PROC: 0WPF0JZ Removal of Synthetic Substitute from Abdominal Wall, Open Approach (ICD-10-PCS; 2018-06-11)
PROC: 0DB80ZZ Excision of Small Intestine, Open Approach (ICD-10-PCS; 2018-06-11)
PROC: 0DNW0ZZ Release Peritoneum, Open Approach (ICD-10-PCS; 2018-06-11)
PROC: 0W9G0ZX Drainage of Peritoneal Cavity, Open Approach, Diagnostic (ICD-10-PCS; 2018-06-11)
PROC: 0WQF0ZZ Repair Abdominal Wall, Open Approach (ICD-10-PCS; 2018-06-11)
PROC: 3E0M05Z Introduction of Adhesion Barrier into Peritoneal Cavity, Open Approach (ICD-10-PCS; 2018-06-11)
DX: K80.10 Calculus of gallbladder with chronic cholecystitis without obstruction (principal); K65.1 Peritoneal abscess; K42.0 Umbilical hernia with obstruction, without gangrene; I13.0 Hypertensive heart and chronic kidney disease with heart failure and stage 1 through stage 4 chronic kidney disease, or unspecified chronic kidney disease; N17.9 Acute kidney failure, unspecified; Z68.42 Body mass index [BMI] 45.0-49.9, adult; K66.0 Peritoneal adhesions (postprocedural) (postinfection); Z53.31 Laparoscopic surgical procedure converted to open procedure; E87.5 Hyperkalemia; I50.9 Heart failure, unspecified; N18.3 Chronic kidney disease, stage 3 (moderate); E11.22 Type 2 diabetes mellitus with diabetic chronic kidney disease; Z79.4 Long term (current) use of insulin; E11.42 Type 2 diabetes mellitus with diabetic polyneuropathy; E11.319 Type 2 diabetes mellitus with unspecified diabetic retinopathy without macular edema; G47.33 Obstructive sleep apnea (adult) (pediatric); M06.9 Rheumatoid arthritis, unspecified; R09.02 Hypoxemia; Z99.81 Dependence on supplemental oxygen; K59.00 Constipation, unspecified; E66.9 Obesity, unspecified; Z79.82 Long term (current) use of aspirin; Z88.8 Allergy status to other drugs, medicaments and biological substances; Z91.09 Other allergy status, other than to drugs and biological substances
CPT/HCPCS: 36415; 80048; 80053; 82962; 83735; 83880; 84100; 84132; 85025; 85027; 87070; 87075; 87077; 87186; 87205; 88302; 88304; 88307; 94640; 94667; 94668; 94762; A9270-GY; C1781; C9113; J0171; J0694; J1100; J1170; J1650; J1815; J1815-GY; J1940; J2020; J2185; J2405; J2704; J2710; J2795; J3010; J3410; J3475; J3490; J7030; J7040; J7042; J7050; J7120; J7620-GY

== ENCOUNTER 2018-11-25 18:26 | Emergency (ER) | payer MEDICAID ==
[2018-11-25] MEDS ORDERED: Sodium Chloride 0.9% 10 ML Syringe FLUSH PRN (19:48)
--- NOTE | 2018-11-25 19:52 | EDM.PDOC ---
ED HPI GENERAL MEDICAL PROBLEM - General Chief Complaint: Cardiovascular Problem Stated Complaint: COUGH SENT FROM CLINIC Time Seen by Provider: 11/25/18 19:50 Source of Information: Reports: Patient History Limitations: Reports: No Limitations - History of Present Illness INITIAL COMMENTS - FREE TEXT/NARRATIVE: pt arrived with sob and she was told she had extra fluid in the chest. Onset: Today Duration: Hour(s): Location: Reports: Chest, Generalized Associated Symptoms: Reports: Cough, Diaphoresis, Shortness of Breath, Other ( increased ankle swelling. ) - Related Data Allergies Allergy/AdvReac Type Severity Reaction Status Date / Time aspirin AdvReac Mild Indigestion Verified 11/25/18 19:34 enviromental Allergy Other Uncoded 11/25/18 19:34 Home Meds: Home Meds Aspirin [Halfprin] 81 mg PO DAILY 08/19/15 [History] Cranberry Fruit Extract [Cranberry] 1,000 mg PO DAILY 08/19/15 [History] amLODIPine Besylate [Amlodipine Besylate] 10 mg PO DAILY 08/19/15 [History] atorvaSTATin [Lipitor] 20 mg PO BEDTIME 04/20/17 [History] Carboxymethylcellulose Sodium [Refresh Tears] 15 ml OP DAILY PRN 04/22/17 [ History] Albuterol Sulfate [Ventolin Hfa] 2 puff INH QID 04/25/17 [History] Insulin Lispro [HumaLOG] 15 units SQ .QAMQLUNCH 12/20/17 [History] Insulin Glarg,Human.Rec.Analog [Lantus Solostar] 25 unit SUBCUT QAM 05/04/18 [ History] Insulin Glarg,Human.Rec.Analog [Lantus] 10 units SQ BEDTIME 05/04/18 [History] Insulin Lispro [Humalog Kwikpen U-100] 15 unit SQ QPM 05/04/18 [History] Metoprolol Tartrate [Lopressor] 25 mg PO BID #60 tablet 06/17/18 [Rx] Cholecalciferol (Vitamin D3) [Vitamin D3] 2,000 units PO DAILY 11/25/18 [History ] Furosemide 40 mg PO DAILY 11/25/18 [History] Omeprazole 20 mg PO DAILY 11/25/18 [History] Past Medical History - Past Health History Medical/Surgical History: Denies Medical/Surgical History HEENT History: Reports: Cataract, Impaired Vision, Macular Degeneration Other HEENT History: wears glasses Cardiovascular History: Reports: Heart Failure, Hypertension, SOB on Exertion, Syncope, Other (See Below) Other Cardiovascular History: cardiomegaly Respiratory History: Reports: Asthma, Sleep Apnea Gastrointestinal History: Reports: Chronic Constipation Genitourinary History: Reports: None [employer] MEMBER History: Reports: Musculoskeletal History: Reports: Arthritis Endocrine/Metabolic History: Reports: Diabetes, Type II, Obesity/BMI 30+ Hematologic History: Reports: Blood Transfusion(s) - Infectious Disease History Infectious Disease History: Reports: Chicken Pox, Measles, Mumps, Rubella - Past Surgical History HEENT Surgical History: Reports: Eye Surgery GI Surgical History: Reports: Appendectomy, Colonoscopy, Hernia, Abdominal Female Surgical History: Reports: Section Musculoskeletal Surgical History: Reports: Carpal Tunnel Social & Family History - Family History Family Medical History: Noncontributory HEENT: Reports: Otitis Media Cardiac: Reports: Heart Failure GI: Reports: Cholelithiasis OBGYN: Reports: Recurrent Spontaneous Musculoskeletal: Reports: Arthritis Neurological: Reports: Parkinson's Endocrine/Metabolic: Reports: Diabetes, type II, Obesity/MBI 30+ Oncologic: Reports: Other (See Below) Other Oncologic Family History: Mom with invasive cancer, may of been colon. 2 brothers; one with pancreatic and other invasive cancer - Tobacco Use Smoking Status *Q: Never Smoker - Caffeine Use Caffeine Use: Reports: Tea - Recreational Drug Use Recreational Drug Use: No - Living Situation & Occupation Living situation: Reports: (lives with , 2 adult children and 4 grandchildren) ED ROS GENERAL - Review of Systems Review Of Systems: See Below Constitutional: Reports: Fever, Other (pt did have a fever 1 week ago. ) HEENT: Reports: No Symptoms Respiratory: Reports: Shortness of Breath, Other (pt is having lower o2 sats. ) Cardiovascular: Reports: Dyspnea on Exertion, Edema, Other (pt has had sig increased swelling in her legs. ) Endocrine: Reports: No Symptoms GI/Abdominal: Reports: No Symptoms : Reports: No Symptoms Musculoskeletal: Reports: No Symptoms Skin: Reports: No Symptoms ED EXAM, GENERAL - Physical Exam Exam: See Below Free Text/Narrative:: pt is having sig sob. She has had increased swelling in her ankles. 1 week ago she had a fever. She has not had chest pain. Exam Limited By: No Limitations General Appearance: Alert, Anxious, Moderate Distress, Other (pt is sob with any exertion) Ears: Normal TMs Nose: Normal Inspection Throat/Mouth: Normal Inspection Head: Atraumatic Neck: Normal Inspection Respiratory/Chest: Crackles, Other (sob) Cardiovascular: Regular Rate, Rhythm GI/Abdominal: Soft, Non-Tender (Female) Exam: Deferred Rectal (Female) Exam: Deferred Back Exam: Normal Inspection Extremities: Pedal Edema, Other (pt has plus 2 pitting edema. ) Neurological: Alert, Oriented, Normal Cognition Psychiatric: Normal Affect Course - Vital Signs Last Recorded V/S: Last Vital Signs Temp 36.5 C 11/25/18 22:32 Pulse 79 11/25/18 22:32 Resp 28 H 11/25/18 22:32 BP 189/89 H 11/25/18 22:32 Pulse Ox 91 L 11/25/18 22:32 - Orders/Labs/Meds Labs: Laboratory Tests 11/25/18 11/25/18 11/25/18 Range/Units 19:50 19:50 19:50 WBC 8.7 (4.5-11.0) K/uL RBC 4.08 (3.30-5.50) M/uL Hgb 10.1 L (12.0-15.0) g/dL Hct 32.8 L (36.0-48.0) % MCV 80 (80-98) fL MCH 25 L (27-31) pg MCHC 31 L (32-36) % Plt Count 422 H (150-400) K/uL Neut % (Auto) 70 H (36-66) % Lymph % (Auto) 17 L (24-44) % Laurens % (Auto) 9 H (2-6) % Eos % (Auto) 3 (2-4) % Baso % (Auto) 0 (0-1) % Sodium 140 (140-148) mmol/L Potassium 4.3 (3.6-5.2) mmol/L Chloride 105 (100-108) mmol/L Carbon Dioxide 29 (21-32) mmol/L Anion Gap 10.3 (5.0-14.0) mmol/L BUN 26 H (7-18) mg/dL Creatinine 1.3 H (0.6-1.0) mg/dL Est Cr Clr Drug Dosing 36.03 mL/min Estimated GFR (MDRD) 42 L (>60) Glucose 82 (74-106) mg/dL Calcium 8.6 (8.5-10.1) mg/dL Total Bilirubin 0.3 (0.2-1.0) mg/dL AST 25 D (15-37) U/L ALT 20 (12-78) U/L Alkaline Phosphatase 121 H (46-116) U/L Troponin I 0.367 H* (0.000-0.056) ng/mL NT-Pro-B Natriuret Pep 6596 H (5-125) pg/mL Total Protein 7.5 (6.4-8.2) g/dL Albumin 2.0 L (3.4-5.0) g/dL Globulin 5.5 H (2.3-3.5) g/dL Albumin/Globulin Ratio 0.4 L (1.2-2.2) Urine Color (YELLOW) Urine Appearance (CLEAR) Urine pH (5.0-8.0) Ur Specific [place] (1.008-1.030) Urine Protein (NEGATIVE) mg/dL Urine Glucose (UA) (NEGATIVE) mg/dL Urine Ketones (NEGATIVE) mg/dL Urine Occult Blood (NEGATIVE) Urine Nitrite (NEGATIVE) Urine Bilirubin (NEGATIVE) Urine Urobilinogen (0.2-1.0) EU/dL Ur Leukocyte Esterase (NEGATIVE) Urine RBC (0-5) Urine WBC (0-5) Ur Epithelial Cells Amorphous Sediment Urine Bacteria Urine Mucus Urine Other 11/25/18 Range/Units 20:16 WBC (4.5-11.0) K/uL RBC (3.30-5.50) M/uL Hgb (12.0-15.0) g/dL Hct (36.0-48.0) % MCV (80-98) fL MCH (27-31) pg MCHC (32-36) % Plt Count (150-400) K/uL Neut % (Auto) (36-66) % Lymph % (Auto) (24-44) % Laurens % (Auto) (2-6) % Eos % (Auto) (2-4) % Baso % (Auto) (0-1) % Sodium (140-148) mmol/L Potassium (3.6-5.2) mmol/L Chloride (100-108) mmol/L Carbon Dioxide (21-32) mmol/L Anion Gap (5.0-14.0) mmol/L BUN (7-18) mg/dL Creatinine (0.6-1.0) mg/dL Est Cr Clr Drug Dosing mL/min Estimated GFR (MDRD) (>60) Glucose (74-106) mg/dL Calcium (8.5-10.1) mg/dL Total Bilirubin (0.2-1.0) mg/dL AST (15-37) U/L ALT (12-78) U/L Alkaline Phosphatase (46-116) U/L Troponin I (0.000-0.056) ng/mL NT-Pro-B Natriuret Pep (5-125) pg/mL Total Protein (6.4-8.2) g/dL Albumin (3.4-5.0) g/dL Globulin (2.3-3.5) g/dL Albumin/Globulin Ratio (1.2-2.2) Urine Color Yellow (YELLOW) Urine Appearance Clear (CLEAR) Urine pH 7.0 (5.0-8.0) Ur Specific [place] 1.025 (1.008-1.030) Urine Protein >=300 H (NEGATIVE) mg/dL Urine Glucose (UA) 100 H (NEGATIVE) mg/dL Urine Ketones Negative (NEGATIVE) mg/dL Urine Occult Blood Moderate H (NEGATIVE) Urine Nitrite Negative (NEGATIVE) Urine Bilirubin Negative (NEGATIVE) Urine Urobilinogen 0.2 (0.2-1.0) EU/dL Ur Leukocyte Esterase Negative (NEGATIVE) Urine RBC 5-10 H (0-5) Urine WBC 0-5 (0-5) Ur Epithelial Cells Few Amorphous Sediment Not seen Urine Bacteria Few Urine Mucus Few Urine Other Meds: Medications Discontinued Medications Generic Name Dose Route Start Last Admin Trade Name Freq PRN Reason Stop Dose Admin Furosemide 60 mg 11/25/18 20:53 11/25/18 21:15 Lasix IVPUSH 11/25/18 20:54 60 mg ONETIME ONE Administration Ceftriaxone Sodium 1 gm/ 50 mls @ 100 mls/hr 11/25/18 21:56 11/25/18 22:08 Sodium Chloride IV 11/25/18 22:25 100 mls/hr ONETIME ONE Administration Sodium Chloride 10 ml 11/25/18 19:48 11/25/18 20:01 Saline Flush FLUSH 10 ml ASDIRECTED PRN Administration Keep Vein Open - Re-Assessments/Exams Free Text/Narrative Re-Assessment/Exam: 11/25/18 21:54 pt has a cat scan which has a possible pneumonia in the rt upper lobe. She is fluid overloaded. Her trop is elevated. Her o2 sats are low. She was given lasix 60 mg and she is putting out fluid. She was given rocephen 1 gm. With the elvated trop she needs to be where cardiology can see her. 11/25/18 22:18 pt did ruslan that she did have some chest pain about 3 days ago. 11/25/18 22:20 pt has put out 725 cc since she had the 60 of lasix. Departure - Departure Time of Disposition: 22:45 Disposition: DC/Tfer to Acute Hospital 02 Reason for Transfer *Q: Primary PCI Indicated Condition: Fair Clinical Impression: Pneumonia involving right lung, Fluid overload, Anemia Referrals: Nabeel Sanders MD [Primary Care Provider] - Forms: ED Department Discharge Care Plan Goals: transfer to [facility].
[2018-11-25] MEDS ORDERED: Furosemide 40 MG/4 ML VIAL IVPUSH ONE (20:53)
--- NOTE | 2018-11-25 21:37 | CRLCT ---
INDICATION: Shortness of breath TECHNIQUE: Unenhanced axial plane helical CT of the chest. Sagittal and coronal reformats generated. COMPARISON: 04/22/2017 FINDINGS: The visualized thyroid gland is homogeneous in density. No suspicious axillary lymph nodes are seen. Scattered less than 1 cm short axis diameter mediastinal lymph nodes are present. Moderate-sized pericardial and small right pleural effusions are seen. The thoracic aorta is normal in caliber. Coronary artery calcifications are present. There is a dense area of consolidation in the posteromedial right upper lobe as well as several ground-glass opacities and semi solid nodules in the right upper lobe. An infectious process is the primary consideration although neoplasm is not excluded. Gallbladder is absent. Small hiatal hernia. IMPRESSION: 1. Dense irregular area of consolidation in the right upper lobe with scattered ground-glass opacities and small nodules. This may represent an infectious process. Correlate clinically in this regard. If there are no signs and symptoms of pneumonia consider PET-CT for further evaluation as neoplasm is in the differential diagnosis. 2. Scattered small nonspecific mediastinal lymph nodes. 3. Moderate-sized pericardial effusion and small right pleural effusion. PLEASE NOTE THAT ALL CT SCANS AT THIS FACILITY USE DOSE MODULATION, ITERATIVE RECONSTRUCTION, AND/OR WEIGHT-BASED DOSING WHEN APPROPRIATE TO REDUCE RADIATION TO LOW REASONABLY ACHIEVABLE. Please note that all CT scans at this facility use dose modulation, iterative reconstruction, and/or weight-based dosing when appropriate to reduce radiation dose to as low as reasonably achievable. Dictated by Og Arguelles MD @ Nov 25 2018 9:28PM Signed by Dr. Og Arguelles @ Nov 25 2018 9:36PM
[2018-11-25] MEDS ORDERED: cefTRIAXone 1 GM in Sodium Chloride 0.9% 50 ML IV ONE (21:56)
[2018-11-25 22:34] VITALS: BP 189/89; PULSE 79
== END 2018-11-25 23:06 ==
LOC: JP.ED 18:26
DX: J18.9 Pneumonia, unspecified organism (principal); D64.9 Anemia, unspecified; E87.70 Fluid overload, unspecified; I11.0 Hypertensive heart disease with heart failure; I50.9 Heart failure, unspecified; Z79.4 Long term (current) use of insulin; J45.909 Unspecified asthma, uncomplicated; E66.9 Obesity, unspecified; Z79.82 Long term (current) use of aspirin; Z91.048 Other nonmedicinal substance allergy status; Z88.6 Allergy status to analgesic agent; Z79.899 Other long term (current) drug therapy; Z79.51 Long term (current) use of inhaled steroids; Z90.49 Acquired absence of other specified parts of digestive tract; Z68.43 Body mass index [BMI] 50.0-59.9, adult
CPT/HCPCS: 36415; 71250; 80053; 81001; 82962; 83880; 84484; 85025; 87040; 87086; 87088; 87186; 93005; 96365; 96375; 99285; J0696; J1940; J7050

== ENCOUNTER 2019-05-06 21:25 | Emergency (ER) | payer MEDICAID ==
[2019-05-06] MEDS ORDERED: Lactated Ringers 1,000 ML IV ONE (21:28)
[2019-05-06] MEDS ORDERED: Ondansetron 4 MG/2 ML SDV IVPUSH ONE (21:29)
--- NOTE | 2019-05-06 22:33 | EDM.PDOC ---
ED HPI GENERAL MEDICAL PROBLEM - General Chief Complaint: Gastrointestinal Problem Stated Complaint: NAUSEA Time Seen by Provider: 05/06/19 22:20 Source of Information: Reports: Patient, Family, Old Records, RN History Limitations: Reports: No Limitations - History of Present Illness INITIAL COMMENTS - FREE TEXT/NARRATIVE: 59 yo female had a renal biopsy in [place] earlier today. Immediately after she finished the procedure she developed nausea and vomiting and was given Zofran while still at the hospital. In spite of the Zofran she has continued to vomit. Upon arriving at home she also developed diarrhea. They called their nurse helpline and were told to come to the ER. No abdominal pain or fever. No blood in her stools or emesis. No known exposures. Onset: Today Onset Date: 05/06/19 Duration: Hour(s):, Getting Worse Location: Reports: Abdomen Quality: Reports: Other (no pain reported) Severity: Severe (vomiting and diarrhea) Improves with: Reports: None Worsens with: Reports: Other (unknown) Context: Reports: Other (see HPI) Associated Symptoms: Reports: Loss of Appetite, Nausea/Vomiting. 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) (Zofran ODT) left back pain Pain Score (Numeric/FACES): 4 abd pain Pain Score (Numeric/FACES): 1 - Related Data Allergies Allergy/AdvReac Type Severity Reaction Status Date / Time aspirin AdvReac Mild Indigestion Verified 05/06/19 22:58 enviromental Allergy Other Uncoded 05/06/19 22:58 Home Meds: Home Meds Aspirin [Halfprin] 81 mg PO DAILY 08/19/15 [History] Cranberry Fruit Extract [Cranberry] 1,000 mg PO DAILY 08/19/15 [History] atorvaSTATin [Lipitor] 20 mg PO BEDTIME 04/20/17 [History] Albuterol Sulfate [Ventolin Hfa] 2 puff INH QID PRN 04/25/17 [History] Insulin Lispro [HumaLOG] 15 units SQ .QAMQLUNCH 12/20/17 [History] Insulin Glarg,Human.Rec.Analog [Lantus Solostar] 25 unit SUBCUT QAM 05/04/18 [ History] Insulin Glarg,Human.Rec.Analog [Lantus] 10 units SQ BEDTIME 05/04/18 [History] Insulin Lispro [Humalog Kwikpen U-100] 25 unit SQ QPM 05/04/18 [History] Cholecalciferol (Vitamin D3) [Vitamin D3] 2,000 units PO DAILY 11/25/18 [History ] Furosemide 40 mg PO DAILY 11/25/18 [History] Omeprazole 20 mg PO DAILY 11/25/18 [History] Ondansetron [Zofran ODT] 1 tab PO Q4H PRN 01/13/19 [History] lisinopriL [Lisinopril] 40 mg PO DAILY 01/14/19 [History] Metoprolol Tartrate [Lopressor] 50 mg PO BID 05/06/19 [History] amLODIPine [Norvasc] 5 mg PO DAILY 05/06/19 [History] cloNIDine [Catapres] 0.1 mg PO BID 05/06/19 [History] Past Medical History - Past Health History Medical/Surgical History: Denies Medical/Surgical History HEENT History: Reports: Cataract, Impaired Vision, Macular Degeneration Other HEENT History: wears glasses Cardiovascular History: Reports: Heart Failure, Hypertension, SOB on Exertion, Syncope, Other (See Below) Other Cardiovascular History: cardiomegaly Respiratory History: Reports: Asthma, Sleep Apnea Gastrointestinal History: Reports: Chronic Constipation Genitourinary History: Reports: Other (See Below) Other Genitourinary History: left kidney biopsy 05/06/2019 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: Musculoskeletal History: Reports: Arthritis Psychiatric History: Reports: Anxiety, Panic Attack Endocrine/Metabolic History: Reports: Diabetes, Type II, Obesity/BMI 30+ Hematologic History: Reports: Blood Transfusion(s) - Infectious Disease History Infectious Disease History: Reports: Chicken Pox, Measles, Mumps - Past Surgical History HEENT Surgical History: Reports: Eye Surgery GI Surgical History: Reports: Appendectomy, Colonoscopy, Hernia, Abdominal Female Surgical History: Reports: Section Musculoskeletal Surgical History: Reports: Carpal Tunnel Social & Family History - Family History Family Medical History: Noncontributory HEENT: Reports: Otitis Media Cardiac: Reports: Heart Failure GI: Reports: Cholelithiasis OBGYN: Reports: Recurrent Spontaneous Musculoskeletal: Reports: Arthritis Neurological: Reports: Parkinson's Endocrine/Metabolic: Reports: Diabetes, type II, Obesity/MBI 30+ Oncologic: Reports: Other (See Below) Other Oncologic Family History: Mom with invasive cancer, may of been colon. 2 brothers; one with pancreatic and other invasive cancer - Tobacco Use Smoking Status *Q: Never Smoker - Caffeine Use Caffeine Use: Reports: Coffee, Soda - Recreational Drug Use Recreational Drug Use: No - Living Situation & Occupation Living situation: Reports: (lives with , 2 adult children and 4 grandchildren) ED ROS GENERAL - Review of Systems Review Of Systems: See Below Constitutional: Reports: Malaise HEENT: Reports: No Symptoms Respiratory: Reports: No Symptoms Cardiovascular: Reports: No Symptoms GI/Abdominal: Reports: Diarrhea, Nausea, Vomiting. Denies: Abdominal Pain, Black Stool, Bloody Stool, Distension, Hematemesis, Hematochezia, Melena : Reports: No Symptoms Musculoskeletal: Reports: No Symptoms Skin: Reports: No Symptoms Neurological: Reports: No Symptoms Psychiatric: Reports: No Symptoms ED EXAM, GI/ABD - Physical Exam Exam: See Below Exam Limited By: No Limitations General Appearance: Alert, WD/WN, Mild Distress, Obese Eyes: Bilateral: Normal Appearance Ears: Normal External Exam, Normal Canal, Hearing Grossly Normal Nose: Normal Inspection, No Blood Throat/Mouth: Normal Inspection, Normal Lips, Normal Oropharynx, Normal Voice, No Airway Compromise Head: Atraumatic, Normocephalic Neck: Normal Inspection Respiratory/Chest: No Respiratory Distress, Lungs Clear, Normal Breath Sounds, No Accessory Muscle Use Cardiovascular: Regular Rate, Rhythm, No Edema GI/Abdominal Exam: Soft, Non-Tender, No Distention, Abnormal Bowel Sounds ( decreased). No: Distended Back Exam: Normal Inspection Extremities: Normal Inspection, Normal Range of Motion, Non-Tender, No Pedal Edema Neurological: Alert, Oriented, CN II-XII Intact, Normal Cognition, No Motor/ Sensory Deficits Psychiatric: Normal Affect, Normal Mood Skin Exam: Warm, Dry, Intact, Normal Color, No Rash Course - Vital Signs Last Recorded V/S: Last Vital Signs Temp 36.8 C 05/07/19 01:28 Pulse 83 05/07/19 01:28 Resp 15 05/07/19 01:28 BP 196/80 H 05/07/19 01:28 Pulse Ox 92 L 05/07/19 01:28 - Orders/Labs/Meds Orders: Active Orders 24 hr Category Date Time Status Abdomen 2V AP Flat Upright [CR] Stat Exams 05/07/19 02:24 Taken LIPASE [CHEM] Stat Lab 05/07/19 02:51 Ordered UA W/MICROSCOPIC [URIN] Stat Lab 05/07/19 02:47 Ordered Lactated Ringers [Ringers, Lactated] 1,000 ml Med 05/07/19 00:45 Active IV ASDIRECTED Medication Orders Lactated Ringer's (Ringers, Lactated) 1,000 mls @ 500 mls/hr IV ASDIRECTED ALEK Last Admin: 05/07/19 00:53 Dose: 500 mls/hr Labs: Laboratory Tests 05/06/19 Range/Units 22:14 Sodium 136 L (140-148) mmol/L Potassium 4.7 (3.6-5.2) mmol/L Chloride 102 (100-108) mmol/L Carbon Dioxide 21 (21-32) mmol/L Anion Gap 17.7 H (5.0-14.0) mmol/L BUN 39 H (7-18) mg/dL Creatinine 2.0 H D (0.6-1.0) mg/dL Est Cr Clr Drug Dosing 24.25 mL/min Estimated GFR (MDRD) 26 L (>60) Glucose 333 H (74-106) mg/dL Calcium 8.7 (8.5-10.1) mg/dL Meds: Medications Generic Name Dose Route Start Last Admin Trade Name Freq PRN Reason Stop Dose Admin Lactated Ringer's 1,000 mls @ 500 mls/hr 05/07/19 00:45 05/07/19 00:53 Ringers, Lactated IV 500 mls/hr ASDIRECTED ALEK Administration Discontinued Medications Generic Name Dose Route Start Last Admin Trade Name Freq PRN Reason Stop Dose Admin Lactated Ringer's 1,000 mls @ 1,000 mls/hr 05/06/19 21:28 05/06/19 23:02 Ringers, Lactated IV 05/06/19 22:27 1,000 mls/hr BOLUS ONE Administration Insulin Human Regular 20 unit 05/06/19 23:06 05/06/19 23:15 Humulin R SUBCUT 05/06/19 23:07 20 unit ONETIME ONE Administration Insulin Human Regular 20 unit 05/07/19 01:04 05/07/19 01:10 Humulin R SUBCUT 05/07/19 01:05 20 unit ONETIME ONE Administration Metoclopramide HCl 10 mg 05/06/19 23:07 05/06/19 23:12 Reglan IVPUSH 05/06/19 23:08 10 mg ONETIME ONE Administration Ondansetron HCl 4 mg 05/06/19 21:29 05/06/19 23:02 Zofran IVPUSH 05/06/19 21:30 4 mg ONETIME ONE Administration Ondansetron HCl 4 mg 05/07/19 01:20 05/07/19 01:26 Zofran IVPUSH 05/07/19 01:21 4 mg ONETIME ONE Administration - Radiology Interpretation Free Text/Narrative:: Flat/upright abdominal [id number] - Re-Assessments/Exams Free Text/Narrative Re-Assessment/Exam: 05/07/19 02:55 Feeling improved, not resolved. Wants to try going home. Got 2 liters of IV fluids here. Departure - Departure Time of Disposition: 03:00 Disposition: Home, Self-Care 01 Condition: Fair Clinical Impression: Elevated blood sugar Nausea and vomiting Qualifiers: Vomiting type: unspecified Vomiting Intractability: non-intractable Qualified Code(s): R11.2 - Nausea with vomiting, unspecified - Discharge Information *PRESCRIPTION DRUG MONITORING PROGRAM REVIEWED*: Not Applicable *COPY OF PRESCRIPTION DRUG MONITORING REPORT IN PATIENT DANNY: Not Applicable Instructions: Nausea and Vomiting, Adult Referrals: Nabeel Sanders MD [Primary Care Provider] - Forms: ED Department Discharge Additional Instructions: Use Zofran ODT 4 mg every 4-6 hrs as needed for nausea control. Take sips of clear fluids only until no vomiting for 8-12 hrs. Add Compazine suppositories if more nausea control is needed. Recheck as needed. Sepsis Event Note - Evaluation Sepsis Screening Result: No Definite Risk - Focused Exam Vital Signs: Vital Signs Temp Pulse Resp BP Pulse Ox 05/07/19 01:28 36.8 C 83 15 196/80 H 92 L 05/06/19 21:45 36.0 C L 72 15 201/79 H 98 05/06/19 21:43 36.0 C L 72 15 201/79 H 98 Date Exam was Performed: 05/07/19 Time Exam was Performed: 02:55 - My Orders Last 24 Hours: My Active Orders 05/07/19 00:45 Lactated Ringers [Ringers, Lactated] 1,000 ml IV ASDIRECTED 05/07/19 02:24 Abdomen 2V AP Flat Upright [CR] Stat 05/07/19 02:47 UA W/MICROSCOPIC [URIN] Stat 05/07/19 02:51 LIPASE [CHEM] Stat - Assessment/Plan Last 24 Hours: My Active Orders 05/07/19 00:45 Lactated Ringers [Ringers, Lactated] 1,000 ml IV ASDIRECTED 05/07/19 02:24 Abdomen 2V AP Flat Upright [CR] Stat 05/07/19 02:47 UA W/MICROSCOPIC [URIN] Stat 05/07/19 02:51 LIPASE [CHEM] Stat
[2019-05-06] MEDS ORDERED: Insulin Regular, Human 100 Units/ML 3 ML Vial SUBCUT ONE (23:06)
[2019-05-06] MEDS ORDERED: Metoclopramide 10 MG/2 ML SDV IVPUSH ONE (23:07)
[2019-05-07] MEDS ORDERED: Lactated Ringers 1,000 ML IV SCH (00:45)
[2019-05-07] MEDS ORDERED: Insulin Regular, Human 100 Units/ML 3 ML Vial SUBCUT ONE (01:04)
[2019-05-07] MEDS ORDERED: Ondansetron 4 MG/2 ML SDV IVPUSH ONE (01:20)
[2019-05-07 01:29] VITALS: BP 196/80; PULSE 83
--- NOTE | 2019-05-07 08:36 | CR ---
Abdomen 2V AP Flat Upright CLINICAL HISTORY: Epigastric pain and vomiting FINDINGS: Small intestinal configuration is nonacute. No free air is seen. Patient has had previous abdominal surgery with an anastomotic ring of suture in the right midabdomen. No definite urinary stones are seen IMPRESSION: Nonspecific intestinal gas pattern
== END 2019-05-07 03:18 | disposition home or self-care (01) ==
LOC: JP.ED 21:25
DX: E11.65 Type 2 diabetes mellitus with hyperglycemia (principal); R11.2 Nausea with vomiting, unspecified; M19.90 Unspecified osteoarthritis, unspecified site; I11.0 Hypertensive heart disease with heart failure; I50.9 Heart failure, unspecified; E66.9 Obesity, unspecified; Z68.43 Body mass index [BMI] 50.0-59.9, adult; J45.909 Unspecified asthma, uncomplicated; Z88.8 Allergy status to other drugs, medicaments and biological substances; Z79.82 Long term (current) use of aspirin; Z79.899 Other long term (current) drug therapy; Z79.4 Long term (current) use of insulin
CPT/HCPCS: 36415; 74019; 80048; 81001; 82962; 83690; 96361; 96374; 96375; 96376; 99284; J1815; J2405; J2765; J7120

== ENCOUNTER 2020-04-02 14:13 | Emergency (ER) | payer MEDICAID ==
--- NOTE | 2020-04-02 14:59 | EDM.PDOC ---
ED HPI GENERAL MEDICAL PROBLEM - General Chief Complaint: Cardiovascular Problem Stated Complaint: CHEST PAIN Time Seen by Provider: 04/02/20 14:30 Source of Information: Reports: Patient, Old Records, RN History Limitations: Reports: No Limitations - History of Present Illness INITIAL COMMENTS - FREE TEXT/NARRATIVE: 60-year-old female with a history of gallbladder surgery and hernia repair but no cardiac history comes in because she felt a burning in her left chest yesterday apparently in today without any pain or radiation diaphoresis or nausea. She never had the burning before. She has no history of cardiac disease noted. She says she has an enlarged heart and a history of hypertension is noted. Nothing to do to seems to make it better or worse. She did eat last night. Paramedics apparently gave her a spray nitroglycerin and she thinks it helps with the burning. No effect recently from exercise or moving about and she is able to sleep okay GI/ otherwise are okay other systems negative - Related Data Allergies Allergy/AdvReac Type Severity Reaction Status Date / Time aspirin AdvReac Mild Indigestion Verified 04/02/20 14:22 enviromental Allergy Other Uncoded 04/02/20 14:22 Home Meds: Home Meds Aspirin [Halfprin] 81 mg PO DAILY 08/19/15 [History] Cranberry Fruit Extract [Cranberry] 1,000 mg PO DAILY 08/19/15 [History] atorvaSTATin [Lipitor] 20 mg PO BEDTIME 04/20/17 [History] Albuterol Sulfate [Ventolin Hfa] 2 puff INH QID PRN 04/25/17 [History] Insulin Lispro [HumaLOG] 15 units SQ .QAMQLUNCH 12/20/17 [History] Insulin Glarg,Human.Rec.Analog [Lantus Solostar] 30 unit SUBCUT QAM 05/04/18 [History] Insulin Glarg,Human.Rec.Analog [Lantus] 30 units SQ BEDTIME 05/04/18 [History] Insulin Lispro [Humalog Kwikpen U-100] 22 unit SQ QPM 05/04/18 [History] Cholecalciferol (Vitamin D3) [Vitamin D3] 5,000 units PO DAILY 11/25/18 [History] Furosemide 20 mg PO DAILY 11/25/18 [History] Omeprazole 20 mg PO DAILY 11/25/18 [History] Ondansetron [Zofran ODT] 1 tab PO Q4H PRN 01/13/19 [History] lisinopriL [Lisinopril] 40 mg PO DAILY 01/14/19 [History] Metoprolol Tartrate [Lopressor] 50 mg PO BID 05/06/19 [History] amLODIPine [Norvasc] 5 mg PO DAILY 05/06/19 [History] cloNIDine [Catapres] 0.1 mg PO BID 05/06/19 [History] Prochlorperazine [Compazine] 25 mg RC Q6H PRN #7 supp.rect 05/07/19 [Rx] Past Medical History - Past Health History Medical/Surgical History: Denies Medical/Surgical History HEENT History: Reports: Cataract, Impaired Vision, Macular Degeneration Other HEENT History: wears glasses Cardiovascular History: Reports: Heart Failure, Hypertension, SOB on Exertion, Syncope, Other (See Below) Other Cardiovascular History: cardiomegaly Respiratory History: Reports: Asthma, Sleep Apnea Gastrointestinal History: Reports: Chronic Constipation Genitourinary History: Reports: Other (See Below) Other Genitourinary History: left kidney biopsy 05/06/2019 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: Musculoskeletal History: Reports: Arthritis Psychiatric History: Reports: Anxiety, Panic Attack Endocrine/Metabolic History: Reports: Diabetes, Type II, Obesity/BMI 30+ Hematologic History: Reports: Blood Transfusion(s) - Infectious Disease History Infectious Disease History: Reports: Chicken Pox, Measles, Mumps - Past Surgical History Head Surgeries/Procedures: Reports: None HEENT Surgical History: Reports: Eye Surgery Cardiovascular Surgical History: Reports: None Other Cardiovascular Surgeries/Procedures: cardiomegaly Respiratory Surgical History: Reports: None GI Surgical History: Reports: Appendectomy, Colonoscopy, Hernia, Abdominal Female Surgical History: Reports: Section Endocrine Surgical History: Reports: None Musculoskeletal Surgical History: Reports: Carpal Tunnel Dermatological Surgical History: Reports: None Social & Family History - Family History Family Medical History: No Pertinent Family History HEENT: Reports: Otitis Media Cardiac: Reports: Heart Failure GI: Reports: Cholelithiasis OBGYN: Reports: Recurrent Spontaneous Musculoskeletal: Reports: Arthritis Neurological: Reports: Parkinson's Endocrine/Metabolic: Reports: Diabetes, type II, Obesity/MBI 30+ Oncologic: Reports: Other (See Below) Other Oncologic Family History: Mom with invasive cancer, may of been colon. 2 brothers; one with pancreatic and other invasive cancer - Tobacco Use Tobacco Use Status *Q: Never Tobacco User Second Hand Smoke Exposure: No - Caffeine Use Caffeine Use: Reports: Coffee - Recreational Drug Use Recreational Drug Use: No - Living Situation & Occupation Living situation: Reports: (lives with , 2 adult children and 4 grandchildren) ED ROS GENERAL - Review of Systems Review Of Systems: See Below Constitutional: Reports: No Symptoms (All systems are reviewed and pertinent ones that are positive are noted above at least 10 are noted) ED EXAM, GENERAL - Physical Exam Exam: See Below Free Text/Narrative:: 60-year-old very heavy female lying on the gurney with vital signs noted blood pressure of 190 over about 100 and she has 2 blood pressure meds that she is taken recently for known hypertension history. She has a regular sinus rhythm on monitor HEENT shows eyes ears nose throat are normal. She had several teeth missing. Neck is supple no JVD chest is clear with a regular rate and rhythm although very large. Abdomen is extremely large with a midline abdominal old scar. No tenderness or swelling no masses andbowel sounds are normal Extremities without notable deformity or edema moves normally Neurologic physiologic and moves all extremities okay and tone Course - Vital Signs Text/Narrative:: 60-year-old female with some burning in the chest has a relatively negative work-up except for elevated BNP and she does have peripheral edema. She rest comfortably in the department. She is given 20 mg Lasix IV and will double her Lasix to 40 daily for the next 2 to 3 days and follow-up with her physician Last Recorded V/S: Last Vital Signs Temp 36.9 C 04/02/20 14:37 Pulse 60 04/02/20 16:13 Resp 14 04/02/20 16:13 BP 166/70 H 04/02/20 16:13 Pulse Ox 96 04/02/20 16:13 - Orders/Labs/Meds Orders: Active Orders 24 hr Category Date Time Status EKG Documentation Completion [RC] ASDIRECTED Care 04/02/20 14:55 Active Chest 1V Frontal [CR] Stat Exams 04/02/20 14:55 Taken UA W/MICROSCOPIC [URIN] Stat Lab 04/02/20 14:53 Ordered EKG 12 Lead [EK] Stat Ther 01/24/21 14:53 Ordered Labs: Laboratory Tests 01/24/21 01/24/21 01/24/21 Range/Units 14:53 14:53 14:53 WBC 8.0 (4.5-11.0) K/uL RBC 4.40 (3.30-5.50) M/uL Hgb 12.3 D (12.0-15.0) g/dL Hct 37.8 (36.0-48.0) % MCV 86 (80-98) fL MCH 28 (27-31) pg MCHC 33 (32-36) % Plt Count 295 (150-400) K/uL ABG Hemoglobin 12.5 (12.0-16.0) g/dL ABG Oxyhemoglobin 72.1 % ABG Carboxyhemoglobin 3.0 H (0.0-1.6) % ABG Methemoglobin 1.8 % VBG pH 7.339 L (7.350-7.450) VBG pCO2 41.6 mm/Hg VBG pO2 43.6 mm/Hg VBG HCO3 21.8 mmol/L VBG Total CO2 19.9 mmol/L VBG O2 Saturation 75.7 VBG O2 Content 12.7 %vol VBG Base Excess -3.3 mm/L O2 Delivery Device Room air Sodium 139 L (140-148) mmol/L Potassium 4.8 (3.6-5.2) mmol/L Chloride 108 (100-108) mmol/L Carbon Dioxide 22 (21-32) mmol/L Anion Gap 13.8 (5.0-14.0) mmol/L BUN 44 H (7-18) mg/dL Creatinine 1.9 H (0.6-1.0) mg/dL Est Cr Clr Drug Dosing 25.21 mL/min Estimated GFR (MDRD) 27 L (>60) Glucose 133 H (74-106) mg/dL Calcium 8.3 L (8.5-10.1) mg/dL Total Bilirubin 0.4 (0.2-1.0) mg/dL AST 15 (15-37) U/L ALT 18 (12-78) U/L Alkaline Phosphatase 100 (46-116) U/L Troponin I < 0.017 (0.000-0.056) ng/mL C-Reactive Protein 0.14 (0.0-0.3) mg/dL NT-Pro-B Natriuret Pep 1049 H (5-125) pg/mL Total Protein 6.8 (6.4-8.2) g/dL Albumin 2.7 L (3.4-5.0) g/dL Globulin 4.1 H (2.3-3.5) g/dL Albumin/Globulin Ratio 0.7 L (1.2-2.2) Meds: Medications Discontinued Medications Generic Name Dose Route Start Last Admin Trade Name Gwendolyn PRN Reason Stop Dose Admin Furosemide 20 mg 04/02/20 16:12 Lasix IVPUSH 04/02/20 16:13 ONETIME ONE Departure - Departure Time of Disposition: 16:20 Disposition: Home, Self-Care 01 Condition: Good Clinical Impression: Chest discomfort, Hypertension Instructions: Shortness of Breath, Adult, [id number] Referrals: Nabeel Sanders MD [Primary Care Provider] - Forms: ED Department Discharge Additional Instructions: Return here for new or worse symptoms Sepsis Event Note (ED) - Evaluation Sepsis Screening Result: No Definite Risk - Focused Exam Vital Signs: Vital Signs Temp Pulse Resp BP Pulse Ox 04/02/20 16:13 60 14 166/70 H 96 04/02/20 15:47 63 12 144/63 H 95 04/02/20 15:13 61 12 182/77 H 95 04/02/20 14:43 67 17 194/81 H 96 04/02/20 14:37 36.9 C 69 15 219/80 H 97 04/02/20 14:33 66 14 197/73 H 96 04/02/20 14:23 69 21 H 208/80 H 94 L 04/02/20 14:16 36.9 C 69 15 219/80 H 97 - My Orders Last 24 Hours: My Active Orders 04/02/20 14:53 UA W/MICROSCOPIC [URIN] Stat EKG 12 Lead [EK] Stat 04/02/20 14:55 EKG Documentation Completion [RC] ASDIRECTED Chest 1V Frontal [CR] Stat - Assessment/Plan Last 24 Hours: My Active Orders 04/02/20 14:53 UA W/MICROSCOPIC [URIN] Stat EKG 12 Lead [EK] Stat 04/02/20 14:55 EKG Documentation Completion [RC] ASDIRECTED Chest 1V Frontal [CR] Stat
[2020-04-02] MEDS ORDERED: Furosemide 20 MG/2 ML VIAL IVPUSH ONE (16:12)
[2020-04-02 16:13] VITALS: BP 166/70; PULSE 60
--- NOTE | 2020-04-03 10:33 | CR ---
CHEST: Portable 04/02/2020 at 3:14 PM CLINICAL HISTORY:Chest pain COMPARISON:CT 2019 FINDINGS: The heart is enlarged. Pulmonary vessel or is normal. No infiltrate, effusion or pneumothorax seen IMPRESSION: Cardiomegaly No acute cardiopulmonary process.
== END 2020-04-02 16:46 | disposition home or self-care (01) ==
LOC: JP.ED 14:13
DX: I11.0 Hypertensive heart disease with heart failure (principal); I50.9 Heart failure, unspecified; J45.909 Unspecified asthma, uncomplicated; M19.90 Unspecified osteoarthritis, unspecified site; E11.9 Type 2 diabetes mellitus without complications; E66.9 Obesity, unspecified; Z68.43 Body mass index [BMI] 50.0-59.9, adult; Z88.6 Allergy status to analgesic agent; Z91.048 Other nonmedicinal substance allergy status; Z79.82 Long term (current) use of aspirin; Z79.899 Other long term (current) drug therapy; Z79.4 Long term (current) use of insulin
CPT/HCPCS: 36415; 71045; 80053; 82803; 83880; 84484; 85027; 86140; 93005; 96374; 99284; 99285; J1940; 93010

== ENCOUNTER 2020-06-15 10:54 | Emergency (ER) | payer MEDICAID ==
[2020-06-15] MEDS ORDERED: Ondansetron 4 MG Tab.DIS PO ONE (11:28)
--- NOTE | 2020-06-15 11:36 | EDM.PDOC ---
ED HPI GENERAL MEDICAL PROBLEM - General Chief Complaint: Gastrointestinal Problem Stated Complaint: POSSIBLE REACTION TO COVID SHOT Time Seen by Provider: 06/15/20 11:05 Source of Information: Reports: Patient, Family History Limitations: Reports: No Limitations - History of Present Illness INITIAL COMMENTS - FREE TEXT/NARRATIVE: 60-year-old female presents with nausea and vomiting for the last 2 hours. She woke up this morning and felt okay initially but after breakfast felt nauseous and had one emesis. She then went in for an echocardiogram, finished that successfully but afterwards had 3 episodes of emesis. She called the clinic and they advised her to come to the emergency room. She is concerned she may be having a "reaction" to her Covid vaccination yesterday. No diarrhea, no fevers or chills, no abdominal pain. She is now feeling somewhat better since she has been in the emergency room. Onset: Sudden (Symptoms came on fairly suddenly within the last 3 hours) Duration: Hour(s): (3 hours) Associated Symptoms: Reports: Malaise, Nausea/Vomiting. Denies: Chest Pain, Cough, Fever/Chills, Headaches, Shortness of Breath - Related Data Allergies Allergy/AdvReac Type Severity Reaction Status Date / Time aspirin AdvReac Mild Indigestion Verified 06/15/20 11:14 enviromental Allergy Mild Other Uncoded 06/15/20 11:14 Home Meds: Home Meds Aspirin [Halfprin] 81 mg PO DAILY 08/19/15 [History] Cranberry Fruit Extract [Cranberry] 1,000 mg PO DAILY 08/19/15 [History] atorvaSTATin [Lipitor] 20 mg PO BEDTIME 04/20/17 [History] Albuterol Sulfate [Ventolin Hfa] 2 puff INH QID PRN 04/25/17 [History] Insulin Lispro [HumaLOG] 15 units SQ .QAMQLUNCH 12/20/17 [History] Insulin Glarg,Human.Rec.Analog [Lantus Solostar] 30 unit SUBCUT QAM 05/04/18 [History] Insulin Glarg,Human.Rec.Analog [Lantus] 30 units SQ BEDTIME 05/04/18 [History] Insulin Lispro [Humalog Kwikpen U-100] 25 unit SQ QPM 05/04/18 [History] Cholecalciferol (Vitamin D3) [Vitamin D3] 5,000 units PO DAILY 11/25/18 [History] Furosemide 20 mg PO DAILY 11/25/18 [History] Omeprazole 20 mg PO DAILY 11/25/18 [History] Ondansetron [Zofran ODT] 1 tab PO Q4H PRN 01/13/19 [History] lisinopriL [Lisinopril] 40 mg PO DAILY 01/14/19 [History] Metoprolol Tartrate [Lopressor] 50 mg PO BID 05/06/19 [History] amLODIPine [Norvasc] 5 mg PO DAILY 05/06/19 [History] cloNIDine [Catapres] 0.1 mg PO BID 05/06/19 [History] Prochlorperazine [Compazine] 25 mg RC Q6H PRN #7 supp.rect 05/07/19 [Rx] Past Medical History - Past Health History Medical/Surgical History: Denies Medical/Surgical History HEENT History: Reports: Cataract, Impaired Vision, Macular Degeneration Other HEENT History: wears glasses Cardiovascular History: Reports: Heart Failure, Hypertension, SOB on Exertion, Syncope, Other (See Below) Other Cardiovascular History: cardiomegaly Respiratory History: Reports: Asthma, Sleep Apnea Gastrointestinal History: Reports: Chronic Constipation Genitourinary History: Reports: Other (See Below) Other Genitourinary History: left kidney biopsy 05/06/2019. chronic kidney failure [employer] History: Reports: Musculoskeletal History: Reports: Arthritis Psychiatric History: Reports: Anxiety, Panic Attack Endocrine/Metabolic History: Reports: Diabetes, Type II, Obesity/BMI 30+ Hematologic History: Reports: Blood Transfusion(s) - Infectious Disease History Infectious Disease History: Reports: Chicken Pox, Measles, Mumps - Past Surgical History Head Surgeries/Procedures: Reports: None HEENT Surgical History: Reports: Eye Surgery Cardiovascular Surgical History: Reports: None Other Cardiovascular Surgeries/Procedures: cardiomegaly Respiratory Surgical History: Reports: None GI Surgical History: Reports: Appendectomy, Colonoscopy, Hernia, Abdominal Female Surgical History: Reports: Section Endocrine Surgical History: Reports: None Musculoskeletal Surgical History: Reports: Carpal Tunnel Dermatological Surgical History: Reports: None Social & Family History - Family History Family Medical History: No Pertinent Family History HEENT: Reports: Otitis Media Cardiac: Reports: Heart Failure GI: Reports: Cholelithiasis OBGYN: Reports: Recurrent Spontaneous Musculoskeletal: Reports: Arthritis Neurological: Reports: Parkinson's Endocrine/Metabolic: Reports: Diabetes, type II, Obesity/MBI 30+ Oncologic: Reports: Other (See Below) Other Oncologic Family History: Mom with invasive cancer, may of been colon. 2 brothers; one with pancreatic and other invasive cancer - Tobacco Use Tobacco Use Status *Q: Never Tobacco User - Caffeine Use Caffeine Use: Reports: Coffee - Recreational Drug Use Recreational Drug Use: No - Living Situation & Occupation Living situation: Reports: (lives with , 2 adult children and 4 grandchildren) ED ROS GENERAL - Review of Systems Review Of Systems: See Below Constitutional: Denies: Fever, Chills HEENT: Reports: No Symptoms Respiratory: Denies: Shortness of Breath, Cough Cardiovascular: Reports: Other (Had an echocardiogram this morning for chronic follow-up). Denies: Chest Pain, Palpitations GI/Abdominal: Reports: Nausea, Vomiting. Denies: Abdominal Pain, Diarrhea Skin: Reports: No Symptoms ED EXAM, GI/ABD - Physical Exam Exam: See Below Text/Narrative:: Blood pressure was fairly elevated initially but normalized quickly without treatment over 20 to 30 minutes Exam Limited By: No Limitations General Appearance: Alert, No Apparent Distress Eyes: Bilateral: Normal Appearance (No jaundice) Respiratory/Chest: No Respiratory Distress, Lungs Clear Cardiovascular: Regular Rate, Rhythm. No: Tachycardia GI/Abdominal Exam: Normal Bowel Sounds, Soft, Non-Tender Neurological: Alert, Oriented Psychiatric: Normal Affect, Normal Mood. No: Anxious Skin Exam: Warm, Dry Course - Vital Signs Last Recorded V/S: Last Vital Signs Temp 98 F 06/15/20 11:13 Pulse 81 06/15/20 11:36 Resp 16 06/15/20 11:29 BP 181/66 H 06/15/20 11:36 Pulse Ox 92 L 06/15/20 11:29 - Orders/Labs/Meds Labs: Laboratory Tests 06/15/20 Range/Units 11:29 POC Glucose 110 H (74-106) MG/DL Meds: Medications Discontinued Medications Generic Name Dose Route Start Last Admin Trade Name Freq PRN Reason Stop Dose Admin Ondansetron HCl 4 mg 06/15/20 11:28 06/15/20 11:33 Ondansetron 4 Mg Tab.Dis PO 06/15/20 11:29 4 mg ONETIME ONE Administration - Re-Assessments/Exams Free Text/Narrative Re-Assessment/Exam: 06/15/20 13:02 [id number] glucose was obtained and was 110, she was given 4 mg of sublingual Zofran. She continued to improve, and was discharged with 5 additional doses and will return if worsening Departure - Departure Time of Disposition: 12:13 Disposition: Home, Self-Care 01 Clinical Impression: Nausea & vomiting Qualifiers: Vomiting type: unspecified Vomiting Intractability: non-intractable Qualified Code(s): R11.2 - Nausea with vomiting, unspecified - Discharge Information Instructions: Nausea and Vomiting, Adult Referrals: Nabeel Sanders MD [Primary Care Provider] - Forms: ED Department Discharge Care Plan Goals: Rest today, use Zofran every 4-6 hours if needed for nausea and vomiting, and return anytime if worsening. Just clear liquids until feeling better and then advance diet as tolerated. Sepsis Event Note (ED) - Evaluation Sepsis Screening Result: No Definite Risk - Focused Exam Vital Signs: Vital Signs Temp Pulse Resp BP Pulse Ox 06/15/20 11:36 81 181/66 H 06/15/20 11:29 81 16 212/91 H 92 L 06/15/20 11:13 98 F 89 20 228/101 H 95
[2020-06-15 13:31] VITALS: BP 181/66; PULSE 81
== END 2020-06-15 12:15 | disposition home or self-care (01) ==
LOC: JP.ED 10:54
DX: R11.2 Nausea with vomiting, unspecified (principal); I13.0 Hypertensive heart and chronic kidney disease with heart failure and stage 1 through stage 4 chronic kidney disease, or unspecified chronic kidney disease; E11.22 Type 2 diabetes mellitus with diabetic chronic kidney disease; N18.9 Chronic kidney disease, unspecified; I50.9 Heart failure, unspecified; J45.909 Unspecified asthma, uncomplicated; E66.9 Obesity, unspecified; Z68.30 Body mass index [BMI] 30.0-30.9, adult; Z79.899 Other long term (current) drug therapy; Z79.82 Long term (current) use of aspirin; Z91.09 Other allergy status, other than to drugs and biological substances; Z88.6 Allergy status to analgesic agent
CPT/HCPCS: 82962; 99284; A9270

== ENCOUNTER 2020-09-03 17:36 | Emergency (ER) | payer MEDICAID ==
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
[2020-09-03] MEDS ORDERED: cloNIDine 0.1 MG Tab PO ONE ×2 (18:50→20:23)
[2020-09-03] MEDS ORDERED: amLODIPine 5 MG Tab PO ONE (19:54)
[2020-09-03] MEDS ORDERED: Metoprolol Tartrate 50 MG Tab PO ONE (19:55)
[2020-09-03 21:10] VITALS: PULSE 56
[2020-09-03 21:33] VITALS: BP 167/67
== END 2020-09-03 22:08 | disposition home or self-care (01) ==
LOC: JP.ED 17:36
DX: I16.0 Hypertensive urgency (principal); I11.0 Hypertensive heart disease with heart failure; I50.9 Heart failure, unspecified; E11.9 Type 2 diabetes mellitus without complications; E66.01 Morbid (severe) obesity due to excess calories; Z79.4 Long term (current) use of insulin; Z79.899 Other long term (current) drug therapy; Z88.8 Allergy status to other drugs, medicaments and biological substances; Z91.09 Other allergy status, other than to drugs and biological substances; Z68.43 Body mass index [BMI] 50.0-59.9, adult
CPT/HCPCS: 36415; 80053; 83880; 84484; 85025; 93005; 99283; A9270; 93010

== ENCOUNTER 2022-01-28 10:58 | Inpatient (IN) | payer MEDICAID ==
[2022-01-28] MEDS ORDERED: Furosemide 40 MG/4 ML VIAL IVPUSH ONE (11:52)
[2022-01-28 13:14] LABS: ESTIMATED GFR 24 mL/min (>60); TROPONIN I HIGH SENSITIVITY 9.6 pg/mL (<=60.3)
[2022-01-28 14:11] LABS: CORONAVIRUS COVID-19 NAA NEGATIVE (NEGATIVE)
[2022-01-28] MEDS ORDERED: Acetaminophen 325 MG Tab PO PRN (15:47)
[2022-01-28] MEDS ORDERED: Albuterol/Ipratropium 3.0-0.5 MG/3 ML Neb Soln NEB PRN (15:47)
[2022-01-28] MEDS ORDERED: Ondansetron 4 MG/2 ML SDV IV PRN (15:47)
[2022-01-28] MEDS ORDERED: 50% Dextrose in Water 50 ML Syringe IV PRN (15:47)
[2022-01-28] MEDS ORDERED: Glucose Gel 15 GM in 37.5 GM Tube PO PRN (15:47)
[2022-01-28] MEDS ORDERED: Albuterol 90 MCG/6.7 GM Inhaler INH PRN (15:47)
[2022-01-28] MEDS ORDERED: Sodium Chloride 0.9% 10 ML Syringe FLUSH PRN (15:47)
[2022-01-28] MEDS: Insulin Lispro 100 Unit/ML 3 ML KwikPen SUBCUT SCH ×3 (17:44→22:06)
[2022-01-28] MEDS: Enoxaparin 30 MG/0.3 ML Syringe SUBCUT SCH (17:45)
[2022-01-28] MEDS: Bumetanide 2.5 MG/10 ML MDV IVPUSH SCH (19:48)
[2022-01-28] MEDS: Metoprolol Tartrate 50 MG Tab PO SCH (20:00)
[2022-01-28] MEDS: Sodium Bicarbonate 650 MG Tab PO SCH (20:00)
[2022-01-28] MEDS: atorvaSTATin 20 MG Tab PO SCH (20:00)
[2022-01-28] MEDS: cloNIDine 0.1 MG Tab PO SCH (20:00)
[2022-01-28] MEDS: Insulin Glargine,Human Rec. Analog 100 Units/ML 3 ML Pen SUBCUT SCH (22:11)
[2022-01-29] MEDS: Insulin Lispro 100 Unit/ML 3 ML KwikPen SUBCUT SCH ×7 (07:36→21:31)
[2022-01-29] MEDS: Pantoprazole 40 MG Tab.CR PO SCH (07:37)
[2022-01-29] MEDS: Bumetanide 2.5 MG/10 ML MDV IVPUSH SCH ×2 (07:38→19:44)
[2022-01-29] MEDS: Insulin Glargine,Human Rec. Analog 100 Units/ML 3 ML Pen SUBCUT SCH ×2 (08:57→21:28)
[2022-01-29] MEDS: cloNIDine 0.1 MG Tab PO SCH ×2 (09:10→21:24)
[2022-01-29] MEDS: Metoprolol Tartrate 50 MG Tab PO SCH ×2 (09:12→21:23)
[2022-01-29] MEDS: Aspirin 81 MG Tab.EC PO SCH (09:12)
[2022-01-29] MEDS: Lisinopril 20 MG Tab PO SCH (09:13)
[2022-01-29] MEDS: Sodium Bicarbonate 650 MG Tab PO SCH ×2 (09:17→21:27)
[2022-01-29] MEDS: Enoxaparin 30 MG/0.3 ML Syringe SUBCUT SCH (17:26)
[2022-01-29] MEDS: atorvaSTATin 20 MG Tab PO SCH (21:23)
[2022-01-30] MEDS: Insulin Lispro 100 Unit/ML 3 ML KwikPen SUBCUT SCH ×7 (07:08→20:42)
[2022-01-30] MEDS: Bumetanide 2.5 MG/10 ML MDV IVPUSH SCH (07:10)
[2022-01-30] MEDS: Pantoprazole 40 MG Tab.CR PO SCH (07:10)
[2022-01-30] MEDS: Insulin Glargine,Human Rec. Analog 100 Units/ML 3 ML Pen SUBCUT SCH ×2 (08:18→20:42)
[2022-01-30] MEDS: Lisinopril 20 MG Tab PO SCH (08:25)
[2022-01-30] MEDS: cloNIDine 0.1 MG Tab PO SCH ×2 (08:25→20:39)
[2022-01-30] MEDS: Sodium Bicarbonate 650 MG Tab PO SCH ×2 (08:26→20:41)
[2022-01-30] MEDS: Aspirin 81 MG Tab.EC PO SCH (08:26)
[2022-01-30] MEDS: Metoprolol Tartrate 50 MG Tab PO SCH ×2 (08:26→20:39)
[2022-01-30] MEDS: Enoxaparin 30 MG/0.3 ML Syringe SUBCUT SCH (17:45)
[2022-01-30] MEDS: atorvaSTATin 20 MG Tab PO SCH (20:41)
[2022-01-31] MEDS: Insulin Lispro 100 Unit/ML 3 ML KwikPen SUBCUT SCH ×2 (08:05→08:09)
[2022-01-31] MEDS: Insulin Glargine,Human Rec. Analog 100 Units/ML 3 ML Pen SUBCUT SCH (08:07)
[2022-01-31] MEDS: Metoprolol Tartrate 50 MG Tab PO SCH (08:11)
[2022-01-31] MEDS: Sodium Bicarbonate 650 MG Tab PO SCH (08:12)
[2022-01-31] MEDS: Lisinopril 20 MG Tab PO SCH (08:12)
[2022-01-31] MEDS: cloNIDine 0.1 MG Tab PO SCH (08:12)
[2022-01-31] MEDS: Aspirin 81 MG Tab.EC PO SCH (08:12)
[2022-01-31] MEDS: Pantoprazole 40 MG Tab.CR PO SCH (08:13)
[2022-01-31 08:14] VITALS: BP 154/64; PULSE 67
[2022-01-31] MEDS ORDERED: Bumetanide 1 MG/4 ML MDV IVPUSH ONE (08:45)
[2022-01-31] MEDS ORDERED: Bumetanide 2.5 MG/10 ML MDV IVPUSH ONE (08:45)
== END 2022-01-31 11:05 | disposition home or self-care (01) | DRG 291 ==
LOC: JP.ED 10:58 → JP.MS 13:31
PROVIDERS: ADMIT Hospitalist; ATTEND Hospitalist
DX: I13.0 Hypertensive heart and chronic kidney disease with heart failure and stage 1 through stage 4 chronic kidney disease, or unspecified chronic kidney disease (principal); I50.33 Acute on chronic diastolic (congestive) heart failure; J96.21 Acute and chronic respiratory failure with hypoxia; N18.4 Chronic kidney disease, stage 4 (severe); Z68.43 Body mass index [BMI] 50.0-59.9, adult; E11.22 Type 2 diabetes mellitus with diabetic chronic kidney disease; H54.7 Unspecified visual loss; J45.909 Unspecified asthma, uncomplicated; G47.30 Sleep apnea, unspecified; K59.09 Other constipation; M19.90 Unspecified osteoarthritis, unspecified site; E66.9 Obesity, unspecified; F41.9 Anxiety disorder, unspecified; Z88.6 Allergy status to analgesic agent; Z88.8 Allergy status to other drugs, medicaments and biological substances; Z79.82 Long term (current) use of aspirin; Z79.4 Long term (current) use of insulin; Z86.19 Personal history of other infectious and parasitic diseases; Z90.49 Acquired absence of other specified parts of digestive tract; Z98.890 Other specified postprocedural states; Z87.891 Personal history of nicotine dependence
CPT/HCPCS: 0241U; 36415; 36600; 71045; 71045-26; 80048; 80053; 82803; 83735; 84484; 85025; 90686; 93306; 96374; 99285-25; A9270-GY; J1650; J1815; J1815-GY; J1940; J3490

== ENCOUNTER 2022-06-20 11:25 | Inpatient (IN) | payer MEDICAID ==
[2022-06-20] MEDS ORDERED: Sodium Chloride 0.9% 10 ML Syringe FLUSH PRN ×2 (11:27→14:05)
[2022-06-20] MEDS ORDERED: Furosemide 40 MG/4 ML VIAL IVPUSH ONE (12:15)
[2022-06-20 12:32] LABS: ESTIMATED GFR 19 mL/min (>60)
[2022-06-20 12:33] LABS: TROPONIN I HIGH SENSITIVITY 11.1 pg/mL (<=60.3)
[2022-06-20 12:48] LABS: CORONAVIRUS COVID-19 NAA NEGATIVE (NEGATIVE)
[2022-06-20] MEDS ORDERED: Albuterol 90 MCG/6.7 GM Inhaler INH PRN (14:05)
[2022-06-20] MEDS ORDERED: Albuterol 0.083% 2.5 MG/3 ML Neb Soln NEB PRN (14:05)
[2022-06-20] MEDS ORDERED: Acetaminophen 325 MG Tab PO PRN (14:05)
[2022-06-20] MEDS ORDERED: 50% Dextrose in Water 50 ML Syringe IVPUSH PRN (14:05)
[2022-06-20] MEDS ORDERED: Glucagon,Human Recombinant 1 MG Vial IM PRN (14:05)
[2022-06-20] MEDS ORDERED: 50% Dextrose in Water 50 ML Syringe IV PRN (14:05)
[2022-06-20] MEDS ORDERED: Ondansetron 4 MG/2 ML SDV IV PRN (14:05)
[2022-06-20] MEDS ORDERED: Glucose Gel 15 GM in 37.5 GM Tube PO PRN (14:05)
[2022-06-20] MEDS: Insulin Lispro 100 Unit/ML 3 ML KwikPen SUBCUT SCH ×3 (17:31→19:27)
[2022-06-20] MEDS: Enoxaparin 30 MG/0.3 ML Syringe SUBCUT SCH (17:37)
[2022-06-20] MEDS: Bumetanide 1 MG/4 ML MDV IVPUSH SCH (19:16)
[2022-06-20] MEDS: Insulin Glargine,Human Rec. Analog 100 Units/ML 3 ML Pen SUBCUT SCH (22:10)
[2022-06-20] MEDS: Sodium Bicarbonate 650 MG Tab PO SCH (22:11)
[2022-06-20] MEDS: Metoprolol Tartrate 50 MG Tab PO SCH (22:12)
[2022-06-20] MEDS: atorvaSTATin 20 MG Tab PO SCH (22:12)
[2022-06-21] MEDS: Bumetanide 1 MG/4 ML MDV IVPUSH SCH ×2 (07:43→19:30)
[2022-06-21] MEDS: Pantoprazole 40 MG Tab.CR PO SCH (07:51)
[2022-06-21] MEDS: Insulin Lispro 100 Unit/ML 3 ML KwikPen SUBCUT SCH ×7 (08:42→21:19)
[2022-06-21] MEDS: Metoprolol Tartrate 50 MG Tab PO SCH ×2 (08:48→21:14)
[2022-06-21] MEDS: Sodium Bicarbonate 650 MG Tab PO SCH ×2 (08:48→21:18)
[2022-06-21] MEDS: Lisinopril 20 MG Tab PO SCH (08:48)
[2022-06-21] MEDS: Aspirin 81 MG Tab.EC PO SCH (08:49)
[2022-06-21] MEDS: amLODIPine 5 MG Tab PO SCH (08:49)
[2022-06-21] MEDS: Enoxaparin 30 MG/0.3 ML Syringe SUBCUT SCH (16:40)
[2022-06-21] MEDS: atorvaSTATin 20 MG Tab PO SCH (21:14)
[2022-06-21] MEDS: Insulin Glargine,Human Rec. Analog 100 Units/ML 3 ML Pen SUBCUT SCH (21:18)
[2022-06-22] MEDS: Pantoprazole 40 MG Tab.CR PO SCH (07:24)
[2022-06-22] MEDS: Bumetanide 1 MG/4 ML MDV IVPUSH SCH ×2 (07:24→19:48)
[2022-06-22] MEDS: Insulin Lispro 100 Unit/ML 3 ML KwikPen SUBCUT SCH ×7 (08:14→21:46)
[2022-06-22] MEDS: Insulin Glargine,Human Rec. Analog 100 Units/ML 3 ML Pen SUBCUT SCH ×2 (08:15→21:47)
[2022-06-22] MEDS: Sodium Bicarbonate 650 MG Tab PO SCH ×2 (08:19→21:48)
[2022-06-22] MEDS: amLODIPine 5 MG Tab PO SCH (08:19)
[2022-06-22] MEDS: Metoprolol Tartrate 50 MG Tab PO SCH ×2 (08:19→21:49)
[2022-06-22] MEDS: Lisinopril 20 MG Tab PO SCH (08:19)
[2022-06-22] MEDS: Aspirin 81 MG Tab.EC PO SCH (08:19)
[2022-06-22] MEDS: Enoxaparin 30 MG/0.3 ML Syringe SUBCUT SCH (17:09)
[2022-06-22] MEDS: atorvaSTATin 20 MG Tab PO SCH (21:48)
[2022-06-23] MEDS: Bumetanide 1 MG/4 ML MDV IVPUSH SCH ×2 (07:49→19:30)
[2022-06-23] MEDS: Pantoprazole 40 MG Tab.CR PO SCH (07:56)
[2022-06-23] MEDS: Insulin Glargine,Human Rec. Analog 100 Units/ML 3 ML Pen SUBCUT SCH ×2 (08:00→22:06)
[2022-06-23] MEDS: Insulin Lispro 100 Unit/ML 3 ML KwikPen SUBCUT SCH ×7 (08:00→22:06)
[2022-06-23] MEDS: Metoprolol Tartrate 50 MG Tab PO SCH ×2 (08:08→22:08)
[2022-06-23] MEDS: Lisinopril 20 MG Tab PO SCH (08:08)
[2022-06-23] MEDS: Aspirin 81 MG Tab.EC PO SCH (08:08)
[2022-06-23] MEDS: amLODIPine 5 MG Tab PO SCH (08:09)
[2022-06-23] MEDS: Sodium Bicarbonate 650 MG Tab PO SCH ×2 (10:57→22:07)
[2022-06-23] MEDS: Enoxaparin 30 MG/0.3 ML Syringe SUBCUT SCH (16:58)
[2022-06-23] MEDS: atorvaSTATin 20 MG Tab PO SCH (22:07)
[2022-06-24] MEDS: Bumetanide 1 MG/4 ML MDV IVPUSH SCH (07:26)
[2022-06-24] MEDS: Insulin Lispro 100 Unit/ML 3 ML KwikPen SUBCUT SCH ×7 (08:10→20:34)
[2022-06-24] MEDS: Pantoprazole 40 MG Tab.CR PO SCH (08:11)
[2022-06-24] MEDS: Aspirin 81 MG Tab.EC PO SCH (08:11)
[2022-06-24] MEDS: Insulin Glargine,Human Rec. Analog 100 Units/ML 3 ML Pen SUBCUT SCH ×2 (08:12→20:34)
[2022-06-24] MEDS: Metoprolol Tartrate 50 MG Tab PO SCH ×2 (08:16→20:35)
[2022-06-24] MEDS: amLODIPine 5 MG Tab PO SCH (08:19)
[2022-06-24] MEDS: Lisinopril 20 MG Tab PO SCH (08:19)
[2022-06-24] MEDS: Sodium Bicarbonate 650 MG Tab PO SCH ×2 (08:19→20:35)
[2022-06-24] MEDS ORDERED: Bumetanide 1 MG/4 ML MDV IVPUSH SCH (16:00)
[2022-06-24] MEDS: Enoxaparin 30 MG/0.3 ML Syringe SUBCUT SCH (16:57)
[2022-06-24] MEDS: atorvaSTATin 20 MG Tab PO SCH (20:36)
[2022-06-25] MEDS: Bumetanide 1 MG/4 ML MDV IVPUSH SCH (05:43)
[2022-06-25] MEDS: Insulin Lispro 100 Unit/ML 3 ML KwikPen SUBCUT SCH ×7 (08:05→20:54)
[2022-06-25] MEDS: Insulin Glargine,Human Rec. Analog 100 Units/ML 3 ML Pen SUBCUT SCH ×2 (08:06→20:56)
[2022-06-25] MEDS: Metoprolol Tartrate 50 MG Tab PO SCH ×2 (08:10→20:56)
[2022-06-25] MEDS: Pantoprazole 40 MG Tab.CR PO SCH (08:10)
[2022-06-25] MEDS: Aspirin 81 MG Tab.EC PO SCH (08:10)
[2022-06-25] MEDS: amLODIPine 5 MG Tab PO SCH (08:11)
[2022-06-25] MEDS: Sodium Bicarbonate 650 MG Tab PO SCH ×2 (08:11→20:55)
[2022-06-25] MEDS: Lisinopril 20 MG Tab PO SCH (08:11)
[2022-06-25] MEDS ORDERED: Sodium Polystyrene Sulfonate 15 GM/60 ML Susp 60 ML Bot PO ONE (14:45)
[2022-06-25] MEDS: Enoxaparin 30 MG/0.3 ML Syringe SUBCUT SCH (15:41)
[2022-06-25] MEDS: Bumetanide 2.5 MG/10 ML MDV IVPUSH SCH (15:43)
[2022-06-25] MEDS: atorvaSTATin 20 MG Tab PO SCH (20:55)
[2022-06-26] MEDS: Bumetanide 1 MG/4 ML MDV IVPUSH SCH (05:19)
[2022-06-26] MEDS: Insulin Lispro 100 Unit/ML 3 ML KwikPen SUBCUT SCH ×7 (07:59→20:16)
[2022-06-26] MEDS: Pantoprazole 40 MG Tab.CR PO SCH (08:01)
[2022-06-26] MEDS: Insulin Glargine,Human Rec. Analog 100 Units/ML 3 ML Pen SUBCUT SCH ×2 (08:02→20:16)
[2022-06-26] MEDS: amLODIPine 5 MG Tab PO SCH (08:08)
[2022-06-26] MEDS: Aspirin 81 MG Tab.EC PO SCH (08:08)
[2022-06-26] MEDS: Metoprolol Tartrate 50 MG Tab PO SCH ×2 (08:08→20:18)
[2022-06-26] MEDS: Sodium Bicarbonate 650 MG Tab PO SCH ×2 (08:09→20:17)
[2022-06-26] MEDS: Lisinopril 20 MG Tab PO SCH (08:09)
[2022-06-26] MEDS: Enoxaparin 30 MG/0.3 ML Syringe SUBCUT SCH (15:31)
[2022-06-26] MEDS: Bumetanide 2.5 MG/10 ML MDV IVPUSH SCH (15:33)
[2022-06-26] MEDS: atorvaSTATin 20 MG Tab PO SCH (20:17)
[2022-06-27] MEDS: Bumetanide 1 MG/4 ML MDV IVPUSH SCH (05:37)
[2022-06-27] MEDS: Pantoprazole 40 MG Tab.CR PO SCH (08:06)
[2022-06-27] MEDS: Sodium Bicarbonate 650 MG Tab PO SCH ×2 (08:06→21:21)
[2022-06-27] MEDS: Insulin Glargine,Human Rec. Analog 100 Units/ML 3 ML Pen SUBCUT SCH ×2 (08:06→21:18)
[2022-06-27] MEDS: amLODIPine 5 MG Tab PO SCH (08:06)
[2022-06-27] MEDS: Metoprolol Tartrate 50 MG Tab PO SCH ×2 (08:06→21:21)
[2022-06-27] MEDS: Lisinopril 20 MG Tab PO SCH (08:06)
[2022-06-27] MEDS: Aspirin 81 MG Tab.EC PO SCH (08:06)
[2022-06-27] MEDS: Insulin Lispro 100 Unit/ML 3 ML KwikPen SUBCUT SCH ×7 (08:18→21:19)
[2022-06-27] MEDS ORDERED: Dimethicone 20%/Zinc Oxide 25% 56 GM Spray Bottle TOP PRN (16:07)
[2022-06-27] MEDS: Bumetanide 2.5 MG/10 ML MDV IVPUSH SCH (16:50)
[2022-06-27] MEDS: Enoxaparin 30 MG/0.3 ML Syringe SUBCUT SCH (16:50)
[2022-06-27] MEDS: atorvaSTATin 20 MG Tab PO SCH (21:21)
[2022-06-28] MEDS: Bumetanide 1 MG/4 ML MDV IVPUSH SCH (06:13)
[2022-06-28] MEDS: amLODIPine 5 MG Tab PO SCH (08:03)
[2022-06-28] MEDS: Sodium Bicarbonate 650 MG Tab PO SCH (08:03)
[2022-06-28] MEDS: Pantoprazole 40 MG Tab.CR PO SCH (08:03)
[2022-06-28] MEDS: Aspirin 81 MG Tab.EC PO SCH (08:04)
[2022-06-28] MEDS: Metoprolol Tartrate 50 MG Tab PO SCH (08:04)
[2022-06-28] MEDS: Lisinopril 20 MG Tab PO SCH (08:04)
[2022-06-28] MEDS: Insulin Lispro 100 Unit/ML 3 ML KwikPen SUBCUT SCH ×3 (08:05→11:51)
[2022-06-28] MEDS: Insulin Glargine,Human Rec. Analog 100 Units/ML 3 ML Pen SUBCUT SCH (08:06)
[2022-06-28 12:06] VITALS: BP 152/53; PULSE 61
== END 2022-06-28 12:35 | disposition home or self-care (01) | DRG 291 ==
LOC: JP.ED 11:25 → JP.MS 13:00
PROVIDERS: ADMIT Hospitalist; ATTEND Internal Medicine
DX: I13.0 Hypertensive heart and chronic kidney disease with heart failure and stage 1 through stage 4 chronic kidney disease, or unspecified chronic kidney disease (principal); I50.33 Acute on chronic diastolic (congestive) heart failure; J96.21 Acute and chronic respiratory failure with hypoxia; N18.4 Chronic kidney disease, stage 4 (severe); Z68.43 Body mass index [BMI] 50.0-59.9, adult; E66.01 Morbid (severe) obesity due to excess calories; E11.22 Type 2 diabetes mellitus with diabetic chronic kidney disease; M06.9 Rheumatoid arthritis, unspecified; J45.909 Unspecified asthma, uncomplicated; Z20.822 Contact with and (suspected) exposure to COVID-19; E87.6 Hypokalemia; F41.9 Anxiety disorder, unspecified; K59.09 Other constipation; Z79.4 Long term (current) use of insulin; Z79.82 Long term (current) use of aspirin; Z79.52 Long term (current) use of systemic steroids; Z79.899 Other long term (current) drug therapy; Z88.8 Allergy status to other drugs, medicaments and biological substances; Z97.3 Presence of spectacles and contact lenses; Z98.890 Other specified postprocedural states; Z90.49 Acquired absence of other specified parts of digestive tract; Z87.891 Personal history of nicotine dependence
CPT/HCPCS: 0241U; 36415; 71045; 71045-26; 71046; 71046-26; 80048; 80053; 82803; 82947; 83735; 83880; 84132; 84484; 85025; 85027; 93005; 93010; 96374; 97110-GP; 97116-GP; 97161-GP; 97530-GP; 99285; 99285-25; A9270-GY; J1650; J1815; J1815-GY; J1940; J3490

== ENCOUNTER 2022-08-21 18:36 | Emergency (ER) | payer MEDICAID ==
[2022-08-21 19:40] LABS: BASOPHILS ABSOLUTE AUTO 0.05 K/uL (0.00-0.10); BASOPHILS PERCENT AUTO 0.6 % (0.1-1.3); EOSINOPHILS ABSOLUTE AUTO 0.11 K/uL (0.00-0.40); EOSINOPHILS PERCENT AUTO 1.3 % (0.0-5.4); HEMATOCRIT 37.1 % (34.3-46.0); HEMOGLOBIN 10.8 g/dL (11.2-15.5); IMMATURE GRAN ABSOLUTE AUTO 0.03 K/uL (0.00-0.23); IMMATURE GRAN PERCENT AUTO 0.3 % (0.0-0.7); LYMPHOCYTES ABSOLUTE AUTO 0.69 K/uL (0.8-3.3); LYMPHOCYTES PERCENT AUTO 7.9 % (11.4-47.7); MEAN CORPUSCULAR HGB CONC 29.1 g/dL (31.6-35.5); MEAN CORPUSCULAR VOLUME 75.7 fL (81.4-99.0); MONOCYTES ABSOLUTE AUTO 0.55 K/uL (0.20-0.90); MONOCYTES PERCENT AUTO 6.3 % (3.3-12.6); NEUTROPHILS PERCENT AUTO 83.6 % (40.0-78.1); PLATELET COUNT,PLT 363 K/uL (130-375); WHITE BLOOD CELL COUNT,WBC 8.7 K/uL (3.2-11.0)
[2022-08-21 20:01] LABS: A/G RATIO 0.7 (1.2-2.2); ALANINE AMINOTRANSFERASE,ALT 21 U/L (12-78); ALKALINE PHOSPHATASE 96 U/L (46-116); ASPARTATE AMNIOTRANSFERASE,AST 13 U/L (15-37); BILIRUBIN TOTAL 0.8 mg/dL (0.2-1.0); BLOOD UREA NITROGEN,BUN 53 mg/dL (7-18); CALCIUM 8.7 mg/dL (8.5-10.1); CARBON DIOXIDE,CO2 30 mmol/L (21-32); CHLORIDE,CL 103 mmol/L (100-108); CREATININE 2.8 mg/dL (0.6-1.0); EST CRCL DRUG DOSING (CG) 16.69 mL/min; ESTIMATED GFR 19 mL/min (>60); GLUCOSE RANDOM 166 mg/dL (74-106); POTASSIUM,K 5.5 mmol/L (3.6-5.2); PROTEIN TOTAL,TP 7.1 g/dL (6.4-8.2); SODIUM,NA 139 mmol/L (140-148)
[2022-08-21 20:02] LABS: ANION GAP 11.5 mmol/L (5.0-14.0)
[2022-08-21 20:18] LABS: LYME AB IgG Negative (Negative); LYME AB IgM Positive (Negative)
[2022-08-21 20:21] VITALS: PULSE 55
[2022-08-21 20:47] VITALS: BP 161/56
== END 2022-08-21 21:13 | disposition home or self-care (01) ==
LOC: JP.ED 18:36
DX: A69.20 Lyme disease, unspecified (principal); J44.9 Chronic obstructive pulmonary disease, unspecified; E11.22 Type 2 diabetes mellitus with diabetic chronic kidney disease; N18.9 Chronic kidney disease, unspecified; Z86.16 Personal history of COVID-19; Z88.8 Allergy status to other drugs, medicaments and biological substances; Z79.82 Long term (current) use of aspirin; Z79.899 Other long term (current) drug therapy; Z79.4 Long term (current) use of insulin; Z87.891 Personal history of nicotine dependence
CPT/HCPCS: 36415; 80053; 85025; 86617; 86617-59; 86618; 99284